=== PATIENT | male | born 1960 | race Caucasian/White ===

== ENCOUNTER 2017-01-06 20:56 | Inpatient (IN) | payer OTHER ==
[2017-01-06 21:52] LABS: % IMMATURE GRANULYOCYTES 0.4 % (0.0-1.1); ABSOLUTE IMMATURE GRANULOCYTES 0.04 10^3/uL (0.00-0.10); ADD DIFF? NO; ADD MORPH? NO; ADD SCAN? NO; ATYPICAL LYMPHOCYTE FLAG 10 (0-99); FRAGMENT RBC FLAG 0 (0-99); HEMOGLOBIN 12.2 g/dL (13.7-17.5); LEFT SHIFT FLG 0 (0-99); LIPEMIA HEMOLYSIS FLAG 90 (0-99); MEAN CELL HEMOGLOBIN 30.6 pg (27.9-34.1); MEAN CELL HEMOGLOBIN CONCENTR. 33.9 g/dL (32.4-36.7); MEAN CELL VOLUME 90.2 fL (81.5-99.8); MEAN PLATELET VOLUME 9.9 fL (8.7-11.7); PLATELET CLUMPS FLAG 0 (0-99); PLATELET COUNT 306 10^3/uL (150-400); RED BLOOD CELL COUNT 3.99 10^6/uL (4.40-6.38); RED CELL DISTRIBUTION WIDTH 14.6 % (11.5-15.2)
--- NOTE | 2017-01-06 22:00 | EDPHY ---
H & P Stated Complaint: right foot bone infection- sent by clinic Time Seen by Provider: 01/06/17 21:51 HPI/ROS: Chief Complaint: Right foot pain HPI: 56-year-old diabetic male with a history of transmetatarsal amputation in the past by Dr. Tello for gangrene. Patient has been having increasing pain for the last 2 weeks. He has a nonhealing ulcer over the 1st metatarsal which is chronic. Patient was sent for an MRI today which was positive for osteomyelitis of the metatarsals. This was done at [facility]. He denies fevers or chills. Has increasing pain. No nausea or vomiting. No chest pain or shortness of breath. ROS: 10 point Review of Systems is negative except as noted in the HPI. PMH: Diabetes, atrial fibrillation, coronary artery disease, peripheral vascular disease, hypertension, pulmonary hypertension, diverticulitis Social History: Positive smoking, no alcohol, no recreational drug use Family History: non-contributory Physical Exam: Gen: Awake, Alert, No Distress HEENT: Nose: no rhinorrhea Eyes: PERRLA, EOMI Mouth: Moist mucosa Neck: Supple, no JVD Chest: nontender, lungs clear to auscultation Heart: S1, S2 normal, no murmur Abd: Soft, non-tender, no guarding Back: no CVA tenderness, no midline tenderness Ext: 2+ nonpitting edema, right foot has a transmetatarsal amputation with an open nonhealing ulcer over the 1st metatarsal. There is erythema to the mid foot. He has chronic vascular changes to bilateral lower extremities Skin: Per extremity exam Neuro: CN II-XII intact, Sensation grossly intact, Strength 5/5 in bilateral upper and lower extremities - Personal History Current Tetanus Diphtheria and Acellular Pertussis (TDAP): Unsure - Medical/Surgical History Hx Asthma: No Hx Chronic Respiratory Disease: No Hx Diabetes: Yes Hx Cardiac Disease: Yes Hx Renal Disease: No Hx Cirrhosis: No Hx Alcoholism: No Hx HIV/AIDS: No Hx Splenectomy or Spleen Trauma: No Other PMH: Gout, Arthritis, DM, HTN, Stents in Heart, Afib, CAD, Periferal Vascular Disease - Social History Smoking Status: Heavy smoker Constitutional: Initial Vital Signs Temperature (C) 37.6 C 01/06/17 21:06 Heart Rate 112 H 01/06/17 21:06 Respiratory Rate 24 H 01/06/17 21:06 Blood Pressure 155/77 H 01/06/17 21:06 O2 Sat (%) 90 L 01/06/17 21:06 O2 Delivery Mode Room Air Allergies/Adverse Reactions: latex Allergy (Verified 01/06/17 21:05) Home Medications: Medication Instructions Recorded Rivaroxaban [Xarelto] 20 mg PO DAILY 08/16/15 Insulin Detemir [Levemir] 60 unit SQ HS #1 vial 08/30/15 Insulin Lispro [Humalog] 15 unit SQ AC #1 vial 08/30/15 oxyCODONE IR [Oxycodone Ir (*)] 5 - 10 mg PO Q3 PRN #14 tab 08/30/15 Lisinopril [Zestril 20 mg (*)] 20 mg PO DAILY 10/08/15 metFORMIN HCL [Glucophage 500 mg 1,000 mg PO BIDMEAL 10/08/15 (*)] Amoxicillin/Clavulanate Pot 875 mg PO BID #20 tab 10/09/15 [Augmentin 875 MG TAB (*)] Atorvastatin Calcium [Lipitor 40 40 mg PO DAILY #0 tab 10/09/15 mg (*)] Carvedilol [Coreg (*)] 25 mg PO BIDMEAL #0 tab 10/09/15 Clopidogrel Bisulfate [Plavix (*)] 75 mg PO DAILY #0 tab 10/09/15 Digoxin [Lanoxin 0.25 mg] 0.25 mg PO DAILY10 #0 tab 10/09/15 Diltiazem Cd [Cardizem ER 120 MG 120 mg PO DAILY #0 cap 10/09/15 (*)] Furosemide [Lasix 20 MG (*)] 20 mg PO DAILY #0 tab 10/09/15 Gabapentin [Neurontin 300 MG (*)] 600 mg PO TID #0 cap 10/09/15 Insulin Lispro [humALOG LISPRO 100 0 unit SC TIDMEAL #0 unit 10/09/15 units/ml (*)] oxyCODONE/APAP 5/325 [Percocet 1 - 2 tab PO Q4 PRN #30 tab 10/09/15 5/325 (*)] Medical Decision Making ED Course/Re-evaluation: Case discussed with Dr. Tello, surgery. He is asking the patient be admitted to the hospitalist service. He will see the patient in the morning and evaluate for possible surgical treatment. Case discussed with Dr. Warren, hospitalist. She will admit to her service. I have ordered 1 g of vanc IV vancomycin. Patient is comfortable was not require analgesia at this time. - Data Points Laboratory Results: Laboratory Results 01/06/17 21:38 01/06/17 21:38 01/06/17 01/06/17 01/06/17 21:38 21:38 21:38 WBC 9.15 10^3/uL 10^3/uL (3.80-9.50) RBC 3.99 10^6/uL L 10^6/uL (4.40-6.38) Hgb 12.2 g/dL L g/dL (13.7-17.5) Hct 36.0 % L % (40.0-51.0) MCV 90.2 fL fL (81.5-99.8) MCH 30.6 pg pg (27.9-34.1) MCHC 33.9 g/dL g/dL (32.4-36.7) RDW 14.6 % % (11.5-15.2) Plt Count 306 10^3/uL 10^3/uL (150-400) MPV 9.9 fL fL (8.7-11.7) Neut % (Auto) 66.6 % % (39.3-74.2) Lymph % (Auto) 23.1 % % (15.0-45.0) [place] % (Auto) 8.1 % % (4.5-13.0) Eos % (Auto) 1.4 % % (0.6-7.6) Baso % (Auto) 0.4 % % (0.3-1.7) Nucleat RBC Rel Count 0.0 % % (0.0-0.2) Absolute Neuts (auto) 6.09 10^3/uL 10^3/uL (1.70-6.50) Absolute Lymphs (auto) 2.11 10^3/uL 10^3/uL (1.00-3.00) Absolute Monos (auto) 0.74 10^3/uL 10^3/uL (0.30-0.80) Absolute Eos (auto) 0.13 10^3/uL 10^3/uL (0.03-0.40) Absolute Basos (auto) 0.04 10^3/uL 10^3/uL (0.02-0.10) Absolute Nucleated RBC 0.00 10^3/uL 10^3/uL (0-0.01) Immature Gran % 0.4 % % (0.0-1.1) Immature Gran # 0.04 10^3/uL 10^3/uL (0.00-0.10) VBG Lactic Acid 2.1 mmol/L mmol/L (0.7-2.1) Sodium 134 mEq/L mEq/L (134-144) Potassium 4.4 mEq/L mEq/L (3.5-5.2) Chloride 98 mEq/L mEq/L (97-110) Carbon Dioxide 26 mEq/l mEq/l (22-31) Anion Gap 10 mEq/L mEq/L (8-16) BUN 22 mg/dL mg/dL (7-23) Creatinine 0.9 mg/dL mg/dL (0.7-1.3) Estimated GFR > 60 Glucose 206 mg/dL H mg/dL (70-100) Calcium 8.8 mg/dL mg/dL (8.5-10.4) Departure - Departure Disposition: [facility] Acute Condition: Fair Referrals: Palak Velez, PAC [Primary Care Provider] - As per Instructions
[2017-01-06 22:09] LABS: ANION GAP 10 mEq/L (8-16); CALCIUM 8.8 mg/dL (8.5-10.4); CARBON DIOXIDE 26 mEq/l (22-31); CHLORIDE 98 mEq/L (97-110); CREATININE 0.9 mg/dL (0.7-1.3); GLOMERULAR FILTRATION RATE > 60; GLUCOSE 206 mg/dL (70-100); POTASSIUM 4.4 mEq/L (3.5-5.2); SODIUM 134 mEq/L (134-144)
[2017-01-06] MEDS ORDERED: VANCOMYCIN HCL/NORMAL SALINE 250 ML IV ONE (22:56)
[2017-01-06] MEDS ORDERED: HYDROmorphONE/DILAUDID 1 MG/ML SYR IVP ONE (23:38)
[2017-01-06] MEDS ORDERED: GABAPENTIN 300 MG CAP PO ONE (23:42)
[2017-01-06] MEDS ORDERED: oxyCODONE IR 5 MG TAB PO ONE (23:42)
[2017-01-07] MEDS ORDERED: ONDANSETRON 4 MG/2 ML VIAL IVP PRN (00:27)
[2017-01-07] MEDS ORDERED: ACETAMINOPHEN 325 MG TAB PO PRN (00:27)
[2017-01-07] MEDS ORDERED: HYDROmorphONE/DILAUDID 1 MG/ML SYR IVP PRN (00:27)
[2017-01-07] MEDS ORDERED: ONDANSETRON DISINTEGRATING 4 MG TAB PO PRN (00:27)
[2017-01-07] MEDS: oxyCODONE IR 5 MG TAB PO PRN ×3 (00:42→13:05)
[2017-01-07] MEDS ORDERED: D50W 25 GM/50 ML SYR IVP PRN (01:24)
[2017-01-07 02:32] LABS: INR 3.15 (0.83-1.16); PROTIME(PATIENT) 32.8 SEC (12.0-15.0)
[2017-01-07 02:38] LABS: DIGOXIN 0.9 ng/mL (0.8-2.0)
[2017-01-07 03:16] LABS: APTT 54.2 SEC (23.0-38.0)
--- NOTE | 2017-01-07 05:20 | PDGENHP ---
History and Physical - Chief Complaint osteomyelitis of R foot wound - History of Present Illness Patient is a 56-year-old male with a history of DM2, CAD, atrial fibrillation , hypertension, hyperlipidemia, diastolic CHF, peripheral vascular disease who presents to the ED after outpatient imaging reveals osteomyelitis of a right foot wound. patient reports he had a transmetatarsal amputation of his right foot about a year ago. Postoperatively, patient had slow wound healing per his report, was following closely with vascular surgery. He has had a chronic nonhealing ulcer at the site of his TMA scar, which has recently become more erythematous, tender and with purulent discharge. today was evaluated in the outpatient setting, an MRI was ordered and completed at [facility]. He was informed that the MRI revealed evidence of an osteomyelitis and was told to come to the ED for further management. He denies any significant systemic symptoms, denies any obvious fevers, chills, nausea, vomiting, shortness of breath or chest pain. He does have increased pain in his right foot extending into his calf/su area. On arrival to the ED patient was afebrile and hemodynamically stable. Labs only showed hyperglycemia, without leukocytosis or significantly elevated lactic acid. He was cultured and initiated on IV vancomycin and admitted to the hospitalist service for further management. History Information - Allergies/Home Medication List Allergies/Adverse Reactions: latex Allergy (Verified 01/06/17 21:05) Home Medications: Rivaroxaban [Xarelto] 20 mg PO DAILY 08/16/15 [Last Taken 10/07/15 12:00] Lisinopril [Zestril 20 mg (*)] 20 mg PO DAILY 10/08/15 [Last Taken 10/08/15] metFORMIN HCL [Glucophage 500 mg (*)] 1,000 mg PO BIDMEAL 10/08/15 [Last Taken 10/07/15] I have personally reviewed and updated: family history, medical history, social history, surgical history - Past Medical History Additional medical history: Atrial fibrillation, on Xarelto. CAD, S/P PCI. hypertension. hyperlipidemia. diastolic CHF. diabetes mellitus type 2, on insulin. peripheral vascular disease. obstructive sleep apnea on nocturnal O2 - Surgical History Additional surgical history: right foot TMA 10/2015 - Family History Positive for: non-pertinent - Social History Smoking Status: Heavy smoker (1-2 packs a day) Alcohol Use: None Drug Use: None Additional social history: patient lives with his family, is originally from [facility], has been [place] many years Review of Systems ROS: 10pt was reviewed & negative except for what was stated in HPI & below Physical Exam Temp Pulse Resp BP Pulse Ox 36.8 C 97 28 H 138/78 H 90 L 01/07/17 01:04 01/07/17 01:04 01/07/17 01:04 01/07/17 01:04 01/07/17 01:04 Constitutional: no apparent distress, not in pain, obese Eyes: PERRL, anicteric sclera, EOMI Ears, Nose, Mouth, Throat: moist mucous membranes, hearing normal, ears appear normal, no oral mucosal ulcers Cardiovascular: no murmur, rub, or gallop, irregularly irregular, edema ( bilateral lower extremity edema), No JVD Peripheral Pulses: 0: dorsalis-pedis (R), 1+: dorsalis-pedis (L) Respiratory: no respiratory distress, no rales or rhonchi, clear to auscultation Gastrointestinal: normoactive bowel sounds, soft, non-tender abdomen, no palpable masses, No guarding, No rebound, No distension Genitourinary: no bladder fullness, no bladder tenderness Skin: other ( right foot s/p TMA with chronic ulcer with purulence and surrounding erythema and tenderness) Musculoskeletal: full muscle strength, no muscle tenderness, normal joint ROM, no joint effusions Neurologic: AAOx3, sensation intact bilaterally, CN II-XII Intact, No weakness, No numbness Psychiatric: interacting appropriately, not anxious, not encephalopathic, thought process linear Lab Data & Imaging Review 01/06/17 21:38 01/06/17 21:38 WBC 9.15 10^3/uL (3.80-9.50) 01/06/17 21:38 RBC 3.99 10^6/uL (4.40-6.38) L 01/06/17 21:38 Hgb 12.2 g/dL (13.7-17.5) L 01/06/17 21:38 Hct 36.0 % (40.0-51.0) L 01/06/17 21:38 MCV 90.2 fL (81.5-99.8) 01/06/17 21:38 MCH 30.6 pg (27.9-34.1) 01/06/17 21:38 MCHC 33.9 g/dL (32.4-36.7) 01/06/17 21:38 RDW 14.6 % (11.5-15.2) 01/06/17 21:38 Plt Count 306 10^3/uL (150-400) 01/06/17 21:38 MPV 9.9 fL (8.7-11.7) 01/06/17 21:38 Neut % (Auto) 66.6 % (39.3-74.2) 01/06/17 21:38 Lymph % (Auto) 23.1 % (15.0-45.0) 01/06/17 21:38 [place] % (Auto) 8.1 % (4.5-13.0) 01/06/17 21:38 Eos % (Auto) 1.4 % (0.6-7.6) 01/06/17 21:38 Baso % (Auto) 0.4 % (0.3-1.7) 01/06/17 21:38 Nucleat RBC Rel Count 0.0 % (0.0-0.2) 01/06/17 21:38 Absolute Neuts (auto) 6.09 10^3/uL (1.70-6.50) 01/06/17 21:38 Absolute Lymphs (auto) 2.11 10^3/uL (1.00-3.00) 01/06/17 21:38 Absolute Monos (auto) 0.74 10^3/uL (0.30-0.80) 01/06/17 21:38 Absolute Eos (auto) 0.13 10^3/uL (0.03-0.40) 01/06/17 21:38 Absolute Basos (auto) 0.04 10^3/uL (0.02-0.10) 01/06/17 21:38 Absolute Nucleated RBC 0.00 10^3/uL (0-0.01) 01/06/17 21:38 Immature Gran % 0.4 % (0.0-1.1) 01/06/17 21:38 Immature Gran # 0.04 10^3/uL (0.00-0.10) 01/06/17 21:38 PT 32.8 SEC (12.0-15.0) H 01/07/17 01:50 INR 3.15 (0.83-1.16) H 01/07/17 01:50 APTT 54.2 SEC (23.0-38.0) H 01/07/17 01:50 VBG Lactic Acid 2.1 mmol/L (0.7-2.1) 01/06/17 21:38 Sodium 134 mEq/L (134-144) 01/06/17 21:38 Potassium 4.4 mEq/L (3.5-5.2) 01/06/17 21:38 Chloride 98 mEq/L (97-110) 01/06/17 21:38 Carbon Dioxide 26 mEq/l (22-31) 01/06/17 21:38 Anion Gap 10 mEq/L (8-16) 01/06/17 21:38 BUN 22 mg/dL (7-23) 01/06/17 21:38 Creatinine 0.9 mg/dL (0.7-1.3) 01/06/17 21:38 Estimated GFR > 60 01/06/17 21:38 Glucose 206 mg/dL (70-100) H 01/06/17 21:38 Calcium 8.8 mg/dL (8.5-10.4) 01/06/17 21:38 Magnesium 2.0 mg/dL (1.6-2.3) 01/07/17 01:50 Digoxin 0.9 ng/mL (0.8-2.0) 01/07/17 01:50 Visualized and Interpreted imaging results: Yes Interpretation: MRI of right foot: Osteomyelitis of metatarsals Assessment & Plan Assessment: patient is a 56-year-old male with history of DM 2, peripheral vascular disease , CAD, diastolic dysfunction who presents to the ED with a right foot wound, outpatient MRI has confirmed osteomyelitis at the site of the wound. Plan: # R diabetic foot wound, osteomyelitis Patient has no systemic signs of infection, does not meet SIRS criteria, is afebrile and without leukocytosis. However, wound examination and MRI findings reveal cellulitis of R foot wound with confirmed osteomyelitis of the metatarsals. He was cultured, initiated on IV vancomycin. Will order PICC line and continue vanc, vascular surgery was consulted and will evaluate patient in the a.m. regarding need for debridement. # coagulopathy Patient is on xarelto, which can cause pt/ptt abnormalities. Given no signs of severe sepsis, do not suspect this is due to his infection. However, given possible need for debridement of his wound, will hold xarelto may need to reverse coagulopathy with ffp. # chronic afib Patient irregular on exam, but appears to be well rate-controlled. Digoxin level is wnl. Will check EKG, confirm and continue his home med regimen, except xarelto. # cad, diastolic CHF Patient denies any cardiac symptoms on today's presentation. Does have bilateral edema of lower extremities. Will check TTE, EKG and resume his home med regimen once confirmed. # DM2, Hyperglycemic on presentation, possibly due to acute infection. Will confirm and resume his home levemir dosing, as well as initiate sliding scale coverage TIDACD. # chronic tobacco use, PHANI, chronic respiratory failure Patient reports he is prescribed nocturnal O2 via nasal cannula, is not always complaint with this. Saturating well on presentation, denies any respiratory symptoms. Will provide supplemental O2 prn, offer nicotine replacement and provide nebs prn. # dispo: admit to inpatient service for likely > 2 [place] stay # gen: NPO for possible surgical procedure DVT ppx: on xarelto Full code
[2017-01-07 05:36] LABS: % IMMATURE GRANULYOCYTES 0.3 % (0.0-1.1); ABSOLUTE IMMATURE GRANULOCYTES 0.03 10^3/uL (0.00-0.10); ADD DIFF? NO; ADD MORPH? NO; ADD SCAN? NO; ATYPICAL LYMPHOCYTE FLAG 0 (0-99); FRAGMENT RBC FLAG 0 (0-99); HEMATOCRIT 35.5 % (40.0-51.0); HEMOGLOBIN 11.9 g/dL (13.7-17.5); LEFT SHIFT FLG 0 (0-99); LIPEMIA HEMOLYSIS FLAG 80 (0-99); MEAN CELL HEMOGLOBIN 29.8 pg (27.9-34.1); MEAN CELL HEMOGLOBIN CONCENTR. 33.5 g/dL (32.4-36.7); MEAN CELL VOLUME 88.8 fL (81.5-99.8); MEAN PLATELET VOLUME 9.7 fL (8.7-11.7); PLATELET CLUMPS FLAG 0 (0-99); PLATELET COUNT 303 10^3/uL (150-400); RED CELL DISTRIBUTION WIDTH 14.6 % (11.5-15.2)
[2017-01-07 05:44] LABS: ANION GAP 8 mEq/L (8-16); C-REACTIVE PROTEIN 74.9 mg/L (<10.0); CALCIUM 8.5 mg/dL (8.5-10.4); CARBON DIOXIDE 26 mEq/l (22-31); CHLORIDE 104 mEq/L (97-110); CREATININE 0.8 mg/dL (0.7-1.3); GLOMERULAR FILTRATION RATE > 60; GLUCOSE 136 mg/dL (70-100); POTASSIUM 4.8 mEq/L (3.5-5.2); SODIUM 138 mEq/L (134-144)
--- NOTE | 2017-01-07 05:57 | CPEKG ---
Heart Rate: 86 RR Interval: 698 QRSD Interval: 100 QT Interval: 320 QTC Interval: 383 QRS Elmer: 82 T Wave Elmer: 253 EKG Severity - ABNORMAL ECG - EKG Impression: ATRIAL FIBRILLATION EKG Impression: CONSIDER ANTERIOR INFARCT Electronically Signed By: Corky Garcia 07-Jan-2017 06:22:59
[2017-01-07] MEDS ORDERED: ALTEPLASE 2 MG VIAL IVP PRN (06:11)
[2017-01-07] MEDS: VANCOMYCIN 1.25 GM in D5W 250 ML IV SCH ×2 (09:09→13:00)
[2017-01-07] MEDS: NICOTINE 14 MG/24 HR PATCH TD SCH (09:09)
[2017-01-07] MEDS: INSULIN LISPRO 100 UNIT/ML SC SCH ×3 (09:10→18:29)
--- NOTE | 2017-01-07 09:49 | HOSPPROG ---
Hospitalist Progress Note Assessment/Plan: Patient is a 56 y/o w hx of DM2, CAD, afib, htn, hld, diastolic heart failure who present to the ED after OP imaging revealed Osteomyelitis of right foot. Today is my first encounter with the patient/ chart reviewed. Reviewed his care with Dr Romero who will be seeing him today. *Osteomyelitis/right foot diabetic infection transmetatarsal amputation of r foot approximately a year ago vancomycin ID and surgery to see # coagulopathy patient is on Xarelto being held today in setting of possible surgery INR is 3.15 # chronic Atrial fibrillation reviewed his 12 lead ECG which confirms this on Digoxin and Xarelto # cad, diastolic CHF has some lower ext edema echo ordered # DM2 SSI/resume home meds #Nicotine dependence cessation recommended has PHANI and is prescribed nocturnal O2 #Plan: likely surgery tomorrow/ Plavix and Xarelto on hold for pending surgery/ will need this resumed as soon as ok with surgical team Subjective: Senads foot has been more painful than usual. Objective: Vital Signs Temp Pulse Resp BP Pulse Ox 37.1 C 97 18 132/80 H 95 01/07/17 07:29 01/07/17 07:29 01/07/17 07:29 01/07/17 07:29 01/07/17 07:29 Laboratory Results 01/07/17 05:20 01/07/17 05:20 01/06/17 01/07/17 01/08/17 05:59 05:59 05:59 Intake Total 250 Output Total 600 Balance -350 PT 32.8 SEC (12.0-15.0) H 01/07/17 01:50 INR 3.15 (0.83-1.16) H 01/07/17 01:50 - Physical Exam Constitutional: chronically ill appearing, uncomfortable Eyes: PERRL Ears, Nose, Mouth, Throat: hearing normal Cardiovascular: systolic murmur, irregularly irregular Respiratory: no respiratory distress Gastrointestinal: normoactive bowel sounds Skin: warm, other (right foot with previous amputation/ no redness or drainage, but tenderness) Musculoskeletal: muscular tenderness Neurologic: AAOx3 Psychiatric: interacting appropriately, not anxious ICD10 Worksheet Patient Problems: Problems Problem Status Onset Afib Acute Cellulitis of right foot Acute Nicotine dependence Acute Wound infection Acute
[2017-01-07 10:09] LABS: SEDIMENTATION RATE 77 MM/HR (0-20)
[2017-01-07 10:15] LABS: HEMOGLOBIN A1C 9.3 % (4.0-6.0)
[2017-01-07] MEDS: VANCOMYCIN 1.5 GM in D5W 250 ML IV SCH (12:57)
--- NOTE | 2017-01-07 14:50 | ECHO ---
[id number] + + [address] : : [place] [address] : : [phone] + + Adult Echocardiographic Report + ---+ :Name: ROSS Ambar Date: 01/07/2017 10:10 AM : : Hospital Admission Number: [id number] Location: 358: :: 1960 Gender: Male Height: 67 in : :Age: 56 yrs Race: WH Weight: 220 lb : :Reason For Study: Eval LV Fx : : BSA: 2.1 meters2 : :History: Lower Extremity Edema : + ---+ MMode/2D Measurements \T\ Calculations IVSd: 1.3 cm LVIDd: 4.4 cm FS: 40.2 % Ao root diam: 3.1 cm LVPWd: 1.2 cm LVIDs: 2.6 cm EDV(Teich): 85.5 ml LA dimension: 1.3 cm ESV(Teich): 24.7 ml EF(Teich): 71.1 % Normal Measurement Values: + + :LVIDd (3.5-5.7cm) IVSd (0.6-1.1cm) LVPWd (0.6-1.1cm) Aortic Root (2.0-3.7cm)Left Atrium (1.5-4.0cm): :LV Vol(d) (76-115ml) LV Vol(s) (29-48ml) Ejec Fraction (50-65%)PV Lj (0.6- 1.2m/s) TV Lj (0.4-1.0m/s) : :MV E Lj (0.8-1.0m/s)MV A Lj (0.3-1.0m/s)LVOT Lj (0.7-1.2m/s) Asc Ao Lj ( 0.9-1.8m/s) : + + Doppler Measurements \T\ Calculations MV E max lj: Ao V2 max: AI max lj: LV V1 max: 119.9 cm/sec 232.1 cm/sec 255.2 cm/sec 74.0 cm/sec Ao max PG: AI max PG: LV V1 max P.6 mmHg 26.0 mmHg 2.2 mmHg PA V2 max: TR max lj: 96.4 cm/sec 260.6 cm/sec PA max P.7 mmHg TR max P.2 mmHg RAP systole: 5.0 mmHg RVSP(TR): 32.2 mmHg Left Ventricle The left ventricle is normal in size. There is mild concentric left ventricular hypertrophy. The left ventricular ejection fraction is normal. The rhythm is atrial fibrillation. Ejection Fraction = 70%. The left ventricular wall motion is normal. Right Ventricle The right ventricle is normal in size and function. Atria The left atrial size is normal. Right atrial size is normal. Mitral Valve There is mild focal calcification of the anterior mitral valve, this was seen on previous echo exams. Tricuspid Valve Normal tricuspid valve. There is trace to mild tricuspid regurgitation. Right ventricular systolic pressure is normal. Aortic Valve The aortic valve is trileaflet. There is no aortic stenosis. There is no aortic insufficiency. Pulmonic Valve The pulmonic valve is normal in structure and function. There is no pulmonic valvular regurgitation. Great Vessels The aortic root is normal size. Pericardium/Pleural There is no pericardial effusion. Conclusion A complete two-dimensional transthoracic echocardiogram was performed (2D, M-mode, Doppler and color flow Doppler). A complete two-dimensional transthoracic echocardiogram was performed (2D, M-mode, Doppler and color flow Doppler). There is mild concentric left ventricular hypertrophy. The left ventricular ejection fraction is normal. The rhythm is atrial fibrillation Ejection Fraction = 70%. The left ventricular wall motion is normal. The left atrial size is normal. There is mild focal calcification of the anterior mitral valve, this was seen on previous echo exams. There is trace to mild tricuspid regurgitation. Right ventricular systolic pressure is normal. The aortic valve is trileaflet. There is no pericardial effusion. Final Reading Physician: Konrad Granados signed on 01/07/2017 02:49 PM Ordering Physician: Janet Warren Performed By: Hussein Bautista, HOLLYCS
[2017-01-07] MEDS ORDERED: CLOPIDOGREL BISULFATE 75 MG TAB PO SCH (16:00)
[2017-01-07] MEDS: GABAPENTIN 100 MG CAP PO SCH ×2 (16:39→22:11)
[2017-01-07] MEDS: FUROSEMIDE 20 MG TAB PO SCH ×2 (16:39→22:10)
[2017-01-07] MEDS: GABAPENTIN 400 MG CAP PO SCH ×2 (16:39→22:11)
[2017-01-07] MEDS: CARVEDILOL 25 MG TAB PO SCH (16:39)
[2017-01-07] MEDS ORDERED: VANCOMYCIN 1.25 GM in D5W 250 ML IV SCH (17:00)
[2017-01-07] MEDS: DILTIAZEM CD 120 MG CAP PO SCH (17:21)
--- NOTE | 2017-01-07 17:39 | WOCRNPDOC ---
WOCRN Advanced Assessment Note - Skin Integrity Problem, Advanced Assess Right Foot Diabetic Ulcer Dressing Type: Open to Air Exudate Amount: None Integumentary Issue Intervention: Dressing Applied (Cavilon skin prep, Iodosorb gel, Allevyn dressing), Dressing Initialed & Dated Petra Wound Tissue: Erythema, Macerated, Calloused Petra Wound Swelling: Mild Wound Bed Color: Black, Brown, Red Wound Bed Constitution: Granulation Tissue, Adhered Slough (50%) Wound Edges: Irregular, Scarred, Thick Site Odor: None Site Measurement - Head-to-Toe Length X Width X Depth (cm): 2 x3 x 0.7 Skin Integrity Problem Comment: Wound opening at distal transmetatarsal amputation incision scar is at the great toe site. Erythema streaks are visible through [id number] coloration of the extremity. Patient reports tenderness radiating from the foot, along the lower extremity toward the knee; and that the amputation was done a year ago, followed by VAC tx for wound closure. Adherent slough and eschar occlude the rim of the wound bed. Patient reported to ANN MARIE Fitzgerald that he had been rubbing coconut oil into the scar and wound, and that he would like to return home to continue his own care. To this automatic typewriter inspector, he expressed feeling anxious that "they might amputate more," and that he has been having many difficulties coping with his current degree of disability, particularly in relation to the footwear. Explained current wound care plan and encouraged patient and son to communicate concerns and questions to the surgical team. Placed dressing, pending results of work-up and planning by surgical team. ANTOINETTE to be done by [facility] this evening.
--- NOTE | 2017-01-07 18:15 | PCMIDPN ---
Assessment/Plan: Assessment: Patient known to service from previous visit 18 months ago resulting in trans- met amputation of R foot. Apparently he has had difficulty healing this wound due to poor circulation and has developed an open ulcer that continues to drain. MRI reveals probable osteomyelitis. Covered currently on Vancomycin 1.5 g IV q 12 hours. This is fine for empiric therapy but will work with Dr. Tello to determine the operative approach as this deep infection would not be expected to ultimately resolves without debridement and coverage with soft tissue. Plan: 1) Continue empiric Vancomycin and monitor levels. 2) Follow up with surgical vascular studies and decisions on management. Subjective: Patient resting in bed. No new issues. Chronic open ulcer at site of TMA on R side. Objective: Vancomycin #1 Vital Signs Temp Pulse Resp BP Pulse Ox 37.1 C 95 16 141/81 H 96 01/07/17 15:53 01/07/17 17:21 01/07/17 15:53 01/07/17 17:21 01/07/17 15:53 Laboratory Results 01/07/17 05:20 01/07/17 05:20 01/06/17 01/07/17 01/08/17 05:59 05:59 05:59 Intake Total 250 Output Total 600 Balance -350 ESR 77 MM/HR (0-20) H 01/07/17 05:20 C-Reactive Protein 74.9 mg/L (<10.0) H 01/07/17 05:20 - Physical Exam General Appearance: WD/WN, alert, no apparent distress, non-toxic Respiratory: lungs clear, normal breath sounds Cardiac/Chest: regular rate, rhythm, No tachycardia Extremities: No normal inspection Skin: normal color, warm/dry, No rash Neuro/Psych: alert, normal mood/affect, oriented x 3 ICD10 Worksheet Patient Problems: Problems Problem Status Onset Afib Acute Cellulitis of right foot Acute Nicotine dependence Acute Wound infection Acute
--- NOTE | 2017-01-07 19:29 | SOAPPROG ---
SOAP Progress Note Assessment/Plan: Assessment: 56-YEAR-OLD MALE WELL KNOWN TO ME FROM WITH AN OPEN LESION ON HIS RIGHT FOOT AT THE TRANSMETATARSAL AMPUTATION LEVEL MRI SUGGEST OSTEOMYELITIS HAS VERY POOR CIRCULATION AND NO PALPABLE PEDAL PULSES RISKS AND OPTIONS WERE FULLY DISCUSSED WITH THE PATIENT INCLUDING THE POSSIBLE NEED FOR BK AMPUTATION WHICH SHE IS QUITE ADAMANT AGAINST Plan: A NONINVASIVE ARTERIAL STUDIES / REVIEW MRI WITH RADIOLOGY/ PROBABLE SAUCERIZATION OF THAT EXPOSED THE BONE 01/07/17 19:27 Objective: Vital Signs Temp Pulse Resp BP Pulse Ox 37.1 C 95 16 141/81 H 96 01/07/17 15:53 01/07/17 17:21 01/07/17 15:53 01/07/17 17:21 01/07/17 15:53 Laboratory Results 01/07/17 05:20 01/07/17 05:20 01/06/17 01/07/17 01/08/17 05:59 05:59 05:59 Intake Total 250 Output Total 600 1350 Balance -350 -1350 PT 32.8 SEC (12.0-15.0) H 01/07/17 01:50 INR 3.15 (0.83-1.16) H 01/07/17 01:50 ICD10 Worksheet Patient Problems: Problems Problem Status Onset Afib Acute Cellulitis of right foot Acute Nicotine dependence Acute Wound infection Acute
[2017-01-07] MEDS: Insulin Detemir [Levemir] 40 UNIT SQ SCH (22:11)
[2017-01-08] MEDS: VANCOMYCIN 1.5 GM in D5W 250 ML IV SCH ×2 (00:10→12:34)
[2017-01-08] MEDS: oxyCODONE IR 5 MG TAB PO PRN ×2 (08:48→19:43)
[2017-01-08] MEDS: GABAPENTIN 400 MG CAP PO SCH ×3 (08:49→21:33)
[2017-01-08] MEDS: DILTIAZEM CD 120 MG CAP PO SCH (08:49)
[2017-01-08] MEDS: CARVEDILOL 25 MG TAB PO SCH ×2 (08:50→18:25)
[2017-01-08] MEDS: GABAPENTIN 100 MG CAP PO SCH ×3 (08:50→21:33)
[2017-01-08] MEDS: FUROSEMIDE 20 MG TAB PO SCH ×3 (08:50→21:33)
[2017-01-08] MEDS: LISINOPRIL 20 MG TAB PO SCH (08:50)
[2017-01-08] MEDS: ATORVASTATIN CALCIUM 40 MG TAB PO SCH (08:50)
[2017-01-08] MEDS: DIGOXIN 250 MCG TAB PO SCH (08:50)
[2017-01-08] MEDS: INSULIN LISPRO 100 UNIT/ML SC SCH ×3 (08:51→18:05)
[2017-01-08] MEDS: NICOTINE 14 MG/24 HR PATCH TD SCH (08:54)
[2017-01-08] MEDS ORDERED: IOPAMIDOL (ISOVUE 370) 100 ML BTL IV ONE (10:34)
[2017-01-08] MEDS: INSULIN DETEMIR 35 UNIT SQ SCH (10:40)
--- NOTE | 2017-01-08 10:43 | SOAPPROG ---
SOAP Progress Note Assessment/Plan: Assessment: 56yo male with osteo right foot s/p transmetatarsal amputation 2016 Pain well controlled, comfortable PE comfortable alert no signs of distress Plan: CTA of lower ext today to aid in planning possible surgery over next few days seen with Dr Tello 01/08/17 10:41 Objective: Vital Signs Temp Pulse Resp BP Pulse Ox 37.2 C 96 18 146/87 H 94 01/08/17 07:41 01/08/17 08:50 01/08/17 07:41 01/08/17 08:50 01/08/17 07:41 Laboratory Results 01/07/17 05:20 01/07/17 05:20 01/07/17 01/08/17 01/09/17 05:59 05:59 05:59 Intake Total 250 950 Output Total 600 3350 Balance -350 -2400 PT 32.8 SEC (12.0-15.0) H 01/07/17 01:50 INR 3.15 (0.83-1.16) H 01/07/17 01:50 ICD10 Worksheet Patient Problems: Problems Problem Status Onset Afib Acute Cellulitis of right foot Acute Nicotine dependence Acute Wound infection Acute
--- NOTE | 2017-01-08 13:22 | HOSPPROG ---
Hospitalist Progress Note Assessment/Plan: Patient is a 56 y/o w hx of DM2, CAD, afib, htn, hld, diastolic heart failure who present to the ED after OP imaging revealed Osteomyelitis of right foot. *Osteomyelitis/right foot diabetic infection transmetatarsal amputation of r foot approximately a year ago vancomycin ID and surgery to see CTA pending # coagulopathy patient is on Xarelto (on HOLD) # chronic Atrial fibrillation reviewed his 12 lead ECG which confirms this on Digoxin [id number] score is 3 (high risk)- initiating a heparin gtt (ok with surgical team) # cad, diastolic CHF has some lower ext edema echo ordered # DM2 SSI/resume home meds #Nicotine dependence cessation recommended has PHANI and is prescribed nocturnal O2 said his smokes which makes it difficult to quit #Plan: likely surgery soon/ Plavix and Xarelto on hold for pending surgery/ will place on heparin gtt for bridge therapy Subjective: Temo is worried about the the base of his foot/left foot. Objective: Vital Signs Temp Pulse Resp BP Pulse Ox 37.0 C 94 20 138/62 H 91 L 01/08/17 11:41 01/08/17 11:41 01/08/17 11:41 01/08/17 11:41 01/08/17 11:41 Laboratory Results 01/07/17 05:20 01/07/17 05:20 01/07/17 01/08/17 01/09/17 05:59 05:59 05:59 Intake Total 250 950 Output Total 600 3350 650 Balance -350 -2400 -650 PT 32.8 SEC (12.0-15.0) H 01/07/17 01:50 INR 3.15 (0.83-1.16) H 01/07/17 01:50 - Physical Exam Constitutional: no apparent distress, not in pain Eyes: PERRL Ears, Nose, Mouth, Throat: hearing normal Cardiovascular: irregularly irregular Respiratory: no respiratory distress Gastrointestinal: normoactive bowel sounds Skin: warm, other (left foot with previous amputation, dressing in place/ left base area slightly dusky) Musculoskeletal: generalized weakness Neurologic: AAOx3 Psychiatric: interacting appropriately ICD10 Worksheet Patient Problems: Problems Problem Status Onset Afib Acute Cellulitis of right foot Acute Nicotine dependence Acute Wound infection Acute
--- NOTE | 2017-01-08 14:50 | CPIP ---
[f rep st] INVASIVE CARDIAC PROCEDURE DATE OF PROCEDURE: 01/07/2017 The patient was seen for arterial studies. He demonstrates ankle-brachial index on the right side o f 0.73, and on the left side of 0.73. However, his PVR tracings are much flatter and worse on the r ight side than the left. He does have a pulsatile flow at the ankle but very minimal. This would b e consistent with an SFA occlusion on the right. Would recommend angiography for further evaluation. The present level of flow would not support mitra jackson at the metatarsal level. /[id number]/MODL
--- NOTE | 2017-01-08 15:41 | PCMIDPN ---
Assessment/Plan: Severe PVD R 1st met OM associated with chr non healing ulcer, also lateral aspect of foot is dusky. No active cellulitis. R Superficial femoral artery now occluded --no MRSA in past, dc vancomycin --no cellulitis, no clear if needs antibiotic therapy prior to surgical intervention, will start ceftriaxone in place of vancomycin --discuss with surgery if R superficial femoral artery occlusion needs to be opened prior to debridement Subjective: mild pain associated with R foot Objective: Vital Signs Temp Pulse Resp BP Pulse Ox 37.0 C 94 20 138/62 H 91 L 01/08/17 11:41 01/08/17 11:41 01/08/17 11:41 01/08/17 11:41 01/08/17 11:41 Laboratory Results 01/07/17 05:20 01/07/17 05:20 01/07/17 01/08/17 01/09/17 05:59 05:59 05:59 Intake Total 250 950 Output Total 600 3350 650 Balance -350 -2400 -650 ESR 77 MM/HR (0-20) H 01/07/17 05:20 C-Reactive Protein 74.9 mg/L (<10.0) H 01/07/17 05:20 - Physical Exam General Appearance: alert, no apparent distress Respiratory: No respiratory distress, No accessory muscle use Extremities: other (R foot trans met with medial open wound, purulent/necrotic material in base foul smelling, no erythema. Lateral foot with some necrosis ) Skin: No rash Neuro/Psych: alert, normal mood/affect, oriented x 3 - Line/s RUE PICC Lines: No drainage, No erythema ICD10 Worksheet Patient Problems: Problems Problem Status Onset Afib Acute Cellulitis of right foot Acute Nicotine dependence Acute Wound infection Acute
--- NOTE | 2017-01-08 16:32 | SOAPPROG ---
SOAP Progress Note Assessment/Plan: Assessment: 56-YEAR-OLD MALE WELL KNOWN TO ME FROM WITH AN OPEN LESION ON HIS RIGHT FOOT AT THE TRANSMETATARSAL AMPUTATION LEVEL MRI SUGGEST OSTEOMYELITIS HAS VERY POOR CIRCULATION AND NO PALPABLE PEDAL PULSES RISKS AND OPTIONS WERE FULLY DISCUSSED WITH THE PATIENT INCLUDING THE POSSIBLE NEED FOR BK AMPUTATION WHICH SHE IS QUITE ADAMANT AGAINST Plan: A NONINVASIVE ARTERIAL STUDIES / REVIEW MRI WITH RADIOLOGY/ PROBABLE SAUCERIZATION OF THAT EXPOSED THE BONE 01/07/17 19:27 01/08/17 16:31 patient with nonhealing transmetatarsal amputation site on the right foot / are studies suggest a SFA occlusion / CTA confirms severe stenosis of his SFA stents Plan is Interventional Radiology angioplasty if feasible / if not successful in fem-pop bypass and eventual foot debridement Objective: Vital Signs Temp Pulse Resp BP Pulse Ox 37.0 C 94 20 138/62 H 91 L 01/08/17 11:41 01/08/17 11:41 01/08/17 11:41 01/08/17 11:41 01/08/17 11:41 Laboratory Results 01/07/17 05:20 01/07/17 05:20 01/07/17 01/08/17 01/09/17 05:59 05:59 05:59 Intake Total 250 950 Output Total 600 3350 650 Balance -350 -2400 -650 PT 32.8 SEC (12.0-15.0) H 01/07/17 01:50 INR 3.15 (0.83-1.16) H 01/07/17 01:50 ICD10 Worksheet Patient Problems: Problems Problem Status Onset Afib Acute Cellulitis of right foot Acute Nicotine dependence Acute Wound infection Acute
[2017-01-08] MEDS: Insulin Detemir [Levemir] 40 UNIT SQ SCH (21:33)
[2017-01-08] MEDS: HEPARIN 10,000 UNIT/10 ML MDV IVP PRN (22:20)
[2017-01-08] MEDS: HEPARIN/DEXTROSE 500 ML IV SCH (22:21)
[2017-01-09] MEDS: cefTRIAXone 2 GM in D5W 50 ML IV SCH (09:02)
[2017-01-09] MEDS: DIGOXIN 250 MCG TAB PO SCH (09:03)
[2017-01-09] MEDS: LISINOPRIL 20 MG TAB PO SCH (09:03)
[2017-01-09] MEDS: GABAPENTIN 400 MG CAP PO SCH ×3 (09:03→21:31)
[2017-01-09] MEDS: GABAPENTIN 100 MG CAP PO SCH ×3 (09:03→21:31)
[2017-01-09] MEDS: CARVEDILOL 25 MG TAB PO SCH ×2 (09:04→16:16)
[2017-01-09] MEDS: ATORVASTATIN CALCIUM 40 MG TAB PO SCH (09:04)
[2017-01-09] MEDS: DILTIAZEM CD 120 MG CAP PO SCH (09:04)
[2017-01-09] MEDS: FUROSEMIDE 20 MG TAB PO SCH ×3 (09:04→21:31)
--- NOTE | 2017-01-09 09:52 | HOSPPROG ---
Hospitalist Progress Note Assessment/Plan: Patient is a 56 y/o w hx of DM2, CAD, afib, htn, hld, diastolic heart failure who present to the ED after OP imaging revealed Osteomyelitis of right foot. *Osteomyelitis/right foot diabetic infection transmetatarsal amputation of r foot approximately a year ago vancomycin CTA shows recurrent severe stenosis of long stented segment of R SFA * Dr Tello reviewed options for treatment/plan is IR angioplasty on Wednesday, if not successful/need a fem-pop bypass and foot debridement # coagulopathy patient is on Xarelto (on HOLD) # chronic Atrial fibrillation reviewed his 12 lead ECG which confirms this on Digoxin [id number] score is 3 (high risk)- heparin gtt as bridge therapy # cad, diastolic CHF has some lower ext edema echo shows moderate LVH, ef 70% # DM2 SSI/resume home meds #Nicotine dependence cessation recommended has PHANI and is prescribed nocturnal O2 said his smokes which makes it difficult to quit #Plan: cont holding Plavix and Xarelto/ heparin gtt. Plan of care discussed with Temo. He is hopeful to not have any further amputations. Subjective: Temo is not c/o pain. Feeling well overall but is very concerned about possible treatments for his r foot. Objective: Vital Signs Temp Pulse Resp BP Pulse Ox 36.8 C 86 18 137/74 H 92 01/09/17 07:53 01/09/17 09:04 01/09/17 07:53 01/09/17 09:04 01/09/17 07:53 Laboratory Results 01/07/17 05:20 01/07/17 05:20 01/08/17 01/09/17 01/10/17 05:59 05:59 05:59 Intake Total 950 802 Output Total 3350 2520 Balance -2400 -1718 PT 32.8 SEC (12.0-15.0) H 01/07/17 01:50 INR 3.15 (0.83-1.16) H 01/07/17 01:50 - Physical Exam Constitutional: no apparent distress, uncomfortable Eyes: PERRL Ears, Nose, Mouth, Throat: hearing normal Cardiovascular: irregularly irregular Respiratory: no respiratory distress Gastrointestinal: soft, non-tender abdomen Skin: warm Musculoskeletal: No no muscle tenderness (right foot area) Neurologic: AAOx3 Psychiatric: interacting appropriately, anxious ICD10 Worksheet Patient Problems: Problems Problem Status Onset Afib Acute Cellulitis of right foot Acute Nicotine dependence Acute Wound infection Acute
[2017-01-09] MEDS: INSULIN LISPRO 100 UNIT/ML SC SCH ×3 (10:32→19:00)
[2017-01-09] MEDS: INSULIN DETEMIR 35 UNIT SQ SCH (11:17)
[2017-01-09] MEDS: NICOTINE 14 MG/24 HR PATCH TD SCH (11:18)
--- NOTE | 2017-01-09 13:19 | SOAPPROG ---
SOAP Progress Note Assessment/Plan: Assessment: 56-YEAR-OLD MALE WELL KNOWN TO ME FROM WITH AN OPEN LESION ON HIS RIGHT FOOT AT THE TRANSMETATARSAL AMPUTATION LEVEL MRI SUGGEST OSTEOMYELITIS HAS VERY POOR CIRCULATION AND NO PALPABLE PEDAL PULSES RISKS AND OPTIONS WERE FULLY DISCUSSED WITH THE PATIENT INCLUDING THE POSSIBLE NEED FOR BK AMPUTATION WHICH SHE IS QUITE ADAMANT AGAINST Plan: A NONINVASIVE ARTERIAL STUDIES / REVIEW MRI WITH RADIOLOGY/ PROBABLE SAUCERIZATION OF THAT EXPOSED THE BONE 01/07/17 19:27 01/08/17 16:31 patient with nonhealing transmetatarsal amputation site on the right foot / are studies suggest a SFA occlusion / CTA confirms severe stenosis of his SFA stents Plan is Interventional Radiology angioplasty if feasible / if not successful in fem-pop bypass and eventual foot debridement 01/09/17 13:18 STABLE/ AFEBRILE/ ANGIOPLASTY ON WEDNESDAY/ WOUND OK Objective: Vital Signs Temp Pulse Resp BP Pulse Ox 37.0 C 76 18 123/65 H 93 01/09/17 12:00 01/09/17 12:00 01/09/17 12:00 01/09/17 12:00 01/09/17 12:00 Laboratory Results 01/07/17 05:20 01/07/17 05:20 01/08/17 01/09/17 01/10/17 05:59 05:59 05:59 Intake Total 950 802 Output Total 3350 2520 Balance -2400 -1718 PT 32.8 SEC (12.0-15.0) H 01/07/17 01:50 INR 3.15 (0.83-1.16) H 01/07/17 01:50 ICD10 Worksheet Patient Problems: Problems Problem Status Onset Afib Acute Cellulitis of right foot Acute Nicotine dependence Acute Wound infection Acute
[2017-01-09] MEDS: Insulin Detemir [Levemir] 40 UNIT SQ SCH (21:31)
[2017-01-10] MEDS: oxyCODONE IR 5 MG TAB PO PRN ×3 (06:05→21:46)
[2017-01-10] MEDS: INSULIN DETEMIR 35 UNIT SQ SCH (08:17)
[2017-01-10] MEDS: DILTIAZEM CD 120 MG CAP PO SCH (08:17)
[2017-01-10] MEDS: LISINOPRIL 20 MG TAB PO SCH (08:18)
[2017-01-10] MEDS: ATORVASTATIN CALCIUM 40 MG TAB PO SCH (08:18)
[2017-01-10] MEDS: GABAPENTIN 400 MG CAP PO SCH ×3 (08:18→21:46)
[2017-01-10] MEDS: CARVEDILOL 25 MG TAB PO SCH ×2 (08:18→16:42)
[2017-01-10] MEDS: GABAPENTIN 100 MG CAP PO SCH ×3 (08:18→21:45)
[2017-01-10] MEDS: cefTRIAXone 2 GM in D5W 50 ML IV SCH (08:19)
[2017-01-10] MEDS: NICOTINE 14 MG/24 HR PATCH TD SCH (08:19)
[2017-01-10] MEDS: FUROSEMIDE 20 MG TAB PO SCH ×3 (08:19→21:47)
[2017-01-10] MEDS: INSULIN LISPRO 100 UNIT/ML SC SCH ×3 (10:10→18:29)
[2017-01-10] MEDS: DIGOXIN 250 MCG TAB PO SCH (10:13)
--- NOTE | 2017-01-10 11:16 | HOSPPROG ---
Hospitalist Progress Note Assessment/Plan: Patient is a 56 y/o w hx of DM2, CAD, afib, htn, hld, diastolic heart failure who present to the ED after OP imaging revealed Osteomyelitis of right foot. *Osteomyelitis/right foot diabetic infection transmetatarsal amputation of r foot approximately a year ago vancomycin CTA shows recurrent severe stenosis of long stented segment of R SFA * Dr Tello reviewed options for treatment/plan is IR angioplasty on Wednesday, if not successful/need a fem-pop bypass and foot debridement # coagulopathy patient is on Xarelto (on HOLD) # chronic Atrial fibrillation reviewed his 12 lead ECG which confirms this on Digoxin [id number] score is 3 (high risk)- heparin gtt as bridge therapy # cad, diastolic CHF has some lower ext edema echo shows moderate LVH, ef 70% # DM2 SSI glucoses low in a.m. /holding long acting night dose #Nicotine dependence cessation recommended has PHANI and is prescribed nocturnal O2 said his smokes which makes it difficult to quit #Plan: cont holding Plavix and Xarelto/on heparin gtt. Plan of care discussed with Temo. He is hopeful to not have any further amputations. Subjective: Temo is worried about his foot/ concerned the bone is showing through from the incision. Objective: Vital Signs Temp Pulse Resp BP Pulse Ox 36.8 C 87 20 149/80 H 95 01/10/17 07:28 01/10/17 10:13 01/10/17 07:28 01/10/17 08:18 01/10/17 07:28 Laboratory Results 01/10/17 04:10 01/07/17 05:20 01/09/17 01/10/17 01/11/17 05:59 05:59 05:59 Intake Total 802 878 500 Output Total 2520 795 550 Balance -1718 83 -50 PT 32.8 SEC (12.0-15.0) H 01/07/17 01:50 INR 3.15 (0.83-1.16) H 01/07/17 01:50 - Physical Exam Constitutional: appears nourished, uncomfortable Eyes: PERRL Ears, Nose, Mouth, Throat: hearing normal Cardiovascular: irregularly irregular Respiratory: no respiratory distress Gastrointestinal: normoactive bowel sounds, soft, non-tender abdomen Skin: warm Musculoskeletal: No no muscle tenderness Neurologic: AAOx3 Psychiatric: interacting appropriately, not anxious, not encephalopathic ICD10 Worksheet Patient Problems: Problems Problem Status Onset Afib Acute Cellulitis of right foot Acute Nicotine dependence Acute Wound infection Acute
--- NOTE | 2017-01-10 12:09 | SOAPPROG ---
ELDA Progress Note Assessment/Plan: Assessment: 56-YEAR-OLD MALE WELL KNOWN TO ME FROM WITH AN OPEN LESION ON HIS RIGHT FOOT AT THE TRANSMETATARSAL AMPUTATION LEVEL MRI SUGGEST OSTEOMYELITIS HAS VERY POOR CIRCULATION AND NO PALPABLE PEDAL PULSES RISKS AND OPTIONS WERE FULLY DISCUSSED WITH THE PATIENT INCLUDING THE POSSIBLE NEED FOR BK AMPUTATION WHICH SHE IS QUITE ADAMANT AGAINST Plan: A NONINVASIVE ARTERIAL STUDIES / REVIEW MRI WITH RADIOLOGY/ PROBABLE SAUCERIZATION OF THAT EXPOSED THE BONE 01/07/17 19:27 01/08/17 16:31 patient with nonhealing transmetatarsal amputation site on the right foot / are studies suggest a SFA occlusion / CTA confirms severe stenosis of his SFA stents Plan is Interventional Radiology angioplasty if feasible / if not successful in fem-pop bypass and eventual foot debridement 01/09/17 13:18 STABLE/ AFEBRILE/ ANGIOPLASTY ON WEDNESDAY/ WOUND OK 01/10/17 12:08 FOOT WOUND IS STABLE/ AFEBRILE / PLAN IS ANGIOPLASTY TOMORROW TO IMPROVE CIRCULATION / IF NOT SUCCESSFUL THEN FEM-POP BYPASS Objective: Vital Signs Temp Pulse Resp BP Pulse Ox 36.6 C 78 18 119/66 95 01/10/17 11:40 01/10/17 11:40 01/10/17 11:40 01/10/17 11:40 01/10/17 11:40 Laboratory Results 01/10/17 04:10 01/07/17 05:20 01/09/17 01/10/17 01/11/17 05:59 05:59 05:59 Intake Total 802 878 500 Output Total 2520 795 550 Balance -1718 83 -50 PT 32.8 SEC (12.0-15.0) H 01/07/17 01:50 INR 3.15 (0.83-1.16) H 01/07/17 01:50 ICD10 Worksheet Patient Problems: Problems Problem Status Onset Afib Acute Cellulitis of right foot Acute Nicotine dependence Acute Wound infection Acute
--- NOTE | 2017-01-10 12:15 | PCMIDPN ---
Assessment/Plan: 56 yo male with Severe PVD, R 1st met OM associated with chr non healing ulcer, also lateral aspect of foot is dusky. No active cellulitis. R Superficial femoral artery now occluded awaiting percutaneous intervention and if not successful then fem pop --no cellulitis, DC antibiotics until definitive management with revision. --will follow peripherally until formal debridement of foot Subjective: occasional pain of R foot Objective: Vital Signs Temp Pulse Resp BP Pulse Ox 36.6 C 78 18 119/66 95 01/10/17 11:40 01/10/17 11:40 01/10/17 11:40 01/10/17 11:40 01/10/17 11:40 Laboratory Results 01/10/17 04:10 01/07/17 05:20 01/09/17 01/10/17 01/11/17 05:59 05:59 05:59 Intake Total 802 878 500 Output Total 2520 795 550 Balance -1718 83 -50 ESR 77 MM/HR (0-20) H 01/07/17 05:20 C-Reactive Protein 74.9 mg/L (<10.0) H 01/07/17 05:20 - Physical Exam General Appearance: alert, no apparent distress EENT: No scleral icterus Respiratory: No accessory muscle use Extremities: No erythema (RLE; open wound medial foot, foul smelling, necrotic material, +exposed bone) Neuro/Psych: alert, oriented x 3 - Line/s RUE PICC Lines: No drainage, No erythema ICD10 Worksheet Patient Problems: Problems Problem Status Onset Afib Acute Cellulitis of right foot Acute Nicotine dependence Acute Wound infection Acute
--- NOTE | 2017-01-10 14:22 | WOCRNPDOC ---
WOCRN Advanced Assessment Note - Skin Integrity Problem, Advanced Assess Right Foot Diabetic Ulcer Dressing Type: Gauze, Iodoform Packing, Kerlix Dressing Description: Shadowed Closure Description: Not Approximated Exudate Amount: Moderate Exudate Color: Reddish/Yellow Exudate Characteristic(s): Serosanguinous Integumentary Issue Intervention: Dressing Applied, Dressing Changed Ovi Wound Tissue: Ecchymotic (along lateral aspect of foot), Hemosiderin Staining, Venous Dermatitis, Xerotic, Hyperkeratotic Ovi Wound Swelling: Mild Wound Bed Color: Red, Yellow, White Wound Bed Constitution: Smooth Tissue, Bone, Adhered Slough Wound Edges: Scarred, Thick Site Odor: Slight Site Measurement - Head-to-Toe Length X Width X Depth (cm): 2.1cmx3.2cmx0.6cm Skin Integrity Problem Comment: Recieved consult request from nursing because patient's dressing was becoming saturated and causing ovi-wound maceration. Nursing packed w/ Iodoform gauze and covered w/ gauze and Kerlix, per patient request. Upon this author's assessment, exposed bone noted medially w/ mixture of trace adhered slough along margins and smooth tissue throughout. Patient was upset because he had not seen exposed bone before; WOC RN who had seen him previously used Iodosorb gel to debride wound, as it was filled w/ necrotic tissue. Explained to patient that this was the intended effect of the Iodosorb, and that the wound was not "made worse" by removing the tissue. There is significant scarred, hyperkeratotic, almost vegitative-like tissue ovi-wound, w / rolled edges. In addition, the lateral aspect of the R foot has a 2cmx2.8cm area of dark, dusky tissue, possibly necrotic. Applied Aquacel Ag to wound bed to help manage moisture/drainage, followed by an ABD. Patient scheduled for arterial intervention (fem pop); wound care will continue to follow as this wound evolves. Will round next on Friday 01/12.
--- NOTE | 2017-01-10 17:26 | SOAPPROG ---
ELDA Progress Note Assessment/Plan: Assessment: Diabetic smoker with severe peripheral vascular disease. Severe restenosis of long stented segment of right SFA. Ischemic right foot. Plan: Hold heparin at 8 a.m. tomorrow for catheter intervention approximately 1030 a.m. 01/10/17 17:21 Subjective: We discussed percutaneous atherectomy of right leg in detail. Mr. Amado accepts risks and wishes to proceed. I emphasized the need to stop smoking to reduce the risk of restenosis and additional amputation. Mr. Amado understands and expresses agreement. Objective: Pulses femoral popliteal DP PT Right 4 0 Left 4 4 0 0 Airway Malampati 2 Vital Signs Temp Pulse Resp BP Pulse Ox 37.2 C 76 18 129/75 H 3 L 01/10/17 15:59 01/10/17 16:42 01/10/17 15:59 01/10/17 16:42 01/10/17 15:59 Laboratory Results 01/10/17 04:10 01/07/17 05:20 01/09/17 01/10/17 01/11/17 05:59 05:59 05:59 Intake Total 802 878 500 Output Total 2520 795 2550 Balance -1718 83 -2050 PT 32.8 SEC (12.0-15.0) H 01/07/17 01:50 INR 3.15 (0.83-1.16) H 01/07/17 01:50 ICD10 Worksheet Patient Problems: Problems Problem Status Onset Afib Acute Cellulitis of right foot Acute Nicotine dependence Acute Wound infection Acute
[2017-01-10] MEDS: HEPARIN/DEXTROSE 500 ML IV SCH (23:28)
[2017-01-11] MEDS: INSULIN LISPRO 100 UNIT/ML SC SCH ×3 (07:31→19:46)
[2017-01-11] MEDS: ATORVASTATIN CALCIUM 40 MG TAB PO SCH (07:34)
[2017-01-11] MEDS: GABAPENTIN 100 MG CAP PO SCH ×4 (07:35→21:59)
[2017-01-11] MEDS: LISINOPRIL 20 MG TAB PO SCH ×2 (07:35→12:51)
[2017-01-11] MEDS: FUROSEMIDE 20 MG TAB PO SCH ×3 (07:35→21:59)
[2017-01-11] MEDS: GABAPENTIN 400 MG CAP PO SCH ×4 (07:35→21:58)
[2017-01-11] MEDS: NICOTINE 14 MG/24 HR PATCH TD SCH (07:36)
[2017-01-11] MEDS ORDERED: NS 1,000 ML IV SCH (08:15)
[2017-01-11] MEDS: oxyCODONE IR 5 MG TAB PO PRN ×2 (08:16→13:59)
[2017-01-11] MEDS: DILTIAZEM CD 120 MG CAP PO SCH (08:16)
[2017-01-11] MEDS: CARVEDILOL 25 MG TAB PO SCH ×2 (08:17→19:54)
[2017-01-11 08:30] LABS: HEMATOCRIT 33.6 % (40.0-51.0)
[2017-01-11 08:42] LABS: CREATININE 0.7 mg/dL (0.7-1.3); GLOMERULAR FILTRATION RATE > 60; INR 1.21 (0.83-1.16); PROTIME(PATIENT) 15.3 SEC (12.0-15.0)
[2017-01-11 08:56] LABS: APTT 89.2 SEC (23.0-38.0)
--- NOTE | 2017-01-11 09:49 | SOAPPROG ---
SOAP Progress Note Assessment/Plan: Assessment/Plan: 56 Y M DMII on insulin, HTN, PHANI, PVD, s/p R TMA with persistent wound. +osteomyelitis, SFA stent stenosis/occlusion. To IR today today. If unsuccessful may need revascularization surgery. Patient very fearful and resistant to idea of losing leg. S: Not much pain. Says he walks two miles with his dog at home. O: alert, nad no wob abd soft ext tma site well dressed. 01/11/17 09:49 Objective: Vital Signs Temp Pulse Resp BP Pulse Ox 36.8 C 85 24 H 152/90 H 97 01/11/17 07:23 01/11/17 08:17 01/11/17 07:23 01/11/17 08:17 01/11/17 07:23 Laboratory Results 01/11/17 08:20 01/11/17 08:20 01/10/17 01/11/17 01/12/17 05:59 05:59 05:59 Intake Total 878 850 Output Total 795 3300 500 Balance 83 -2450 -500 PT 15.3 SEC (12.0-15.0) H 01/11/17 08:20 INR 1.21 (0.83-1.16) H 01/11/17 08:20 ICD10 Worksheet Patient Problems: Problems Problem Status Onset Afib Acute Cellulitis of right foot Acute Nicotine dependence Acute Wound infection Acute
[2017-01-11] MEDS: DIGOXIN 250 MCG TAB PO SCH ×2 (10:10→12:50)
--- NOTE | 2017-01-11 13:04 | HOSPPROG ---
Hospitalist Progress Note Assessment/Plan: Patient is a 56 y/o w hx of DM2, CAD, afib, htn, hld, diastolic heart failure who present to the ED after OP imaging revealed Osteomyelitis of right foot. This is my first encounter with this patient. Chart reviewed. *Osteomyelitis/right foot diabetic infection transmetatarsal amputation of r foot approximately a year ago vancomycin CTA shows recurrent severe stenosis of long stented segment of R SFA * Dr Tello reviewed options for treatment/plan is IR angioplasty today, if not successful/need a fem-pop bypass and foot debridement # coagulopathy patient is on Xarelto (on HOLD) # chronic Atrial fibrillation reviewed his 12 lead ECG which confirms this on Digoxin [id number] score is 3 (high risk)- heparin gtt as bridge therapy # cad, diastolic CHF has some lower ext edema echo shows moderate LVH, ef 70% # DM2 SSI glucoses low in a.m. /holding long acting night dose #Nicotine dependence cessation recommended has PHANI and is prescribed nocturnal O2 said his smokes which makes it difficult to quit #Plan: cont holding Plavix and Xarelto/on heparin gtt. Plan of care discussed with Temo. He is hopeful to not have any further amputations. To IR today. Reviewed with RN. Subjective: Anxious about procedure. Some pain. No other issues. Objective: Vital Signs Temp Pulse Resp BP Pulse Ox 36.8 C 70 24 H 139/76 H 97 01/11/17 07:23 01/11/17 12:50 01/11/17 07:23 01/11/17 12:51 01/11/17 07:23 Laboratory Results 01/11/17 08:20 01/11/17 08:20 01/10/17 01/11/17 01/12/17 05:59 05:59 05:59 Intake Total 878 850 Output Total 795 3300 500 Balance 83 -2450 -500 PT 15.3 SEC (12.0-15.0) H 01/11/17 08:20 INR 1.21 (0.83-1.16) H 01/11/17 08:20 - Physical Exam Constitutional: no apparent distress, appears nourished, uncomfortable Eyes: PERRL, anicteric sclera, EOMI Ears, Nose, Mouth, Throat: moist mucous membranes, hearing normal, ears appear normal Cardiovascular: No JVD, No tachycardia, No edema Respiratory: no respiratory distress, no rales or rhonchi, reduced air movement Gastrointestinal: No tenderness, No ascites, No guarding Skin: warm, no rashes or abrasions, no fluctuance Musculoskeletal: no joint effusions, muscular tenderness, generalized weakness Neurologic: AAOx3 Psychiatric: not anxious, not encephalopathic, thought process linear ICD10 Worksheet Patient Problems: Problems Problem Status Onset Wound infection Acute Cellulitis of right foot Acute Afib Acute Nicotine dependence Acute
[2017-01-11] MEDS ORDERED: fentaNYL 100 MCG/2 ML INJ ONE ×2 (15:13→16:44)
[2017-01-11] MEDS ORDERED: MIDAZOLAM 2 MG/2 ML VIAL ONE (15:13)
[2017-01-11] MEDS ORDERED: MAGNESIUM HYDROXIDE 30 ML UDCUP PO PRN (15:22)
[2017-01-11] MEDS ORDERED: LACTULOSE 20 GM/30 ML UDCUP PO PRN (15:22)
[2017-01-11] MEDS ORDERED: POLYETHYLENE GLYCOL 3350 17 GM PKT PO PRN (15:22)
[2017-01-11] MEDS ORDERED: BISACODYL 10 MG SUPP PR PRN (15:22)
[2017-01-11] MEDS ORDERED: IOPAMIDOL (ISOVUE-370) 150 ML BTL IV ONE (16:28)
[2017-01-11] MEDS ORDERED: IOPAMIDOL (ISOVUE-300) 100 ML BTL IV ONE (16:28)
[2017-01-11] MEDS ORDERED: NITROGLYCERIN/D5W 50 MG/250 ML BOTTLE IV ONE (16:32)
--- NOTE | 2017-01-11 17:56 | POSTOPPROG ---
Post Op Note Date of Operation: 01/11/17 Surgeon: Koffi Baird Anesthesia: IV Sedation Pre-op Diagnosis: Severe peripheral vascular disease, diabetes Post-op Diagnosis: same Indication: Pulseless foot with osteomyelitis of amputation stump Procedure: Atherectomy, balloon plasty, and catheter embolectomy of right leg Findings: Severe stenosis and acute occlusions, opened Inf/Abcess present in the surg proc area at time of surgery?: No EBL: 50-100 Complications: 0
[2017-01-11] MEDS: SENNOSIDES/DOCUSATE SODIUM TAB PO SCH (19:54)
[2017-01-11] MEDS: HEPARIN/DEXTROSE 500 ML IV SCH (20:12)
[2017-01-12] MEDS: GABAPENTIN 100 MG CAP PO SCH ×3 (08:37→20:51)
[2017-01-12] MEDS: DIGOXIN 250 MCG TAB PO SCH (08:38)
[2017-01-12] MEDS: INSULIN LISPRO 100 UNIT/ML SC SCH ×3 (08:38→18:18)
[2017-01-12] MEDS: GABAPENTIN 400 MG CAP PO SCH ×3 (08:38→20:51)
[2017-01-12] MEDS: ATORVASTATIN CALCIUM 40 MG TAB PO SCH (08:38)
[2017-01-12] MEDS: SENNOSIDES/DOCUSATE SODIUM TAB PO SCH ×2 (08:39→20:51)
[2017-01-12] MEDS: CARVEDILOL 25 MG TAB PO SCH ×2 (08:39→18:18)
[2017-01-12] MEDS: DILTIAZEM CD 120 MG CAP PO SCH (08:39)
[2017-01-12] MEDS: FUROSEMIDE 20 MG TAB PO SCH ×3 (08:39→20:51)
[2017-01-12] MEDS: INSULIN DETEMIR 35 UNIT SQ SCH (08:54)
--- NOTE | 2017-01-12 09:21 | WOCRNPDOC ---
WOCRN Advanced Assessment Note - Skin Integrity Problem, Advanced Assess Right Foot Diabetic Ulcer Dressing Type: ABD Pad, Kerlix, Other Other Dressing Type: Aquacel AG Dressing Description: Clean/Dry, Intact Exudate Amount: Scant Exudate Color: Reddish/Yellow Exudate Characteristic(s): Serosanguinous Integumentary Issue Intervention: Dressing Changed Petra Wound Tissue: Swollen, Hemosiderin Staining, Xerotic, Hyperkeratotic Petra Wound Swelling: Mild Wound Bed Color: Red, Yellow Wound Bed Constitution: Smooth Tissue, Bone, Loose Slough Wound Edges: Scarred, Thick Skin Integrity Problem Comment: Wound unchanged since previous assessment on . Scant exudate, no purulence noted, visible bone. R leg underwent embolectomy yesterday (01/11), and R foot is noticeably warmer, though I was still unable to palpate a DP pulse. There remains a dusky, dark patch of tissue on the lateral foot, w/ intact skin. At this point, wound care and dressings directed at managing moisture in wound w/ exposed bone. Petra-wound tissue remains thick and hypertrophic w/ closed edges. Wound care pending surgical intervention and further arterial studies. Will continue with topical dressing for now and await update regarding possible debridement.
[2017-01-12] MEDS: HEPARIN 10,000 UNIT/10 ML MDV IVP PRN (09:45)
[2017-01-12] MEDS: HEPARIN/DEXTROSE 500 ML IV SCH (09:46)
[2017-01-12] MEDS: LISINOPRIL 20 MG TAB PO SCH (10:15)
[2017-01-12] MEDS: NICOTINE 14 MG/24 HR PATCH TD SCH (10:15)
--- NOTE | 2017-01-12 10:52 | HOSPPROG ---
Hospitalist Progress Note Assessment/Plan: Patient is a 56 y/o w hx of DM2, CAD, afib, htn, hld, diastolic heart failure who present to the ED after OP imaging revealed Osteomyelitis of right foot. *Osteomyelitis/right foot diabetic infection transmetatarsal amputation of r foot approximately a year ago vancomycin CTA shows recurrent severe stenosis of long stented segment of R SFA * IR angioplasty POD#1, runoff studies ordered for today # coagulopathy patient is on Xarelto (on HOLD) heparin gtt, transition back to xarelto when ok with surgery # chronic Atrial fibrillation reviewed his 12 lead ECG which confirms this on Digoxin [id number] score is 3 (high risk)- heparin gtt as bridge therapy # cad, diastolic CHF has some lower ext edema echo shows moderate LVH, ef 70% # DM2 SSI glucoses low in a.m. /holding long acting night dose #Nicotine dependence cessation recommended has PHANI and is prescribed nocturnal O2 said his smokes which makes it difficult to quit #Plan: cont holding Plavix and Xarelto/on heparin gtt. He is hopeful to not have any further amputations. Reviewed with RN. Subjective: Feels well today. Less pain. Eating well. No issues. Objective: Vital Signs Temp Pulse Resp BP Pulse Ox 36.8 C 82 18 159/94 H 94 01/12/17 07:57 01/12/17 07:57 01/12/17 07:57 01/12/17 07:57 01/12/17 07:57 Microbiology 01/07/17 01:50 Blood Culture - Final Blood 01/07/17 02:04 Blood Culture - Final Blood Laboratory Results 01/11/17 08:20 01/11/17 08:20 01/11/17 01/12/17 01/13/17 05:59 05:59 05:59 Intake Total 850 1765 400 Output Total 3300 2445 Balance -2450 -680 400 PT 15.3 SEC (12.0-15.0) H 01/11/17 08:20 INR 1.21 (0.83-1.16) H 01/11/17 08:20 - Physical Exam Constitutional: no apparent distress, not in pain Eyes: PERRL, anicteric sclera, EOMI Ears, Nose, Mouth, Throat: moist mucous membranes, hearing normal, ears appear normal Cardiovascular: edema, No JVD, No tachycardia Respiratory: no respiratory distress, no rales or rhonchi, reduced air movement Gastrointestinal: No tenderness, No ascites, No guarding Skin: warm, no rashes or abrasions Musculoskeletal: no joint effusions, generalized weakness Neurologic: AAOx3 Psychiatric: not anxious, not encephalopathic, thought process linear ICD10 Worksheet Patient Problems: Problems Problem Status Onset Wound infection Acute Cellulitis of right foot Acute Afib Acute Nicotine dependence Acute
--- NOTE | 2017-01-12 14:14 | SOAPPROG ---
SOAP Progress Note Assessment/Plan: Assessment/Plan: 56 Y M DMII on insulin, HTN, PHANI, PVD, s/p R TMA with persistent wound. +osteomyelitis, SFA stent stenosis/occlusion. IR intervention appears to have been successful. Will probably take Temo to OR Thurs or Fri for wound debridement and possible skin graft pending wound course. Discussed smoking cessation. If stents occlude he may need surgical bypass. Seen and examined with Dr. Tello. S: No pain. Will try to quit smoking again. O: alert, nad no wob abd soft ext tma site well dressed. 01/12/17 14:12 Objective: Vital Signs Temp Pulse Resp BP Pulse Ox 36.9 C 81 16 156/82 H 95 01/12/17 11:44 01/12/17 11:44 01/12/17 11:44 01/12/17 11:44 01/12/17 11:44 Microbiology 01/07/17 01:50 Blood Culture - Final Blood 01/07/17 02:04 Blood Culture - Final Blood Laboratory Results 01/11/17 08:20 01/11/17 08:20 01/11/17 01/12/17 01/13/17 05:59 05:59 05:59 Intake Total 850 1765 700 Output Total 3300 2445 500 Balance -2450 -680 200 PT 15.3 SEC (12.0-15.0) H 01/11/17 08:20 INR 1.21 (0.83-1.16) H 01/11/17 08:20 ICD10 Worksheet Patient Problems: Problems Problem Status Onset Afib Acute Cellulitis of right foot Acute Nicotine dependence Acute Wound infection Acute
[2017-01-12] MEDS ORDERED: hydrALAZINE 20 MG/ML VIAL IVP PRN (23:43)
[2017-01-13] MEDS: NICOTINE 14 MG/24 HR PATCH TD SCH (07:56)
[2017-01-13] MEDS: LISINOPRIL 20 MG TAB PO SCH (07:57)
[2017-01-13] MEDS: CARVEDILOL 25 MG TAB PO SCH ×2 (07:57→18:29)
[2017-01-13] MEDS: ATORVASTATIN CALCIUM 40 MG TAB PO SCH (07:57)
[2017-01-13] MEDS: SENNOSIDES/DOCUSATE SODIUM TAB PO SCH ×2 (07:57→21:29)
[2017-01-13] MEDS: GABAPENTIN 400 MG CAP PO SCH ×3 (07:57→21:28)
[2017-01-13] MEDS: DILTIAZEM CD 120 MG CAP PO SCH (07:57)
[2017-01-13] MEDS: GABAPENTIN 100 MG CAP PO SCH ×3 (07:58→21:28)
[2017-01-13] MEDS: FUROSEMIDE 20 MG TAB PO SCH ×4 (07:58→23:11)
[2017-01-13] MEDS: INSULIN DETEMIR 35 UNIT SQ SCH (08:00)
[2017-01-13] MEDS: INSULIN LISPRO 100 UNIT/ML SC SCH ×3 (08:02→18:29)
[2017-01-13] MEDS: DIGOXIN 250 MCG TAB PO SCH (09:07)
--- NOTE | 2017-01-13 09:37 | CPIP ---
[f rep st] INVASIVE CARDIAC PROCEDURE VASCULAR LAB REPORT DATE OF SERVICE: 01/11/2017 Patient was seen for arterial studies status post angioplasty of the right superficial femoral arter y. He now demonstrates excellent pulsatile flow down to the ankle level with ankle-brachial index on the right at 0.72 and on the left at 0.94. IMPRESSION: Marked improvement in the inflow to the right foot which should help with healing of hi s right foot surgery. /[id number]/MODL
[2017-01-13] MEDS: HEPARIN/DEXTROSE 500 ML IV SCH ×2 (12:08)
--- NOTE | 2017-01-13 12:46 | HOSPPROG ---
Hospitalist Progress Note Assessment/Plan: Patient is a 56 y/o w hx of DM2, CAD, afib, htn, hld, diastolic heart failure who present to the ED after OP imaging revealed Osteomyelitis of right foot. *Osteomyelitis/right foot diabetic infection transmetatarsal amputation of r foot approximately a year ago CTA shows recurrent severe stenosis of long stented segment of R SFA * s/p angioplasty with good flow * plan is for debridement Wednesday # coagulopathy patient is on Xarelto (on HOLD) # chronic Atrial fibrillation reviewed his 12 lead ECG which confirms this on Digoxin [id number] score is 3 (high risk)- heparin gtt as bridge therapy # cad, diastolic CHF has some lower ext edema echo shows moderate LVH, ef 70% # DM2 SSI glucoses are high/ resumed night time dose of basal insulin placed on ADA diet #Nicotine dependence cessation recommended has PHANI and is prescribed nocturnal O2 said his smokes which makes it difficult to quit #Plan: cont holding Plavix and Xarelto/on heparin gtt. Subjective: Temo is feeling well/ very happy about no further amputations/ very motivated to quit smoking permanently. Objective: Vital Signs Temp Pulse Resp BP Pulse Ox 36.6 C 77 14 156/84 H 94 01/13/17 11:06 01/13/17 11:06 01/13/17 11:06 01/13/17 11:06 01/13/17 11:06 Microbiology 01/07/17 01:50 Blood Culture - Final Blood 01/07/17 02:04 Blood Culture - Final Blood Laboratory Results 01/13/17 06:05 01/11/17 08:20 01/12/17 01/13/17 01/14/17 05:59 05:59 05:59 Intake Total 1765 1490 Output Total 2445 2200 900 Balance -680 -710 -900 PT 15.3 SEC (12.0-15.0) H 01/11/17 08:20 INR 1.21 (0.83-1.16) H 01/11/17 08:20 - Physical Exam Constitutional: no apparent distress, appears nourished, not in pain Eyes: PERRL Ears, Nose, Mouth, Throat: hearing normal Cardiovascular: regular rate and rhythym, no murmur, rub, or gallop Respiratory: no respiratory distress Gastrointestinal: normoactive bowel sounds Skin: warm Neurologic: AAOx3 Psychiatric: interacting appropriately, not anxious ICD10 Worksheet Patient Problems: Problems Problem Status Onset Afib Acute Cellulitis of right foot Acute Nicotine dependence Acute Wound infection Acute
--- NOTE | 2017-01-13 15:03 | WOCRNPDOC ---
WOCRN Advanced Assessment Note - Skin Integrity Problem, Advanced Assess Right Foot Diabetic Ulcer Dressing Type: Kerlix Dressing Description: Clean/Dry, Intact Right Ear Dressing Type: Other Other Dressing Type: oxygen tubing pads (bilaterally) Dressing Description: Clean/Dry, Intact Exudate Amount: None Integumentary Issue Intervention: Barrier Cream Applied (Cavilon Skin prep ) Petra Wound Tissue: Erythema, Non-blanching, Dry Petra Wound Swelling: None Wound Bed Color: Lapel Wound Bed Constitution: Smooth Tissue Wound Edges: Irregular Site Odor: None Site Measurement - Head-to-Toe Length X Width X Depth (cm): 1.3 x 0.8 x 0.01 Pressure Injury Stage: Stage 2, Dress Draper Related Pressure Injury (oxygen tubing) Pressure Injury Present on Admit: No Skin Integrity Problem Comment: Non-blanchable erythema, with peeling epidermis at posterior R ear; Patient reports that "It was hurting under the oxygen tube, but they put pads on, and it's better now." Applied skin prep to site; reported to staff nurse Anna.
[2017-01-13] MEDS: Insulin Detemir [Levemir] 40 UNIT SQ SCH (21:31)
[2017-01-14] MEDS: HEPARIN/DEXTROSE 500 ML IV SCH (02:27)
[2017-01-14 06:31] LABS: % IMMATURE GRANULYOCYTES 0.7 % (0.0-1.1); ABSOLUTE IMMATURE GRANULOCYTES 0.05 10^3/uL (0.00-0.10); ADD DIFF? NO; ADD MORPH? NO; ADD SCAN? NO; ATYPICAL LYMPHOCYTE FLAG 60 (0-99); FRAGMENT RBC FLAG 0 (0-99); HEMATOCRIT 33.9 % (40.0-51.0); HEMOGLOBIN 11.2 g/dL (13.7-17.5); LEFT SHIFT FLG 0 (0-99); LIPEMIA HEMOLYSIS FLAG 80 (0-99); MEAN CELL HEMOGLOBIN 29.7 pg (27.9-34.1); MEAN CELL VOLUME 89.9 fL (81.5-99.8); MEAN PLATELET VOLUME 9.5 fL (8.7-11.7); PLATELET CLUMPS FLAG 10 (0-99); PLATELET COUNT 351 10^3/uL (150-400); RED BLOOD CELL COUNT 3.77 10^6/uL (4.40-6.38); RED CELL DISTRIBUTION WIDTH 14.2 % (11.5-15.2)
[2017-01-14 07:20] LABS: POTASSIUM 4.1 mEq/L (3.5-5.2)
[2017-01-14 07:21] LABS: ANION GAP 9 mEq/L (8-16); CARBON DIOXIDE 28 mEq/l (22-31); CHLORIDE 103 mEq/L (97-110); CREATININE 0.6 mg/dL (0.7-1.3); GLOMERULAR FILTRATION RATE > 60; GLUCOSE 165 mg/dL (70-100); SODIUM 140 mEq/L (134-144)
[2017-01-14] MEDS ORDERED: THROMBIN (BOVINE) 5,000 UNIT VIAL TP ONE (07:24)
[2017-01-14] MEDS ORDERED: BUPIVACAINE 0.5% 30 ML SDV ONE (07:25)
[2017-01-14] MEDS ORDERED: CALCIUM CHLORIDE 1 GM/10 ML INJ ONE (07:25)
[2017-01-14] MEDS: INSULIN LISPRO 100 UNIT/ML SC SCH ×3 (08:17→18:14)
[2017-01-14] MEDS ORDERED: METOPROLOL TARTRATE 5 MG/5 ML INJ ONE (08:53)
[2017-01-14] MEDS ORDERED: PROPOFOL/EMULSION 500 MG/50 ML BOTTLE IV ONE (09:13)
[2017-01-14] MEDS ORDERED: fentaNYL 100 MCG/2 ML INJ ONE (09:13)
[2017-01-14] MEDS ORDERED: ONDANSETRON 4 MG/2 ML VIAL ONE (09:25)
[2017-01-14] MEDS ORDERED: PHENYLEPHRINE HCL 100 MCG/ML SYR ONE (09:40)
[2017-01-14] MEDS ORDERED: ERTAPENEM 1 GM in NS 100 ML IV ONE (10:00)
--- NOTE | 2017-01-14 10:45 | SOAPPROG ---
ELDA Progress Note Assessment/Plan: Assessment: 56-YEAR-OLD MALE WELL KNOWN TO ME FROM WITH AN OPEN LESION ON HIS RIGHT FOOT AT THE TRANSMETATARSAL AMPUTATION LEVEL MRI SUGGEST OSTEOMYELITIS HAS VERY POOR CIRCULATION AND NO PALPABLE PEDAL PULSES RISKS AND OPTIONS WERE FULLY DISCUSSED WITH THE PATIENT INCLUDING THE POSSIBLE NEED FOR BK AMPUTATION WHICH SHE IS QUITE ADAMANT AGAINST Plan: A NONINVASIVE ARTERIAL STUDIES / REVIEW MRI WITH RADIOLOGY/ PROBABLE SAUCERIZATION OF THAT EXPOSED THE BONE 01/07/17 19:27 01/08/17 16:31 patient with nonhealing transmetatarsal amputation site on the right foot / are studies suggest a SFA occlusion / CTA confirms severe stenosis of his SFA stents Plan is Interventional Radiology angioplasty if feasible / if not successful in fem-pop bypass and eventual foot debridement 01/09/17 13:18 STABLE/ AFEBRILE/ ANGIOPLASTY ON WEDNESDAY/ WOUND OK 01/10/17 12:08 FOOT WOUND IS STABLE/ AFEBRILE / PLAN IS ANGIOPLASTY TOMORROW TO IMPROVE CIRCULATION / IF NOT SUCCESSFUL THEN FEM-POP BYPASS 01/14/17 10:44 surgical risks and options fully discussed/ plan foot debridement and saucerization of midfoot Objective: Vital Signs Temp Pulse Resp BP Pulse Ox 36.9 C 76 18 173/98 H 93 01/14/17 07:41 01/14/17 07:41 01/14/17 07:41 01/14/17 07:41 01/14/17 07:41 Laboratory Results 01/14/17 06:10 01/14/17 06:10 01/13/17 01/14/17 01/15/17 05:59 05:59 05:59 Intake Total 1490 1500 Output Total 2200 3050 Balance -710 -1550 PT 15.3 SEC (12.0-15.0) H 01/11/17 08:20 INR 1.21 (0.83-1.16) H 01/11/17 08:20 ICD10 Worksheet Patient Problems: Problems Problem Status Onset Afib Acute Cellulitis of right foot Acute Nicotine dependence Acute Wound infection Acute
--- NOTE | 2017-01-14 10:48 | POSTOPPROG ---
Post Op Note Date of Operation: 01/14/17 Surgeon: Koffi Tello Anesthesiologist: crocker Anesthesia: GET(General Endotracheal) Pre-op Diagnosis: osteo right foot Post-op Diagnosis: same with lateral foot abscess Procedure: midfoot amputation with draianage of abscess and saucerization of midfoot/ Findings: lateral foot abscess/ osteo in metatarsal bases Inf/Abcess present in the surg proc area at time of surgery?: Yes Depth: Deep Incisional (Fascial) EBL: Minimal Complications: 0 Specimen(s): midfoot and metatarsal bone / cultures
[2017-01-14] MEDS ORDERED: D5W 1/2 NS W/ 20 KCl/L 1,000 ML IV SCH (11:00)
--- NOTE | 2017-01-14 11:14 | HOSPPROG ---
Hospitalist Progress Note Assessment/Plan: Patient is a 56 y/o w hx of DM2, CAD, afib, htn, hld, diastolic heart failure who present to the ED after OP imaging revealed Osteomyelitis of right foot. *Osteomyelitis/right foot diabetic infection transmetatarsal amputation of r foot approximately a year ago CTA shows recurrent severe stenosis of long stented segment of R SFA * s/p angioplasty with good flow * s/p midfoot amputation and drainage of abscess today * pain is welll managed # coagulopathy patient is on Xarelto (on HOLD) # chronic Atrial fibrillation reviewed his 12 lead ECG which confirms this on Digoxin [id number] score is 3 (high risk)- heparin gtt as bridge therapy # cad, diastolic CHF has some lower ext edema echo shows moderate LVH, ef 70% # DM2 SSI glucoses improved/ added back night dose of Lantus placed on ADA diet #Nicotine dependence cessation recommended has PHANI and is prescribed nocturnal O2 said his smokes which makes it difficult to quit #Plan: cont holding Plavix and Xarelto/on heparin gtt. Subjective: Temo is in good spirits/ appetite is good, no c/o pain. Objective: Vital Signs Temp Pulse Resp BP Pulse Ox 36.8 C 78 22 H 141/77 H 92 01/14/17 10:48 01/14/17 10:48 01/14/17 10:50 01/14/17 10:48 01/14/17 10:50 Laboratory Results 01/14/17 06:10 01/14/17 06:10 01/13/17 01/14/17 01/15/17 05:59 05:59 05:59 Intake Total 1490 1500 400 Output Total 2200 3050 15 Balance -710 -1550 385 PT 15.3 SEC (12.0-15.0) H 01/11/17 08:20 INR 1.21 (0.83-1.16) H 01/11/17 08:20 - Physical Exam Constitutional: no apparent distress, appears nourished, not in pain Eyes: PERRL Ears, Nose, Mouth, Throat: hearing normal Cardiovascular: regular rate and rhythym Respiratory: no respiratory distress Gastrointestinal: normoactive bowel sounds Skin: warm, other (right foot in dressing) Neurologic: AAOx3 Psychiatric: interacting appropriately, not anxious, not encephalopathic ICD10 Worksheet Patient Problems: Problems Problem Status Onset Afib Acute Cellulitis of right foot Acute Nicotine dependence Acute Wound infection Acute
[2017-01-14] MEDS: NICOTINE 14 MG/24 HR PATCH TD SCH (11:37)
[2017-01-14] MEDS: GABAPENTIN 400 MG CAP PO SCH ×3 (11:39→20:31)
[2017-01-14] MEDS: ATORVASTATIN CALCIUM 40 MG TAB PO SCH (11:39)
[2017-01-14] MEDS: FUROSEMIDE 20 MG TAB PO SCH ×3 (11:39→20:45)
[2017-01-14] MEDS: CARVEDILOL 25 MG TAB PO SCH ×2 (11:40→18:14)
[2017-01-14] MEDS: DIGOXIN 250 MCG TAB PO SCH (11:40)
[2017-01-14] MEDS: SENNOSIDES/DOCUSATE SODIUM TAB PO SCH ×2 (11:40→20:32)
[2017-01-14] MEDS: GABAPENTIN 100 MG CAP PO SCH ×3 (11:40→20:32)
[2017-01-14] MEDS: INSULIN DETEMIR 35 UNIT SQ SCH (12:36)
[2017-01-14] MEDS: DILTIAZEM CD 120 MG CAP PO SCH (12:44)
[2017-01-14] MEDS: LISINOPRIL 20 MG TAB PO SCH (12:45)
[2017-01-14 18:42] LABS: GLUCOSE 275 mg/dL (70-100)
--- NOTE | 2017-01-14 20:40 | SOAPPROG ---
SOAP Progress Note Assessment/Plan: Assessment: 56-YEAR-OLD MALE WELL KNOWN TO ME FROM WITH AN OPEN LESION ON HIS RIGHT FOOT AT THE TRANSMETATARSAL AMPUTATION LEVEL MRI SUGGEST OSTEOMYELITIS HAS VERY POOR CIRCULATION AND NO PALPABLE PEDAL PULSES RISKS AND OPTIONS WERE FULLY DISCUSSED WITH THE PATIENT INCLUDING THE POSSIBLE NEED FOR BK AMPUTATION WHICH SHE IS QUITE ADAMANT AGAINST Plan: A NONINVASIVE ARTERIAL STUDIES / REVIEW MRI WITH RADIOLOGY/ PROBABLE SAUCERIZATION OF THAT EXPOSED THE BONE 01/07/17 19:27 01/08/17 16:31 patient with nonhealing transmetatarsal amputation site on the right foot / are studies suggest a SFA occlusion / CTA confirms severe stenosis of his SFA stents Plan is Interventional Radiology angioplasty if feasible / if not successful in fem-pop bypass and eventual foot debridement 01/09/17 13:18 STABLE/ AFEBRILE/ ANGIOPLASTY ON WEDNESDAY/ WOUND OK 01/10/17 12:08 FOOT WOUND IS STABLE/ AFEBRILE / PLAN IS ANGIOPLASTY TOMORROW TO IMPROVE CIRCULATION / IF NOT SUCCESSFUL THEN FEM-POP BYPASS 01/14/17 10:44 surgical risks and options fully discussed/ plan foot debridement and saucerization of midfoot 01/14/17 20:39 DRESSINGS DRY/ PAIN CONTROL GOOD / NO PROBLEMS POSTOP / KEEP PRESENT THE PLATELET GEL DRESSING IN PLACE FOR WEEK / HOME THIS Objective: Vital Signs Temp Pulse Resp BP Pulse Ox 37.1 C 102 H 16 142/72 H 91 L 01/14/17 19:41 01/14/17 19:41 01/14/17 19:41 01/14/17 19:41 01/14/17 19:41 Microbiology 01/14/17 09:42 Gram Stain - Final Other - Eswab 01/14/17 09:42 Gram Stain - Final Other - Bone Laboratory Results 01/14/17 06:10 01/14/17 18:15 01/13/17 01/14/17 01/15/17 05:59 05:59 05:59 Intake Total 1490 1500 650 Output Total 2200 3050 255 Balance -710 -1550 395 PT 15.3 SEC (12.0-15.0) H 01/11/17 08:20 INR 1.21 (0.83-1.16) H 01/11/17 08:20 ICD10 Worksheet Patient Problems: Problems Problem Status Onset Afib Acute Cellulitis of right foot Acute Nicotine dependence Acute Wound infection Acute
[2017-01-14] MEDS: Insulin Detemir [Levemir] 40 UNIT SQ SCH (21:57)
[2017-01-15] MEDS: INSULIN LISPRO 100 UNIT/ML SC SCH ×3 (08:36→17:55)
[2017-01-15] MEDS: INSULIN DETEMIR 35 UNIT SQ SCH (08:38)
[2017-01-15] MEDS: DILTIAZEM CD 120 MG CAP PO SCH (08:39)
[2017-01-15] MEDS: ATORVASTATIN CALCIUM 40 MG TAB PO SCH (08:39)
[2017-01-15] MEDS: GABAPENTIN 400 MG CAP PO SCH ×3 (08:39→21:08)
--- NOTE | 2017-01-15 08:39 | HOSPPROG ---
Hospitalist Progress Note Assessment/Plan: Patient is a 56 y/o w hx of DM2, CAD, afib, htn, hld, diastolic heart failure who present to the ED after OP imaging revealed Osteomyelitis of right foot. *Osteomyelitis/right foot diabetic infection transmetatarsal amputation of r foot approximately a year ago CTA shows recurrent severe stenosis of long stented segment of R SFA * s/p angioplasty with good flow * s/p midfoot amputation and drainage of abscess 01/14 * pain is well managed * started on Ertapenem last night # coagulopathy patient is on Xarelto # chronic Atrial fibrillation reviewed his 12 lead ECG which confirms this on Digoxin [id number] score is 3 (high risk) Xarelto restarted /dc heparin # cad, diastolic CHF has some lower ext edema echo shows moderate LVH, ef 70% # DM2 SSI hypoglycemic this morning cut dose of night Lantus placed on ADA diet #Nicotine dependence cessation recommended has PHANI and is prescribed nocturnal O2 said his smokes which makes it difficult to quit #Plan: patient is anxious to go home/ awaiting input from surgical team. Told him to take less Lantus at night. Will ask surgery when ok to resume Plavix. Subjective: Temo is anxious to go home. Objective: Vital Signs Temp Pulse Resp BP Pulse Ox 36.6 C 81 14 129/76 H 91 L 01/15/17 07:41 01/15/17 07:41 01/15/17 07:41 01/15/17 07:41 01/15/17 07:41 Microbiology 01/14/17 09:42 Gram Stain - Final Other - Eswab 01/14/17 09:42 Gram Stain - Final Other - Bone Laboratory Results 01/14/17 06:10 01/14/17 18:15 01/14/17 01/15/17 01/16/17 05:59 05:59 05:59 Intake Total 1500 650 Output Total 3050 955 775 Balance -1500 -305 -775 PT 15.3 SEC (12.0-15.0) H 01/11/17 08:20 INR 1.21 (0.83-1.16) H 01/11/17 08:20 - Physical Exam Constitutional: no apparent distress, not in pain Eyes: PERRL Ears, Nose, Mouth, Throat: hearing normal Cardiovascular: irregularly irregular Respiratory: no respiratory distress Gastrointestinal: normoactive bowel sounds Skin: warm, other (hs some blood drainage seeping from right foot drsg/ small amount), No normal color (pale) Musculoskeletal: generalized weakness Neurologic: AAOx3 Psychiatric: interacting appropriately, not anxious ICD10 Worksheet Patient Problems: Problems Problem Status Onset Afib Acute Cellulitis of right foot Acute Nicotine dependence Acute Wound infection Acute
[2017-01-15] MEDS: GABAPENTIN 100 MG CAP PO SCH ×3 (08:40→21:08)
[2017-01-15] MEDS: SENNOSIDES/DOCUSATE SODIUM TAB PO SCH ×2 (08:40→21:08)
[2017-01-15] MEDS: CARVEDILOL 25 MG TAB PO SCH ×2 (08:40→17:54)
[2017-01-15] MEDS: NICOTINE 14 MG/24 HR PATCH TD SCH (08:41)
[2017-01-15] MEDS: ERTAPENEM 1 GM in NS 100 ML IV SCH (08:41)
[2017-01-15] MEDS: RIVAROXABAN 20 MG TAB PO SCH (08:41)
[2017-01-15] MEDS: LISINOPRIL 20 MG TAB PO SCH (10:18)
[2017-01-15] MEDS: DIGOXIN 250 MCG TAB PO SCH (10:18)
[2017-01-15] MEDS: FUROSEMIDE 20 MG TAB PO SCH ×3 (10:19→21:09)
--- NOTE | 2017-01-15 19:23 | PCMIDPN ---
Assessment/Plan: Assessment/Plan: * Right lower extremity osteomyelitis/abscess status post midfoot amputation and abscess drainage: Osteomyelitis felt to be surgically excised at this point. Culture showing growth of a non lactose fermenting gram-negative adán which preliminarily does not have biochemical characteristics of Pseudomonas. Continue ertapenem pending additional culture data. Decision regarding IV versus oral therapy based on culture findings. 01/15/17 19:20 01/15/17 19:22 Subjective: Patient without specific complaints. Status post midfoot amputation with drainage of abscess yesterday. Objective: Vital Signs Temp Pulse Resp BP Pulse Ox 36.7 C 74 18 117/72 93 01/15/17 16:00 01/15/17 17:54 01/15/17 16:00 01/15/17 17:54 01/15/17 16:00 Microbiology 01/14/17 09:42 Gram Stain - Final Other - Bone 01/14/17 09:42 Gram Stain - Final Other - Eswab Laboratory Results 01/14/17 06:10 01/14/17 18:15 01/14/17 01/15/17 01/16/17 05:59 05:59 05:59 Intake Total 1500 650 100 Output Total 3050 955 1475 Balance -1550 -305 -1375 ESR 77 MM/HR (0-20) H 01/07/17 05:20 C-Reactive Protein 74.9 mg/L (<10.0) H 01/07/17 05:20 Ertapenem # 2 Operative cultures with growth of non lactose fermenting gram-negative adán - Physical Exam General Appearance: alert, no apparent distress Cardiac/Chest: regular rate, rhythm, No systolic murmur Extremities: inflammation (Right foot dressed postoperatively with peeling skin above dressing margin but no active cellulitis) Abdomen: non-tender, No distended ICD10 Worksheet Patient Problems: Problems Problem Status Onset Afib Acute Cellulitis of right foot Acute Nicotine dependence Acute Wound infection Acute
[2017-01-15] MEDS: Insulin Detemir [Levemir] 40 UNIT SQ SCH (21:09)
--- NOTE | 2017-01-15 21:39 | SOAPPROG ---
SOAP Progress Note Assessment/Plan: Assessment: 56-YEAR-OLD MALE WELL KNOWN TO ME FROM WITH AN OPEN LESION ON HIS RIGHT FOOT AT THE TRANSMETATARSAL AMPUTATION LEVEL MRI SUGGEST OSTEOMYELITIS HAS VERY POOR CIRCULATION AND NO PALPABLE PEDAL PULSES RISKS AND OPTIONS WERE FULLY DISCUSSED WITH THE PATIENT INCLUDING THE POSSIBLE NEED FOR BK AMPUTATION WHICH SHE IS QUITE ADAMANT AGAINST Plan: A NONINVASIVE ARTERIAL STUDIES / REVIEW MRI WITH RADIOLOGY/ PROBABLE SAUCERIZATION OF THAT EXPOSED THE BONE 01/07/17 19:27 01/08/17 16:31 patient with nonhealing transmetatarsal amputation site on the right foot / are studies suggest a SFA occlusion / CTA confirms severe stenosis of his SFA stents Plan is Interventional Radiology angioplasty if feasible / if not successful in fem-pop bypass and eventual foot debridement 01/09/17 13:18 STABLE/ AFEBRILE/ ANGIOPLASTY ON WEDNESDAY/ WOUND OK 01/10/17 12:08 FOOT WOUND IS STABLE/ AFEBRILE / PLAN IS ANGIOPLASTY TOMORROW TO IMPROVE CIRCULATION / IF NOT SUCCESSFUL THEN FEM-POP BYPASS 01/14/17 10:44 surgical risks and options fully discussed/ plan foot debridement and saucerization of midfoot 01/14/17 20:39 DRESSINGS DRY/ PAIN CONTROL GOOD / NO PROBLEMS POSTOP / KEEP PRESENT THE PLATELET GEL DRESSING IN PLACE FOR WEEK / HOME THIS 01/15/17 21:38 a doing well / dressing intact / afebrile / wants to go home / discharge pending Infectious Disease decisions about antibiotics / present dressing needs to stay in place for 1 week or more Objective: Vital Signs Temp Pulse Resp BP Pulse Ox 36.6 C 84 16 123/65 H 90 L 01/15/17 19:28 01/15/17 19:28 01/15/17 19:28 01/15/17 19:28 01/15/17 19:28 Microbiology 01/14/17 09:42 Gram Stain - Final Other - Bone 01/14/17 09:42 Gram Stain - Final Other - Eswab Laboratory Results 01/14/17 06:10 01/14/17 18:15 01/14/17 01/15/17 01/16/17 05:59 05:59 05:59 Intake Total 1500 650 100 Output Total 3050 955 1475 Balance -1550 -305 -1375 PT 15.3 SEC (12.0-15.0) H 01/11/17 08:20 INR 1.21 (0.83-1.16) H 01/11/17 08:20 ICD10 Worksheet Patient Problems: Problems Problem Status Onset Afib Acute Cellulitis of right foot Acute Nicotine dependence Acute Wound infection Acute
[2017-01-16 04:05] VITALS: TEMP 98.4; O2SAT 92
[2017-01-16] MEDS: INSULIN LISPRO 100 UNIT/ML SC SCH ×2 (08:34→12:13)
[2017-01-16 08:35] VITALS: BP 146/82; RESP 20
[2017-01-16] MEDS: DILTIAZEM CD 120 MG CAP PO SCH (08:36)
[2017-01-16] MEDS: INSULIN DETEMIR 35 UNIT SQ SCH (08:36)
[2017-01-16] MEDS: ERTAPENEM 1 GM in NS 100 ML IV SCH (08:36)
[2017-01-16] MEDS: ATORVASTATIN CALCIUM 40 MG TAB PO SCH (08:37)
[2017-01-16] MEDS: GABAPENTIN 100 MG CAP PO SCH (08:37)
[2017-01-16] MEDS: FUROSEMIDE 20 MG TAB PO SCH (08:37)
[2017-01-16] MEDS: GABAPENTIN 400 MG CAP PO SCH (08:37)
[2017-01-16] MEDS: CARVEDILOL 25 MG TAB PO SCH (08:37)
[2017-01-16] MEDS: SENNOSIDES/DOCUSATE SODIUM TAB PO SCH (08:38)
[2017-01-16] MEDS: LISINOPRIL 20 MG TAB PO SCH (08:38)
[2017-01-16] MEDS: RIVAROXABAN 20 MG TAB PO SCH (08:38)
[2017-01-16] MEDS: NICOTINE 14 MG/24 HR PATCH TD SCH (08:39)
--- NOTE | 2017-01-16 08:46 | SOAPPROG ---
SOAP Progress Note Assessment/Plan: Assessment: 56 Y M DMII on insulin, HTN, PHANI, PVD, s/p R TMA with persistent wound. +osteomyelitis, SFA stent stenosis/occlusion. S/p IR revascularization s/p further debridement with Dr. Tello Pain controlled Platelet gel over amputation site- leave in place x 1 week IV antibiotics OK to d/c from surgical perspective. F/u Dr. Tello in 1 week for wound check/ dressing change D/c per hospitalist S: No pain. No new complaints this morning. O: lying in bed, comfortable, no acute distress no no increased work of breathing LLE dressing intact with minimal staining no peripheral edema Objective: Vital Signs Temp Pulse Resp BP Pulse Ox 36.9 C 80 20 146/82 H 92 01/16/17 08:00 01/16/17 08:00 01/16/17 08:00 01/16/17 08:00 01/16/17 08:00 Microbiology 01/14/17 09:42 Gram Stain - Final Other - Eswab 01/14/17 09:42 Gram Stain - Final Other - Bone Laboratory Results 01/14/17 06:10 01/14/17 18:15 01/15/17 01/16/17 01/17/17 05:59 05:59 05:59 Intake Total 650 100 Output Total 304 5674 465 Balance -305 -8913 -429 PT 15.3 SEC (12.0-15.0) H 01/11/17 08:20 INR 1.21 (0.83-1.16) H 01/11/17 08:20 ICD10 Worksheet Patient Problems: Problems Problem Status Onset Afib Acute Cellulitis of right foot Acute Nicotine dependence Acute Wound infection Acute
[2017-01-16] MEDS: DIGOXIN 250 MCG TAB PO SCH (09:33)
--- NOTE | 2017-01-16 10:06 | HOSPPROG ---
Hospitalist Progress Note Assessment/Plan: Patient is a 56 y/o w hx of DM2, CAD, afib, htn, hld, diastolic heart failure who present to the ED after OP imaging revealed Osteomyelitis of right foot. *Osteomyelitis/right foot diabetic infection transmetatarsal amputation of r foot approximately a year ago CTA shows recurrent severe stenosis of long stented segment of R SFA * s/p angioplasty with good flow * s/p midfoot amputation and drainage of abscess 01/14 * pain is well managed * on Ertapenem * will await input from Dr West about abx/ bone cx shows serratia marcescens # coagulopathy patient is on Xarelto # chronic Atrial fibrillation reviewed his 12 lead ECG which confirms this on Digoxin [id number] score is 3 (high risk) Xarelto restarted /had been treated w heparin as bridge therapy # cad, diastolic CHF has some lower ext edema echo shows moderate LVH, ef 70% # DM2 SSI hypoglycemic this morning cut dose of night Lantus placed on ADA diet #Nicotine dependence cessation recommended has PHANI and is prescribed nocturnal O2 said his smokes which makes it difficult to quit #Plan: hopefully, home today/ will await input from ID/ verifying as to when to resume Plavix Subjective: Temo is feeling well/ no complaints. Objective: Vital Signs Temp Pulse Resp BP Pulse Ox 36.9 C 89 20 146/82 H 92 01/16/17 08:00 01/16/17 09:33 01/16/17 08:00 01/16/17 08:00 01/16/17 08:00 Microbiology 01/14/17 09:42 Gram Stain - Final Other - Eswab 01/14/17 09:42 Gram Stain - Final Other - Bone Laboratory Results 01/14/17 06:10 01/14/17 18:15 01/15/17 01/16/17 01/17/17 05:59 05:59 05:59 Intake Total 650 100 Output Total 955 1775 600 Balance -305 -0538 -600 PT 15.3 SEC (12.0-15.0) H 01/11/17 08:20 INR 1.21 (0.83-1.16) H 01/11/17 08:20 - Physical Exam Constitutional: no apparent distress, appears nourished, not in pain Eyes: PERRL Ears, Nose, Mouth, Throat: hearing normal Respiratory: no respiratory distress Skin: warm Musculoskeletal: generalized weakness Neurologic: AAOx3 Psychiatric: interacting appropriately, not anxious ICD10 Worksheet Patient Problems: Problems Problem Status Onset Afib Acute Cellulitis of right foot Acute Nicotine dependence Acute Wound infection Acute
--- NOTE | 2017-01-16 13:01 | PDIAF ---
- Diagnosis Diagnosis: osteomyelitis to right foot/ s/p midfoot ampuataion Code Status: Full Code - Medication Management Discharge Medications: Medications to Continue on Transfer Rivaroxaban [Xarelto] 20 mg PO DAILY 08/16/15 [Last Taken 10/07/15 12:00] oxyCODONE IR [Oxycodone Ir (*)] 5 - 10 mg PO Q3 PRN #14 tab 08/30/15 [Last Taken 10/08/15 08:00] Lisinopril [Zestril 20 mg (*)] 20 mg PO DAILY 10/08/15 [Last Taken 10/08/15] metFORMIN HCL [Glucophage 500 mg (*)] 1,000 mg PO BIDMEAL 10/08/15 [Last Taken 10/07/15] Carvedilol [Coreg (*)] 25 mg PO BIDMEAL #0 tab 10/09/15 [Last Taken Unknown] Clopidogrel Bisulfate [Plavix (*)] 75 mg PO DAILY #0 tab 10/09/15 [Last Taken Unknown] Digoxin [Lanoxin 0.25 mg] 0.25 mg PO DAILY10 #0 tab 10/09/15 [Last Taken Unknown ] Diltiazem Cd [Cardizem ER 120 MG (*)] 120 mg PO DAILY #0 cap 10/09/15 [Last Taken Unknown] Atorvastatin Calcium [Lipitor 40 mg (*)] 80 mg PO DAILY 01/07/17 [Last Taken Unknown] Furosemide [Lasix 20 MG (*)] 20 mg PO TID 01/07/17 [Last Taken Unknown] Gabapentin [Neurontin 100 MG (*)] 200 mg PO TID 01/07/17 [Last Taken Unknown] Gabapentin [Neurontin 400 MG (*)] 800 mg PO TID 01/07/17 [Last Taken Unknown] Insulin Aspart [Novolog Flexpen] 20 - 25 unit SQ TIDMEAL 01/07/17 [Last Taken Unknown] Insulin Detemir [Levemir] 35 unit SQ DAILY 01/07/17 [Last Taken Unknown] Insulin Detemir [Levemir] 40 unit SQ HS 01/07/17 [Last Taken Unknown] Acetaminophen [Tylenol 325mg (*)] 650 mg PO Q4HRS PRN #0 tab 01/16/17 [Last Taken Unknown] Nicotine [Nicoderm Cq 14 mg (*)] 14 mg TD DAILY patch 01/16/17 [Last Taken Unknown] levOFLOXACIN [levAQUIN (*)] 750 mg PO DAILY #14 tab 01/16/17 [Last Taken Unknown ] Discharge Medications: Refer to the Discharge Home Medication list for PRN reason. - Orders Services needed: Home Care, Physical Therapy, Occupational Therapy Home Care Face to Face: I certify that this patient was under my care and that I had the required [id number] encounter meeting the encounter requirements on the discharge day. My findings support the fact that the patient is homebound as defined in CMS Chapter 7 Medicare Benefits Manual 30.1.1, The condition of the patient is such that there exists a normal inability to leave home and consequently, leaving home would require a considerable and taxing effort. Diet Recommendation: ADA 1800 consistent carb Diet Texture: Regular Texture Diet Wound Care Instructions: do not remove dressing/ patient to see Dr Tello next week Activity/Weight Bearing Restrictions: use of walker/ avoid weight bearing on right foot - Follow Up Care Current Providers and Referrals: Palak Velez, BI [Primary Care Provider] - As per Instructions Koffi Tello MD [Medical Doctor] - Ernie West MD [Medical Doctor] -
--- NOTE | 2017-01-16 13:26 | PCMIDPN ---
Assessment/Plan: Assessment/Plan: * Right lower extremity osteomyelitis/abscess status post midfoot amputation and abscess drainage: Osteomyelitis felt to be surgically excised at this point. Culture showing growth of Serratia. Organism is fluoroquinolone susceptible. Will transition to levofloxacin 750 mg p.o. daily. Duration of therapy will be dependent on clinical course and bone pathology margins. Will arrange for follow-up in our office post discharge. Side effects of levofloxacin including potential for tendinopathy discussed with patient. 01/16/17 13:24 Subjective: Patient without specific complaints. Objective: Vital Signs Temp Pulse Resp BP Pulse Ox 36.9 C 80 20 146/82 H 92 01/16/17 08:00 01/16/17 09:45 01/16/17 08:00 01/16/17 08:00 01/16/17 09:45 Microbiology 01/14/17 09:42 Gram Stain - Final Other - Bone 01/14/17 09:42 Gram Stain - Final Other - Eswab Laboratory Results 01/14/17 06:10 01/14/17 18:15 01/15/17 01/16/17 01/17/17 05:59 05:59 05:59 Intake Total 650 100 Output Total 955 1775 600 Balance -305 -1675 -600 ESR 77 MM/HR (0-20) H 01/07/17 05:20 C-Reactive Protein 74.9 mg/L (<10.0) H 01/07/17 05:20 Ertapenem # 3 Operative cultures with growth of Serratia - Physical Exam General Appearance: alert, no apparent distress EENT: No scleral icterus Extremities: inflammation (Right lower extremity without evidence of cellulitis ; Vaseline gauze layer not removed; 1+ lower extremity edema present) Abdomen: non-tender, No distended - Line/s RUE PICC Lines: No drainage, No erythema ICD10 Worksheet Patient Problems: Problems Problem Status Onset Afib Acute Cellulitis of right foot Acute Nicotine dependence Acute Wound infection Acute
--- NOTE | 2017-01-16 14:37 | GDS ---
[f rep st] DISCHARGE SUMMARY DISCHARGE DIAGNOSES: 1. Right foot osteomyelitis. 2. Coagulopathy. 3. Chronic atrial fibrillation. 4. Coronary artery disease with known diastolic congestive heart failure. 5. Diabetes type 2, labile. 6. Nicotine dependence. CONSULTATIONS: During his stay: 1. Dr. Koffi Tello. 2. Dr. Ernie West with Infectious Disease. BRIEF HISTORY: The patient is a 56-year-old male with a history of diabetes type 2, coronary artery disease, atrial fibrillation, hypertension, and significant peripheral vascular disease who present ed to the emergency room after an outpatient imaging reveals osteomyelitis of his right foot. He light d a transmetatarsal amputation of his right foot approximately a year ago. Postoperatively, he had been slow to heal. He has had a chronic nonhealing ulcer at the TMA scar. It had become more tende r and had purulent drainage. He was admitted and evaluated by Dr. Koffi Tello. He had a CT arter iography of the abdomen and pelvis and both legs. This showed recurrent severe stenosis at the long -stented segment of the right superficial femoral artery, noted that he had a patent stent of the le ft external iliac artery. He was seen and evaluated by Dr. Tello and had arterial study which showe d flatter and worse tracings on the right which would be consistent with an SFA occlusion on the rig ht. He subsequently was seen by Dr. Baird. On January 11, he had atherectomy, balloon angioplasty, and catheter embolectomy of the right leg which opened up the severe stenosis and acute occlusions. La on, he was seen and evaluated by Dr. Tello and had a midfoot amputation with drainage of abscess and saucerization of the mid-foot. He was recently treated with ertapenem. He will be discharged to home on Levaquin. HOSPITAL COURSE PER PROBLEM: 1. Right foot osteomyelitis. He is status post angioplasty and now has good flow. He is status po st midfoot amputation and drainage. He will be discharged home on Levaquin. His culture grew out S erratia marcescens. He will further follow up with Dr. West in the outpatient setting, and it will be decided how long he will be on Levaquin. 2. Coagulopathy. This was due to being on Xarelto. 3. Chronic atrial fibrillation. His CHADS-VASc score was high while he was off the Xarelto and Dayday vix. He was treated with heparin as bridge therapy. Xarelto was restarted yesterday. 4. Coronary artery disease with diastolic congestive heart failure. He has some lower extremity ed daphney. He had an echo performed during his stay which showed moderate LVH with an EF of 70%. 5. Diabetes type 2. His glucoses have been very labile during his stay. He feels he has better co ntrol at home. 6. Nicotine dependence. We had a good discussion about the impact of smoking and impacting his hea lth. He said he is going to quit smoking. PENDING LABS AND TESTS: None. CONDITION ON DISCHARGE: Stable. Blood pressure is 146/82, heart rate is 80, respiratory rate is 20, O2 sats on room air 92%, tempera ture 36.9 Celsius. MEDICATIONS AT DISCHARGE: Please see the EMR. DISCHARGE INSTRUCTIONS: 1. To follow up with Dr. West in the outpatient setting. 2. Follow up with Dr. Tello next week. To leave the dressing on until he is seen and evaluated by Dr. Tello. 3. He will be on Levaquin. He has been instructed of the side effects of this medication. Greater than 35 minutes discharging and coordinating care. Copy requested to: Dr. Hdez /[id number]/MODL
[2017-01-16 14:53] VITALS: PULSE 80
--- NOTE | 2017-01-23 12:12 | GOP ---
[f rep st] OPERATIVE REPORT DATE OF OPERATION: 01/14/2017 SURGEON: Koffi Tello MD EHS ENGINEER: There was no interior design assistant. ANESTHESIOLOGIST: Tere Calderon MD PREOPERATIVE DIAGNOSIS: Right foot osteomyelitis and abscess. POSTOPERATIVE DIAGNOSIS: Right foot osteomyelitis and abscess. PROCEDURE PERFORMED: Right midfoot amputation with drainage of abscess and saucerization of the midfoot./ Placement of platelet-rich plasma dressing FINDINGS: The patient has a lateral foot abscess, osteo in the metatarsal bases , and appeared to have adequate blood flow for healing. DESCRIPTION OF PROCEDURE: The patient was taken to the operating room, received satisfactory general endotracheal anesthesia by Dr. Calderon. He was placed in supine position, prepped and draped in usual sterile fashion. His previous transmetatarsal amputation and stumps site was debrided back to viable tissue in the posterior flap and the anterior flap. The bases of the metatarsals were removed using a power saw, clearing the foot of areas of osteomyelitis. The midfoot bones were saucerized again with a power tool, cutting back to good fresh bone. Hemostasis was obtained with electrocautery. The wound was irrigated. Hemostasis was assured, and then some platelet-rich plasma was placed in the wound. The posterior flap was sutured up to the anterior flap with some interrupted 3-0 nylon sutures, leaving the wound open at either end. The wound was then dressed. He tolerated the procedure well, was taken to the recovery room in good condition. COMPLICATIONS: There were no complications. /[id number]/MODL MTDD
== END 2017-01-16 14:00 | disposition home health service (06) | DRG 617 ==
LOC: F3N 01-07 00:29 → F3E 01-11 15:54
PROVIDERS: ADMIT Internal Medicine; ATTEND Internal Medicine
PROC: 02HV33Z Insertion of Infusion Device into Superior Vena Cava, Percutaneous Approach (ICD-10-PCS; 2017-01-07)
PROC: 047K3ZZ Dilation of Right Femoral Artery, Percutaneous Approach (ICD-10-PCS; 2017-01-11)
PROC: 04CK3ZZ Extirpation of Matter from Right Femoral Artery, Percutaneous Approach (ICD-10-PCS; 2017-01-11)
PROC: 3E06317 Introduction of Other Thrombolytic into Central Artery, Percutaneous Approach (ICD-10-PCS; 2017-01-11)
PROC: 0Y6M0Z9 Detachment at Right Foot, Partial 1st Ray, Open Approach (ICD-10-PCS; principal; 2017-01-11 17:30)
PROC: 0Y6M0ZF Detachment at Right Foot, Partial 5th Ray, Open Approach (ICD-10-PCS; principal; 2017-01-11 17:30)
PROC: 0Y6M0ZB Detachment at Right Foot, Partial 2nd Ray, Open Approach (ICD-10-PCS; principal; 2017-01-11 17:30)
PROC: 0Y6M0ZD Detachment at Right Foot, Partial 4th Ray, Open Approach (ICD-10-PCS; principal; 2017-01-11 17:30)
PROC: 0Y6M0ZC Detachment at Right Foot, Partial 3rd Ray, Open Approach (ICD-10-PCS; principal; 2017-01-11 17:30)
DX: E11.69 Type 2 diabetes mellitus with other specified complication (principal); M86.9 Osteomyelitis, unspecified; T82.856A Stenosis of peripheral vascular stent, initial encounter; I50.30 Unspecified diastolic (congestive) heart failure; I48.2 Chronic atrial fibrillation; I25.10 Atherosclerotic heart disease of native coronary artery without angina pectoris; J96.10 Chronic respiratory failure, unspecified whether with hypoxia or hypercapnia; F17.200 Nicotine dependence, unspecified, uncomplicated; G47.33 Obstructive sleep apnea (adult) (pediatric); Z95.5 Presence of coronary angioplasty implant and graft
CPT/HCPCS: 82947-QW; 85520-90; 96365; 97110-GP; 97116-GP; 97161-GP; 97165-GO; 97530-GP; 97535-GO; C1714; C1725; C1751; C1757; C1769; C1887; C1894; G8978-GP-CJ; G8979-GP-CI; G8987-GO-CI; G8988-GO-CI; J0360; J0696; J1170; J1335; J1644; J1815; J2250; J2370; J2405; J2704; J2997; J3010; J3370; Q9967

== ENCOUNTER 2017-03-23 13:48 | Observation (INO) | payer OTHER ==
[~2017-03-23 13:48] MED LIST: BUPIVACAINE 0.5% 30 ML SDV ONE; MINERAL OIL 10 ML VIAL ONE; THROMBIN (BOVINE) 20,000 UNIT SPRAY TP ONE; ceFAZolin 2 GM/DEXTROSE 100 ML IV ONE
[2017-03-23] MEDS ORDERED: LIDOCAINE 1% 2 ML INJ ONE (14:08)
[2017-03-23] MEDS ORDERED: CEFAZOLIN 2 GM/DEXTROSE/100 ML BAG IV ONE (14:08)
[2017-03-23] MEDS ORDERED: MIDAZOLAM 2 MG/2 ML VIAL ONE (14:36)
[2017-03-23] MEDS ORDERED: fentaNYL 100 MCG/2 ML INJ ONE ×2 (14:39→15:14)
[2017-03-23] MEDS ORDERED: PROPOFOL/EMULSION 500 MG/50 ML BOTTLE IV ONE (14:41)
[2017-03-23] MEDS ORDERED: LR 1,000 ML IV ONE (14:54)
[2017-03-23] MEDS ORDERED: LIDOCAINE 1% 2 ML INJ ID PRN (14:54)
--- NOTE | 2017-03-23 15:28 | PDANEPAE ---
ANE History of Present Illness here for skin graft to r foot ANE Past Medical History - Cardiovascular History Hx Hypertension: Yes Hx Arrhythmias: Yes Hx Chest Pain: No Hx Coronary Artery / Peripheral Vascular Disease: Yes Hx CHF / Valvular Disease: Yes Hx Palpitations: No Cardiovascular History Comment: CARDIAC STENTS X2. STENTS MARLEN LEGS X2. htn. afib. cad. chf. pvd - Pulmonary History Hx COPD: No Hx Asthma/Reactive Airway Disease: No Hx Recent Upper Respiratory Infection: No Hx Oxygen in Use at Home: No Hx Sleep Apnea: Yes Sleep Apnea Screening Result - Last Documented: Negative Pulmonary History Comment: PULMONARY HTN - Neurologic History Hx Cerebrovascular Accident: No Hx Seizures: No Hx Dementia: No - Endocrine History Hx Diabetes: Yes Obesity: mild, moderate Endocrine History Comment: insulin dependent - Renal History Hx Renal Disorders: No - Liver History Hx Hepatic Disorders: No - Neurological & Psychiatric Hx Hx Neurological and Psychiatric Disorders: No - Cancer History Hx Cancer: No - Congenital Disorder History Hx Congenital Disorders: No - GI History Hx Gastrointestinal Disorders: No - Other Health History Other Health History: gout. arthritis. PERIPHERAL NEUROPATHY - Chronic Pain History Chronic Pain: Yes (right foot pain) - Surgical History Prior Surgeries: 09/19/15 right foot debridement and amp with kellie X2. right mid foot amputation with kellie ANE Review of Systems Review of systems is: negative - Exercise capacity METS (RN): 4 METS ANE Patient History - Allergies Allergies/Adverse Reactions: No Known Allergies Allergy (Unverified 03/19/17 13:41) - Home Medications Home medications: home medication list seen and reviewed Home Medications: Rivaroxaban [Xarelto] 20 mg PO DAILY 08/16/15 [Last Taken 03/19/17] Lisinopril [Zestril 20 mg (*)] 20 mg PO DAILY 10/08/15 [Last Taken 03/22/17] metFORMIN HCL [Glucophage 500 mg (*)] 1,000 mg PO BIDMEAL 10/08/15 [Last Taken 03/19/17] Atorvastatin Calcium [Lipitor 40 mg (*)] 80 mg PO DAILY 01/07/17 [Last Taken 06/29] Furosemide [Lasix 20 MG (*)] 20 mg PO TID 01/07/17 [Last Taken 03/22/17] Gabapentin [Neurontin 100 MG (*)] 200 mg PO TID 01/07/17 [Last Taken 03/22/17] Gabapentin [Neurontin 400 MG (*)] 800 mg PO TID 01/07/17 [Last Taken 03/22/17] Insulin Aspart [Novolog Flexpen] 20 - 25 unit SQ TIDMEAL 01/07/17 [Last Taken ] Insulin Detemir [Levemir] 35 unit SQ DAILY 01/07/17 [Last Taken 03/23/17] Insulin Detemir [Levemir] 40 unit SQ HS 01/07/17 [Last Taken 03/22/17 20:00] - NPO status NPO Status: no food or drink >8 hours NPO Since - Liquids (Date): 03/23/17 NPO Since - Liquids (Time): 12:00 NPO Since - Solids (Date): 03/22/17 NPO Since - Solids (Time): 00:00 - Smoking Hx Smoking Status: Heavy smoker - Family Anes Hx Family Hx Anesthesia Complications: none ANE Labs/Vital Signs - Vital Signs Blood Pressure: 156/91 Heart Rate: 84 Respiratory Rate: 16 O2 Sat (%): 94 Height: 170.18 cm Weight: 95.254 kg ANE Physical Exam - Airway Neck exam: FROM Mallampati Score: Class 1 Mouth exam: normal dental/mouth exam - Pulmonary Pulmonary: no respiratory distress - Cardiovascular Cardiovascular: irregularly irregular - ASA Status ASA Status: IV ANE Anesthesia Plan Anesthesia Plan: GA w LMA Urgent/Emergent Case: Jignesh blake completed preop but documented later for safe timely pt care
[2017-03-23] MEDS ORDERED: NALOXONE HCL 0.4 MG/ML INJ IVP PRN (15:57)
[2017-03-23] MEDS ORDERED: fentaNYL 100 MCG/2 ML INJ IVP PRN (15:57)
[2017-03-23] MEDS ORDERED: ONDANSETRON 4 MG/2 ML VIAL IVP PRN ×2 (15:57→16:00)
--- NOTE | 2017-03-23 15:58 | PDHPUP ---
History & Physical Update H&P update statement: This history and physical update is based on an assessment of the patient which was completed after admission or registration (within 24 hours), but prior to the surgery/procedure. H&P update: H&P reviewed & patient examined H&P changes: To clarify, operative leg is the right leg
[2017-03-23] MEDS ORDERED: OXYCODONE/APAP 5/325 TAB PO PRN (16:00)
[2017-03-23] MEDS ORDERED: HYDROmorphONE/DILAUDID 1 MG/ML SYR IVP PRN (16:00)
--- NOTE | 2017-03-23 16:09 | POSTOPPROG ---
Post Op Note Date of Operation: 03/23/17 Surgeon: Koffi Tello Shear Grinder Operator: Rosalind Brandon Anesthesiologist: Jose F Prakash Anesthesia: GET(General Endotracheal) Pre-op Diagnosis: nonhealing R TMA wound x 2 Post-op Diagnosis: same Procedure: I&D R TMA wound with STSG and wound vac Findings: good bleeding in granulation bed Inf/Abcess present in the surg proc area at time of surgery?: No EBL: Minimal Complications: none Specimen(s): no specimens. WOUNDS: R TMA site, lateral: 3 x 2.5 x0.5cm ; pink granulation medial: 3.4 x 3.0 x 0.5 cm, pink granulation
[2017-03-23] MEDS: CARVEDILOL 25 MG TAB PO SCH (18:37)
[2017-03-23] MEDS: metFORMIN HCL 500 MG TAB PO SCH (18:37)
[2017-03-23] MEDS: INSULIN ASPART SC SCH (18:39)
[2017-03-23 20:35] VITALS: RESP 16
[2017-03-23] MEDS: DOCUSATE SODIUM 100 MG CAP PO SCH (20:58)
[2017-03-23] MEDS: GABAPENTIN 400 MG CAP PO SCH (20:58)
[2017-03-23] MEDS: GABAPENTIN 100 MG CAP PO SCH (20:58)
[2017-03-23] MEDS: Insulin Detemir [Levemir] 40 UNIT SQ SCH (21:01)
--- NOTE | 2017-03-24 05:13 | GOP ---
[f rep st] OPERATIVE REPORT DATE OF OPERATION: 03/23/2017 SURGEON: Koffi Tello MD MASH FILTER CLOTH CHANGER: Rosalind Brandon PA-C. ANESTHESIOLOGIST: Dr. Prakash. PREOPERATIVE DIAGNOSIS: Open wound, right transmetatarsal amputation site. POSTOPERATIVE DIAGNOSIS: Open wound, right transmetatarsal amputation site. PROCEDURE PERFORMED: Wound debridement and split thickness skin graft. FINDINGS: The patient was found to have adequate granulation tissue and 2 open wounds on his right transmetatarsal amputation site. DESCRIPTION OF PROCEDURE: The patient was taken to the operating room, where he received satisfactory general endotracheal anesthesia by Dr. Prakash. He was placed in supine position, prepped and draped in usual sterile fashion. The 2 open wounds on his transmetatarsal amputation site were debrided. There was good bleeding and good backflow and good granulation tissue. The sites were prepared. A 16 micron split thickness skin graft was taken from the anterior thigh. It was meshed at 1-1/2 to 1 and then both areas were covered securing the graft in place with skin dheeraj. This covered 8 cm x 2 cm area. Wound was then dressed with Xeroform gauze, and a wound VAC dressing was applied to hold the skin grafts in place and connected to the wound VAC suction at 125. The donor site was infiltrated with 0.5% Marcaine and dressed with Xeroform gauze, and Mepilex dressing. Tolerated the procedure well, taken to recovery room in good condition. No complications. /[id number]/MODL MTDD
[2017-03-24] MEDS: GABAPENTIN 100 MG CAP PO SCH ×2 (07:44→16:19)
[2017-03-24] MEDS: GABAPENTIN 400 MG CAP PO SCH ×2 (07:44→16:19)
[2017-03-24] MEDS: metFORMIN HCL 500 MG TAB PO SCH (07:45)
[2017-03-24] MEDS: CARVEDILOL 25 MG TAB PO SCH (07:45)
[2017-03-24] MEDS: DOCUSATE SODIUM 100 MG CAP PO SCH (07:48)
[2017-03-24] MEDS ORDERED: ATORVASTATIN CALCIUM 40 MG TAB PO SCH (09:00)
[2017-03-24] MEDS ORDERED: FUROSEMIDE 20 MG TAB PO SCH (09:00)
[2017-03-24] MEDS ORDERED: INSULIN DETEMIR 35 UNIT SQ SCH (09:00)
[2017-03-24] MEDS ORDERED: DILTIAZEM CD 120 MG CAP PO SCH (09:00)
[2017-03-24] MEDS ORDERED: LISINOPRIL 20 MG TAB PO SCH (09:00)
[2017-03-24] MEDS ORDERED: CLOPIDOGREL BISULFATE 75 MG TAB PO SCH (09:00)
[2017-03-24] MEDS ORDERED: DIGOXIN 250 MCG TAB PO SCH (10:00)
[2017-03-24] MEDS: Insulin Detemir [Levemir] 40 UNIT SQ SCH (10:51)
[2017-03-24] MEDS: INSULIN ASPART SC SCH ×2 (10:54→13:16)
[2017-03-24 12:51] VITALS: BP 131/78; PULSE 85; TEMP 98.4; O2SAT 91
--- NOTE | 2017-03-24 13:32 | SOAPPROG ---
SOAP Progress Note Assessment/Plan: Assessment/Plan: 56 y M c DM, PAD, s/p stsg and vac for nonhealing TMA wounds. POD#1 Outpatient wound vac arrangements. Need to leave vac in place x 1 week for graft take. Could be d/c'ed today. S: no pain O alert nad ctab rrr abd soft wound vac to suction 03/24/17 13:30 Objective: Vital Signs Temp Pulse Resp BP Pulse Ox 36.9 C 85 16 131/78 H 91 L 03/24/17 12:00 03/24/17 12:00 03/24/17 12:00 03/24/17 12:00 03/24/17 12:00 03/23/17 03/24/17 03/25/17 05:59 05:59 05:59 Intake Total 1680 500 Output Total 660 1250 Balance 1020 -750 ICD10 Worksheet Patient Problems: Problems Problem Status Onset Afib Acute Cellulitis of right foot Acute Nicotine dependence Acute Wound infection Acute
--- NOTE | 2017-03-24 13:37 | PDIAF ---
- Diagnosis Diagnosis: s/p graft and vac to nonhealing R TMA wounds Code Status: Full Code - Medication Management Discharge Medications: Medications to Continue on Transfer Rivaroxaban [Xarelto] 20 mg PO DAILY 08/16/15 [Last Taken 03/22/17] Lisinopril [Zestril 20 mg (*)] 20 mg PO DAILY 10/08/15 [Last Taken 03/22/17] metFORMIN HCL [Glucophage 500 mg (*)] 1,000 mg PO BIDMEAL 10/08/15 [Last Taken 03/22/17] Carvedilol [Coreg (*)] 25 mg PO BIDMEAL #0 tab 10/09/15 [Last Taken 03/22/17] Clopidogrel Bisulfate [Plavix (*)] 75 mg PO DAILY #0 tab 10/09/15 [Last Taken ] Digoxin [Lanoxin 0.25 mg] 0.25 mg PO DAILY10 #0 tab 10/09/15 [Last Taken ] Diltiazem Cd [Cardizem ER 120 MG (*)] 120 mg PO DAILY #0 cap 10/09/15 [Last Taken 03/22/17] Atorvastatin Calcium [Lipitor 40 mg (*)] 80 mg PO DAILY 01/07/17 [Last Taken 06/29] Furosemide [Lasix 20 MG (*)] 60 mg PO DAILY 01/07/17 [Last Taken 03/22/17] Gabapentin [Neurontin 100 MG (*)] 200 mg PO TID 01/07/17 [Last Taken 03/22/17] Gabapentin [Neurontin 400 MG (*)] 800 mg PO TID 01/07/17 [Last Taken 03/22/17] Insulin Aspart [Novolog Flexpen] 20 - 25 unit SQ TIDMEAL 01/07/17 [Last Taken ] Insulin Detemir [Levemir] 35 unit SQ DAILY 01/07/17 [Last Taken 03/22/17] Insulin Detemir [Levemir] 40 unit SQ HS 01/07/17 [Last Taken 03/22/17] Discharge Medications: Refer to the Discharge Home Medication list for PRN reason. PICC Care - Routine: N/A - Orders Services needed: Home Care, Registered Nurse Home Care Face to Face: I certify that this patient was under my care and that I had the required veaf-[id number] encounter meeting the encounter requirements on the discharge day. My findings support the fact that the patient is homebound as defined in CMS Chapter 7 Medicare Benefits Manual 30.1.1, The condition of the patient is such that there exists a normal inability to leave home and consequently, leaving home would require a considerable and taxing effort. Diet Recommendation: ADA 2000 consistent carb Diet Texture: Regular Texture Diet Wound Care Instructions: LEAVE WOUND VAC AND DONOR SITE DRESSING IN PLACE. To be removed in the office with Dr. Tello. Activity/Weight Bearing Restrictions: May bear weight on right heal--NOT the ball of his foot/TMA site - Follow Up Care Current Providers and Referrals: Palak Velez PAC [Primary Care Provider] - Koffi Tello MD [Medical Doctor] - follow up in 1 week
[2017-03-25] MEDS ORDERED: ENOXAPARIN 40 MG/0.4 ML SYR SC SCH (09:00)
[2017-03-25] MEDS ORDERED: RIVAROXABAN 20 MG TAB PO SCH (09:00)
== END 2017-03-24 17:00 | disposition home or self-care (01) ==
LOC: F3N 13:48 → F3E 16:50
PROVIDERS: ADMIT Surgery; ATTEND Surgery
PROC: 0JBQ0ZZ Excision of Right Foot Subcutaneous Tissue and Fascia, Open Approach (ICD-10-PCS; principal; 2017-03-23 15:15)
PROC: 0HRMX74 Replacement of Right Foot Skin with Autologous Tissue Substitute, Partial Thickness, External Approach (ICD-10-PCS; principal; 2017-03-23 15:15)
PROC: 0JBL0ZZ Excision of Right Upper Leg Subcutaneous Tissue and Fascia, Open Approach (ICD-10-PCS; principal; 2017-03-23 15:15)
DX: T87.89 Other complications of amputation stump (principal); I70.293 Other atherosclerosis of native arteries of extremities, bilateral legs; I73.9 Peripheral vascular disease, unspecified; E11.49 Type 2 diabetes mellitus with other diabetic neurological complication; I25.10 Atherosclerotic heart disease of native coronary artery without angina pectoris; F17.200 Nicotine dependence, unspecified, uncomplicated; Z95.5 Presence of coronary angioplasty implant and graft; I48.91 Unspecified atrial fibrillation; I27.2 Other secondary pulmonary hypertension; E66.09 Other obesity due to excess calories; Z68.32 Body mass index [BMI] 32.0-32.9, adult; Z95.820 Peripheral vascular angioplasty status with implants and grafts; Z89.422 Acquired absence of other left toe(s); Z79.4 Long term (current) use of insulin; Z79.01 Long term (current) use of anticoagulants
CPT/HCPCS: 11042; 15100; J0690; J2704; J3010; J1815; J2250

== ENCOUNTER 2017-07-13 19:34 | Inpatient (IN) | payer OTHER ==
--- NOTE | 2017-07-13 19:48 | EDPHY ---
H & P Time Seen by Provider: 07/13/17 19:45 HPI/ROS: CHIEF COMPLAINT: Shortness of breath HISTORY OF PRESENT ILLNESS: This patient is a 56 y/o male with history of CHF, diabetes, and atrial fibrillation complaining of shortness of breath. Gradually increasing exertional shortness of breath over the past few weeks. He is now short of breath when he lies down, and has been sleeping at the table so he can remain upright. His legs are swollen, but he states not more than usual. He has an intermittent productive cough with clear mucous. He had similar symptoms around 5-6 years ago and was treated for pulmonary edema at that time. He takes Digoxin and Lasix regularly, and has been taking 60mg Lasix qd for about one year. He ran out of Clopidogrel three weeks ago, but denies any other recent changes in medications. He denies any chest pain or fever. REVIEW OF SYSTEMS: A 10 point review of systems was performed and is negative with the exception of the elements mentioned in the history of present illness. Past Medical/Surgical History: 1.Atrial fibrillation (Xarelto) 2. CAD, S/P PCI 3. Hypertension 4. Hyperlipidemia 5. Diastolic CHF 6. Diabetes mellitus type II 7. Peripheral vascular disease. 8. Obstructive sleep apnea (home oxygen at night) Social History: at bedside. Lives in [place]. Uses tobacco. Smoking Status: Heavy smoker Physical Exam: General Appearance: Alert, tachypneic Eyes: Pupils equal and round, no conjunctival pallor or injection ENT, Mouth: Mucous membranes moist Neck: Normal inspection Respiratory: Tachypneic, rales at bases Cardiovascular: Irregularly regular rate and rhythm Gastrointestinal: Abdomen is soft and non-tender Neurological: A&O, nonfocal exam Skin: Warm and dry, no rash Extremities: 3+ pedal edema, right midfoot amputation Psychiatric: Mood and affect normal Constitutional: Initial Vital Signs Temperature (C) 36.6 C 07/13/17 19:37 Heart Rate 90 07/13/17 19:37 Respiratory Rate 16 07/13/17 19:37 Blood Pressure 127/96 H 07/13/17 19:37 O2 Sat (%) 91 L 07/13/17 19:37 O2 Delivery Mode Nasal Cannula O2 (L/minute) 2 Allergies/Adverse Reactions: No Known Allergies Allergy (Unverified 03/19/17 13:41) Home Medications: Medication Instructions Recorded Rivaroxaban [Xarelto] 20 mg PO DAILY 08/16/15 Lisinopril [Zestril 20 mg (*)] 20 mg PO DAILY@18 10/08/15 metFORMIN HCL [Glucophage 500 mg 1,000 mg PO BIDMEAL 10/08/15 (*)] Carvedilol [Coreg (*)] 25 mg PO BIDMEAL #0 tab 10/09/15 Clopidogrel Bisulfate [Plavix (*)] 75 mg PO DAILY #0 tab 10/09/15 Digoxin [Lanoxin 0.25 mg] 0.25 mg PO DAILY10 #0 tab 10/09/15 Diltiazem Cd [Cardizem ER 120 MG 120 mg PO DAILY #0 cap 10/09/15 (*)] Atorvastatin Calcium [Lipitor 40 80 mg PO DAILY 01/07/17 mg (*)] Furosemide [Lasix 20 MG (*)] 60 mg PO DAILY 01/07/17 Gabapentin [Neurontin 100 MG (*)] 200 mg PO TID 01/07/17 Gabapentin [Neurontin 400 MG (*)] 800 mg PO TID 01/07/17 Insulin Aspart [Novolog Flexpen] 20 - 25 unit SQ TIDMEAL 01/07/17 Insulin Detemir [Levemir] 35 unit SQ DAILY 01/07/17 Insulin Detemir [Levemir] 40 unit SQ HS 01/07/17 Medical Decision Making - Diagnostics EKG Interpretation: EKG interpreted by me reveals atrial fibrillation, ventricular rate 85, inferior Q-waves, no change from prior EKG. Interpretation: Abnormal EKG ED Course/Re-evaluation: 56 y/o male with history of CHF and atrial fibrillation presents with shortness of breath worsening over the last few days. EKG reveals no evidence of ischemia. He is in AFib with a controlled rate. Symptoms and physical exam consistent with CHF exacerbation. Administered 40mg IV Lasix and Nitropaste for symptom relief. Feels much better after oxygen 2 L by nasal cannula. D- dimer is slightly elevated. Will obtain a CT pulmonary angiogram to rule out pulmonary embolism. CT pulmonary angiogram reveals no evidence of pulmonary embolism. Hospitalist service was consulted for admission for further care of congestive heart failure. Patient was stable throughout his emergency department stay. tissue technologist revealed atrial fibrillation with a controlled rate. Differential Diagnosis: Differential diagnosis includes though it is not limited to pneumonia, pneumothorax, pulmonary embolism, aortic dissection, pericarditis, acute coronary syndrome. - Data Points Laboratory Results: Laboratory Results 07/13/17 19:51 07/13/17 19:51 Medications Given: Atorvastatin Calcium (Lipitor) 80 mg PO DAILY [facility] Stop: 01/10/18 08:59 Last Admin: 07/15/17 08:31 Dose: 80 mg Clopidogrel Bisulfate (Plavix) 75 mg PO DAILY [facility] Stop: 01/10/18 08:59 Last Admin: 07/15/17 08:32 Dose: 75 mg Digoxin (Lanoxin) 250 mcg PO DAILY10 [facility] Stop: 01/10/18 09:59 Last Admin: 07/15/17 10:17 Dose: 250 mcg Diltiazem HCl (Cardizem Er Q24hr) 120 mg PO DAILY [facility] Stop: 01/10/18 08:59 Last Admin: 07/15/17 08:32 Dose: 120 mg Furosemide (Lasix Injection) 40 mg IVP BID@0600,1400 [facility] Stop: 01/10/18 05:59 Last Admin: 07/15/17 05:44 Dose: 40 mg Gabapentin (Neurontin) 800 mg PO TID [facility] Stop: 01/10/18 08:59 Last Admin: 07/15/17 08:32 Dose: 800 mg Lisinopril (Zestril) 20 mg PO DAILY@18 [facility] Stop: 01/10/18 17:59 Last Admin: 07/14/17 16:44 Dose: 20 mg Metoprolol Tartrate (Lopressor) 25 mg PO BID [facility] Stop: 01/10/18 20:59 Last Admin: 07/15/17 08:32 Dose: 25 mg Miscellaneous Medication (Insulin Detemir [Levemir]) 35 unit SQ DAILY [facility] Stop: 01/10/18 08:59 Last Admin: 07/15/17 08:28 Dose: 35 units Miscellaneous Medication (Insulin Detemir [Levemir]) 40 unit SQ HS [facility] Stop: 01/10/18 20:59 Last Admin: 07/14/17 22:23 Dose: 40 units Miscellaneous Medication (Insulin Aspart [Novolog Flexpen]) 20 - 25 unit SQ TIDMEAL [facility] Stop: 01/10/18 07:59 Last Admin: 07/15/17 13:30 Dose: 20 units Rivaroxaban (Xarelto) 20 mg PO DAILY [facility] Stop: 01/10/18 08:59 Last Admin: 07/15/17 08:32 Dose: 20 mg Discontinued Medications Furosemide (Lasix Injection) 40 mg IVP EDNOW ONE Stop: 07/13/17 20:01 Last Admin: 07/13/17 20:15 Dose: 40 mg Magnesium Sulfate/Dextrose (Magnesium Sulf 1 Gm (Premix)) 100 mls @ 100 mls/hr IV ONCE ONE Stop: 07/14/17 13:51 Last Admin: 07/14/17 13:18 Dose: 100 mls Metoprolol Tartrate (Lopressor) 25 mg PO ONCE ONE Stop: 07/14/17 13:08 Last Admin: 07/14/17 13:18 Dose: 25 mg Miscellaneous Medication (Insulin Aspart [Novolog Flexpen]) 20 unit SQ TIDMEAL [facility] Stop: 01/10/18 07:59 Last Admin: 07/14/17 12:39 Dose: 20 units Nitroglycerin (Nitro-Bid 2%) 1 inch TP EDNOW ONE Stop: 07/13/17 20:02 Last Admin: 07/13/17 20:20 Dose: 1 inch Departure - Departure Disposition: [facility] Inpatient Acute Clinical Impression: Acute exacerbation of congestive heart failure Condition: Fair Report Scribed for: Kylee Jones Report Scribed by: Destiny Bullock Date of Report: 07/13/17 Time of Report: 19:47 Physician Review and Approval Statement: 07/13/17 19:47 Portions of this note were transcribed by a medical records auditor. I personally performed a history, physical exam, medical decision making, and confirmed accuracy of information the transcribed note.
--- NOTE | 2017-07-13 19:48 | CPEKG ---
Heart Rate: 85 RR Interval: 706 QRSD Interval: 98 QT Interval: 324 QTC Interval: 386 QRS Mcclure: 125 T Wave Mcclure: -66 EKG Severity - ABNORMAL ECG - EKG Impression: ATRIAL FIBRILLATION EKG Impression: PROBABLE INFERIOR INFARCT, AGE INDETERMINATE EKG Impression: no change from EKG 01/07/2017 Electronically Signed By: Kylee Jones 13-Jul-2017 20:09:24
--- NOTE | 2017-07-13 19:48 | EDPHY ---
H & P Time Seen by Provider: 07/13/17 19:45 HPI/ROS: CHIEF COMPLAINT: Shortness of breath HISTORY OF PRESENT ILLNESS: This patient is a 56 y/o male with history of CHF, diabetes, and atrial fibrillation complaining of shortness of breath. Gradually increasing exertional shortness of breath over the past few weeks. He is now short of breath when he lies down, and has been sleeping at the table so he can remain upright. His legs are swollen, but he states not more than usual. He has an intermittent productive cough with clear mucous. He had similar symptoms around 5-6 years ago and was treated for pulmonary edema at that time. He takes Digoxin and Lasix regularly, and has been taking 60mg Lasix qd for about one year. He ran out of Clopidogrel three weeks ago, but denies any other recent changes in medications. He denies any chest pain or fever. REVIEW OF SYSTEMS: A 10 point review of systems was performed and is negative with the exception of the elements mentioned in the history of present illness. Past Medical/Surgical History: 1.Atrial fibrillation (Xarelto) 2. CAD, S/P PCI 3. Hypertension 4. Hyperlipidemia 5. Diastolic CHF 6. Diabetes mellitus type II 7. Peripheral vascular disease. 8. Obstructive sleep apnea (home oxygen at night) Social History: at bedside. Lives in [place]. Uses tobacco. Smoking Status: Heavy smoker Physical Exam: General Appearance: Alert, tachypneic Eyes: Pupils equal and round, no conjunctival pallor or injection ENT, Mouth: Mucous membranes moist Neck: Normal inspection Respiratory: Tachypneic, rales at bases Cardiovascular: Irregularly regular rate and rhythm Gastrointestinal: Abdomen is soft and non-tender Neurological: A&O, nonfocal exam Skin: Warm and dry, no rash Extremities: 3+ pedal edema, right midfoot amputation Psychiatric: Mood and affect normal Constitutional: Initial Vital Signs Temperature (C) 36.6 C 07/13/17 19:37 Heart Rate 90 07/13/17 19:37 Respiratory Rate 16 07/13/17 19:37 Blood Pressure 127/96 H 07/13/17 19:37 O2 Sat (%) 91 L 07/13/17 19:37 O2 Delivery Mode Nasal Cannula O2 (L/minute) 2 Allergies/Adverse Reactions: No Known Allergies Allergy (Unverified 03/19/17 13:41) Home Medications: Medication Instructions Recorded Rivaroxaban [Xarelto] 20 mg PO DAILY 08/16/15 Lisinopril [Zestril 20 mg (*)] 20 mg PO DAILY@18 10/08/15 metFORMIN HCL [Glucophage 500 mg 1,000 mg PO BIDMEAL 10/08/15 (*)] Carvedilol [Coreg (*)] 25 mg PO BIDMEAL #0 tab 10/09/15 Clopidogrel Bisulfate [Plavix (*)] 75 mg PO DAILY #0 tab 10/09/15 Digoxin [Lanoxin 0.25 mg] 0.25 mg PO DAILY10 #0 tab 10/09/15 Diltiazem Cd [Cardizem ER 120 MG 120 mg PO DAILY #0 cap 10/09/15 (*)] Atorvastatin Calcium [Lipitor 40 80 mg PO DAILY 01/07/17 mg (*)] Furosemide [Lasix 20 MG (*)] 60 mg PO DAILY 01/07/17 Gabapentin [Neurontin 100 MG (*)] 200 mg PO TID 01/07/17 Gabapentin [Neurontin 400 MG (*)] 800 mg PO TID 01/07/17 Insulin Aspart [Novolog Flexpen] 20 - 25 unit SQ TIDMEAL 01/07/17 Insulin Detemir [Levemir] 35 unit SQ DAILY 01/07/17 Insulin Detemir [Levemir] 40 unit SQ HS 01/07/17 Medical Decision Making - Diagnostics EKG Interpretation: EKG interpreted by me reveals atrial fibrillation, ventricular rate 85, inferior Q-waves, no change from prior EKG. Interpretation: Abnormal EKG ED Course/Re-evaluation: 56 y/o male with history of CHF and atrial fibrillation presents with shortness of breath worsening over the last few days. EKG reveals no evidence of ischemia. He is in AFib with a controlled rate. Symptoms and physical exam consistent with CHF exacerbation. Administered 40mg IV Lasix and Nitropaste for symptom relief. Feels much better after oxygen 2 L by nasal cannula. D- dimer is slightly elevated. Will obtain a CT pulmonary angiogram to rule out pulmonary embolism. CT pulmonary angiogram reveals no evidence of pulmonary embolism. Hospitalist service was consulted for admission for further care of congestive heart failure. Patient was stable throughout his emergency department stay. library monitor revealed atrial fibrillation with a controlled rate. Differential Diagnosis: Differential diagnosis includes though it is not limited to pneumonia, pneumothorax, pulmonary embolism, aortic dissection, pericarditis, acute coronary syndrome. - Data Points Laboratory Results: Laboratory Results 07/13/17 19:51 07/13/17 19:51 Medications Given: Atorvastatin Calcium (Lipitor) 80 mg PO DAILY [facility] Stop: 01/10/18 08:59 Last Admin: 07/15/17 08:31 Dose: 80 mg Clopidogrel Bisulfate (Plavix) 75 mg PO DAILY [facility] Stop: 01/10/18 08:59 Last Admin: 07/15/17 08:32 Dose: 75 mg Digoxin (Lanoxin) 250 mcg PO DAILY10 [facility] Stop: 01/10/18 09:59 Last Admin: 07/15/17 10:17 Dose: 250 mcg Diltiazem HCl (Cardizem Er Q24hr) 120 mg PO DAILY [facility] Stop: 01/10/18 08:59 Last Admin: 07/15/17 08:32 Dose: 120 mg Furosemide (Lasix Injection) 40 mg IVP BID@0600,1400 [facility] Stop: 01/10/18 05:59 Last Admin: 07/15/17 05:44 Dose: 40 mg Gabapentin (Neurontin) 800 mg PO TID [facility] Stop: 01/10/18 08:59 Last Admin: 07/15/17 08:32 Dose: 800 mg Lisinopril (Zestril) 20 mg PO DAILY@18 [facility] Stop: 01/10/18 17:59 Last Admin: 07/14/17 16:44 Dose: 20 mg Metoprolol Tartrate (Lopressor) 25 mg PO BID [facility] Stop: 01/10/18 20:59 Last Admin: 07/15/17 08:32 Dose: 25 mg Miscellaneous Medication (Insulin Detemir [Levemir]) 35 unit SQ DAILY [facility] Stop: 01/10/18 08:59 Last Admin: 07/15/17 08:28 Dose: 35 units Miscellaneous Medication (Insulin Detemir [Levemir]) 40 unit SQ HS [facility] Stop: 01/10/18 20:59 Last Admin: 07/14/17 22:23 Dose: 40 units Miscellaneous Medication (Insulin Aspart [Novolog Flexpen]) 20 - 25 unit SQ TIDMEAL [facility] Stop: 01/10/18 07:59 Last Admin: 07/15/17 13:30 Dose: 20 units Rivaroxaban (Xarelto) 20 mg PO DAILY [facility] Stop: 01/10/18 08:59 Last Admin: 07/15/17 08:32 Dose: 20 mg Discontinued Medications Furosemide (Lasix Injection) 40 mg IVP EDNOW ONE Stop: 07/13/17 20:01 Last Admin: 07/13/17 20:15 Dose: 40 mg Magnesium Sulfate/Dextrose (Magnesium Sulf 1 Gm (Premix)) 100 mls @ 100 mls/hr IV ONCE ONE Stop: 07/14/17 13:51 Last Admin: 07/14/17 13:18 Dose: 100 mls Metoprolol Tartrate (Lopressor) 25 mg PO ONCE ONE Stop: 07/14/17 13:08 Last Admin: 07/14/17 13:18 Dose: 25 mg Miscellaneous Medication (Insulin Aspart [Novolog Flexpen]) 20 unit SQ TIDMEAL [facility] Stop: 01/10/18 07:59 Last Admin: 07/14/17 12:39 Dose: 20 units Nitroglycerin (Nitro-Bid 2%) 1 inch TP EDNOW ONE Stop: 07/13/17 20:02 Last Admin: 07/13/17 20:20 Dose: 1 inch Departure - Departure Disposition: [facility] Inpatient Acute Clinical Impression: Acute exacerbation of congestive heart failure Condition: Fair Report Scribed for: Kylee Jones Report Scribed by: Destiny Bullock Date of Report: 07/13/17 Time of Report: 19:47 Physician Review and Approval Statement: 07/13/17 19:47 Portions of this note were transcribed by a certified medical transcriptionist. I personally performed a history, physical exam, medical decision making, and confirmed accuracy of information the transcribed note.
[2017-07-13 19:58] LABS: PLATELET COUNT 187 10^3/uL (150-400)
[2017-07-13] MEDS ORDERED: FUROSEMIDE 40 MG/4 ML VIAL IVP ONE ×2 (20:00)
[2017-07-13] MEDS ORDERED: NITROGLYCERIN 2% 1 GM PACKET TP ONE ×2 (20:01)
[2017-07-13] MEDS ORDERED: IOPAMIDOL (ISOVUE 370) 100 ML BTL IV ONE ×4 (20:47→21:05)
[2017-07-13] MEDS ORDERED: ONDANSETRON DISINTEGRATING 4 MG TAB PO PRN ×2 (20:53)
[2017-07-13] MEDS ORDERED: ONDANSETRON 4 MG/2 ML VIAL IVP PRN ×2 (20:53)
[2017-07-13] MEDS ORDERED: ACETAMINOPHEN 325 MG TAB PO PRN ×2 (20:53)
[2017-07-13] MEDS ORDERED: LORazepam 0.5 MG TAB PO PRN ×2 (22:36)
[2017-07-13] MEDS ORDERED: NICOTINE 21 MG/24 HR PATCH TD PRN ×2 (22:36)
[2017-07-14] MEDS ORDERED: D50W 25 GM/50 ML VIAL IVP PRN ×2 (00:44)
[2017-07-14 03:59] LABS: PLATELET COUNT 195 10^3/uL (150-400)
[2017-07-14] MEDS: FUROSEMIDE 40 MG/4 ML VIAL IVP SCH ×4 (05:55→13:18)
--- NOTE | 2017-07-14 07:42 | PDGENHP ---
History and Physical - Chief Complaint shortness of breath - History of Present Illness Source - patient provides history and appears reliable. EMR also reviewed for details. HPI - Pleasant 56 yo M with pmx significant for atrial fibrillation, diastolic CHF, CAD stent x 2, HLD, HTN, DM II uncontrolled with neuropathy, PVD, obesity ( BMI 36.0), PHANI on O2 at HS, insomnia who presents to ED today with complaint of worsening SOB at rest. Patient attempted to take albuterol inhaler without improvement in symptoms. Patient reports chronic lower extremity edema, orthopnea, PND. Patient denies any chest pain/palpitations. he is complaining of worsening cough while at rest with clear/white sputum. patient denies any nausea/vomiting/diarrhea. + orthopnea. + PND. Patient takes 60mg po lasix daily. He admits to high salt intake at home as he states adds in a lot of salt. no reported change in oral liquid intake. In the ED patient received IV lasix and nitropaste. He was seen on PCU and reported improvement in dyspnea at that time. no significant change in LE edema. History Information - Allergies/Home Medication List Allergies/Adverse Reactions: No Known Allergies Allergy (Unverified 03/19/17 13:41) Home Medications: Rivaroxaban [Xarelto] 20 mg PO DAILY 08/16/15 [Last Taken 07/13/17] Lisinopril [Zestril 20 mg (*)] 20 mg PO DAILY@18 10/08/15 [Last Taken 07/13/17] metFORMIN HCL [Glucophage 500 mg (*)] 1,000 mg PO BIDMEAL 10/08/15 [Last Taken 07/13/17] Atorvastatin Calcium [Lipitor 40 mg (*)] 80 mg PO DAILY 01/07/17 [Last Taken ] Furosemide [Lasix 20 MG (*)] 60 mg PO DAILY 01/07/17 [Last Taken 07/13/17] Gabapentin [Neurontin 100 MG (*)] 200 mg PO TID 01/07/17 [Last Taken 07/13/17] Gabapentin [Neurontin 400 MG (*)] 800 mg PO TID 01/07/17 [Last Taken 07/13/17] Insulin Aspart [Novolog Flexpen] 20 - 25 unit SQ TIDMEAL 01/07/17 [Last Taken ] Insulin Detemir [Levemir] 35 unit SQ DAILY 01/07/17 [Last Taken 07/12/17] Insulin Detemir [Levemir] 40 unit SQ HS 01/07/17 [Last Taken 07/12/17] I have personally reviewed and updated: family history, medical history, social history, surgical history - Past Medical History atrial fibrillation, coronary artery disease (hx PR s/p PCI stent x 2), CHF ( diastolic), chronic insomnia, diabetes type 2, hypertension, hyperlipidemia, peripheral artery disease (bilateral stent) Additional medical history: Atrial fibrillation, on Xarelto. CAD, S/P PCI. hypertension. hyperlipidemia. diastolic CHF. hx osteomyelitis right foot s/p TMA. PHANI on O2 at HS. neuropathy. chronic insomnia. obesity. diabetes mellitus type 2, on insulin. peripheral vascular disease. obstructive sleep apnea on nocturnal O2 - Surgical History Additional surgical history: right foot TMA 10/2015. cardiac cath stent x2 - Family History Additional family history: father age 42 - pt unsure but may have been peritonitis/sepsis. mother with aneurysm/hemorrhage age 60s. 2 sons and 1 daughter are healthy. - Social History Smoking Status: Heavy smoker (1-2 ppd) Tobacco Use: Cigarettes Alcohol Use: None Drug Use: None Additional social history: patient lives with his family, is originally from [facility], has been [place] many [place]. COR status FULL but refuses to discuss advanced directives/MDPOA in detail. Review of Systems Review of Systems: ROS: 10pt was reviewed & negative except for what was stated in HPI & below Constitutional: Denies: chills, diaphoresis, fever EENMT: Reports: mouth pain (dental abscess right). Denies: nose congestion, sore throat Cardiac: Denies: chest pain, palpitations Respiratory: Reports: cough, orthopnea, shortness of breath. Denies: stridor, wheezing Gastrointestinal: Reports: other (superficial abdominal pain at insulin injection sites. ). Denies: vomitting, abdominal distention, constipation, diarrhea, nausea Genitourinary: Denies: burning, hematuria Muscolosketal: Reports: joint pain, muscle pain. Denies: back pain Skin: Reports: other (slow healing wound right medial foot at site of TMA.). Denies: rash Neurological: Reports: anxiety, numbness (insomnia, anxiety. no SI/HI. ), other (insomnia). Denies: depressed Hematologic/Lymphatic: Denies: easy bleeding, easy bruising Physical Exam Physical Exam: Temp Pulse Resp BP Pulse Ox 37.1 C 78 22 H 139/83 H 90 L 07/14/17 03:48 07/14/17 03:48 07/14/17 03:48 07/14/17 03:48 07/14/17 03:48 O2 (L/minute) 3 Constitutional: no apparent distress, appears nourished, chronically ill appearing, obese Eyes: PERRL, anicteric sclera, EOMI Ears, Nose, Mouth, Throat: moist mucous membranes, poor dentition Cardiovascular: regular rate and rhythym, no murmur, rub, or gallop, JVD, bradycardia, other (distant heart sounds. ) Peripheral Pulses: 1+: dorsalis-pedis (R) (limited 2/2 edema.), dorsalis-pedis ( L) (limited 2/2 edema) Respiratory: reduced air movement, No no respiratory distress, No expiratory wheeze Gastrointestinal: normoactive bowel sounds, No tenderness, No ascites, No magallanes 's sign, No distension Genitourinary: No no bladder tenderness, No willoughby in urethra Skin: warm, rash (posterior neck maculopaular singular rash pt reports chronic.) , No mottled Musculoskeletal: full muscle strength, no muscle tenderness, No joint effusion, No generalized weakness Neurologic: AAOx3, numbness, CN II-XII Intact, No weakness Psychiatric: anxious, No depressed, No flat affect, No poor insight, No poor judgement Lymph, Heme, Immunologic: no cervical LAD, no supraclavicular LAD Lab Data & Imaging Review 07/14/17 03:28 07/14/17 03:28 Laboratory Tests 07/13/17 07/13/17 07/13/17 19:50 19:51 19:51 WBC 7.04 RBC 4.33 L Hgb 13.6 L Hct 39.8 L MCV 91.9 MCH 31.4 MCHC 34.2 RDW 15.9 H Plt Count 187 MPV 9.9 Neut % (Auto) 61.6 Lymph % (Auto) 24.9 [place] % (Auto) 11.5 Eos % (Auto) 1.3 Baso % (Auto) 0.4 Nucleat RBC Rel Count 0.0 Absolute Neuts (auto) 4.34 Absolute Lymphs (auto) 1.75 Absolute Monos (auto) 0.81 H Absolute Eos (auto) 0.09 Absolute Basos (auto) 0.03 Absolute Nucleated RBC 0.00 Immature Gran % 0.3 Immature Gran # 0.02 D-Dimer 0.84 H Sodium Potassium Chloride Carbon Dioxide Anion Gap BUN Creatinine Estimated GFR Glucose Calcium Troponin I NT-Pro-B Natriuret Pep Digoxin 1.6 07/13/17 19:51 WBC RBC Hgb Hct MCV MCH MCHC RDW Plt Count MPV Neut % (Auto) Lymph % (Auto) [place] % (Auto) Eos % (Auto) Baso % (Auto) Nucleat RBC Rel Count Absolute Neuts (auto) Absolute Lymphs (auto) Absolute Monos (auto) Absolute Eos (auto) Absolute Basos (auto) Absolute Nucleated RBC Immature Gran % Immature Gran # D-Dimer Sodium 139 Potassium 4.5 Chloride 102 Carbon Dioxide 25 Anion Gap 12 BUN 17 Creatinine 1.0 Estimated GFR > 60 Glucose 229 H Calcium 9.2 Troponin I 0.164 H NT-Pro-B Natriuret Pep 2930 H Digoxin WBC 6.33 10^3/uL (3.80-9.50) 07/14/17 03:28 RBC 4.04 10^6/uL (4.40-6.38) L 07/14/17 03:28 Hgb 12.4 g/dL (13.7-17.5) L 07/14/17 03:28 Hct 37.6 % (40.0-51.0) L 07/14/17 03:28 MCV 93.1 fL (81.5-99.8) 07/14/17 03:28 MCH 30.7 pg (27.9-34.1) 07/14/17 03:28 MCHC 33.0 g/dL (32.4-36.7) 07/14/17 03:28 RDW 15.7 % (11.5-15.2) H 07/14/17 03:28 Plt Count 195 10^3/uL (150-400) 07/14/17 03:28 MPV 10.3 fL (8.7-11.7) 07/14/17 03:28 Neut % (Auto) 51.5 % (39.3-74.2) 07/14/17 03:28 Lymph % (Auto) 32.4 % (15.0-45.0) 07/14/17 03:28 [place] % (Auto) 12.6 % (4.5-13.0) 07/14/17 03:28 Eos % (Auto) 2.8 % (0.6-7.6) 07/14/17 03:28 Baso % (Auto) 0.5 % (0.3-1.7) 07/14/17 03:28 Nucleat RBC Rel Count 0.0 % (0.0-0.2) 07/14/17 03:28 Absolute Neuts (auto) 3.26 10^3/uL (1.70-6.50) 07/14/17 03:28 Absolute Lymphs (auto) 2.05 10^3/uL (1.00-3.00) 07/14/17 03:28 Absolute Monos (auto) 0.80 10^3/uL (0.30-0.80) 07/14/17 03:28 Absolute Eos (auto) 0.18 10^3/uL (0.03-0.40) 07/14/17 03:28 Absolute Basos (auto) 0.03 10^3/uL (0.02-0.10) 07/14/17 03:28 Absolute Nucleated RBC 0.00 10^3/uL (0-0.01) 07/14/17 03:28 Immature Gran % 0.2 % (0.0-1.1) 07/14/17 03:28 Immature Gran # 0.01 10^3/uL (0.00-0.10) 07/14/17 03:28 D-Dimer 0.84 ug/mLFEU (0.00-0.50) H 07/13/17 19:51 Sodium 138 mEq/L (134-144) 07/14/17 03:28 Potassium 4.1 mEq/L (3.5-5.2) 07/14/17 03:28 Chloride 100 mEq/L (97-110) 07/14/17 03:28 Carbon Dioxide 26 mEq/l (22-31) 07/14/17 03:28 Anion Gap 12 mEq/L (8-16) 07/14/17 03:28 BUN 17 mg/dL (7-23) 07/14/17 03:28 Creatinine 0.9 mg/dL (0.7-1.3) 07/14/17 03:28 Estimated GFR > 60 07/14/17 03:28 Glucose 125 mg/dL (70-100) H 07/14/17 03:28 Calcium 8.9 mg/dL (8.5-10.4) 07/14/17 03:28 Total Bilirubin 1.5 mg/dL (0.1-1.4) H 07/14/17 03:28 AST 24 IU/L (17-59) 07/14/17 03:28 ALT 38 IU/L (21-72) 07/14/17 03:28 Alkaline Phosphatase 67 IU/L (38-126) 07/14/17 03:28 Troponin I 0.155 ng/mL (0.000-0.034) H 07/14/17 03:28 NT-Pro-B Natriuret Pep 2930 pg/mL (0-125) H 07/13/17 19:51 Total Protein 6.5 g/dL (6.3-8.2) 07/14/17 03:28 Albumin 3.4 g/dL (3.5-5.0) L 07/14/17 03:28 TSH 3.610 uIU/mL (0.465-4.680) 07/14/17 03:28 Digoxin 1.6 ng/mL (0.8-2.0) 07/13/17 19:50 Visualized and Interpreted Chest x-ray results: Yes Chest X-Ray results: no infiltrate Visualized and Interpreted imaging results: Yes Interpretation: CTA chest report/images reviewed - upper mediastinal adenopathy worse than 2012. mild diffuse ILD. bronchitis, bilateral atrial enlargement. Visualized and Interpreted EKG results: Yes EKG Interpretation: Positive for: other (atrial fib, v rate 80s. q waves inferior leads similar to ekg from 12/2016. QTc 386.) Assessment & Plan Assessment: Late entry. Patient seen and examined prior to midnight on 07/13/17 on PCU. Admission vitals/labs and EMR reviewed. Pleasant 56 yo M with multiple medical issues presents with progressive dyspnea and now severe orthopnea. 1. acute on chronic diastolic chf decompensated - continue aggressive IV diuresis. pt reports improved symptoms since admission. fluid and salt restriction ordered. dietary consult. hold beta shilpi acutely for now. 2. dyspnea - CTA neg for PE. likely multifactorial including CHF, ILD/COPD and less likely PR. pt denies any chest pain. trop tending down will continue to monitor. 3. LE edema - continue diuresis. elevate extremities. 4. atrial fibrillation - continue xarelto, digoxin, cardizem. resume coreg when stabilized. 5. mediastinal adenopathy - further evaluation as outpatient discussed with patient but he may require further clarification. 6. anemia of chronic disease - h/h stable. no evidence of active bleeding. continue to monitor closely. continue xarelto. 7. interstitial lung disease - oxygen. supportive care. smoking cessation advised. 8. copd - nebs prn. smoking cessation. oxygen. 9. elevated troponin - pt denies chest pain. trend troponin. likely demand in setting of chf and dyspnea. 10. DM II uncontrolled with pvd, neuropathy - continue patient levimir and tid bolus dosing. monitor BS and consider addition of sliding scale. 11. chronic right foot wound - nearly healed. small opening without drainage or erythema. continue wet to dry dressing. wound care consultation. 12. CAD - continue statin, asa, bb, acei, plavix 13. PVD - continue plavix, asa 14. PHANI on O2 at HS 15. obesity (BMI 36.0) - mobilize. dietary and lifestyle modifications recommended to patient. FEN - SLIV. fluid restrict to 1500 mls. electrolyte replacement prn. ADA diet with salt restriction. PPX - on xarelto. COR - FULL. pt declined to talk about considering advanced directives. desires to act as proxy if needed. Dispo - admit to inpatient status. anticipate > 2 midnight stay given severity of patient CHF symptoms he will require IV diruesis for several days.
[2017-07-14] MEDS: Insulin Aspart [Novolog Flexpen] SQ SCH ×4 (09:08→12:39)
[2017-07-14] MEDS: CLOPIDOGREL BISULFATE 75 MG TAB PO SCH ×2 (09:13)
[2017-07-14] MEDS: RIVAROXABAN 20 MG TAB PO SCH ×2 (09:13)
[2017-07-14] MEDS: DILTIAZEM CD 120 MG CAP PO SCH ×2 (09:13)
[2017-07-14] MEDS: ATORVASTATIN CALCIUM 40 MG TAB PO SCH ×2 (09:13)
[2017-07-14] MEDS: GABAPENTIN 400 MG CAP PO SCH ×6 (09:13→21:04)
--- NOTE | 2017-07-14 10:18 | ASMTCMCOM ---
CM Note CM Note Notes: 07/14/2017 Case Management Note Reviewed chart, spoke w/RN. No case management d/c needs identified d/t pt age, marital status and activity levels prior to admission. No therapy evals ordered. Case Management d/c poc: home independent with family support when medically stable with follow up as directed. Case Management available if needs change. Date Signed: 07/14/2017 10:18 AM Electronically Signed By:Meche Antoine RN
--- NOTE | 2017-07-14 10:52 | PDMN ---
Medical Necessity Medical necessity: Pt meets IP criteria per MD; est los >2 mn for eval/tx of acute on chronic diastolic CHF requiring aggressive IV diuresis, dyspnea, LE edema, AFIB, mediastinal adenopathy; hx AFIB, CAD, CHF, DM, htn, PVD, COPD; per H&P 07/13/17
--- NOTE | 2017-07-14 11:23 | WOCRNPDOC ---
WOCRN Advanced Assessment Note - Skin Integrity Problem, Advanced Assess Right Foot Surgical Wound/Incision Dressing Type: Gauze, Kerlix Dressing Description: Clean/Dry, Intact Exudate Amount: Scant Exudate Characteristic(s): Serous Integumentary Issue Intervention: Visualized Under Dressing Petra Wound Tissue: Hemosiderin Staining, Venous Dermatitis, Hyperkeratotic Wound Bed Color: Red Wound Bed Constitution: Granulation Tissue Site Measurement - Head-to-Toe Length X Width X Depth (cm): 0.6x2x0.7 Pulse Location & Description: 2+ DP Extremity Temperature: Warm Skin Integrity Problem Comment: Left over wound from previous incision site 2 ( metatarsal head amputation) years ago. Unknown if this wound can close any further as it has been lingering for so long but will attempt to heal with outpatient assistance [facility]. Most of wound is epithelized and although it is well below the skin edges it is mainly healed. Small open area remains that drains constantly. Will treat with Belkis and Hydrofera blue ready and refer patient to outpatient [facility] for follow up. Discussed plan with patient. Patient also has bilateral LEVD that he wears compression for at home. Right calf circumference is 43 cm and left calf is 45 cm. Tubigrip E will be applied for medium compression. Wound care will follow up next week if patient is still here.
[2017-07-14] MEDS ORDERED: PROTOCOL MAGNESIUM 1 DOSE IV PRN ×2 (12:39)
[2017-07-14] MEDS ORDERED: PROTOCOL POTASSIUM 1 DOSE MISC PRN ×2 (12:39)
[2017-07-14] MEDS ORDERED: MAGNESIUM SULF 1 GM/DEXTROSE 100 ML IV ONE ×2 (12:52)
[2017-07-14] MEDS ORDERED: METOPROLOL TARTRATE 25 MG TAB PO ONE ×2 (13:07)
--- NOTE | 2017-07-14 13:10 | HOSPPROG ---
Hospitalist Progress Note Assessment/Plan: DIAGNOSES: -acute congestive heart failure, right and left-sided, with preserved systolic function on most recent echo 7 months ago -12 second run of ventricular tachycardia, rapid, 26 beats -mild troponin elevations, demand ischemia versus is coronary related; history of coronary artery disease with stents -permanent atrial fibrillation, with adequate rate control on anticoagulation -hypomagnesemia -poor compliance with low-salt diet at home -diabetes mellitus type 2 with poor control by history -history of peripheral vascular disease with stents in his legs The patient feels somewhat better today after diuresis overnight but did have a 12 second run of ventricular tachycardia today and does have mildly elevated troponins with history of coronary disease and stents. PLANS: -I have discussed with Adolph Davis of Cardiology and their team will assess the patient today -echocardiogram ordered -magnesium replacement ordered -I will start beta-shilpi for suppression of his ventricular tachycardia -continue IV Lasix diuresis -I started low-salt diet compliance counseling with the patient today but he will need further education and counseling for this during his stay here and as an outpatient SUBJECTIVE: Some slight decrease in dyspnea and orthopnea today No angina symptoms today though this is actually fairly hard to assess in this man He did not feel palpitations or lightheadedness with his ventricular tachycardia OBJECTIVE Vitals reviewed: Mild hypertension present, some tachypnea, temperature 37.4degrees White Sugar Syrup Operator, my review: Rate controlled AFib with a 26 PT 12 second run of ventricular tachycardia Exam: alert oriented skin warm dry color ok resps not labored lungs clear BSs heart regular abd soft nondistended nontender, bowel sounds present limbs warm, no edema iv site ok Objective: Vital Signs Temp Pulse Resp BP Pulse Ox 37.4 C 85 19 124/72 H 93 07/14/17 07:30 07/14/17 11:45 07/14/17 11:45 07/14/17 11:45 07/14/17 11:45 Microbiology 07/14/17 09:25 Respiratory Panel (PCR) - Final Nasal, Sinus - Swab No Organism Detected Laboratory Results 07/14/17 03:28 07/14/17 03:28 07/13/17 07/14/17 07/15/17 06:59 06:59 06:59 Intake Total 450 Output Total 3432 729 Balance -0197 -664 - Time Spent With Patient Time Spent with Patient: greater than 35 minutes Time Spent with Patient: Greater than 35 minutes spent on this patients care, greater than 50% of time spent counseling, educating, and coordinating care regarding the above mentioned plan. ICD10 Worksheet Patient Problems: Problems Problem Status Onset Acute exacerbation of congestive heart failure Acute Afib Acute Cellulitis of right foot Acute Nicotine dependence Acute Wound infection Acute
--- NOTE | 2017-07-14 15:28 | PDCARCONS ---
Cardiology Consult Reason for Consult: Heart failure Chief Complaint: Shortness of breath when lying flat Requesting Physician: Romero History of Present Illness: 56-year-old male severe atherosclerotic cardiovascular disease admitted to the hospital with a several day history of progressive shortness of breath with new PND. He denies chest pain. He has had no palpitations, syncope or near syncope. On my arrival he continues to have significant shortness of breath. He has sputum productive of clear mucus. He has had no hematemesis. He is unable to lay flat at this time. Patient has known severe coronary artery disease with multivessel stenting in 2011. This included a ramus and diagonal lesion. 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 He has chronic lower extremity swelling. Most recent cardiac evaluation was in December of this past year. He had echocardiogram revealing left ventricular hypertrophy and normal ejection fraction of 70%. He has known chronic atrial fibrillation which has been well rate controlled. He has a past history of a hypertrophic cardiomyopathy with some limited obstruction. In the past etiology of his myopathy was felt to be due to poorly controlled hypertension, poorly rate controlled atrial fibrillation, and coronary disease. He has a history of noncompliance in the past. He has had no recent fever or chills. He has had no recent angina. Cardiac Risk includes longstanding hypertension, type 2 diabetes, hyperlipidemia , smoking. History Information - Allergies/Home Medication List Allergies/Adverse Reactions: No Known Allergies Allergy (Unverified 03/19/17 13:41) Home Medications: Rivaroxaban [Xarelto] 20 mg PO DAILY 08/16/15 [Last Taken 07/13/17] Lisinopril [Zestril 20 mg (*)] 20 mg PO DAILY@18 10/08/15 [Last Taken 07/13/17] metFORMIN HCL [Glucophage 500 mg (*)] 1,000 mg PO BIDMEAL 10/08/15 [Last Taken 07/13/17] Atorvastatin Calcium [Lipitor 40 mg (*)] 80 mg PO DAILY 01/07/17 [Last Taken ] Furosemide [Lasix 20 MG (*)] 60 mg PO DAILY 01/07/17 [Last Taken 07/13/17] Gabapentin [Neurontin 100 MG (*)] 200 mg PO TID 01/07/17 [Last Taken 07/13/17] Gabapentin [Neurontin 400 MG (*)] 800 mg PO TID 01/07/17 [Last Taken 07/13/17] Insulin Aspart [Novolog Flexpen] 20 - 25 unit SQ TIDMEAL 01/07/17 [Last Taken ] Insulin Detemir [Levemir] 35 unit SQ DAILY 01/07/17 [Last Taken 07/12/17] Insulin Detemir [Levemir] 40 unit SQ HS 01/07/17 [Last Taken 07/12/17] Past Medical History: - Social History Smoking Status: Heavy smoker (1-2 ppd) Tobacco Use: Cigarettes Alcohol Use: None Drug Use: None Physical Exam Physical Exam: Temp Pulse Resp BP Pulse Ox 37.4 C 85 19 124/72 H 93 07/14/17 07:30 07/14/17 11:45 07/14/17 11:45 07/14/17 11:45 07/14/17 11:45 O2 (L/minute) 4 Constitutional: other (Mild distress) Eyes: PERRL, anicteric sclera Ears, Nose, Mouth, Throat: dry mucous membranes Cardiovascular: irregularly irregular, other (JVP 13 cm at 90 degrees) Peripheral Pulses: 1+: carotid (R), carotid (L) Respiratory: reduced air movement, rhonchi, other (Rales) Gastrointestinal: soft, non-tender abdomen Musculoskeletal: other (Amputated forefoot on the right both legs heavily wrapped with compression hose to the thigh) Neurologic: AAOx3, No facial droop Psychiatric: interacting appropriately, not anxious Lab and Imaging 07/14/17 03:28 07/14/17 03:28 WBC 6.33 10^3/uL (3.80-9.50) 07/14/17 03:28 RBC 4.04 10^6/uL (4.40-6.38) L 07/14/17 03:28 Hgb 12.4 g/dL (13.7-17.5) L 07/14/17 03:28 Hct 37.6 % (40.0-51.0) L 07/14/17 03:28 MCV 93.1 fL (81.5-99.8) 07/14/17 03:28 MCH 30.7 pg (27.9-34.1) 07/14/17 03:28 MCHC 33.0 g/dL (32.4-36.7) 07/14/17 03:28 RDW 15.7 % (11.5-15.2) H 07/14/17 03:28 Plt Count 195 10^3/uL (150-400) 07/14/17 03:28 MPV 10.3 fL (8.7-11.7) 07/14/17 03:28 Neut % (Auto) 51.5 % (39.3-74.2) 07/14/17 03:28 Lymph % (Auto) 32.4 % (15.0-45.0) 07/14/17 03:28 [place] % (Auto) 12.6 % (4.5-13.0) 07/14/17 03:28 Eos % (Auto) 2.8 % (0.6-7.6) 07/14/17 03:28 Baso % (Auto) 0.5 % (0.3-1.7) 07/14/17 03:28 Nucleat RBC Rel Count 0.0 % (0.0-0.2) 07/14/17 03:28 Absolute Neuts (auto) 3.26 10^3/uL (1.70-6.50) 07/14/17 03:28 Absolute Lymphs (auto) 2.05 10^3/uL (1.00-3.00) 07/14/17 03:28 Absolute Monos (auto) 0.80 10^3/uL (0.30-0.80) 07/14/17 03:28 Absolute Eos (auto) 0.18 10^3/uL (0.03-0.40) 07/14/17 03:28 Absolute Basos (auto) 0.03 10^3/uL (0.02-0.10) 07/14/17 03:28 Absolute Nucleated RBC 0.00 10^3/uL (0-0.01) 07/14/17 03:28 Immature Gran % 0.2 % (0.0-1.1) 07/14/17 03:28 Immature Gran # 0.01 10^3/uL (0.00-0.10) 07/14/17 03:28 D-Dimer 0.84 ug/mLFEU (0.00-0.50) H 07/13/17 19:51 Sodium 138 mEq/L (134-144) 07/14/17 03:28 Potassium 4.1 mEq/L (3.5-5.2) 07/14/17 03:28 Chloride 100 mEq/L (97-110) 07/14/17 03:28 Carbon Dioxide 26 mEq/l (22-31) 07/14/17 03:28 Anion Gap 12 mEq/L (8-16) 07/14/17 03:28 BUN 17 mg/dL (7-23) 07/14/17 03:28 Creatinine 0.9 mg/dL (0.7-1.3) 07/14/17 03:28 Estimated GFR > 60 07/14/17 03:28 Glucose 125 mg/dL (70-100) H 07/14/17 03:28 POC Glucose 186 mg/dL (70-100) H 07/14/17 12:01 Calcium 8.9 mg/dL (8.5-10.4) 07/14/17 03:28 Magnesium 1.5 mg/dL (1.6-2.3) L 07/14/17 03:28 Total Bilirubin 1.5 mg/dL (0.1-1.4) H 07/14/17 03:28 AST 24 IU/L (17-59) 07/14/17 03:28 ALT 38 IU/L (21-72) 07/14/17 03:28 Alkaline Phosphatase 67 IU/L (38-126) 07/14/17 03:28 Troponin I 0.155 ng/mL (0.000-0.034) H 07/14/17 03:28 NT-Pro-B Natriuret Pep 2930 pg/mL (0-125) H 07/13/17 19:51 Total Protein 6.5 g/dL (6.3-8.2) 07/14/17 03:28 Albumin 3.4 g/dL (3.5-5.0) L 07/14/17 03:28 TSH 3.610 uIU/mL (0.465-4.680) 07/14/17 03:28 Digoxin 1.6 ng/mL (0.8-2.0) 07/13/17 19:50 Interpretation: Chest x-ray reveals cardiomegaly without acute infiltrate. CT scan of the chest shows enhanced adenopathy of the upper mediastinum, suggestion of interstitial lung disease, bronchitis. A/P Assessment: 56-year-old male with severe atherosclerotic vascular disease admitted with mild decompensation of diastolic heart failure possibly in the setting of bronchitis/new interstitial lung disease/COPD exacerbation secondary to tobacco abuse associated with worsening adenopathy. EKG does not suggest an acute coronary syndrome. Troponins are elevated mildly without rise and fall consistent with an acute coronary syndrome and more consistent with hypertension /hypertrophic cardiomyopathy with acute decompensation. He clearly has underlying coronary disease with multivessel stenting. He has a history of HCM. Atrial fibrillation appears to be well rate controlled. He is appropriately anticoagulated. His medical regime is excellent including Td inhibition, beta-blockade, digoxin, anticoagulation. There is no indication for device therapy. Plan: Await repeat echocardiogram to compare to December. Agree with diuresis. Aggressive control blood pressure. Await clinical result. If not improving considerations for pulmonary evaluation for interstitial lung disease and etiology for bronchitis/adenopathy in the setting of smoking. Depending on how he does, it would be reasonable to re-risk stratify him for his underlying coronary artery disease as it has been sometime. Whether this is done during this admission or as an outpatient would depend on how he is doing. Optimization of anemia. Smoking cessation. Review of Systems Review of Systems: - Review of Systems Constitutional: weakness. denies: chills, fever, malaise EENTM: no symptoms reported Respiratory: cough, orthopnea, shortness of breath. denies: wheezing, hurts to breath Cardiac: edema, irregular heart rate. denies: chest pain, lightheadedness, palpitations, syncope Gastrointestinal/Abdominal: no symptoms reported Genitourinary: no symptoms Musculoskelatal: denies: back pain Skin: no symptoms Neurological: no symptoms Hematologic/Lymphatic: no symptoms reported Immunologic/allergic: no symptoms reported Past Medical History PMH: - Personal History Current Tetanus/Diphtheria Vaccine: Unsure Current Tetanus Diphtheria and Acellular Pertussis (TDAP): Unsure - Medical/Surgical History Hx Asthma: No Hx Chronic Respiratory Disease: No Hx Cardiac Disease: Yes Hx Diabetes: Yes Hx Renal Disease: No Hx Alcoholism: No Hx Cirrhosis: No Hx HIV/AIDS: No Hx Splenectomy or Spleen Trauma: No Other PMH: Gout, Arthritis, DM, HTN, Stents in Heart, Afib, CAD, Periferal Vascular Disease, Sleep Apnea - Family History Significant Family History: No pertinent family hx - Social History Smoking Status: Heavy smoker (1-2 ppd) Additional Social History:
[2017-07-14] MEDS: DIGOXIN 250 MCG TAB PO SCH ×2 (16:44)
[2017-07-14] MEDS: LISINOPRIL 20 MG TAB PO SCH ×2 (16:44)
--- NOTE | 2017-07-14 17:04 | ECHO ---
[email or web address] [address] [address] Main: [phone] Fax: Transthoracic Echocardiogram Name: INDY HAWKINS MR#: [id number] Study Date: 07/14/2017 Study Time: 04:04 PM Date of : 1960 Age: 56 year(s) Height: 170.2 cm (67 in.) Weight: 103.87 kg (229 lb.) BSA: 2.14 m2 Gender: Male Examination: Echo Indication: New CHF/compare to echo of 01/07/17 Image Quality: Contrast: Requested by: Jose Armando Rome BP: 125 mmHg/74 mmHg Heart Rate: Rhythm: Indication: New CHF/compare to echo of 01/07/17 Procedure Staff Hypoid Gear Generator: Barby Monique Reading Physician: Jose Armando Rome Requesting Provider: Conclusions: Mid ventricular hypertrophic cardiomyopathy with apical akinesis. LV outflow tract gradient consistent with diagnosis. Mild mitral regurgitation. Elevated filling pressures by tissue Doppler. No significant change from prior study Measurements: Chambers Valvular Assessment AV/MV Valvular Assessment TV/PV Normal Normal Normal Name Value Range Name Value Range Name Value Range Ao Debbie (MM): 3.4 cm (2.2 cm-3.7 AV meanP mmHg ( - ) TR Vmax: 3.32 mm/s ( - ) cm) MV E Vmax: 1.21 m/s ( - ) TR PGmax: 44 mmHg ( - ) IVSd (2D): 1.2 cm (0.6 cm-1.1 syst. PAP: 49 mmHg ( - ) cm) LVDd (2D): 4.3 cm (4.2 cm-5.9 cm) LVDs (2D): 2.6 cm (2.1 cm-4 cm) LVPWd (2D): 1.3 cm (0.6 cm-1 cm) LVEF (MOD4): 66 % (>=55 %) EF Range: 65-70 % Continued Measurements: Chambers Valvular Assessment AV/MV Valvular Assessment TV/PV Name Value Name Value Name Value LADs: 6.1 cm MV E/E' Septal: 21.80 CVP (est.): 5 mmHg LADs Lon.7 cm MV E/E' Lateral: 12.50 LA Area: 23.8 cm2 Patient: INDY HAWKINS Study Date: 07/14/2017 Page 1 of 2 04:04 PM Findings: Left Ventricle: Normal size left ventricle. Asymmetrical midventricular LV hypertrophy. Normal global systolic LV function. The ejection fraction is estimated to be 65-70 %. No regional wall motion abnormality. Right Ventricle: Normal size right ventricle. Left Atrium: The left atrium is mildly dilated. Right Atrium: The right atrium is mildly dilated. Mitral Valve: The mitral valve is normal in appearance and function. Mild mitral valve regurgitation is present. There is a moderate focal calcification of the anterior mitral leaflet.. Aortic Valve: The aortic valve is normal in appearance and function. The aortic valve is tri-leaflet. Tricuspid Valve: The tricuspid valve is normal in appearance and function. Mild tricuspid regurgitation is present. The pulmonary artery pressure is mildly increased. RVSP is 49mmHG.. Pulmonic Valve: The pulmonic valve is normal in appearance and function. Trivial pulmonic valve regurgitation. Aorta: The aorta is normal. Pericardium: No pericardial effusion. (No Signature Object) Patient: INDY HAWKINS Study Date: 07/14/2017 Page 2 of 2 04:04 PM [id number]
--- NOTE | 2017-07-14 17:04 | ECHO ---
[email or web address] [address] [address] Main: [phone] Fax: Transthoracic Echocardiogram Name: INDY HAWKINS MR#: [id number] Study Date: 07/14/2017 Study Time: 04:04 PM Date of : 1960 Age: 56 year(s) Height: 170.2 cm (67 in.) Weight: 103.87 kg (229 lb.) BSA: 2.14 m2 Gender: Male Examination: Echo Indication: New CHF/compare to echo of 01/07/17 Image Quality: Contrast: Requested by: Jose Armando Rome BP: 125 mmHg/74 mmHg Heart Rate: Rhythm: Indication: New CHF/compare to echo of 01/07/17 Procedure Staff Html Developer: Barby Monique Reading Physician: Jose Armando Rome Requesting Provider: Conclusions: Mid ventricular hypertrophic cardiomyopathy with apical akinesis. LV outflow tract gradient consistent with diagnosis. Mild mitral regurgitation. Elevated filling pressures by tissue Doppler. No significant change from prior study Measurements: Chambers Valvular Assessment AV/MV Valvular Assessment TV/PV Normal Normal Normal Name Value Range Name Value Range Name Value Range Ao Debbie (MM): 3.4 cm (2.2 cm-3.7 AV meanP mmHg ( - ) TR Vmax: 3.32 mm/s ( - ) cm) MV E Vmax: 1.21 m/s ( - ) TR PGmax: 44 mmHg ( - ) IVSd (2D): 1.2 cm (0.6 cm-1.1 syst. PAP: 49 mmHg ( - ) cm) LVDd (2D): 4.3 cm (4.2 cm-5.9 cm) LVDs (2D): 2.6 cm (2.1 cm-4 cm) LVPWd (2D): 1.3 cm (0.6 cm-1 cm) LVEF (MOD4): 66 % (>=55 %) EF Range: 65-70 % Continued Measurements: Chambers Valvular Assessment AV/MV Valvular Assessment TV/PV Name Value Name Value Name Value LADs: 6.1 cm MV E/E' Septal: 21.80 CVP (est.): 5 mmHg LADs Lon.7 cm MV E/E' Lateral: 12.50 LA Area: 23.8 cm2 Patient: INDY HAWKINS Study Date: 07/14/2017 Page 1 of 2 04:04 PM Findings: Left Ventricle: Normal size left ventricle. Asymmetrical midventricular LV hypertrophy. Normal global systolic LV function. The ejection fraction is estimated to be 65-70 %. No regional wall motion abnormality. Right Ventricle: Normal size right ventricle. Left Atrium: The left atrium is mildly dilated. Right Atrium: The right atrium is mildly dilated. Mitral Valve: The mitral valve is normal in appearance and function. Mild mitral valve regurgitation is present. There is a moderate focal calcification of the anterior mitral leaflet.. Aortic Valve: The aortic valve is normal in appearance and function. The aortic valve is tri-leaflet. Tricuspid Valve: The tricuspid valve is normal in appearance and function. Mild tricuspid regurgitation is present. The pulmonary artery pressure is mildly increased. RVSP is 49mmHG.. Pulmonic Valve: The pulmonic valve is normal in appearance and function. Trivial pulmonic valve regurgitation. Aorta: The aorta is normal. Pericardium: No pericardial effusion. (No Signature Object) Patient: INDY HAWKINS Study Date: 07/14/2017 Page 2 of 2 04:04 PM [id number]
--- NOTE | 2017-07-14 17:04 | ECHO ---
[email or web address] [address] [address] Main: [phone] Fax: Transthoracic Echocardiogram Name: INDY HAWKINS MR#: [id number] Study Date: 07/14/2017 Study Time: 04:04 PM Date of : 1960 Age: 56 year(s) Height: 170.2 cm (67 in.) Weight: 103.87 kg (229 lb.) BSA: 2.14 m2 Gender: Male Examination: Echo Indication: New CHF/compare to echo of 01/07/17 Image Quality: Contrast: Requested by: Jose Armando Rome BP: 125 mmHg/74 mmHg Heart Rate: Rhythm: Indication: New CHF/compare to echo of 01/07/17 Procedure Staff Eye Physician: Barby Monique Reading Physician: Jose Armando Rome Requesting Provider: Conclusions: Mid ventricular hypertrophic cardiomyopathy with apical akinesis. LV outflow tract gradient consistent with diagnosis. Mild mitral regurgitation. Elevated filling pressures by tissue Doppler. No significant change from prior study Measurements: Chambers Valvular Assessment AV/MV Valvular Assessment TV/PV Normal Normal Normal Name Value Range Name Value Range Name Value Range Ao Debbie (MM): 3.4 cm (2.2 cm-3.7 AV meanP mmHg ( - ) TR Vmax: 3.32 mm/s ( - ) cm) MV E Vmax: 1.21 m/s ( - ) TR PGmax: 44 mmHg ( - ) IVSd (2D): 1.2 cm (0.6 cm-1.1 syst. PAP: 49 mmHg ( - ) cm) LVDd (2D): 4.3 cm (4.2 cm-5.9 cm) LVDs (2D): 2.6 cm (2.1 cm-4 cm) LVPWd (2D): 1.3 cm (0.6 cm-1 cm) LVEF (MOD4): 66 % (>=55 %) EF Range: 65-70 % Continued Measurements: Chambers Valvular Assessment AV/MV Valvular Assessment TV/PV Name Value Name Value Name Value LADs: 6.1 cm MV E/E' Septal: 21.80 CVP (est.): 5 mmHg LADs Lon.7 cm MV E/E' Lateral: 12.50 LA Area: 23.8 cm2 Patient: INDY HAWKINS Study Date: 07/14/2017 Page 1 of 2 04:04 PM Findings: Left Ventricle: Normal size left ventricle. Asymmetrical midventricular LV hypertrophy. Normal global systolic LV function. The ejection fraction is estimated to be 65-70 %. No regional wall motion abnormality. Right Ventricle: Normal size right ventricle. Left Atrium: The left atrium is mildly dilated. Right Atrium: The right atrium is mildly dilated. Mitral Valve: The mitral valve is normal in appearance and function. Mild mitral valve regurgitation is present. There is a moderate focal calcification of the anterior mitral leaflet.. Aortic Valve: The aortic valve is normal in appearance and function. The aortic valve is tri-leaflet. Tricuspid Valve: The tricuspid valve is normal in appearance and function. Mild tricuspid regurgitation is present. The pulmonary artery pressure is mildly increased. RVSP is 49mmHG.. Pulmonic Valve: The pulmonic valve is normal in appearance and function. Trivial pulmonic valve regurgitation. Aorta: The aorta is normal. Pericardium: No pericardial effusion. (No Signature Object) Patient: INDY HAWKINS Study Date: 07/14/2017 Page 2 of 2 04:04 PM [id number]
[2017-07-14] MEDS: Insulin Aspart [Novolog Flexpen] 0 UNIT SQ SCH ×2 (18:41)
[2017-07-14] MEDS: METOPROLOL TARTRATE 25 MG TAB PO SCH ×2 (21:04)
[2017-07-15] MEDS: FUROSEMIDE 40 MG/4 ML VIAL IVP SCH ×4 (05:44→15:16)
[2017-07-15] MEDS: Insulin Aspart [Novolog Flexpen] 0 UNIT SQ SCH ×6 (08:27→17:19)
[2017-07-15] MEDS: ATORVASTATIN CALCIUM 40 MG TAB PO SCH ×2 (08:31)
[2017-07-15] MEDS: CLOPIDOGREL BISULFATE 75 MG TAB PO SCH ×2 (08:32)
[2017-07-15] MEDS: DILTIAZEM CD 120 MG CAP PO SCH ×2 (08:32)
[2017-07-15] MEDS: GABAPENTIN 400 MG CAP PO SCH ×6 (08:32→21:16)
[2017-07-15] MEDS: METOPROLOL TARTRATE 25 MG TAB PO SCH ×4 (08:32→21:16)
[2017-07-15] MEDS: RIVAROXABAN 20 MG TAB PO SCH ×2 (08:32)
[2017-07-15] MEDS: DIGOXIN 250 MCG TAB PO SCH ×2 (10:17)
--- NOTE | 2017-07-15 12:44 | SOAPPROG ---
SOAP Progress Note Assessment/Plan: Assessment: 1. Acute on chronic diastolic heart failure associated with mid ventricular hypertrophic cardiomyopathy. 2. Chronic atrial fibrillation. 3. COPD with exacerbation. 4. Anemia 5. Coronary disease multivessel PCI. 6. Peripheral vascular disease status post PTI. 7. Hypertension Procedure: Echocardiogram Impression: Clear improvement since yesterday with resolution of PND. Physical examination shows his lungs to be clearing. He is diuresing well. Echocardiogram showed preserved LV systolic function with a mid ventricular gradient. No significant change from prior studies. Elevation in troponin likely secondary to hypertrophic disease. At this point continue current medical therapy with aggressive diuresis. Patient will need more aggressive blood pressure control. No indications for device therapy based on telemetry( history of nonsustained wide complex tachycardia) 07/15/17 12:47 Subjective: Feeling better today. Decreased shortness of breath. No PND last evening. Continued cough with productive sputum. No orthopnea, syncope, near syncope. Objective: Medications Generic Name Dose Route Start Last Admin Trade Name Freq PRN Reason Stop Dose Admin Atorvastatin Calcium 80 mg 07/14/17 09:00 07/15/17 08:31 Lipitor PO 01/10/18 08:59 80 mg DAILY JORGE Clopidogrel Bisulfate 75 mg 07/14/17 09:00 07/15/17 08:32 Plavix PO 01/10/18 08:59 75 mg DAILY JORGE Digoxin 250 mcg 07/14/17 10:00 07/15/17 10:17 Lanoxin PO 01/10/18 09:59 250 mcg DAILY10 JORGE Diltiazem HCl 120 mg 07/14/17 09:00 07/15/17 08:32 Cardizem Er Q24hr PO 01/10/18 08:59 120 mg DAILY JORGE Furosemide 40 mg 07/14/17 06:00 07/15/17 05:44 Lasix Injection IVP 01/10/18 05:59 40 mg BID@0600,1400 JORGE Lisinopril 20 mg 07/14/17 18:00 07/14/17 16:44 Zestril PO 01/10/18 17:59 20 mg DAILY@18 [facility] Metoprolol Tartrate 25 mg 07/14/17 21:00 07/15/17 08:32 Lopressor PO 01/10/18 20:59 25 mg BID JORGE Rivaroxaban 20 mg 07/14/17 09:00 07/15/17 08:32 Xarelto PO 01/10/18 08:59 20 mg DAILY JORGE Laboratory Tests 07/13/17 07/14/17 19:51 03:28 Creatinine 1.0 0.9 Glucose 229 H Troponin I 0.164 H 0.155 H NT-Pro-B Natriuret Pep 2930 H Vital Signs Temp Pulse Resp BP Pulse Ox 36.4 C 91 22 H 147/90 H 95 07/15/17 11:10 07/15/17 11:10 07/15/17 11:10 07/15/17 11:10 07/15/17 11:10 Microbiology 07/14/17 09:25 Respiratory Panel (PCR) - Final Nasal, Sinus - Swab No Organism Detected Laboratory Results 07/14/17 03:28 07/15/17 04:11 07/14/17 07/15/17 07/16/17 05:59 05:59 05:59 Intake Total 450 1666 240 Output Total 1625 1760 975 [facility] -1175 -94 -735 ICD10 Worksheet Patient Problems: Problems Problem Status Onset Wound infection Acute Cellulitis of right foot Acute Afib Acute Nicotine dependence Acute Acute exacerbation of congestive heart failure Acute Review of Systems - Review of Systems Constitutional: denies: chills, fever EENTM: no symptoms reported Respiratory: cough, shortness of breath Cardiac: denies: chest pain, edema, irregular heart rate, lightheadedness, palpitations, syncope Gastrointestinal/Abdominal: no symptoms reported Genitourinary: no symptoms Skin: no symptoms Neurological: no symptoms
--- NOTE | 2017-07-15 14:55 | HOSPPROG ---
Hospitalist Progress Note Assessment/Plan: #. A/C Diastolic HF - continue diuresis and follow electrolyte and weights daily. He is down 4kg overnight. #. A/C Hypoxic RF - I do not believe he is on oxygen during the day at home but it sounds like it was previously prescribed nocturnally but he declined to continue it. Continue treatment for COPD exacerbation as wheezing on exam. #. CAD - Hx stenting in the past. Continue aspirin and plavix and statin therapy. #. Afib - rate controlled with current regimen. He is also on Xarelto. #. Vtach - patient had non-sustained Vtach noted yesterday. Cardiology following. #. HTN - controlled. No changes today. #. PVD - Hx stenting in LE's. #. COPD - mild wheezing on exam. Continue with QID nebulizers. Consider steroids but will follow without for now. #. PHANI - I do not believe he uses CPAP at home. #. DM2 - Continue current detemir and Novolog sliding scale. #. LE Wound - wound care following #. Bowel/Bladder - bowel regimen if constipation. #. DVT prophylaxis - patient is anticoagulated. #. Dispo - likely able for home when clinically better and stable. Continue PT /OT. Subjective: Patient states he feels that he is breathing better as compared to 2 days ago. He does note a productive cough. No fevers. Objective: Vital Signs Temp Pulse Resp BP Pulse Ox 36.4 C 91 22 H 147/90 H 84 L 07/15/17 11:10 07/15/17 11:10 07/15/17 11:10 07/15/17 11:10 07/15/17 11:27 Microbiology 07/14/17 09:25 Respiratory Panel (PCR) - Final Nasal, Sinus - Swab No Organism Detected Laboratory Results 07/14/17 03:28 07/15/17 04:11 07/14/17 07/15/17 07/16/17 05:59 05:59 05:59 Intake Total 450 1666 480 Output Total 6791 4320 977 Balance -1175 -94 -495 - Physical Exam Constitutional: no apparent distress, appears nourished, not in pain Cardiovascular: no murmur, rub, or gallop, edema (bilateral pitting), No regular rate and rhythym Respiratory: no respiratory distress, expiratory wheeze, No clear to auscultation Gastrointestinal: normoactive bowel sounds, soft, non-tender abdomen, no palpable masses ICD10 Worksheet Patient Problems: Problems Problem Status Onset Acute exacerbation of congestive heart failure Acute Afib Acute Cellulitis of right foot Acute Nicotine dependence Acute Wound infection Acute
[2017-07-15] MEDS: LISINOPRIL 20 MG TAB PO SCH ×2 (17:20)
[2017-07-15] MEDS: LEVALBUTEROL 1.25 MG/3 ML DEYVIAL IH SCH ×4 (17:22→22:08)
[2017-07-15] MEDS: IPRATROPIUM BROMIDE 0.5 MG/2.5 ML DEYVIAL IH SCH ×4 (17:22→22:08)
[2017-07-16 04:59] LABS: PLATELET COUNT 221 10^3/uL (150-400)
[2017-07-16] MEDS: IPRATROPIUM BROMIDE 0.5 MG/2.5 ML DEYVIAL IH SCH ×8 (06:36→22:19)
[2017-07-16] MEDS: LEVALBUTEROL 1.25 MG/3 ML DEYVIAL IH SCH ×8 (06:36→22:19)
[2017-07-16] MEDS: FUROSEMIDE 40 MG/4 ML VIAL IVP SCH ×4 (06:40→14:35)
[2017-07-16] MEDS ORDERED: MAGNESIUM SULF 1 GM/DEXTROSE 100 ML IV ONE ×2 (08:06)
[2017-07-16] MEDS ORDERED: POTASSIUM CL 10 MEQ TAB PO ONE ×2 (08:06)
[2017-07-16] MEDS: ATORVASTATIN CALCIUM 40 MG TAB PO SCH ×2 (08:13)
[2017-07-16] MEDS: CLOPIDOGREL BISULFATE 75 MG TAB PO SCH ×2 (08:13)
[2017-07-16] MEDS: RIVAROXABAN 20 MG TAB PO SCH ×2 (08:13)
[2017-07-16] MEDS: METOPROLOL TARTRATE 25 MG TAB PO SCH ×4 (08:13→21:12)
[2017-07-16] MEDS: DILTIAZEM CD 120 MG CAP PO SCH ×2 (08:13)
[2017-07-16] MEDS: GABAPENTIN 400 MG CAP PO SCH ×6 (08:13→21:11)
[2017-07-16] MEDS: Insulin Aspart [Novolog Flexpen] 0 UNIT SQ SCH ×6 (08:14→18:56)
--- NOTE | 2017-07-16 09:12 | HOSPPROG ---
Hospitalist Progress Note Assessment/Plan: #. A/C Diastolic HF - continue diuresis and follow electrolyte and weights daily. He is down another 2kg overnight for 6kg's total since admission. Continue current IV lasix 60 BID. #. A/C Hypoxic RF - Improved today and down to 2L NC from 4L yesterday. Less wheezing on exam today as well. I do not believe he is on oxygen during the day at home but it sounds like it was previously prescribed nocturnally but he declined to continue it. Continue treatment for COPD exacerbation as wheezing on exam. #. CAD - Hx stenting in the past. Asymptomatic. Continue aspirin and plavix and statin therapy. #. Afib - rate controlled with current regimen. He is also on Xarelto. #. Vtach - patient had non-sustained Vtach noted yesterday. Cardiology following. #. HTN - elevated into the 150's at times. I recommend adding HCTZ 12.5mg today and possibly increasing to 25mg daily when IV lasix stopped. #. PVD - Hx stenting in 's. #. COPD - mild wheezing on exam. Continue with QID nebulizers. I think we can hold off on starting steroids. #. PHANI - I do not believe he uses CPAP at home. #. DM2 - Continue current detemir and Novolog sliding scale but I did reduce the detemir to 30units BID as hypoglycemic this morning. #. LE Wound - wound care following #. Bowel/Bladder - bowel regimen started. #. DVT prophylaxis - patient is anticoagulated. #. Dispo - likely able for home when clinically better and stable I would hope in the coming days. Continue PT/OT. Subjective: Patient states his swelling is much less in his legs as compared to when he came in. I reviewed his case with his nurse this morning. They tried to get him off of oxygen this morning but he dropped to 81% on RA. He was stable in the 90's with 2L which is better than yesterday. Objective: Vital Signs Temp Pulse Resp BP Pulse Ox 36.5 C 87 25 H 139/90 H 92 07/16/17 08:00 07/16/17 08:00 07/16/17 08:00 07/16/17 08:00 07/16/17 08:00 Laboratory Results 07/16/17 04:00 07/16/17 04:00 07/15/17 07/16/17 07/17/17 05:59 05:59 05:59 Intake Total 1666 069 Output Total 3629 7750 [id number] [facility] [place] -[phone] - Physical Exam Constitutional: no apparent distress, appears nourished, not in pain Cardiovascular: no murmur, rub, or gallop, edema (lessened edema as compared to yesterday.), No regular rate and rhythym Respiratory: no respiratory distress (no wheezing today which is improved as compared to yesterday), no rales or rhonchi, clear to auscultation Gastrointestinal: normoactive bowel sounds, soft, non-tender abdomen, no palpable masses Genitourinary: No willoughby in urethra ICD10 Worksheet Patient Problems: Problems Problem Status Onset Acute exacerbation of congestive heart failure Acute Afib Acute Cellulitis of right foot Acute Nicotine dependence Acute Wound infection Acute
[2017-07-16] MEDS ORDERED: SENNOSIDES 1 TAB PO ONE ×2 (09:13)
[2017-07-16] MEDS ORDERED: NON-FORMULARY NEW DRUG (Insulin Detemir [Levemir] 30 UNIT) SQ SCH ×4 (09:18)
[2017-07-16] MEDS: DIGOXIN 250 MCG TAB PO SCH ×2 (09:39)
[2017-07-16] MEDS: HYDROCHLOROTHIAZIDE 12.5 MG CAP PO SCH ×2 (09:43)
[2017-07-16] MEDS: PSYLLIUM METAMUCIL 1 PKT PO SCH ×2 (09:47)
[2017-07-16] MEDS: POLYETHYLENE GLYCOL 3350 17 GM PKT PO SCH ×2 (09:47)
--- NOTE | 2017-07-16 11:40 | ASMTCMCOM ---
CM Note CM Note Notes: Chart reviewed, met with patient in anticipation of needing HHC or home oxygen. Per patient he "tried" oxygen in August and he refuses to use it. He currently needs oxygen at 4 lnc. He states he is young and has no needs.He states it is his choice to refuse. Currently has a lot of family support. CM to follow. Date Signed: 07/16/2017 11:40 AM Electronically Signed By:Karin Frazier RN
--- NOTE | 2017-07-16 14:38 | SOAPPROG ---
SOAP Progress Note Assessment/Plan: Assessment: 1. Acute on chronic diastolic heart failure associated with mid ventricular hypertrophic cardiomyopathy. 2. Chronic atrial fibrillation. 3. COPD with exacerbation. 4. Anemia 5. Coronary disease multivessel PCI. 6. Peripheral vascular disease status post PTI. 7. Hypertension 8. Diabetes on metformin 9. Hyperlipidemia Procedure: Echocardiogram 07/16/17 14:35 Impression: Slow and steady improvement with continued diuresis. Weight down 2 kg. Exam continues to reveal bibasilar rales with JVP at 90 degrees. Continue IV diuresis. Improved blood pressure control. Atrial fibrillation remains well rate controlled. He is properly anticoagulated. 07/15/17 12:47 Impression: Clear improvement since yesterday with resolution of PND. Physical examination shows his lungs to be clearing. He is diuresing well. Echocardiogram showed preserved LV systolic function with a mid ventricular gradient. No significant change from prior studies. Elevation in troponin likely secondary to hypertrophic disease. At this point continue current medical therapy with aggressive diuresis. Patient will need more aggressive blood pressure control. No indications for device therapy based on telemetry( history of nonsustained wide complex tachycardia) Subjective: Feeling better. His decreasing shortness of breath. Decreased cough. Still producing clear sputum. No PND orthopnea. Objective: Medications Generic Name Dose Route Start Last Admin Trade Name Freq PRN Reason Stop Dose Admin Atorvastatin Calcium 80 mg 07/14/17 09:00 07/16/17 08:13 Lipitor PO 01/10/18 08:59 80 mg DAILY [facility] Clopidogrel Bisulfate 75 mg 07/14/17 09:00 07/16/17 08:13 Plavix PO 01/10/18 08:59 75 mg DAILY J[facility]GE Digoxin 250 mcg 07/14/17 10:00 07/16/17 09:39 Lanoxin PO 01/10/18 09:59 250 mcg DAILY10 JORGE Diltiazem HCl 120 mg 07/14/17 09:00 07/16/17 08:13 Cardizem Er Q24hr PO 01/10/18 08:59 120 mg DAILY JOR[facility] Furosemide 40 mg 07/14/17 06:00 07/16/17 06:40 Lasix Injection IVP 01/10/18 05:59 40 mg BID@0600,1400 [facility] Hydrochlorothiazide 12.5 mg 07/16/17 09:15 07/16/17 09:43 Microzide PO 01/12/18 09:14 12.5 mg DAILY JORGE Lisinopril 20 mg 07/14/17 18:00 07/15/17 17:20 Zestril PO 01/10/18 17:59 20 mg DAILY@18 JORGE Metformin HCl 1,000 mg 07/16/17 18:00 Glucophage PO 01/12/18 17:59 BIDMEAL JORGE Metoprolol Tartrate 25 mg 07/14/17 21:00 07/16/17 08:13 Lopressor PO 01/10/18 20:59 25 mg BID JORGE Rivaroxaban 20 mg 07/14/17 09:00 07/16/17 08:13 Xarelto PO 01/10/18 08:59 20 mg DAILY [facility] Vital Signs Temp Pulse Resp BP Pulse Ox 36.4 C 102 H 24 H 151/105 H 94 07/16/17 12:00 07/16/17 12:00 07/16/17 12:00 07/16/17 12:00 07/16/17 12:00 Laboratory Results 07/16/17 04:00 07/16/17 04:00 07/15/17 07/16/17 07/17/17 05:59 05:59 05:59 Intake Total 1666 780 645 Output Total 1760 3600 1750 Balance -94 -3366 -1108 Physical Exam - Physical Exam General Appearance: alert, no apparent distress EENT: PERRL/EOMI Neck: non-tender, full range of motion Respiratory: decreased breath sounds, rales Cardiac/Chest: irregularly irregular Peripheral Pulses: 1+: carotid (R), carotid (L) Abdomen: normal bowel sounds, non-tender, soft Lymphatic: no adenopathy Neuro/Psych: alert ICD10 Worksheet Patient Problems: Problems Problem Status Onset Wound infection Acute Cellulitis of right foot Acute Afib Acute Nicotine dependence Acute Acute exacerbation of congestive heart failure Acute Review of Systems - Review of Systems Constitutional: denies: chills, fever EENTM: no symptoms reported Respiratory: cough, shortness of breath. denies: orthopnea Cardiac: no symptoms reported Gastrointestinal/Abdominal: no symptoms reported Genitourinary: no symptoms
--- NOTE | 2017-07-16 14:38 | SOAPPROG ---
SOAP Progress Note Assessment/Plan: Assessment: 1. Acute on chronic diastolic heart failure associated with mid ventricular hypertrophic cardiomyopathy. 2. Chronic atrial fibrillation. 3. COPD with exacerbation. 4. Anemia 5. Coronary disease multivessel PCI. 6. Peripheral vascular disease status post PTI. 7. Hypertension 8. Diabetes on metformin 9. Hyperlipidemia Procedure: Echocardiogram 07/16/17 14:35 Impression: Slow and steady improvement with continued diuresis. Weight down 2 kg. Exam continues to reveal bibasilar rales with JVP at 90 degrees. Continue IV diuresis. Improved blood pressure control. Atrial fibrillation remains well rate controlled. He is properly anticoagulated. 07/15/17 12:47 Impression: Clear improvement since yesterday with resolution of PND. Physical examination shows his lungs to be clearing. He is diuresing well. Echocardiogram showed preserved LV systolic function with a mid ventricular gradient. No significant change from prior studies. Elevation in troponin likely secondary to hypertrophic disease. At this point continue current medical therapy with aggressive diuresis. Patient will need more aggressive blood pressure control. No indications for device therapy based on telemetry( history of nonsustained wide complex tachycardia) Subjective: Feeling better. His decreasing shortness of breath. Decreased cough. Still producing clear sputum. No PND orthopnea. Objective: Medications Generic Name Dose Route Start Last Admin Trade Name Freq PRN Reason Stop Dose Admin Atorvastatin Calcium 80 mg 07/14/17 09:00 07/16/17 08:13 Lipitor PO 01/10/18 08:59 80 mg DAILY [facility] Clopidogrel Bisulfate 75 mg 07/14/17 09:00 07/16/17 08:13 Plavix PO 01/10/18 08:59 75 mg DAILY [facility] Digoxin 250 mcg 07/14/17 10:00 07/16/17 09:39 Lanoxin PO 01/10/18 09:59 250 mcg DAILY10 [facility] Diltiazem HCl 120 mg 07/14/17 09:00 07/16/17 08:13 Cardizem Er Q24hr PO 01/10/18 08:59 120 mg DAILY [facility] Furosemide 40 mg 07/14/17 06:00 07/16/17 06:40 Lasix Injection IVP 01/10/18 05:59 40 mg BID@0600,1400 [facility] Hydrochlorothiazide 12.5 mg 07/16/17 09:15 07/16/17 09:43 Microzide PO 01/12/18 09:14 12.5 mg DAILY JORGE Lisinopril 20 mg 07/14/17 18:00 07/15/17 17:20 Zestril PO 01/10/18 17:59 20 mg DAILY@18 [facility] Metformin HCl 1,000 mg 07/16/17 18:00 Glucophage PO 01/12/18 17:59 BIDMEAL JOR[facility] Metoprolol Tartrate 25 mg 07/14/17 21:00 07/16/17 08:13 Lopressor PO 01/10/18 20:59 25 mg BID JOR[facility] Rivaroxaban 20 mg 07/14/17 09:00 07/16/17 08:13 Xarelto PO 01/10/18 08:59 20 mg DAILY [facility] Vital Signs Temp Pulse Resp BP Pulse Ox 36.4 C 102 H 24 H 151/105 H 94 07/16/17 12:00 07/16/17 12:00 07/16/17 12:00 07/16/17 12:00 07/16/17 12:00 Laboratory Results 07/16/17 04:00 07/16/17 04:00 07/15/17 07/16/17 07/17/17 05:59 05:59 05:59 Intake Total 1666 780 645 Output Total 1760 3600 1750 Balance -94 -3107 -1107 Physical Exam - Physical Exam General Appearance: alert, no apparent distress EENT: PERRL/EOMI Neck: non-tender, full range of motion Respiratory: decreased breath sounds, rales Cardiac/Chest: irregularly irregular Peripheral Pulses: 1+: carotid (R), carotid (L) Abdomen: normal bowel sounds, non-tender, soft Lymphatic: no adenopathy Neuro/Psych: alert ICD10 Worksheet Patient Problems: Problems Problem Status Onset Wound infection Acute Cellulitis of right foot Acute Afib Acute Nicotine dependence Acute Acute exacerbation of congestive heart failure Acute Review of Systems - Review of Systems Constitutional: denies: chills, fever EENTM: no symptoms reported Respiratory: cough, shortness of breath. denies: orthopnea Cardiac: no symptoms reported Gastrointestinal/Abdominal: no symptoms reported Genitourinary: no symptoms
--- NOTE | 2017-07-16 14:38 | SOAPPROG ---
SOAP Progress Note Assessment/Plan: Assessment: 1. Acute on chronic diastolic heart failure associated with mid ventricular hypertrophic cardiomyopathy. 2. Chronic atrial fibrillation. 3. COPD with exacerbation. 4. Anemia 5. Coronary disease multivessel PCI. 6. Peripheral vascular disease status post PTI. 7. Hypertension 8. Diabetes on metformin 9. Hyperlipidemia Procedure: Echocardiogram 07/16/17 14:35 Impression: Slow and steady improvement with continued diuresis. Weight down 2 kg. Exam continues to reveal bibasilar rales with JVP at 90 degrees. Continue IV diuresis. Improved blood pressure control. Atrial fibrillation remains well rate controlled. He is properly anticoagulated. 07/15/17 12:47 Impression: Clear improvement since yesterday with resolution of PND. Physical examination shows his lungs to be clearing. He is diuresing well. Echocardiogram showed preserved LV systolic function with a mid ventricular gradient. No significant change from prior studies. Elevation in troponin likely secondary to hypertrophic disease. At this point continue current medical therapy with aggressive diuresis. Patient will need more aggressive blood pressure control. No indications for device therapy based on telemetry( history of nonsustained wide complex tachycardia) Subjective: Feeling better. His decreasing shortness of breath. Decreased cough. Still producing clear sputum. No PND orthopnea. Objective: Medications Generic Name Dose Route Start Last Admin Trade Name Freq PRN Reason Stop Dose Admin Atorvastatin Calcium 80 mg 07/14/17 09:00 07/16/17 08:13 Lipitor PO 01/10/18 08:59 80 mg DAILY [facility] Clopidogrel Bisulfate 75 mg 07/14/17 09:00 07/16/17 08:13 Plavix PO 01/10/18 08:59 75 mg DAILY [facility] Digoxin 250 mcg 07/14/17 10:00 07/16/17 09:39 Lanoxin PO 01/10/18 09:59 250 mcg DAILY10 [facility] Diltiazem HCl 120 mg 07/14/17 09:00 07/16/17 08:13 Cardizem Er Q24hr PO 01/10/18 08:59 120 mg DAILY [facility] Furosemide 40 mg 07/14/17 06:00 07/16/17 06:40 Lasix Injection IVP 01/10/18 05:59 40 mg BID@0600,1400 [facility] Hydrochlorothiazide 12.5 mg 07/16/17 09:15 07/16/17 09:43 Microzide PO 01/12/18 09:14 12.5 mg DAILY [facility] Lisinopril 20 mg 07/14/17 18:00 07/15/17 17:20 Zestril PO 01/10/18 17:59 20 mg DAILY@18 [facility] Metformin HCl 1,000 mg 07/16/17 18:00 Glucophage PO 01/12/18 17:59 BIDMEAL JOR[facility] Metoprolol Tartrate 25 mg 07/14/17 21:00 07/16/17 08:13 Lopressor PO 01/10/18 20:59 25 mg BID [facility] Rivaroxaban 20 mg 07/14/17 09:00 07/16/17 08:13 Xarelto PO 01/10/18 08:59 20 mg DAILY [facility] Vital Signs Temp Pulse Resp BP Pulse Ox 36.4 C 102 H 24 H 151/105 H 94 07/16/17 12:00 07/16/17 12:00 07/16/17 12:00 07/16/17 12:00 07/16/17 12:00 Laboratory Results 07/16/17 04:00 07/16/17 04:00 07/15/17 07/16/17 07/17/17 05:59 05:59 05:59 Intake Total 1666 780 645 Output Total 1760 3600 1750 Balance -94 -7074 -1104 Physical Exam - Physical Exam General Appearance: alert, no apparent distress EENT: PERRL/EOMI Neck: non-tender, full range of motion Respiratory: decreased breath sounds, rales Cardiac/Chest: irregularly irregular Peripheral Pulses: 1+: carotid (R), carotid (L) Abdomen: normal bowel sounds, non-tender, soft Lymphatic: no adenopathy Neuro/Psych: alert ICD10 Worksheet Patient Problems: Problems Problem Status Onset Wound infection Acute Cellulitis of right foot Acute Afib Acute Nicotine dependence Acute Acute exacerbation of congestive heart failure Acute Review of Systems - Review of Systems Constitutional: denies: chills, fever EENTM: no symptoms reported Respiratory: cough, shortness of breath. denies: orthopnea Cardiac: no symptoms reported Gastrointestinal/Abdominal: no symptoms reported Genitourinary: no symptoms
[2017-07-16] MEDS: metFORMIN HCL 500 MG TAB PO SCH ×2 (18:56)
[2017-07-16] MEDS: LISINOPRIL 20 MG TAB PO SCH ×2 (21:11)
[2017-07-16] MEDS: SENNOSIDES 1 TAB PO SCH ×2 (21:14)
[2017-07-17] MEDS: FUROSEMIDE 40 MG/4 ML VIAL IVP SCH ×2 (05:35)
[2017-07-17] MEDS: IPRATROPIUM BROMIDE 0.5 MG/2.5 ML DEYVIAL IH SCH ×8 (06:01→22:56)
[2017-07-17] MEDS: LEVALBUTEROL 1.25 MG/3 ML DEYVIAL IH SCH ×8 (06:01→22:57)
[2017-07-17 06:34] LABS: PLATELET COUNT 255 10^3/uL (150-400)
[2017-07-17] MEDS: metFORMIN HCL 500 MG TAB PO SCH ×4 (08:51→18:25)
[2017-07-17] MEDS: DILTIAZEM CD 120 MG CAP PO SCH ×2 (08:51)
[2017-07-17] MEDS: RIVAROXABAN 20 MG TAB PO SCH ×2 (08:51)
[2017-07-17] MEDS: DIGOXIN 250 MCG TAB PO SCH ×2 (08:51)
[2017-07-17] MEDS: GABAPENTIN 400 MG CAP PO SCH ×6 (08:51→22:13)
[2017-07-17] MEDS: LISINOPRIL 20 MG TAB PO SCH ×4 (08:52→22:14)
[2017-07-17] MEDS: ATORVASTATIN CALCIUM 40 MG TAB PO SCH ×2 (08:52)
[2017-07-17] MEDS: CLOPIDOGREL BISULFATE 75 MG TAB PO SCH ×2 (08:52)
[2017-07-17] MEDS: METOPROLOL TARTRATE 25 MG TAB PO SCH ×4 (08:52→22:15)
[2017-07-17] MEDS: POLYETHYLENE GLYCOL 3350 17 GM PKT PO SCH ×2 (08:55)
[2017-07-17] MEDS: PSYLLIUM METAMUCIL 1 PKT PO SCH ×2 (08:55)
[2017-07-17] MEDS: Insulin Aspart [Novolog Flexpen] 0 UNIT SQ SCH ×6 (09:02→18:25)
[2017-07-17] MEDS: POTASSIUM CL 20 MEQ/15 ML UDCUP PO SCH ×2 (09:57)
[2017-07-17] MEDS: HYDROCHLOROTHIAZIDE 12.5 MG CAP PO SCH ×2 (09:57)
--- NOTE | 2017-07-17 10:27 | SOAPPROG ---
SOAP Progress Note Assessment/Plan: Assessment: 1. Acute on chronic diastolic heart failure associated with mid ventricular hypertrophic cardiomyopathy. 2. Chronic atrial fibrillation. 3. COPD with exacerbation. 4. Anemia 5. Coronary disease multivessel PCI. 6. Peripheral vascular disease status post PTI. 7. Hypertension 8. Diabetes on metformin 9. Hyperlipidemia Procedure: Echocardiogram 07/17/17 10:23 Impression: Patient as at baseline today with excellent diuresis with IV Lasix. Blood pressure is improved with increased MICHAEL-inhibitor. COPD exacerbation has resolved. Blood sugars also improved. Recommendations: Transition to oral Lasix. Patient has been on low-dose hydrochlorothiazide. To simplify regime will stop this today. Outpatient follow-up with Dr. Cook within 7 days. Transitional care. Discussed importance of compliance especially with diet. Patient would be an excellent rehab candidate. 07/16/17 14:35 Impression: Slow and steady improvement with continued diuresis. Weight down 2 kg. Exam continues to reveal bibasilar rales with JVP at 90 degrees. Continue IV diuresis. Improved blood pressure control. Atrial fibrillation remains well rate controlled. He is properly anticoagulated. 07/15/17 12:47 Impression: Clear improvement since yesterday with resolution of PND. Physical examination shows his lungs to be clearing. He is diuresing well. Echocardiogram showed preserved LV systolic function with a mid ventricular gradient. No significant change from prior studies. Elevation in troponin likely secondary to hypertrophic disease. At this point continue current medical therapy with aggressive diuresis. Patient will need more aggressive blood pressure control. No indications for device therapy based on telemetry( history of nonsustained wide complex tachycardia) Subjective: Feeling well. Able to take deep breath without cough. Sputum production as stop. He has no PND orthopnea. He has no chest pain. He feels he is at his baseline. Tolerating increased dose of MICHAEL-inhibitor well. Objective: Medications Generic Name Dose Route Start Last Admin Trade Name Freq PRN Reason Stop Dose Admin Gabapentin 800 mg 07/14/17 09:00 07/17/17 08:51 Neurontin PO 01/10/18 08:59 800 mg TID [facility] Hydrochlorothiazide 12.5 mg 07/16/17 09:15 07/17/17 09:57 Microzide PO 01/12/18 09:14 12.5 mg DAILY [facility] Ipratropium [place] 0.5 mg 07/15/17 18:00 07/17/17 06:01 Atrovent [facility] 01/11/18 17:59 0.5 mg Q6HRS [facility] Atorvastatin Calcium 80 mg 07/14/17 09:00 07/17/17 08:52 Lipitor PO 01/10/18 08:59 80 mg DAILY [facility] Clonidine 0.1 mg 07/16/17 16:46 Catapres PO 01/12/18 16:45 TID PRN SBP Greater Than 160 Clopidogrel Bisulfate 75 mg 07/14/17 09:00 07/17/17 08:52 Plavix PO 01/10/18 08:59 75 mg DAILY [facility] Digoxin 250 mcg 07/14/17 10:00 07/17/17 08:51 Lanoxin PO 01/10/18 09:59 250 mcg DAILY10 [facility] Diltiazem HCl 120 mg 07/14/17 09:00 07/17/17 08:51 Cardizem Er Q24hr PO 01/10/18 08:59 120 mg DAILY [facility] Furosemide 60 mg 07/17/17 15:00 Lasix PO 01/13/18 14:59 BID@0900,1500 [facility] Levalbuterol 1.25 mg 07/15/17 18:00 07/17/17 06:01 Xopenex 1.25mg [facility] 01/11/18 17:59 1.25 mg Q6HRS [facility] Lisinopril 20 mg 07/16/17 21:00 07/17/17 08:52 Zestril PO 01/12/18 20:59 20 mg BID [facility] Metformin HCl 1,000 mg 07/16/17 18:00 07/17/17 08:51 Glucophage PO 01/12/18 17:59 1,000 mg BIDMEAL [facility] Metoprolol Tartrate 50 mg 07/16/17 16:45 07/17/17 08:52 Lopressor PO 01/10/18 20:59 50 mg BID [facility] Rivaroxaban 20 mg 07/14/17 09:00 07/17/17 08:51 Xarelto PO 01/10/18 08:59 20 mg DAILY [facility] Vital Signs Temp Pulse Resp BP Pulse Ox 36.4 C 112 H 17 117/73 93 07/17/17 08:31 07/17/17 08:52 07/17/17 08:31 07/17/17 09:57 07/17/17 08:31 Laboratory Results 07/17/17 05:55 07/17/17 05:55 07/16/17 07/17/17 07/18/17 05:59 05:59 04:59 Intake Total 780 1345 200 Output Total 3600 3900 650 Balance -2820 -2555 -450 Physical Exam - Physical Exam General Appearance: alert, no apparent distress Neck: non-tender, full range of motion Respiratory: chest non-tender, lungs clear Cardiac/Chest: irregularly irregular Abdomen: normal bowel sounds, non-tender, soft Skin: warm/dry Lymphatic: no adenopathy ICD10 Worksheet Patient Problems: Problems Problem Status Onset Wound infection Acute Cellulitis of right foot Acute Afib Acute Nicotine dependence Acute Acute exacerbation of congestive heart failure Acute Review of Systems - Review of Systems Constitutional: no symptoms reported EENTM: no symptoms reported Respiratory: no symptoms reported Cardiac: no symptoms reported Gastrointestinal/Abdominal: no symptoms reported Genitourinary: no symptoms Musculoskelatal: no symptoms Skin: no symptoms Neurological: no symptoms Hematologic/Lymphatic: no symptoms reported Immunologic/allergic: no symptoms reported All Other Systems: Reviewed and Negative
--- NOTE | 2017-07-17 10:27 | SOAPPROG ---
SOAP Progress Note Assessment/Plan: Assessment: 1. Acute on chronic diastolic heart failure associated with mid ventricular hypertrophic cardiomyopathy. 2. Chronic atrial fibrillation. 3. COPD with exacerbation. 4. Anemia 5. Coronary disease multivessel PCI. 6. Peripheral vascular disease status post PTI. 7. Hypertension 8. Diabetes on metformin 9. Hyperlipidemia Procedure: Echocardiogram 07/17/17 10:23 Impression: Patient as at baseline today with excellent diuresis with IV Lasix. Blood pressure is improved with increased MICHAEL-inhibitor. COPD exacerbation has resolved. Blood sugars also improved. Recommendations: Transition to oral Lasix. Patient has been on low-dose hydrochlorothiazide. To simplify regime will stop this today. Outpatient follow-up with Dr. Cook within 7 days. Transitional care. Discussed importance of compliance especially with diet. Patient would be an excellent rehab candidate. 07/16/17 14:35 Impression: Slow and steady improvement with continued diuresis. Weight down 2 kg. Exam continues to reveal bibasilar rales with JVP at 90 degrees. Continue IV diuresis. Improved blood pressure control. Atrial fibrillation remains well rate controlled. He is properly anticoagulated. 07/15/17 12:47 Impression: Clear improvement since yesterday with resolution of PND. Physical examination shows his lungs to be clearing. He is diuresing well. Echocardiogram showed preserved LV systolic function with a mid ventricular gradient. No significant change from prior studies. Elevation in troponin likely secondary to hypertrophic disease. At this point continue current medical therapy with aggressive diuresis. Patient will need more aggressive blood pressure control. No indications for device therapy based on telemetry( history of nonsustained wide complex tachycardia) Subjective: Feeling well. Able to take deep breath without cough. Sputum production as stop. He has no PND orthopnea. He has no chest pain. He feels he is at his baseline. Tolerating increased dose of MICHAEL-inhibitor well. Objective: Medications Generic Name Dose Route Start Last Admin Trade Name Freq PRN Reason Stop Dose Admin Gabapentin 800 mg 07/14/17 09:00 07/17/17 08:51 Neurontin PO 01/10/18 08:59 800 mg TID JORGE Hydrochlorothiazide 12.5 mg 07/16/17 09:15 07/17/17 09:57 Microzide PO 01/12/18 09:14 12.5 mg DAILY [facility] Ipratropium [place] 0.5 mg 07/15/17 18:00 07/17/17 06:[address] [facility] 01/11/18 17:59 0.5 mg Q6HRS [facility] Atorvastatin Calcium 80 mg 07/14/17 09:00 07/17/17 08:52 Lipitor PO 01/10/18 08:59 80 mg DAILY [facility] Clonidine 0.1 mg 07/16/17 16:46 Catapres PO 01/12/18 16:45 TID PRN SBP Greater Than 160 Clopidogrel Bisulfate 75 mg 07/14/17 09:00 07/17/17 08:52 Plavix PO 01/10/18 08:59 75 mg DAILY [facility] Digoxin 250 mcg 07/14/17 10:00 07/17/17 08:51 Lanoxin PO 01/10/18 09:59 250 mcg DAILY10 [facility] Diltiazem HCl 120 mg 07/14/17 09:00 07/17/17 08:51 Cardizem Er Q24hr PO 01/10/18 08:59 120 mg DAILY [facility] Furosemide 60 mg 07/17/17 15:00 Lasix PO 01/13/18 14:59 BID@0900,1500 [facility] Levalbuterol 1.25 mg 07/15/17 18:00 07/17/17 06:[address] [facility] 01/11/18 17:59 1.25 mg Q6HRS [facility] Lisinopril 20 mg 07/16/17 21:00 07/17/17 08:52 Zestril PO 01/12/18 20:59 20 mg BID [facility] Metformin HCl 1,000 mg 07/16/17 18:00 07/17/17 08:51 Glucophage PO 01/12/18 17:59 1,000 mg BIDMEAL [facility] Metoprolol Tartrate 50 mg 07/16/17 16:45 07/17/17 08:52 Lopressor PO 01/10/18 20:59 50 mg BID [facility] Rivaroxaban 20 mg 07/14/17 09:00 07/17/17 08:51 Xarelto PO 01/10/18 08:59 20 mg DAILY [facility] Vital Signs Temp Pulse Resp BP Pulse Ox 36.4 C 112 H 17 117/73 93 07/17/17 08:31 07/17/17 08:52 07/17/17 08:31 07/17/17 09:57 07/17/17 08:31 Laboratory Results 07/17/17 05:55 07/17/17 05:55 07/16/17 07/17/17 07/18/17 05:59 05:59 04:59 Intake Total 780 1345 200 Output Total 3600 3900 650 Balance -2820 -2555 -450 Physical Exam - Physical Exam General Appearance: alert, no apparent distress Neck: non-tender, full range of motion Respiratory: chest non-tender, lungs clear Cardiac/Chest: irregularly irregular Abdomen: normal bowel sounds, non-tender, soft Skin: warm/dry Lymphatic: no adenopathy ICD10 Worksheet Patient Problems: Problems Problem Status Onset Wound infection Acute Cellulitis of right foot Acute Afib Acute Nicotine dependence Acute Acute exacerbation of congestive heart failure Acute Review of Systems - Review of Systems Constitutional: no symptoms reported EENTM: no symptoms reported Respiratory: no symptoms reported Cardiac: no symptoms reported Gastrointestinal/Abdominal: no symptoms reported Genitourinary: no symptoms Musculoskelatal: no symptoms Skin: no symptoms Neurological: no symptoms Hematologic/Lymphatic: no symptoms reported Immunologic/allergic: no symptoms reported All Other Systems: Reviewed and Negative
--- NOTE | 2017-07-17 10:27 | SOAPPROG ---
SOAP Progress Note Assessment/Plan: Assessment: 1. Acute on chronic diastolic heart failure associated with mid ventricular hypertrophic cardiomyopathy. 2. Chronic atrial fibrillation. 3. COPD with exacerbation. 4. Anemia 5. Coronary disease multivessel PCI. 6. Peripheral vascular disease status post PTI. 7. Hypertension 8. Diabetes on metformin 9. Hyperlipidemia Procedure: Echocardiogram 07/17/17 10:23 Impression: Patient as at baseline today with excellent diuresis with IV Lasix. Blood pressure is improved with increased MICHAEL-inhibitor. COPD exacerbation has resolved. Blood sugars also improved. Recommendations: Transition to oral Lasix. Patient has been on low-dose hydrochlorothiazide. To simplify regime will stop this today. Outpatient follow-up with Dr. Cook within 7 days. Transitional care. Discussed importance of compliance especially with diet. Patient would be an excellent rehab candidate. 07/16/17 14:35 Impression: Slow and steady improvement with continued diuresis. Weight down 2 kg. Exam continues to reveal bibasilar rales with JVP at 90 degrees. Continue IV diuresis. Improved blood pressure control. Atrial fibrillation remains well rate controlled. He is properly anticoagulated. 07/15/17 12:47 Impression: Clear improvement since yesterday with resolution of PND. Physical examination shows his lungs to be clearing. He is diuresing well. Echocardiogram showed preserved LV systolic function with a mid ventricular gradient. No significant change from prior studies. Elevation in troponin likely secondary to hypertrophic disease. At this point continue current medical therapy with aggressive diuresis. Patient will need more aggressive blood pressure control. No indications for device therapy based on telemetry( history of nonsustained wide complex tachycardia) Subjective: Feeling well. Able to take deep breath without cough. Sputum production as stop. He has no PND orthopnea. He has no chest pain. He feels he is at his baseline. Tolerating increased dose of MICHAEL-inhibitor well. Objective: Medications Generic Name Dose Route Start Last Admin Trade Name Freq PRN Reason Stop Dose Admin Gabapentin 800 mg 07/14/17 09:00 07/17/17 08:51 Neurontin PO 01/10/18 08:59 800 mg TID JORGE Hydrochlorothiazide 12.5 mg 07/16/17 09:15 07/17/17 09:57 Microzide PO 01/12/18 09:14 12.5 mg DAILY [facility] Ipratropium [place] 0.5 mg 07/15/17 18:00 07/17/17 06:01 Atrovent [facility] 01/11/18 17:59 0.5 mg Q6HRS [facility] Atorvastatin Calcium 80 mg 07/14/17 09:00 07/17/17 08:52 Lipitor PO 01/10/18 08:59 80 mg DAILY [facility] Clonidine 0.1 mg 07/16/17 16:46 Catapres PO 01/12/18 16:45 TID PRN SBP Greater Than 160 Clopidogrel Bisulfate 75 mg 07/14/17 09:00 07/17/17 08:52 Plavix PO 01/10/18 08:59 75 mg DAILY [facility] Digoxin 250 mcg 07/14/17 10:00 07/17/17 08:51 Lanoxin PO 01/10/18 09:59 250 mcg DAILY10 [facility] Diltiazem HCl 120 mg 07/14/17 09:00 07/17/17 08:51 Cardizem Er Q24hr PO 01/10/18 08:59 120 mg DAILY [facility] Furosemide 60 mg 07/17/17 15:00 Lasix PO 01/13/18 14:59 BID@0900,1500 [facility] Levalbuterol 1.25 mg 07/15/17 18:00 07/17/17 06:01 Xopenex 1.25mg [facility] 01/11/18 17:59 1.25 mg Q6HRS [facility] Lisinopril 20 mg 07/16/17 21:00 07/17/17 08:52 Zestril PO 01/12/18 20:59 20 mg BID [facility] Metformin HCl 1,000 mg 07/16/17 18:00 07/17/17 08:51 Glucophage PO 01/12/18 17:59 1,000 mg BIDMEAL [facility] Metoprolol Tartrate 50 mg 07/16/17 16:45 07/17/17 08:52 Lopressor PO 01/10/18 20:59 50 mg BID [facility] Rivaroxaban 20 mg 07/14/17 09:00 07/17/17 08:51 Xarelto PO 01/10/18 08:59 20 mg DAILY [facility] Vital Signs Temp Pulse Resp BP Pulse Ox 36.4 C 112 H 17 117/73 93 07/17/17 08:31 07/17/17 08:52 07/17/17 08:31 07/17/17 09:57 07/17/17 08:31 Laboratory Results 07/17/17 05:55 07/17/17 05:55 07/16/17 07/17/17 07/18/17 05:59 05:59 04:59 Intake Total 780 1345 200 Output Total 3600 3900 650 Balance -2820 -2555 -450 Physical Exam - Physical Exam General Appearance: alert, no apparent distress Neck: non-tender, full range of motion Respiratory: chest non-tender, lungs clear Cardiac/Chest: irregularly irregular Abdomen: normal bowel sounds, non-tender, soft Skin: warm/dry Lymphatic: no adenopathy ICD10 Worksheet Patient Problems: Problems Problem Status Onset Wound infection Acute Cellulitis of right foot Acute Afib Acute Nicotine dependence Acute Acute exacerbation of congestive heart failure Acute Review of Systems - Review of Systems Constitutional: no symptoms reported EENTM: no symptoms reported Respiratory: no symptoms reported Cardiac: no symptoms reported Gastrointestinal/Abdominal: no symptoms reported Genitourinary: no symptoms Musculoskelatal: no symptoms Skin: no symptoms Neurological: no symptoms Hematologic/Lymphatic: no symptoms reported Immunologic/allergic: no symptoms reported All Other Systems: Reviewed and Negative
--- NOTE | 2017-07-17 12:48 | ASMTCMCOM ---
CM Note CM Note Notes: Ptient states he does not want home O2. Patient currrently lives with with much good family support. Patient will need to follow up with outpatient wound care. Still unknown if patient will need home care on discharge. Case management will follow. Date Signed: 07/17/2017 12:47 PM Electronically Signed By:PRINCE Bravo
--- NOTE | 2017-07-17 14:20 | HOSPPROG ---
Hospitalist Progress Note Assessment/Plan: 56 yo with chronic diastolic heart failure is admitted with increasing dyspnea on exertion. He was found to be fluid overloaded as well as mild COPD exacerbation. #. A/C Diastolic HF - overall good diuresis in the hospital with IV Lasix. Patient approaching baseline. Discussed Dr. Rome * Transition to oral Lasix today * Patient still hypoxic and currently refusing home O2 will monitor an additional day to see if we can decrease his oxygen needs. * will fu with Dr. Cook. #. A/C Hypoxic RF -Likely he needs chronic oxygen therapy but has declined it. He has a concentrator at home but felt like a "dog on a leash" He currently refuses to use it * continue treatment for CHF and COPD * re-eval oxygen needs in am, likely pt will continue to refuse #. CAD - Hx stenting in the past. Asymptomatic. Continue aspirin and plavix and statin therapy. #. Afib - * anticoagulated with Xarelto * rate controlled with dig. #. Vtach - patient had non-sustained Vtach noted yesterday. * Continue current medical therapy. #. HTN - Will monitor, consider adjusting meds as needed. #. PVD - Hx stenting in 's. #. COPD - no wheeze today, continue nebs at home #. PHANI - I do not believe he uses CPAP at home. #. DM2 - Continue current detemir and Novolog sliding scale but I did reduce the detemir to 30units BID as hypoglycemic this morning. #. LE Wound - wound care following #. Bowel/Bladder - bowel regimen started. #. DVT prophylaxis - patient is anticoagulated. Subjective: pt new to me, chart reviewed. feeling good, but still desats on room air,. no cp Objective: Vital Signs Temp Pulse Resp BP Pulse Ox 36.4 C 85 20 106/67 95 07/17/17 12:00 07/17/17 12:00 07/17/17 12:00 07/17/17 12:00 07/17/17 12:00 Laboratory Results 07/17/17 05:55 07/17/17 05:55 07/16/17 07/17/17 07/18/17 05:59 05:59 04:59 Intake Total 780 1345 200 Output Total 3600 3900 650 Balance -2030 -8555 -450 - Physical Exam Constitutional: no apparent distress, obese Eyes: PERRL, anicteric sclera, EOMI Ears, Nose, Mouth, Throat: moist mucous membranes Cardiovascular: regular rate and rhythym, systolic murmur, JVD, edema (Crease) Respiratory: no respiratory distress, clear to auscultation, reduced air movement (Bases) Gastrointestinal: normoactive bowel sounds, soft, non-tender abdomen Genitourinary: no bladder fullness Skin: warm, normal color Neurologic: AAOx3 Psychiatric: interacting appropriately, not anxious, not encephalopathic ICD10 Worksheet Patient Problems: Problems Problem Status Onset Acute exacerbation of congestive heart failure Acute Afib Acute Cellulitis of right foot Acute Nicotine dependence Acute Wound infection Acute
[2017-07-17] MEDS: FUROSEMIDE 40 MG TAB PO SCH ×2 (15:49)
[2017-07-17 20:33] VITALS: RESP 16
[2017-07-17] MEDS: SENNOSIDES 1 TAB PO SCH ×2 (22:14)
[2017-07-18 04:25] LABS: PLATELET COUNT 286 10^3/uL (150-400)
[2017-07-18] MEDS: IPRATROPIUM BROMIDE 0.5 MG/2.5 ML DEYVIAL IH SCH ×4 (06:34→11:17)
[2017-07-18] MEDS: LEVALBUTEROL 1.25 MG/3 ML DEYVIAL IH SCH ×4 (06:37→11:17)
[2017-07-18 08:18] VITALS: BP 116/73; TEMP 98.2
[2017-07-18] MEDS: PSYLLIUM METAMUCIL 1 PKT PO SCH ×2 (08:36)
[2017-07-18] MEDS: POLYETHYLENE GLYCOL 3350 17 GM PKT PO SCH ×2 (08:36)
[2017-07-18] MEDS: FUROSEMIDE 40 MG TAB PO SCH ×2 (08:36)
[2017-07-18] MEDS: POTASSIUM CL 20 MEQ/15 ML UDCUP PO SCH ×2 (08:37)
[2017-07-18] MEDS: RIVAROXABAN 20 MG TAB PO SCH ×2 (08:37)
[2017-07-18] MEDS: GABAPENTIN 400 MG CAP PO SCH ×2 (08:37)
[2017-07-18] MEDS: ATORVASTATIN CALCIUM 40 MG TAB PO SCH ×2 (08:37)
[2017-07-18] MEDS: DIGOXIN 250 MCG TAB PO SCH ×2 (08:37)
[2017-07-18] MEDS: DILTIAZEM CD 120 MG CAP PO SCH ×2 (08:37)
[2017-07-18] MEDS: METOPROLOL TARTRATE 25 MG TAB PO SCH ×2 (08:37)
[2017-07-18] MEDS: CLOPIDOGREL BISULFATE 75 MG TAB PO SCH ×2 (08:37)
[2017-07-18] MEDS: LISINOPRIL 20 MG TAB PO SCH ×2 (08:37)
[2017-07-18] MEDS: metFORMIN HCL 500 MG TAB PO SCH ×2 (08:37)
[2017-07-18] MEDS: Insulin Aspart [Novolog Flexpen] 0 UNIT SQ SCH ×2 (08:39)
--- NOTE | 2017-07-18 10:05 | SOAPPROG ---
SOAP Progress Note Assessment/Plan: Assessment: 1. Acute on chronic diastolic heart failure associated with mid ventricular hypertrophic cardiomyopathy. 2. Chronic atrial fibrillation. 3. COPD with exacerbation. 4. Anemia 5. Coronary disease multivessel PCI. 6. Peripheral vascular disease status post PTI. 7. Hypertension 8. Diabetes on metformin 9. Hyperlipidemia Procedure: Echocardiogram 07/18/17 10:02 Impression: Stable overnight on oral medications. Oxygen requirement persists. This is likely due to some component of COPD. Blood pressures were improved. Recommendations: Continue current medical therapy. Home oxygen. 07/17/17 10:23 Impression: Patient as at baseline today with excellent diuresis with IV Lasix. Blood pressure is improved with increased MICHAEL-inhibitor. COPD exacerbation has resolved. Blood sugars also improved. Recommendations: Transition to oral Lasix. Patient has been on low-dose hydrochlorothiazide. To simplify regime will stop this today. Outpatient follow-up with Dr. Cook within 7 days. Transitional care. Discussed importance of compliance especially with diet. Patient would be an excellent rehab candidate. 07/16/17 14:35 Impression: Slow and steady improvement with continued diuresis. Weight down 2 kg. Exam continues to reveal bibasilar rales with JVP at 90 degrees. Continue IV diuresis. Improved blood pressure control. Atrial fibrillation remains well rate controlled. He is properly anticoagulated. 07/15/17 12:47 Impression: Clear improvement since yesterday with resolution of PND. Physical examination shows his lungs to be clearing. He is diuresing well. Echocardiogram showed preserved LV systolic function with a mid ventricular gradient. No significant change from prior studies. Elevation in troponin likely secondary to hypertrophic disease. At this point continue current medical therapy with aggressive diuresis. Patient will need more aggressive blood pressure control. No indications for device therapy based on telemetry( history of nonsustained wide complex tachycardia) 07/18/17 10:04 Subjective: Feeling well. Somewhat depressed that he was unable to go home yesterday. He did require oxygen at rest and was reluctant to take this at home. Objective: Vital Signs Temp Pulse Resp BP Pulse Ox 36.8 C 94 16 116/73 93 07/18/17 08:00 07/18/17 08:00 07/18/17 04:00 07/18/17 08:00 07/18/17 08:00 Laboratory Results 07/18/17 03:56 07/18/17 03:56 07/17/17 07/18/17 07/19/17 06:59 05:59 05:59 Intake Total Output Total 300 Balance -300 Physical Exam - Physical Exam General Appearance: alert, no apparent distress Respiratory: chest non-tender, lungs clear Cardiac/Chest: irregularly irregular, No gallop ICD10 Worksheet Patient Problems: Problems Problem Status Onset Wound infection Acute Cellulitis of right foot Acute Afib Acute Nicotine dependence Acute Acute exacerbation of congestive heart failure Acute
[2017-07-18 11:20] VITALS: PULSE 96; O2SAT 97
--- NOTE | 2017-07-18 11:36 | GDS ---
[f rep st] DISCHARGE SUMMARY DIAGNOSES: 1. Acute on chronic diastolic heart failure associated with midventricular hypertrophic cardiomyopathy. 2. Chronic atrial fibrillation, started on Xarelto for anticoagulation this admission. 3. Chronic obstructive pulmonary disease with acute exacerbation, improved. 4. Anemia. 5. Multivessel coronary artery disease status post percutaneous coronary intervention. 6. Peripheral vascular disease status post stent. 7. Hypertension. 8. Diabetes type 2. 9. Dyslipidemia. PROCEDURES DONE: 1. Echocardiogram. 2. Chest and thoracic CT angiogram: Upper mediastinal adenopathy, mild diffuse interstitial lung disease, bronchitis, enlargement of both atria. CONSULTATIONS: Cardiology, Dr. Jose Armando Rome. HOSPITAL COURSE: The patient is a 56-year-old man with severe atherosclerotic cardiovascular disease admitted to the hospital with a several-day history of progressive shortness of breath, edema, and PND. On admission, he was fluid overloaded and had a cough. CT angiogram was done which showed the above findings. He also had an echocardiogram done. Of note, the patient has been noncompliant with followup since his health safety instructor, Dr. Iqbal, left. He has not yet established care with Dr. Cook at the [facility], but plans on doing so. He also has been noncompliant with oxygen therapy at home. On admission, he was placed on IV Lasix and had an excellent diuresis throughout his stay. At time of discharge, he felt that he was likely at baseline from a weight and swelling standpoint, although still had some mild fluid overload. He was transitioned from IV to oral Lasix at 60 mg twice a day, which was double his home dose, and did well overnight, however, continued to desaturate on room air into the mid 80s. I had a long discussion with the patient regarding oxygen therapy and long-term prognosis, and he continues to decline oxygen. He says he does not notice a difference on or off it. He has it set up at home from a previous prescription by Dr. Iqbal and says there is no way he will use it. His medications were adjusted slightly. The bisoprolol was discontinued and he was put on metoprolol. His lisinopril was doubled and his Lasix was doubled, and he was started on Xarelto for anticoagulation for chronic AFib. CONDITION ON DISCHARGE: Good. His blood pressure is 116/73, with a heart rate in the 80-90 range. He is 93% on 3 L by nasal cannula. He does desaturate into the mid 80s on room air, however, is asymptomatic and despite multiple urgings, he refuses home oxygen. DISCHARGE MEDICATIONS: Please see discharge medication form. Changes include the addition of Xarelto, lisinopril increased from 20 daily to 20 b.i.d., bisoprolol discontinued, metoprolol added, and Lasix was doubled from 60 daily to 60 b.i.d. His potassium was 4.8 on the day of discharge. FOLLOWUP INSTRUCTIONS: He is to establish care with Dr. Cook, he agrees to do this. He is refusing home oxygen despite the necessity. He already has it at home set up with a concentrator. Total time spent with patient on day of discharge and coordination of care is 35 minutes. /[id number]/MODL MTDD
--- NOTE | 2017-07-18 11:57 | ASMTCMCOM ---
CM Note CM Note Notes: Patient has been discharged home. Continues to refuse O2 at home. Medications adjusted and he is to establish care w/Dr Cook. No other discharge needs at this time. Date Signed: 07/18/2017 11:56 AM Electronically Signed By:Trupti Dixon LCSW
--- NOTE | 2017-07-18 16:26 | ASDISCHSUM ---
Discharge Information Plan Status:Home with No Needs Medically Cleared to Leave:07/18/2017 Discharge Date:07/18/2017 11:55 AM CM D/C Disposition:Home, Routine, Self-Care ADT D/C Disposition:Home, Routine, Self-Care Projected Discharge Date:07/18/2017 01:00 PM Transportation at D/C:Family Discharge Delay Reason: Follow-Up Date:07/18/2017 01:00 PM Discharge Slot: Final Diagnosis:Acute on chronic CHF, Afib Placement Information Patient Contact Information Contact Name:NESIMAALICIC Relationship: Address:[address] City:[place] Alternate Phone: State/Zip Code:[place] [address] Email: Financial Information Financial Class: Primary Plan Desc:MEDICARE INPATIENT Primary Plan Number:[id number] Secondary Plan Desc: Secondary Plan Number: Assessment Information [facility] CM Progress Note CM Note CM Note Notes: 07/14/2017 Case Management Note Reviewed chart, spoke w/RN. No case management d/c needs identified d/t pt age, marital status and activity levels prior to admission. No therapy evals ordered. Case Management d/c poc: home independent with family support when medically stable with follow up as directed. Case Management available if needs change. Date Signed: 07/14/2017 10:18 AM Electronically Signed By:Meche Antoine RN [facility] CM Progress Note CM Note CM Note Notes: Chart reviewed, met with patient in anticipation of needing HHC or home oxygen. Per patient he "tried" oxygen in August and he refuses to use it. He currently needs oxygen at 4 lnc. He states he is young and has no needs.He states it is his choice to refuse. Currently has a lot of family support. CM to follow. Date Signed: 07/16/2017 11:40 AM Electronically Signed By:Karin Frazier RN [facility] Length of stay for Answers: 3 days current admission Acuity / Level of Care Answers: Was the patient admitted to hospital via the emergency department? Yes: Comorbidities - select Answers: Congestive heart failure all that apply Emergency dept visits in Answers: 1 last 6 months Score: 9 Date Signed: 07/16/2017 11:53 AM Electronically Signed By:Karin Frazier RN [facility] CM Progress Note CM Note CM Note Notes: Ptient states he does not want home O2. Patient currrently lives with with much good family support. Patient will need to follow up with outpatient wound care. Still unknown if patient will need home care on discharge. Case management will follow. Date Signed: 07/17/2017 12:47 PM Electronically Signed By:PRINCE Bravo [facility] CM Progress Note CM Note CM Note Notes: Patient has been discharged home. Continues to refuse O2 at home. Medications adjusted and he is to establish care w/Dr Cook. No other discharge needs at this time. Date Signed: 07/18/2017 11:56 AM Electronically Signed By:Trupti Dixon LCSW Intervention Information
--- NOTE | 2017-07-18 16:26 | ASDISCHSUM ---
Discharge Information Plan Status:Home with No Needs Medically Cleared to Leave:07/18/2017 Discharge Date:07/18/2017 11:55 AM CM D/C Disposition:Home, Routine, Self-Care ADT D/C Disposition:Home, Routine, Self-Care Projected Discharge Date:07/18/2017 01:00 PM Transportation at D/C:Family Discharge Delay Reason: Follow-Up Date:07/18/2017 01:00 PM Discharge Slot: Final Diagnosis:Acute on chronic CHF, Afib Placement Information Patient Contact Information Contact Name:NESIMAALICIC Relationship: Address:[address] City:[place] Alternate Phone: State/Zip Code:[place] [address] Email: Financial Information Financial Class: Primary Plan Desc:MEDICARE INPATIENT Primary Plan Number:[id number] Secondary Plan Desc: Secondary Plan Number: Assessment Information [facility] CM Progress Note CM Note CM Note Notes: 07/14/2017 Case Management Note Reviewed chart, spoke w/RN. No case management d/c needs identified d/t pt age, marital status and activity levels prior to admission. No therapy evals ordered. Case Management d/c poc: home independent with family support when medically stable with follow up as directed. Case Management available if needs change. Date Signed: 07/14/2017 10:18 AM Electronically Signed By:Meche Antoine RN [facility] CM Progress Note CM Note CM Note Notes: Chart reviewed, met with patient in anticipation of needing HHC or home oxygen. Per patient he "tried" oxygen in August and he refuses to use it. He currently needs oxygen at 4 lnc. He states he is young and has no needs.He states it is his choice to refuse. Currently has a lot of family support. CM to follow. Date Signed: 07/16/2017 11:40 AM Electronically Signed By:Karin Frazier RN [facility] Length of stay for Answers: 3 days current admission Acuity / Level of Care Answers: Was the patient admitted to hospital via the emergency department? Yes: Comorbidities - select Answers: Congestive heart failure all that apply Emergency dept visits in Answers: 1 last 6 months Score: 9 Date Signed: 07/16/2017 11:53 AM Electronically Signed By:Karin Frazier RN [facility] CM Progress Note CM Note CM Note Notes: Ptient states he does not want home O2. Patient currrently lives with with much good family support. Patient will need to follow up with outpatient wound care. Still unknown if patient will need home care on discharge. Case management will follow. Date Signed: 07/17/2017 12:47 PM Electronically Signed By:PRINCE Bravo [facility] CM Progress Note CM Note CM Note Notes: Patient has been discharged home. Continues to refuse O2 at home. Medications adjusted and he is to establish care w/Dr Cook. No other discharge needs at this time. Date Signed: 07/18/2017 11:56 AM Electronically Signed By:Trupti Dixon LCSW Intervention Information
--- NOTE | 2017-07-18 16:26 | ASDISCHSUM ---
Discharge Information Plan Status:Home with No Needs Medically Cleared to Leave:07/18/2017 Discharge Date:07/18/2017 11:55 AM CM D/C Disposition:Home, Routine, Self-Care ADT D/C Disposition:Home, Routine, Self-Care Projected Discharge Date:07/18/2017 01:00 PM Transportation at D/C:Family Discharge Delay Reason: Follow-Up Date:07/18/2017 01:00 PM Discharge Slot: Final Diagnosis:Acute on chronic CHF, Afib Placement Information Patient Contact Information Contact Name:NESIMAALICIC Relationship: Address:[address] City:[place] Alternate Phone: State/Zip Code:[place] [address] Email: Financial Information Financial Class: Primary Plan Desc:MEDICARE INPATIENT Primary Plan Number:[id number] Secondary Plan Desc: Secondary Plan Number: Assessment Information [facility] CM Progress Note CM Note CM Note Notes: 07/14/2017 Case Management Note Reviewed chart, spoke w/RN. No case management d/c needs identified d/t pt age, marital status and activity levels prior to admission. No therapy evals ordered. Case Management d/c poc: home independent with family support when medically stable with follow up as directed. Case Management available if needs change. Date Signed: 07/14/2017 10:18 AM Electronically Signed By:Meche Antoine RN [facility] CM Progress Note CM Note CM Note Notes: Chart reviewed, met with patient in anticipation of needing HHC or home oxygen. Per patient he "tried" oxygen in August and he refuses to use it. He currently needs oxygen at 4 lnc. He states he is young and has no needs.He states it is his choice to refuse. Currently has a lot of family support. CM to follow. Date Signed: 07/16/2017 11:40 AM Electronically Signed By:Karin Frazier RN [facility] Length of stay for Answers: 3 days current admission Acuity / Level of Care Answers: Was the patient admitted to hospital via the emergency department? Yes: Comorbidities - select Answers: Congestive heart failure all that apply Emergency dept visits in Answers: 1 last 6 months Score: 9 Date Signed: 07/16/2017 11:53 AM Electronically Signed By:Karin Frazier RN [facility] CM Progress Note CM Note CM Note Notes: Ptient states he does not want home O2. Patient currrently lives with with much good family support. Patient will need to follow up with outpatient wound care. Still unknown if patient will need home care on discharge. Case management will follow. Date Signed: 07/17/2017 12:47 PM Electronically Signed By:PRINCE Bravo [facility] CM Progress Note CM Note CM Note Notes: Patient has been discharged home. Continues to refuse O2 at home. Medications adjusted and he is to establish care w/Dr Cook. No other discharge needs at this time. Date Signed: 07/18/2017 11:56 AM Electronically Signed By:Trupti Dixon LCSW Intervention Information
== END 2017-07-18 11:55 | disposition home or self-care (01) | DRG 291 ==
LOC: F2W 23:42
PROVIDERS: ADMIT Internal Medicine; ATTEND Internal Medicine
DX: I11.0 Hypertensive heart disease with heart failure (principal); I50.33 Acute on chronic diastolic (congestive) heart failure; J44.1 Chronic obstructive pulmonary disease with (acute) exacerbation; J96.01 Acute respiratory failure with hypoxia; I48.2 Chronic atrial fibrillation; E11.40 Type 2 diabetes mellitus with diabetic neuropathy, unspecified; I42.2 Other hypertrophic cardiomyopathy; J84.9 Interstitial pulmonary disease, unspecified; D63.8 Anemia in other chronic diseases classified elsewhere; I25.10 Atherosclerotic heart disease of native coronary artery without angina pectoris; G47.33 Obstructive sleep apnea (adult) (pediatric); E66.9 Obesity, unspecified; Z68.36 Body mass index [BMI] 36.0-36.9, adult; G47.00 Insomnia, unspecified; E78.5 Hyperlipidemia, unspecified; Z95.5 Presence of coronary angioplasty implant and graft; F17.210 Nicotine dependence, cigarettes, uncomplicated
CPT/HCPCS: 96374; 97161-GP; 97165-GO; 97530-GO; 97535-GO; G8978-GP-CI; G8979-GP-CI; G8980-GP-CI; G8987-GO-CI; G8988-GO-CI; J1940; J3475; Q9967

== ENCOUNTER → 2017-07-26 | Outpatient (CLI) | payer OTHER | LOC: FIMAGING 16:15 | PROVIDERS: ATTEND Physician Assistant | DX: E11.621 Type 2 diabetes mellitus with foot ulcer (principal); Z89.431 Acquired absence of right foot ==

== ENCOUNTER 2017-08-10 05:32 | Observation (INO) | payer OTHER ==
[2017-08-10] MEDS ORDERED: LR 1,000 ML IV ONE (05:52)
[2017-08-10] MEDS ORDERED: LIDOCAINE 1% 2 ML INJ ID PRN (05:52)
[2017-08-10] MEDS ORDERED: ceFAZolin 2 GM/SWFI 2 GM/20 ML SYR IVP ONE (05:52)
[2017-08-10] MEDS ORDERED: LIDOCAINE 1% 2 ML INJ ONE (05:56)
[2017-08-10] MEDS ORDERED: D5W NS 1,000 ML IV ONE (06:30)
--- NOTE | 2017-08-10 06:47 | PDHPUP ---
History & Physical Update H&P update statement: This history and physical update is based on an assessment of the patient which was completed after admission or registration (within 24 hours), but prior to the surgery/procedure. H&P update: H&P reviewed & patient examined, no change in patient's condition since H&P completed
[2017-08-10] MEDS ORDERED: BUPIVACAINE 0.5% 30 ML SDV ONE (07:34)
[2017-08-10 07:38] VITALS: PULSE 88
[2017-08-10] MEDS ORDERED: D5W 1,000 ML IV ONE (08:00)
[2017-08-10] MEDS ORDERED: D5W IV ONE (08:00)
[2017-08-10] MEDS ORDERED: PROPOFOL/EMULSION 500 MG/50 ML BOTTLE IV ONE (15:57)
[2017-08-10] MEDS ORDERED: fentaNYL 250 MCG/5 ML INJ ONE (15:58)
[2017-08-10] MEDS ORDERED: MIDAZOLAM 2 MG/2 ML VIAL ONE (15:58)
[2017-08-10] MEDS ORDERED: MIDAZOLAM 2 MG/2 ML VIAL IVP ONE (16:07)
[2017-08-10] MEDS ORDERED: THROMBIN (BOVINE) 5,000 UNIT VIAL TP ONE ×2 (16:16→16:31)
[2017-08-10] MEDS ORDERED: CALCIUM CHLORIDE 1 GM/10 ML INJ ONE (16:16)
--- NOTE | 2017-08-10 16:24 | PDANEPAE ---
ANE History of Present Illness 56 year old with DM, Htn, renal insufficiency, pulm htn, for amputation of toe. ANE Past Medical History - Cardiovascular History Hx Hypertension: Yes Hx Arrhythmias: Yes Hx Chest Pain: No Hx Coronary Artery / Peripheral Vascular Disease: Yes Hx CHF / Valvular Disease: Yes Hx Palpitations: No Cardiovascular History Comment: CARDIAC STENTS X2. STENTS MARLEN LEGS X2. htn. afib. cad. chf. pvd - Pulmonary History Hx COPD: No Hx Asthma/Reactive Airway Disease: No Hx Recent Upper Respiratory Infection: No Hx Oxygen in Use at Home: No Hx Sleep Apnea: Yes Sleep Apnea Screening Result - Last Documented: Positive Pulmonary History Comment: PULMONARY HTN - Neurologic History Hx Cerebrovascular Accident: No Hx Seizures: No Hx Dementia: No - Endocrine History Hx Diabetes: Yes Endocrine History Comment: insulin dependent - Renal History Hx Renal Disorders: No - Liver History Hx Hepatic Disorders: No - Neurological & Psychiatric Hx Hx Neurological and Psychiatric Disorders: No - Cancer History Hx Cancer: No - Congenital Disorder History Hx Congenital Disorders: No - GI History Hx Gastrointestinal Disorders: No - Other Health History Other Health History: osteomyelitis R ft/ulcer. gout. arthritis. PERIPHERAL NEUROPATHY - Chronic Pain History Chronic Pain: Yes (right foot pain) - Surgical History Prior Surgeries: 09/19/15 right foot debridement and amp with kellie X2. right mid foot amputation with hopkins ANE Review of Systems Review of systems is: negative Review of Systems: - Exercise capacity METS (RN): 3 METS ANE Patient History - Allergies Allergies/Adverse Reactions: No Known Allergies Allergy (Verified 08/09/17 18:07) - Home Medications Home Medications: metFORMIN HCL [Glucophage 500 mg (*)] 1,000 mg PO BIDMEAL 10/08/15 [Last Taken 08/09/17] Atorvastatin Calcium [Lipitor 40 mg (*)] 80 mg PO DAILY 01/07/17 [Last Taken ] Gabapentin [Neurontin 400 MG (*)] 800 mg PO TID 01/07/17 [Last Taken 08/09/17] Insulin Aspart [Novolog Flexpen] 20 - 35 unit SQ TIDMEAL 01/07/17 [Last Taken ] Insulin Detemir [Levemir] 40 unit SQ BID 01/07/17 [Last Taken 08/09/17] Carvedilol [Coreg (*)] 25 mg PO BIDMEAL 08/06/17 [Last Taken 08/10/17 05:00] Digoxin [Lanoxin 0.25 mg] 0.25 mg PO DAILY 08/06/17 [Last Taken 08/10/17 05:00] Furosemide [Lasix 40 MG (*)] 20 mg PO DAILY 08/06/17 [Last Taken 08/09/17] Gabapentin [Neurontin 100 MG (*)] 200 mg PO TID 08/06/17 [Last Taken 08/09/17] Lisinopril [Zestril 20 mg (*)] 20 mg PO BID 08/06/17 [Last Taken 08/09/17] - NPO status NPO Since - Liquids (Date): 08/10/17 NPO Since - Liquids (Time): 05:00 NPO Since - Solids (Date): 08/10/17 NPO Since - Solids (Time): 05:30 - Smoking Hx Smoking Status: Heavy smoker - Family Anes Hx Family Hx Anesthesia Complications: none ANE Labs/Vital Signs - Vital Signs Blood Pressure: 103/55 Heart Rate: 88 Respiratory Rate: 22 O2 Sat (%): 90 Height: 167.64 cm Weight: 95.254 kg ANE Physical Exam - Airway Neck exam: FROM Mallampati Score: Class 3 Mouth exam: normal dental/mouth exam - Pulmonary Pulmonary: no respiratory distress - Cardiovascular Cardiovascular: regular rate and rhythym - ASA Status ASA Status: III ANE Anesthesia Plan Anesthesia Plan: GA w LMA
[2017-08-10] MEDS ORDERED: HYDROmorphONE/DILAUDID 1 MG/ML INJ IVP PRN (16:35)
[2017-08-10] MEDS ORDERED: METOCLOPRAMIDE 10 MG/2 ML VIAL IVP PRN (16:35)
[2017-08-10] MEDS ORDERED: MEPERIDINE 25 MG/ML SYR IVP PRN (16:35)
[2017-08-10] MEDS ORDERED: ALBUTEROL 3 ML DEYVIAL IH PRN (16:35)
[2017-08-10] MEDS ORDERED: LR 500 ML IV PRN (16:35)
[2017-08-10] MEDS ORDERED: LABETALOL HCL 5 MG/ML 20 ML MDV IVP PRN (16:35)
[2017-08-10] MEDS ORDERED: fentaNYL 100 MCG/2 ML INJ IVP PRN (16:35)
[2017-08-10] MEDS ORDERED: NALOXONE HCL 0.4 MG/ML INJ IVP PRN (16:35)
[2017-08-10] MEDS ORDERED: ACETAMINOPHEN 500 MG TAB PO PRN (16:35)
[2017-08-10] MEDS ORDERED: HYDROCODONE/APAP 5/325 TAB PO PRN (16:35)
[2017-08-10] MEDS ORDERED: ONDANSETRON 4 MG/2 ML VIAL IVP PRN (16:35)
--- NOTE | 2017-08-10 16:51 | POSTOPPROG ---
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
--- NOTE | 2017-08-10 17:37 | CPEKG ---
Heart Rate: 57 RR Interval: 1053 QRSD Interval: 106 QT Interval: 380 QTC Interval: 370 QRS [place]: 98 T Wave [place]: -81 EKG Severity - ABNORMAL ECG - EKG Impression: ATRIAL FIBRILLATION EKG Impression: INCOMPLETE RIGHT BUNDLE BRANCH BLOCK EKG Impression: INFERIOR INFARCT, AGE INDETERMINATE EKG Impression: poor r wave progression Electronically Signed By: Morales Hilton 12-Aug-2017 11:30:27
[2017-08-10 18:14] VITALS: TEMP 97.2
[2017-08-10 18:55] VITALS: RESP 19
[2017-08-10 19:08] VITALS: BP 102/66; O2SAT 90
--- NOTE | 2017-08-11 09:52 | ASDISCHSUM ---
Discharge Information Plan Status:Home with No Needs Medically Cleared to Leave:08/09/2017 Discharge Date:08/10/2017 07:18 PM CM D/C Disposition: ADT D/C Disposition:Home, Routine, Self-Care Projected Discharge Date:08/10/2017 12:00 AM Transportation at D/C: Discharge Delay Reason: Follow-Up Date:08/10/2017 12:00 AM Discharge Slot: Final Diagnosis: Placement Information Patient Contact Information Contact Name:TIFFANIEIMAALICIOlivier Relationship: Address:[address] [place] [address] [address] City:[place] Alternate Phone: [facility]/Zip Code:[place] [address] Email: Financial Information Financial Class:MC Primary Plan Desc:MEDICARE OUTPATIENT Primary Plan Number:[id number] Secondary Plan Desc: Secondary Plan Number: Assessment Information Intervention Information
--- NOTE | 2017-08-24 20:08 | GPROG ---
[f rep st] PROGRESS NOTE POSTANESTHESIA CARE UNIT NOTE: The patient was taken to the postanesthesia care unit. A report was given to the receiving registered nurse. He was utilizing oxygen by nasal cannula. He had no compla ints of pain, or nausea or vomiting. His vital signs were stable. There were no complications. /[id number]/MODL
--- NOTE | 2017-09-02 22:12 | GOP ---
[f rep st] OPERATIVE REPORT DATE OF OPERATION: 08/10/2017 SURGEON: Koffi Tello MD GETTER OPERATOR: There was no residential living assistant. ANESTHESIOLOGIST: Sandie Montgomery MD. PREOPERATIVE DIAGNOSIS: Osteomyelitis of the right foot. POSTOPERATIVE DIAGNOSIS: Osteomyelitis of the right foot, including peripheral vascular disease and diabetes mellitus. PROCEDURE PERFORMED: I and D with a saucerization of the bone in the right transmetatarsal amputatio n wound site, with installation of platelet rich plasma. FINDINGS: The patient did have bone spikes and soft infected appearing bone over the lateral metatar jass. ESTIMATED BLOOD LOSS: Negligible. DESCRIPTION OF PROCEDURE: Patient taken to the operating room where he received satisfactory general endotracheal anesthesia by Dr. Sandie Montgomery. He was placed in supine position where the left foot was prepped and draped in usual sterile fashion. The wound was explored and again seen to contain so me infected necrotic bone and wound. This was all trimmed back, trimmed back to good hard bone with no evidence of any further infection. The wound was copiously irrigated. The edges of the bone were smoothed off with a rasp. The wound was then covered with some platelet rich plasma and a bulky martin ssing. He tolerated procedure well. COMPLICATIONS: There were no complications. There was rather poor bleeding at the surgery site. He was taken to the recovery room in good condition. /[id number]/MODL
== END 2017-08-10 19:18 | disposition home or self-care (01) ==
LOC: F3N 05:32 → F3E 12:00
PROVIDERS: ADMIT Surgery; ATTEND Surgery
PROC: 0QBP0ZZ Excision of Left Metatarsal, Open Approach (ICD-10-PCS; principal; 2017-08-10 07:15)
DX: L97.411 Non-pressure chronic ulcer of right heel and midfoot limited to breakdown of skin (principal); I10 Essential (primary) hypertension; I27.20 Pulmonary hypertension, unspecified; N18.9 Chronic kidney disease, unspecified; E11.40 Type 2 diabetes mellitus with diabetic neuropathy, unspecified
CPT/HCPCS: 28122; 88307; 88311; 93005; J0690; J2250; J2704; J3010

== ENCOUNTER 2017-09-13 17:53 | Inpatient (IN) | payer OTHER ==
--- NOTE | 2017-09-13 18:05 | EDPHY ---
H & P Stated Complaint: increasing sob/sounds wet HPI/ROS: CHIEF COMPLAINT: Shortness of breath HISTORY OF PRESENT ILLNESS: The patient is an anticoagulated 56 y/o male with a history of diabetes, atrial fibrillation, CAD s/p stenting, complaining of shortness of breath for 10-12 days. He believes he had the flu before his symptoms began 12 days ago. When he lies flat, his symptoms are exacerbated. His legs have also been more swollen than normal; and his stomach feels more distended than usual. However, he does not believe that he has gained weight. Denies fever, vomiting, chest pain, paresthesias or other pertinent symptoms. Was admitted to the hospital June 2017, 3 months ago, for CHF exacerbation. Prior medical records reviewed including history and physical from Dr. Madrid on 07/13/17. REVIEW OF SYSTEMS: A ten point review of systems was performed and is negative with the exception of the items mentioned in the HPI. Past medical history: Diabetes Atrial fibrillation CAD CHF Hypertension Gout Arthritis Peripheral Vascular Disease Sleep Apnea Past surgical history: Cardiac stents Right mid-foot amputation Family history: Social history: Lives in [place] Smoker General Appearance: Alert. Vital signs reviewed. Respiratory rate 26, room air pulse ox 88% at triage. Eyes: Pupils equal and round, no conjunctival injection, no discharge. Anicteric. ENT, Mouth: Mucous membranes are moist, no oropharyngeal erythema or edema. Neck: No lymphadenopathy, supple. Trachea midline. Respiratory: Distant breath sounds, bilateral rales, expiratory wheezes; no rhonchi. Cardiovascular: Distant heart sounds. Irregular rate and rhythm; no murmur, rub , or gallop. Gastrointestinal: Abdomen is protruberant. Abdomen is soft and nontender, bowel sounds normal. Skin: Warm and dry, no rashes on exposed skin, normal color. Back: Nontender to palpation over the thoracolumbar spine. No CVAT. Extremities: Right mid foot amputation, with open wound laterally that is packed and looks clean. Bilateral 2+ lower extremity edema, no calf tenderness or swelling. Neurological: Alert and oriented. Moving all four extremities easily and equally. Psychiatric: Normal affect. - Personal History Current Tetanus/Diphtheria Vaccine: No - Medical/Surgical History Hx Asthma: No Hx Chronic Respiratory Disease: No Hx Diabetes: Yes Hx Cardiac Disease: Yes Hx Renal Disease: No Hx Cirrhosis: No Hx Alcoholism: No Hx HIV/AIDS: No Hx Splenectomy or Spleen Trauma: No Other PMH: Gout, Arthritis, DM, HTN, Stents in Heart, Afib, CAD, Periferal Vascular Disease, Sleep Apnea - Social History Smoking Status: Heavy smoker Constitutional: Initial Vital Signs Temperature (C) 36.5 C 09/13/17 17:56 Heart Rate 71 09/13/17 17:56 Respiratory Rate 26 H 09/13/17 17:56 Blood Pressure 137/77 H 09/13/17 17:56 O2 Sat (%) 88 L 09/13/17 17:56 O2 Delivery Mode Nasal Cannula O2 (L/minute) 2 Allergies/Adverse Reactions: No Known Allergies Allergy (Verified 09/13/17 17:53) Home Medications: Medication Instructions Recorded metFORMIN HCL [Glucophage 500 mg 1,000 mg PO BIDMEAL 10/08/15 (*)] Diltiazem Cd [Cardizem ER 120 MG 120 mg PO DAILY #0 cap 10/09/15 (*)] Atorvastatin Calcium [Lipitor 40 80 mg PO DAILY 01/07/17 mg (*)] Gabapentin [Neurontin 400 MG (*)] 800 mg PO TID 01/07/17 Insulin Aspart [Novolog Flexpen] 15 - 25 unit SQ TIDMEAL 01/07/17 Rivaroxaban [Xarelto] 20 mg PO DAILY #30 tab 07/18/17 Carvedilol [Coreg (*)] 25 mg PO BIDMEAL 08/06/17 Digoxin [Lanoxin 0.25 mg] 0.25 mg PO DAILY 08/06/17 Gabapentin [Neurontin 100 MG (*)] 200 mg PO TID 08/06/17 Lisinopril [Zestril 20 mg (*)] 20 mg PO BID 08/06/17 Clopidogrel Bisulfate [Plavix (*)] 75 mg PO DAILY 09/13/17 Albuterol [Proventil Inhaler HFA 2 puffs IH Q4 PRN #1 mdi 09/17/17 (*)] Carvedilol [Coreg (*)] 25 mg PO BIDMEAL #60 tab 09/17/17 Fluticasone/Salmeter 250/50Mcg 1 puffs IH BID #1 disk 09/17/17 [Advair 250/50 (*)] Furosemide [Lasix 40 MG (*)] 40 mg PO BIDDIUR #60 tab 09/17/17 Insulin Detemir [Levemir] 45 unit SQ BID 09/17/17 Tiotropium Inhaler [Spiriva 18 mcg IH DAILY #1 mdi 09/17/17 Handihaler] Medical Decision Making - Diagnostics Imaging: I viewed and interpreted images myself ED Course/Re-evaluation: The patient is an anticoagulated 56 y/o male with a history of diabetes, atrial fibrillation, CAD, and cardiac stents presenting with shortness of breath for 10 -12 days. On exam he has distant heart and breath sounds. He also has an irregular heart rate. EKG, chest x-ray, and labs ordered. 1810: The 12 lead EKG was interpreted by myself as atrial fibrillation with a rate of 54. See hard copy and/or "tracemaster" electronic copy for interpretation. This EKG is not remarkably different from prior EKGs. 1909: DuoNeb administered Chest x-ray reviewed. He has cardiomegaly. My interpretation is that there is mild pulmonary edema, radiologist interpretation is no heart failure. Evidence of bronchitis. No infiltrate. Labs pending at the time of this dictation. 1932: Reassessed patient after DuoNeb treatment. Improved aeration. He continues with low heart rate on the monitor, varying from 40 to mid 50s ( medication induced?). He is not having chest pain but has troponin in the intermediate range--ACS is in the differential with his history and presentation.. He is on Xarelto, making PE unlikely. Given his history of diastolic heart failure I suspect that today's presentation is primarily due to heart failure. He does report a recent flu, not laboratory proven, as he did not seek medical attention at that time. Will send respiratory pathogen panel, as infection could be behind his shortness of breath. He is not febrile. 1943: Consulted with hospitalist service, Dr. Sutherland accepts admission of this patient. Differential Diagnosis: Shortness of breath including but not limited to pulmonary infectious process, COPD, asthma, pulmonary embolus and congestive heart failure. - Data Points Laboratory Results: Laboratory Results 09/13/17 18:20 09/13/17 18:20 Medications Given: Discontinued Medications Hydrocodone Bitart/Acetaminophen ([place] 5/325) 1 tab PO EDNOW ONE Stop: 09/13/17 20:16 Last Admin: 09/13/17 20:20 Dose: 1 tab Albuterol/Ipratropium (Duoneb) 3 ml IH EDNOW ONE Stop: 09/13/17 19:11 Last Admin: 09/13/17 19:23 Dose: 3 ml Albuterol/Ipratropium (Duoneb) 3 ml IH Q6 JORGE Stop: 03/13/18 11:59 Last Admin: 09/16/17 06:06 Dose: 3 ml Atorvastatin Calcium (Lipitor) 80 mg PO DAILY JORGE Stop: 03/13/18 08:59 Last Admin: 09/17/17 08:35 Dose: 80 mg Carvedilol (Coreg) 25 mg PO BIDMEAL [facility] Stop: 03/15/18 09:14 Last Admin: 09/17/17 08:35 Dose: 25 mg Clopidogrel Bisulfate (Plavix) 75 mg PO DAILY [facility] Stop: 03/13/18 08:59 Last Admin: 09/17/17 08:35 Dose: 75 mg Diltiazem HCl (Cardizem Er Q24hr) 120 mg PO DAILY [facility] Stop: 03/14/18 11:29 Last Admin: 09/17/17 08:35 Dose: 120 mg Furosemide (Lasix Injection) 20 mg IVP BIDDIUR [facility] Stop: 03/12/18 21:44 Last Admin: 09/17/17 08:36 Dose: 20 mg Gabapentin (Neurontin) 200 mg PO TID [facility] Stop: 03/12/18 21:59 Last Admin: 09/17/17 08:35 Dose: 200 mg Gabapentin (Neurontin) 800 mg PO TID [facility] Stop: 03/12/18 21:59 Last Admin: 09/17/17 08:36 Dose: 800 mg Insulin Human Lispro (Humalog Lispro) 0 unit SC TIDMEAL [facility] PRN Reason: Protocol Stop: 03/13/18 07:59 Last Admin: 09/16/17 17:55 Dose: 8 units Insulin Human Lispro (Humalog Lispro) 0 unit SC ACHS [facility] PRN Reason: Protocol Stop: 03/16/18 00:14 Last Admin: 09/17/17 12:23 Dose: Not Given Lisinopril (Zestril) 20 mg PO BID [facility] Stop: 03/15/18 09:14 Last Admin: 09/17/17 08:36 Dose: 20 mg Metformin HCl (Glucophage) 1,000 mg PO BIDMEAL [facility] Stop: 03/15/18 09:14 Last Admin: 09/17/17 08:33 Dose: 1,000 mg Miscellaneous Medication (Insulin Detemir [Levemir]) 40 unit SQ BID [facility] Stop: 03/13/18 08:59 Last Admin: 09/17/17 09:32 Dose: 40 units Oxycodone HCl (Oxycodone Ir) 5 - 10 mg PO Q3HRS PRN PRN Reason: Pain, Severe Able to Take PO Stop: 09/23/17 21:36 Last Admin: 09/13/17 22:11 Dose: 5 mg Prednisone (Prednisone) 40 mg PO DAILY [facility] Stop: 03/14/18 14:59 Last Admin: 09/16/17 08:01 Dose: 40 mg Rivaroxaban (Xarelto) 20 mg PO DAILY [facility] Stop: 03/13/18 08:59 Last Admin: 09/17/17 08:35 Dose: 20 mg Fluticasone/Salmeterol (Advair) 1 puffs IH BID [facility] Stop: 03/15/18 20:59 Last Admin: 09/17/17 10:14 Dose: 1 puffs Tiotropium [place] (Spiriva Handihaler) 18 mcg IH DAILY [facility] Stop: 03/15/18 10:29 Last Admin: 09/17/17 10:15 Dose: 18 mcg Departure - Departure Disposition: [facility] Inpatient Acute Clinical Impression: Acute exacerbation of congestive heart failure Qualifiers: Congestive heart failure type: unspecified congestive heart failure type Qualified Code(s): I50.9 - Heart failure, unspecified Dyspnea Qualifiers: Dyspnea type: unspecified Qualified Code(s): R06.00 - Dyspnea, unspecified Reactive airway disease with wheezing Qualifiers: Asthma severity: unspecified severity Asthma persistence: unspecified Asthma complication type: uncomplicated Qualified Code(s): J45.909 - Unspecified asthma , uncomplicated Condition: Fair Report Scribed for: Kimi Wang Report Scribed by: Justina Lemus Date of Report: 09/13/17 Time of Report: 18:20 Physician Review and Approval Statement: 09/13/17 18:05 Portions of this note were transcribed by the medical assistant secretary. I, Dr. Kimi Wang, personally performed the history, physical exam, and medical decision- making; and confirmed the accuracy of the information in the transcribed note.
--- NOTE | 2017-09-13 18:12 | CPEKG ---
Heart Rate: 54 RR Interval: 1111 QRSD Interval: 102 QT Interval: 400 QTC Interval: 379 QRS [place]: 98 T Wave [place]: 236 EKG Severity - ABNORMAL ECG - EKG Impression: ATRIAL FIBRILLATION EKG Impression: LATERAL INFARCT, AGE INDETERMINATE EKG Impression: NONSPECIFIC T ABNORMALITIES, INFERIOR LEADS Electronically Signed By: Kimi Wang 13-Sep-2017 19:07:25
[2017-09-13 19:02] LABS: PLATELET COUNT 327 10^3/uL (150-400)
[2017-09-13] MEDS ORDERED: IPRATROPIUM/ALBUTEROL 3 ML DEYVIAL IH ONE (19:10)
[2017-09-13] MEDS ORDERED: HYDROCODONE/APAP 5/325 TAB PO ONE (20:15)
[2017-09-13] MEDS ORDERED: ACETAMINOPHEN 325 MG TAB PO PRN (21:37)
[2017-09-13] MEDS ORDERED: D50W 25 GM/50 ML VIAL IVP PRN (21:37)
[2017-09-13] MEDS ORDERED: oxyCODONE IR 5 MG TAB PO PRN (21:37)
[2017-09-13] MEDS: FUROSEMIDE 20 MG/2 ML VIAL IVP SCH (22:04)
[2017-09-13] MEDS: GABAPENTIN 400 MG CAP PO SCH (22:04)
[2017-09-13] MEDS: GABAPENTIN 100 MG CAP PO SCH (22:05)
--- NOTE | 2017-09-13 22:21 | GHP ---
[f rep st] HISTORY AND PHYSICAL DATE OF ADMISSION: 09/13/2017 CHIEF COMPLAINT: Shortness of breath. HISTORY OF PRESENT ILLNESS: This is a 56-year-old male with significant vascular disease who present s with shortness of breath. History is slightly unclear. He says he had a flu-like illness about 12 days ago with cough, fevers, and productive sputum. This has all gotten better. He presents today because his breathing seemed to get worse today. He also tells me that he has been off furosemide fo r about 11 days. It is unclear exactly why it sounds as though there was a mistake with his prescrip tions. He thinks he has actually lost weight, however. He does say that he has worsening peripheral edema. He has no real chest pain. PAST MEDICAL/SURGICAL HISTORY: 1. Atrial fibrillation on Xarelto. 2. Diabetes. 3. Coronary artery disease, status post 2 stents. 4. Diastolic congestive heart failure. 5. Hypertension. 6. Gout. 7. Peripheral vascular disease. 8. Sleep apnea. 9. Right mid foot amputation. MEDICATIONS: Please see medication reconciliation. ALLERGIES: No known drug allergies. SOCIAL HISTORY: He is accompanied by his daughter. He is a smoker. He is originally from [facility]. FAMILY HISTORY: His father is at 42. He has 2 sons and 1 daughter who are healthy. REVIEW OF SYSTEMS: A 10-point review of systems is conducted and is negative except per HPI. PHYSICAL EXAMINATION: VITAL SIGNS: Blood pressure 98/57, heart rate 50, respiration rate 16, satura ting 93% on 4 L. Temperature is 36.4. GENERAL: The patient is a pleasant man who is resting comfor tably in no acute distress. ENT: Shows him to be normocephalic, atraumatic. CARDIOVASCULAR: Shows him to be irregularly-irregular. There are no murmurs, rubs, or gallops. He has elevated JVD. He has 2+ bilateral lower extremity edema. RESPIRATORY: Shows him to have bilateral wheezes and basila r crackles. ABDOMEN: Soft, nontender, nondistended. SKIN: Shows no rash. : No [place]. NEUROLO GIC: Shows him to be alert and oriented x3. He is nonfocal. PSYCHIATRIC: Shows a normal mood and a ffect. LABORATORY DATA: Hemoglobin 11.9. D-dimer 0.92. Sodium is 148. Bicarbonate is 16. Troponin is 0. 090. BNP is 4040. IMAGING DATA: 1. I discussed this with Dr. Wang. We will admit to the PCU. 2. I personally viewed and interpreted his chest x-ray. This shows cardiomegaly, mild vascular pred ominance. 3. EKG shows Q-waves in II, III, and F. He has slow R-wave progression. He has ST depression in II, III, and F. His underlying rhythm is bradycardic atrial fibrillation. I compared this to his last EKG. It is similar, though the rate is slightly slower. IMPRESSION AND PLAN: A 56-year-old vasculopath with shortness of breath. 1. Shortness of breath: Somewhat confusing picture overall. I think it is reasonable to treat him for volume overload, which I will do with furosemide. He had been off his diuretics. Also consider pulmonary embolism, though he is on Xarelto. Consider viral. Pathogen panel is pending. Consider a cute coronary syndrome; initial troponin is slightly elevated. EKG is unchanged. Trend troponins. Monitor him on telemetry. 2. Bradycardia: We will hold his diltiazem and Coreg. Check a digoxin level; hold digoxin. Certai nly we would want to start a beta shilpi again soon, if possible. Maybe this caused some decompensa tion. He has been bradycardic before. 3. Anion gap acidosis: Also somewhat confusing. Follow this closely with diuresis. Hold his metfo rmin. We will recheck this in the morning. Check a lactate. 4. Hyponatremia: Also somewhat unclear. Follow this closely with diuresis; it may be worse. He ma y need some free water. 5. Severe vascular disease including peripheral arterial disease and coronary artery disease, status post stents: Continue his statin, Plavix, and Xarelto. Restart beta shilpi as soon as possible. 6. Anemia: Slightly worse than previous. Certainly could be contributing to his dyspnea. Recheck tomorrow. 7. Diabetes mellitus type 2: Continue his home long-acting insulin and provide sliding scale short- acting insulin. 8. Relative hypotension: We will hold all antihypertensives for now, other than diuresis. 9. Elevated troponin: Trend. 10. Code status: It was full on previous presentation. /[id number]/MODL
[2017-09-14 04:19] LABS: PLATELET COUNT 263 10^3/uL (150-400)
[2017-09-14] MEDS ORDERED: CARVEDILOL 25 MG TAB PO SCH (08:00)
[2017-09-14] MEDS: FUROSEMIDE 20 MG/2 ML VIAL IVP SCH ×2 (08:53→16:08)
[2017-09-14] MEDS: CLOPIDOGREL BISULFATE 75 MG TAB PO SCH (08:54)
[2017-09-14] MEDS: GABAPENTIN 100 MG CAP PO SCH ×3 (08:54→20:08)
[2017-09-14] MEDS: GABAPENTIN 400 MG CAP PO SCH ×3 (08:54→20:08)
[2017-09-14] MEDS: RIVAROXABAN 20 MG TAB PO SCH (08:54)
[2017-09-14] MEDS: ATORVASTATIN CALCIUM 40 MG TAB PO SCH (08:54)
[2017-09-14] MEDS ORDERED: DIGOXIN 250 MCG TAB PO SCH (09:00)
[2017-09-14] MEDS ORDERED: LISINOPRIL 20 MG TAB PO SCH (09:00)
--- NOTE | 2017-09-14 09:13 | PDMN ---
Medical Necessity Medical necessity: est los>2mn for eval and rx of SOB r/t volume overload vs viral vs PE vs ACS; bradycardia, anion gap acidosis, hyponatremia, relative hypotension, elevated troponin and worsening anemia; admit for IV Lasix, medication adjustment, and to follow labs, ; comorbid DM, severe vascular disease, PAD, and CAD; per order and H&P 09/13/17
[2017-09-14] MEDS: INSULIN LISPRO 100 UNIT/ML SC SCH ×3 (09:28→19:38)
[2017-09-14] MEDS: IPRATROPIUM/ALBUTEROL 3 ML DEYVIAL IH SCH ×3 (10:49→23:53)
--- NOTE | 2017-09-14 15:14 | ASMTCMCOM ---
CM Note CM Note Notes: 09/14/2017 Case Management Note Met w/pt. Pt has recently used [facility] in March for cares. Currently his foot wound is taken care of by his with weekly visits to [facility] office for check ups. He was recently switched to a bi weekly visits with Dr. Tello. Pt does not anticipate any d/c needs. Pt reports his Roseline is very involved in his cares. Case Management d/c poc: TBD pending PT and OT vida for guidance. Case Management to follow. Date Signed: 09/14/2017 03:13 PM Electronically Signed By:Meche Antoine RN
--- NOTE | 2017-09-14 16:52 | HOSPPROG ---
Hospitalist Progress Note Assessment/Plan: * Acute on chronic diastolic CHF -continue IV lasix -confusion regarding lasix dose may have led to decompensation * COPD - recently quit smoking -current wheezing likely related to volume overload -schedule nebs -non-compliant with home O2 * CAD - last stents 2011 -borderline troponins -has not re-established with cardiology since Dr. Iqbal left -check stress test in am * Hypertrophic cardiomyopathy with LVOT obstruction * PVD s/p extensive stenting * TMA with chronic non-healing wound - wound care * Afib -bradycardic - holding diltiazem -continue Xarelto * AG acidosis - resolved -holding metformin but lactate normal * DM II -insulin * Mild ILD with increasing mediastinal LAD (since 2011) Subjective: SOB, worse with lying down. Recently quit smoking. Objective: Vital Signs Temp Pulse Resp BP Pulse Ox 36.8 C 87 22 H 171/91 H 95 09/14/17 16:27 09/14/17 16:27 09/14/17 16:27 09/14/17 16:27 09/14/17 16:27 Microbiology 09/13/17 20:23 Respiratory Panel (PCR) - Final Nasal, Sinus - Swab No Organism Detected Laboratory Results 09/14/17 04:08 09/14/17 04:08 09/13/17 09/14/17 09/15/17 05:59 05:59 05:59 Intake Total 500 240 Output Total 250 2850 Balance 250 -2610 Old chart reviewed at length including cath reports by Dr. Iqbal - aug 2012 stents x 2, extensive CAD with ischemic CM - EF previously 27% CXR - minimal CHF noted - Physical Exam Constitutional: no apparent distress, appears nourished, not in pain Cardiovascular: regular rate and rhythym, no murmur, rub, or gallop, edema (2+) Respiratory: no respiratory distress, expiratory wheeze, rhonchi, No reduced air movement Gastrointestinal: normoactive bowel sounds, soft, non-tender abdomen, no palpable masses Skin: no rashes or abrasions, no fluctuance, no induration Neurologic: AAOx3, sensation intact bilaterally Psychiatric: interacting appropriately, not anxious, not encephalopathic, thought process linear ICD10 Worksheet Patient Problems: Problems Problem Status Onset Acute exacerbation of congestive heart failure Acute Dyspnea Acute Reactive airway disease with wheezing Acute Afib Acute Cellulitis of right foot Acute Nicotine dependence Acute Wound infection Acute
[2017-09-15 04:29] LABS: PLATELET COUNT 296 10^3/uL (150-400)
[2017-09-15] MEDS: IPRATROPIUM/ALBUTEROL 3 ML DEYVIAL IH SCH ×3 (06:00→16:57)
[2017-09-15] MEDS ORDERED: REGADENOSON 0.4 MG/5 ML SYR IVP ONE (09:30)
[2017-09-15] MEDS: FUROSEMIDE 20 MG/2 ML VIAL IVP SCH ×2 (10:35→15:22)
[2017-09-15] MEDS: RIVAROXABAN 20 MG TAB PO SCH (10:36)
[2017-09-15] MEDS: ATORVASTATIN CALCIUM 40 MG TAB PO SCH (10:36)
[2017-09-15] MEDS: CLOPIDOGREL BISULFATE 75 MG TAB PO SCH (10:36)
--- NOTE | 2017-09-15 10:37 | CPR ---
[f rep st] NONINVASIVE CARDIAC PROCEDURE REPORT DATE OF PROCEDURE: 09/15/2017 PROCEDURE: Lexiscan nuclear stress test. INDICATION: The patient is a 56-year-old male, presents to the hospital complaining of shortness of breath. His risks factors for coronary artery disease include diabetes, hypertension, hyperlipidemia , and ongoing tobacco use. He also has an abnormal EKG with diffuse ST-T wave changes. PROCEDURE IN DETAIL: Consent was obtained and the patient was placed on continuous telemetry. His r esting EKG revealed atrial fibrillation at a rate of 92 with an incomplete right bundle branch block. Has diffuse ST-T wave changes. There is also the presence of inferior Q-waves suggesting a prior i nferior infarct. The patient was injected with Lexiscan and stated he actually felt better after the injection. He denied any shortness of breath or chest pain. He remained in atrial fibrillation wit h rare PVCs throughout the study. His oxygen saturation dropped to 84% prior to the procedure. He was placed on 2 L of oxygen with an improvement in his oxygen saturation to 95%. His oxygen sats remained stable throughout the study on 2 L of oxygen. His blood pressure at rest was 156/82 and dropped with the infusion to 134/79. I th en returned to baseline within 5 minutes of recovery. PLAN: Await nuclear images. /[id number]/MODL
[2017-09-15] MEDS: INSULIN LISPRO 100 UNIT/ML SC SCH ×3 (10:38→18:25)
[2017-09-15] MEDS: GABAPENTIN 400 MG CAP PO SCH ×3 (10:38→21:25)
[2017-09-15] MEDS: GABAPENTIN 100 MG CAP PO SCH ×3 (10:39→21:26)
[2017-09-15] MEDS: DILTIAZEM CD 120 MG CAP PO SCH (12:18)
--- NOTE | 2017-09-15 12:37 | ASMTCMCOM ---
CM Note CM Note Notes: 09/15/2017 Case Management Note Discussed with PT. PT recommending home independent. Case Management did not identify any further d/c needs. Case Management d/c poc: Home independent with follow up as directed. Case Management available if needs change. Date Signed: 09/15/2017 12:37 PM Electronically Signed By:Meche Antoine RN
[2017-09-15] MEDS: predniSONE 20 MG TAB PO SCH (15:22)
--- NOTE | 2017-09-15 19:18 | HOSPPROG ---
Hospitalist Progress Note Assessment/Plan: * Acute on chronic diastolic CHF -continue IV lasix -confusion regarding lasix dose may have led to decompensation * COPD - recently quit smoking -still quite wheezy - add steroids -schedule nebs -non-compliant with home O2 * CAD - last stents 2011 -borderline troponins -has not re-established with cardiology since Dr. Iqbal left -stress test negative * Hypertrophic cardiomyopathy with LVOT obstruction * PVD s/p extensive stenting * TMA with chronic non-healing wound - wound care * Afib - back to RVR (up to HR 180) with holding diltiazem -resume diltiazem -continue Xarelto * AG acidosis - resolved -holding metformin but lactate normal * DM II -insulin * Mild ILD with increasing mediastinal LAD (since 2011) Subjective: Better Objective: Vital Signs Temp Pulse Resp BP Pulse Ox 36.9 C 107 H 12 117/95 H 83 L 09/15/17 15:35 09/15/17 16:58 09/15/17 16:58 09/15/17 15:35 09/15/17 17:30 Laboratory Results 09/15/17 04:08 09/15/17 04:08 09/14/17 09/15/17 09/16/17 05:59 05:59 05:59 Intake Total 500 1290 500 Output Total 250 5150 3200 Balance 250 -5250 -2700 tele reviewed - rapid afib Nuc stress test - negative - Physical Exam Constitutional: no apparent distress, appears nourished, not in pain Cardiovascular: irregularly irregular, JVD, edema (but better) Respiratory: no respiratory distress, expiratory wheeze, inspiratory crackles, rhonchi Gastrointestinal: normoactive bowel sounds, soft, non-tender abdomen, no palpable masses Skin: no rashes or abrasions, no fluctuance, no induration Neurologic: AAOx3, sensation intact bilaterally Psychiatric: interacting appropriately, not anxious, not encephalopathic, thought process linear ICD10 Worksheet Patient Problems: Problems Problem Status Onset Acute exacerbation of congestive heart failure Acute Dyspnea Acute Reactive airway disease with wheezing Acute Afib Acute Cellulitis of right foot Acute Nicotine dependence Acute Wound infection Acute
[2017-09-16] MEDS: IPRATROPIUM/ALBUTEROL 3 ML DEYVIAL IH SCH ×2 (00:14→06:06)
[2017-09-16] MEDS: INSULIN LISPRO 100 UNIT/ML SC SCH ×3 (07:58→17:55)
[2017-09-16] MEDS: FUROSEMIDE 20 MG/2 ML VIAL IVP SCH ×2 (08:01→15:28)
[2017-09-16] MEDS: predniSONE 20 MG TAB PO SCH (08:01)
[2017-09-16] MEDS: GABAPENTIN 400 MG CAP PO SCH ×3 (08:02→21:15)
[2017-09-16] MEDS: ATORVASTATIN CALCIUM 40 MG TAB PO SCH (08:02)
[2017-09-16] MEDS: GABAPENTIN 100 MG CAP PO SCH ×3 (08:02→21:16)
[2017-09-16] MEDS: CLOPIDOGREL BISULFATE 75 MG TAB PO SCH (08:02)
[2017-09-16] MEDS: RIVAROXABAN 20 MG TAB PO SCH (08:02)
[2017-09-16] MEDS: DILTIAZEM CD 120 MG CAP PO SCH (08:02)
[2017-09-16] MEDS ORDERED: ALBUTEROL 3 ML DEYVIAL IH PRN (10:18)
[2017-09-16] MEDS: metFORMIN HCL 500 MG TAB PO SCH ×2 (10:45→17:55)
[2017-09-16] MEDS: CARVEDILOL 25 MG TAB PO SCH ×2 (10:45→17:56)
[2017-09-16] MEDS: LISINOPRIL 20 MG TAB PO SCH ×2 (10:45→21:15)
[2017-09-16] MEDS: TIOTROPIUM INHALER 18 MCG/DOSE 5 DOSE/MDI IH SCH (10:54)
--- NOTE | 2017-09-16 18:52 | HOSPPROG ---
Hospitalist Progress Note Assessment/Plan: * Acute on chronic diastolic CHF -continue IV lasix - increase home dose at discharge * COPD - recently quit smoking -mild exacerbation - likely due to pulmonary edema -PO prednisone increased glucose dramatically - will change to inhaled steroids -refused home O2 in past - now agreeable * CAD - last stents 2011 -borderline troponins -has not re-established with cardiology since Dr. Iqbal left -stress test negative * Hypertrophic cardiomyopathy with LVOT obstruction * PVD s/p extensive stenting * TMA with chronic non-healing wound - wound care * Afib - back to RVR (up to HR 180) with holding diltiazem (HR 40 on admission) -resume diltiazem and all previous home meds and monitor -continue Xarelto * AG acidosis - resolved -resume metformin but watch closely -lactate normal * DM II -insulin * Mild ILD with increasing mediastinal LAD (since 2011) Patient would like to establish care with [facility]. They have had difficulties getting an appointment. Asked and [facility] to lock in appointment prior to discharge. Subjective: Much better Objective: Vital Signs Temp Pulse Resp BP Pulse Ox 36.6 C 92 17 129/73 H 94 09/16/17 15:54 09/16/17 15:54 09/16/17 15:54 09/16/17 15:54 09/16/17 15:54 Laboratory Results 09/15/17 04:08 09/16/17 04:15 09/15/17 09/16/17 09/17/17 05:59 05:59 05:59 Intake Total 1290 720 980 Output Total 5150 3200 900 Balance -3860 -2480 80 - Physical Exam Constitutional: no apparent distress, appears nourished, not in pain Cardiovascular: regular rate and rhythym, no murmur, rub, or gallop, edema ( improved) Respiratory: no respiratory distress, no rales or rhonchi, clear to auscultation Skin: no rashes or abrasions, no fluctuance, no induration Neurologic: AAOx3, sensation intact bilaterally Psychiatric: interacting appropriately, not anxious, not encephalopathic, thought process linear ICD10 Worksheet Patient Problems: Problems Problem Status Onset Acute exacerbation of congestive heart failure Acute Dyspnea Acute Reactive airway disease with wheezing Acute Afib Acute Cellulitis of right foot Acute Nicotine dependence Acute Wound infection Acute
[2017-09-16] MEDS: FLUTICASONE/SALMETER 250/50MCG DISKUS IH SCH (21:58)
[2017-09-17] MEDS: INSULIN LISPRO 100 UNIT/ML SC SCH ×3 (00:15→12:23)
[2017-09-17] MEDS: metFORMIN HCL 500 MG TAB PO SCH (08:33)
[2017-09-17] MEDS: GABAPENTIN 100 MG CAP PO SCH (08:35)
[2017-09-17] MEDS: RIVAROXABAN 20 MG TAB PO SCH (08:35)
[2017-09-17] MEDS: DILTIAZEM CD 120 MG CAP PO SCH (08:35)
[2017-09-17] MEDS: CLOPIDOGREL BISULFATE 75 MG TAB PO SCH (08:35)
[2017-09-17] MEDS: ATORVASTATIN CALCIUM 40 MG TAB PO SCH (08:35)
[2017-09-17] MEDS: CARVEDILOL 25 MG TAB PO SCH (08:35)
[2017-09-17] MEDS: GABAPENTIN 400 MG CAP PO SCH (08:36)
[2017-09-17] MEDS: LISINOPRIL 20 MG TAB PO SCH (08:36)
[2017-09-17] MEDS: FUROSEMIDE 20 MG/2 ML VIAL IVP SCH (08:36)
[2017-09-17] MEDS: FLUTICASONE/SALMETER 250/50MCG DISKUS IH SCH (10:14)
[2017-09-17] MEDS: TIOTROPIUM INHALER 18 MCG/DOSE 5 DOSE/MDI IH SCH (10:15)
[2017-09-17 11:29] VITALS: BP 141/83; PULSE 98; RESP 14; TEMP 97.6; O2SAT 93
--- NOTE | 2017-09-17 16:34 | ASDISCHSUM ---
Discharge Information Plan Status:Home with No Needs Medically Cleared to Leave:09/16/2017 Discharge Date:09/17/2017 12:50 PM CM D/C Disposition: ADT D/C Disposition:Home, Routine, Self-Care Projected Discharge Date:09/17/2017 12:00 AM Transportation at D/C: Discharge Delay Reason: Follow-Up Date:09/17/2017 12:00 AM Discharge Slot: Final Diagnosis: Placement Information Patient Contact Information Contact Name:TIFFANIEIMAALICIOlivier Relationship: Address:[address] [place] [address] [address] City:[place] Alternate Phone: [facility]/Zip Code:[place] [address] Email: Financial Information Financial Class: Primary Plan Desc:MEDICARE INPATIENT Primary Plan Number:[id number] Secondary Plan Desc: Secondary Plan Number: Assessment Information [facility] CM Progress Note CM Note CM Note Notes: 09/14/2017 Case Management Note Met w/pt. Pt has recently used [facility] in March for cares. Currently his foot wound is taken care of by his with weekly visits to [facility] office for check ups. He was recently switched to a bi weekly visits with Dr. Tello. Pt does not anticipate any d/c needs. Pt reports his Roseline is very involved in his cares. Case Management d/c poc: TBD pending PT and OT vida for guidance. Case Management to follow. Date Signed: 09/14/2017 03:13 PM Electronically Signed By:Meche Antoine RN [facility] CM Progress Note CM Note CM Note Notes: 09/15/2017 Case Management Note Discussed with PT. PT recommending home independent. Case Management did not identify any further d/c needs. Case Management d/c poc: Home independent with follow up as directed. Case Management available if needs change. Date Signed: 09/15/2017 12:37 PM Electronically Signed By:Meche Antoine RN Intervention Information Intervention Type:*IM-Signed Date of Service:09/17/2017 12:37 PM Patient Type:Inpatient Staff Member:Thelma Michele Hours: Discipline: Severity: Comment:
--- NOTE | 2017-09-17 17:35 | PDDCSUM ---
Discharge Summary Discharge Summary: DISCHARGE SUMMARY FOLLOW-UP ITEMS: Repeat creatinine BUN and lytes next week DATE OF ADMISSION: 09/13/2017 DATE OF DISCHARGE: 09/17/2017 DISCHARGE DIAGNOSES: 1. Acute on chronic diastolic congestive heart failure exacerbation 2. Acute COPD exacerbation 3. Chronic coronary artery disease 4. Chronic hypertrophic cardiomyopathy with left ventricular outflow tract obstruction 5. Chronic peripheral vascular disease 6. Chronic nonhealing wound right lower extremity 7. Persistent atrial fibrillation 8. Acute metabolic acidosis 9. Acute hyperglycemia with diabetes mellitus type 2 CONSULTATIONS: Cardiology PROCEDURES / IMAGING: None CHIEF COMPLAINT: Acute bilateral lower extremity edema and shortness of breath SUBJECTIVE: Patient is feeling well at time discharge, he reports his lower extremities are substantially improved PHYSICAL EXAM ON DISCHARGE: Systolic blood pressure 140-160, heart rate 80-90, afebrile overnight, satting 93% on room air, alert awake oriented x3, lungs are clear to auscultation bilaterally, with no expiratory wheezes, legs demonstrate bilateral trace edema , skin is [place] but without erythema, no streaking in the right lower extremity , heart rhythm is regular with 1/6 systolic murmur at the apex and sternum LABS ON DISCHARGE: Creatinine 0.7, potassium 4.9 HOSPITAL COURSE BY PROBLEM: 1. Acute on chronic diastolic congestive heart failure exacerbation. The patient experienced a CHF exacerbation as evidenced by BNP of 4000, increased weight, lower extremity edema, shortness of breath. Is unclear whether the exact cause is diuretic in efficiency or uncontrolled atrial fibrillation. The patient was placed on IV Lasix 20 mg twice daily, and he was net -4.5 kg during his length of stay. He was adjusted to 40 mg of oral Lasix twice daily at discharge, with repeat serum chemistry next week. He was also continued on his home antihypertensive medications which continued and MICHAEL-inhibitor and a beta- shilpi. He will need to be followed closely at [facility] and will establish care at that locale. 2. Persistent atrial fibrillation. The patient experienced intermittent rapid ventricular response with heart rates up to 180, and heart rates as low as 40. The patient's heart rate stabilized in the 80-90 range on his home medications including diltiazem, Coreg, digoxin. He was also continued on Xarelto. 3. Acute COPD exacerbation. Evidenced by diffuse expiratory wheezes, most likely precipitated by his acute CHF exacerbation, treated initially with prednisone which resulted in severe hyperglycemia, and he was adjusted to inhaled steroids on Advair as well as introduction of Spiriva and as needed albuterol. Patient will be discharged home with all these medications. He should follow up with his primary care provider regarding this issue, and may require outpatient pulmonary consultation. He has stopped smoking. 4. Acute metabolic acidosis. Initially secondary to renal hypoperfusion, this resolved, and metformin was initially held. His discharge serum bicarbonate level 25 5. Acute hyperglycemia with diabetes mellitus type 2. Patient's hyperglycemia was exacerbated by his prednisone, and persisted despite discontinuing the prednisone. The patient was also not adhering to a diabetic diet, and I counseled the patient regarding diabetic diet management. We also discussed his home dosage of long-acting insulin, and he was able to demonstrate proper self administration. I recommended that the patient increase his long-acting to 45 U twice daily, and utilize as needed mealtime dosing accordingly. He should check his glucose levels 3 times daily at home, and also continue his metformin. He will follow up with his primary care provider to readdress this issue. 6. Chronic hypertrophic cardiomyopathy with left ventricular outflow tract obstruction. Patient's blood pressure was well managed during this hospitalization. 7. Chronic coronary artery disease. Patient's last cardiac stents were 2011, he had borderline elevated troponin levels most likely secondary to his CHF exacerbation, he was stress test which demonstrated no evidence of myocardial ischemia. 8. Chronic nonhealing right lower extremity wound. Patient has no evidence of infection, and I do not believe that this is what is contributing to his hyperglycemia. He will continue to follow up with Dr. Tello his office as scheduled. DISCHARGE MEDICATIONS: Please see official discharge medication reconciliation sheet in chart , continue all home medications with the up titration of Lasix to 40 mg twice daily. DISCHARGE INSTRUCTIONS: Please follow up with [facility] as scheduled and have labs performed next week. TIME SPENT: Greater than 30 minutes were spent on direct patient care, as well as discharge planning and preparation.
== END 2017-09-17 12:50 | disposition home or self-care (01) | DRG 292 ==
LOC: F2W 21:12
PROVIDERS: ADMIT Student in an Organized Health Care Education/Training Program; ATTEND Internal Medicine
DX: I11.0 Hypertensive heart disease with heart failure (principal); I50.33 Acute on chronic diastolic (congestive) heart failure; J44.1 Chronic obstructive pulmonary disease with (acute) exacerbation; E11.65 Type 2 diabetes mellitus with hyperglycemia; E87.2 Acidosis; E87.1 Hypo-osmolality and hyponatremia; I48.1 Persistent atrial fibrillation; I25.10 Atherosclerotic heart disease of native coronary artery without angina pectoris; E11.51 Type 2 diabetes mellitus with diabetic peripheral angiopathy without gangrene; I73.9 Peripheral vascular disease, unspecified; M10.9 Gout, unspecified; G47.30 Sleep apnea, unspecified; Z79.01 Long term (current) use of anticoagulants; Z95.5 Presence of coronary angioplasty implant and graft; Z79.4 Long term (current) use of insulin; F17.210 Nicotine dependence, cigarettes, uncomplicated
CPT/HCPCS: 82947-QW; 97116-GP; 97161-GP; A9500; G8978-GP-CI; G8979-GP-CI; J1815; J1940; J2785; J7512

== ENCOUNTER 2017-09-25 14:36 | Inpatient (IN) | payer OTHER ==
[2017-09-25] MEDS ORDERED: CALCIUM GLUC 10% 1 GM/10 ML VIAL ONE (14:45)
--- NOTE | 2017-09-25 14:55 | CPEKG ---
Heart Rate: 80 RR Interval: 750 P-R Interval: 164 QRSD Interval: 104 QT Interval: 336 QTC Interval: 388 P [place]: 0 QRS [place]: 0 EKG Severity - DEFECTIVE ECG - EKG Impression: Artifact, atrial fibrillation with slow ventricular rate Electronically Signed By: Morales Hilton 27-Sep-2017 04:35:22
[2017-09-25] MEDS ORDERED: CALCIUM GLUC 10% 1 GM/10 ML VIAL IVP ONE (15:03)
[2017-09-25] MEDS ORDERED: ATROPINE SULFATE 1 MG/10 ML SYR IVP ONE ×2 (15:05→15:40)
[2017-09-25] MEDS ORDERED: EPINEPHrine 1 MG/10 ML SYR IVP ONE ×10 (15:10→19:21)
[2017-09-25 15:13] LABS: PLATELET COUNT 275 10^3/uL (150-400)
[2017-09-25] MEDS ORDERED: INSULIN REGULAR HUMAN 100 UNIT/ML UNIT IVP ONE (15:16)
[2017-09-25] MEDS ORDERED: INSULIN REGULAR HUMAN 100 UNIT/ML UNIT ONE (15:17)
[2017-09-25] MEDS ORDERED: CALCIUM CHLORIDE 1 GM/10 ML INJ IV ONE (15:19)
[2017-09-25 15:27] LABS: INR 1.42 (0.83-1.16); PROTIME(PATIENT) 17.5 SEC (12.0-15.0)
[2017-09-25] MEDS ORDERED: LIDOCAINE 1% 300 MG/30 ML SDV ONE (15:29)
[2017-09-25] MEDS ORDERED: ATROPINE SULFATE 1 MG/10 ML SYR ONE ×2 (15:30→19:21)
--- NOTE | 2017-09-25 15:35 | CPEKG ---
Heart Rate: 48 RR Interval: 1250 QRSD Interval: 102 QT Interval: 472 QTC Interval: 422 QRS [place]: 111 T Wave [place]: -78 EKG Severity - ABNORMAL ECG - EKG Impression: ATRIAL FIBRILLATION with slow ventricular rate and ventricular pause EKG Impression: VENTRICULAR PREMATURE COMPLEX EKG Impression: RIGHT AXIS DEVIATION EKG Impression: BORDERLINE R WAVE PROGRESSION, ANTERIOR LEADS Electronically Signed By: Morales Hilton 27-Sep-2017 04:34:43
--- NOTE | 2017-09-25 15:56 | EDPHY ---
H & P Stated Complaint: syncope, bradycardia HPI/ROS: Chief Complaint: Syncope, bradycardia HPI: 56-year-old male with a history of type 2 diabetes and atrial fibrillation. Patient has been difficult to control his ventricular rate. His whiskey filterer doubled his Cardizem dose 2 days ago. Today he has been feeling increasingly weak and had a syncopal episode. On EMS arrival the patient was noted to be in a irregular bradycardia with a rate in the 30s. He has been awake and answering questions. Denies any chest pain or shortness of breath. No recent illness. He has been taking diltiazem 125 and he doubled it per his whiskey filterer instructions. ROS: 10 point Review of Systems is negative except as noted in the HPI. PMH: Type 2 diabetes, atrial fibrillation, right midfoot amputation status post osteomyelitis Social History: No smoking, no alcohol, no recreational drug use Family History: non-contributory Physical Exam: Gen: Awake, Alert, pale, in distress HEENT: Nose: no rhinorrhea Eyes: PERRLA, EOMI Mouth: Moist mucosa Neck: Supple, no JVD Chest: nontender, lungs clear to auscultation Heart: S1, S2 normal, is irregularly irregular with a dramatic bradycardia in the 30s Abd: Soft, non-tender, no guarding Back: no CVA tenderness, no midline tenderness Ext: no edema, non-tender, right foot dressing in place with obvious mid foot amputation. Skin: no rash Neuro: CN II-XII intact, Sensation grossly intact, Strength 5/5 in bilateral upper and lower extremities - Personal History Current Tetanus/Diphtheria Vaccine: Unsure Current Tetanus Diphtheria and Acellular Pertussis (TDAP): Unsure - Medical/Surgical History Hx Asthma: No Hx Chronic Respiratory Disease: No Hx Diabetes: Yes Hx Cardiac Disease: Yes Hx Renal Disease: No Hx Cirrhosis: No Hx Alcoholism: No Hx HIV/AIDS: No Hx Splenectomy or Spleen Trauma: No Other PMH: Gout, Arthritis, DM, HTN, Stents in Heart, Afib, CAD, Periferal Vascular Disease, Sleep Apnea - Social History Smoking Status: Heavy smoker Constitutional: Initial Vital Signs O2 Sat (%) 97 09/25/17 14:50 O2 Delivery Mode Room Air O2 (L/minute) 10 Allergies/Adverse Reactions: No Known Allergies Allergy (Verified 09/25/17 14:53) Home Medications: Medication Instructions Recorded Insulin Aspart [Novolog Flexpen] 15 - 25 unit SQ TIDMEAL 01/07/17 Rivaroxaban [Xarelto] 20 mg PO DAILY #30 tab 07/18/17 Digoxin [Lanoxin 0.25 mg] 0.25 mg PO DAILY 08/06/17 Gabapentin [Neurontin 100 MG (*)] 200 mg PO TID 08/06/17 Lisinopril [Zestril 20 mg (*)] 20 mg PO BID 08/06/17 Clopidogrel Bisulfate [Plavix (*)] 75 mg PO DAILY 09/13/17 Albuterol [Proventil Inhaler HFA 2 puffs IH Q4 PRN #1 mdi 09/17/17 (*)] Carvedilol [Coreg (*)] 25 mg PO BIDMEAL #60 tab 09/17/17 Fluticasone/Salmeter 250/50Mcg 1 puffs IH BID #1 disk 09/17/17 [Advair 250/50 (*)] Tiotropium Inhaler [Spiriva 18 mcg IH DAILY #1 mdi 09/17/17 Handihaler] Atorvastatin Calcium [Lipitor 80 80 mg PO HS 09/25/17 mg] Diltiazem HCl [Cartia Xt] 240 mg PO DAILY 09/25/17 Furosemide [Lasix 40 MG (*)] 40 mg PO DAILY@15 09/25/17 Furosemide [Lasix 40 MG (*)] 80 mg PO DAILY 09/25/17 Gabapentin [Gabapentin 800 mg] 800 mg PO TID 09/25/17 Insulin Detemir [Levemir] 45 unit SQ BID 09/25/17 Metformin HCl [Metformin 1000 mg] 1,000 mg PO BIDMEAL 09/25/17 Spironolactone [Aldactone 25 MG 25 mg PO DAILY 09/25/17 (*)] Medical Decision Making - Diagnostics EKG Interpretation: ECG shows a atrial fibrillation with a bradycardia and ventricular rate in the 30s, no acute ST or T-wave changes. ED Course/Re-evaluation: 1503: 56-year-old male with history of atrial fibrillation who had his Cardizem dose dramatically increased. Patient is bradycardic to the 30s. Patient will be given calcium gluconate 1 g, plan for external pacing if medication treatment is not successful. Patient attempted pacing, up to 100 in 20 milliamps. Patient is not achieving cap sugar per transthoracic ultrasound performed by myself. Atropine 1 mg IV I have discussed with Dr. Islas, cardiology. She agrees with medical management however at this patient does not improve she agrees with the plan for me to place a Cordis and to flow to pacing wire. Case discussed with Dr. Urbano, cardiology. 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 He will come and plan for placing a temporary pacing wire. Epinephrine 0.25 mg Epinephrine 1 mg Patient has a potassium on the i-STAT of 6.2. He is hyperglycemic is 340s. I have ordered 10 U of insulin IV. Patient is responding to intravenous epinephrine however has wears off becomes bradycardic again. He is maintaining his blood pressure. Awaiting Dr. liriano. Calcium chloride 1 g IV Epinephrine 0.25 mg Epinephrine 0.25 mg Patient is responding very dramatically to epinephrine however defect is transient. It also causes blood pressure to go to 200 systolic. Plan will be to initiate a low-dose epinephrine drip and if he needs further boluses will reduce the dose to 100 mcg. Epinephrine drip ordered. Epinephrine 0.1 mg Epinephrine 0.1 mg Atropine 0.[address] Urbano is at the bedside. Will plan to take the patient to the bed laborer for temporary pacing wire placement. Epinephrine 0.25 mg 1548: Epinephrine 0.5 mg 56-year-old male with narrow complex bradycardia in atrial fibrillation with a likely over calcium channel blockade. Multiple attempts at transthoracic pacing have not resulted and appropriate capture. Patient has responded well to epinephrine small boluses. His ECG does not show any acute ST changes. Patient taken to the bed laborer by Dr. Urbano for further care. Critical Care Time: I spent a total of 35 minutes of critical care time in obtaining history, performing a physical exam, bedside monitoring of interventions, collecting and interpreting tests and discussion with consultants but not including time spent performing procedures. - Data Points Laboratory Results: Laboratory Results 09/25/17 14:45 09/25/17 14:45 09/25/17 09/25/17 09/25/17 14:57 14:45 14:45 WBC RBC Hgb POC Hgb 13.9 gm/dL gm/dL (13.7-17.5) Hct POC Hct 41 % % (40-51) MCV MCH MCHC RDW Plt Count MPV Neut % (Auto) Lymph % (Auto) [place] % (Auto) Eos % (Auto) Baso % (Auto) Nucleat RBC Rel Count Absolute Neuts (auto) Absolute Lymphs (auto) Absolute Monos (auto) Absolute Eos (auto) Absolute Basos (auto) Absolute Nucleated RBC Immature Gran % Immature Gran # PT 17.5 SEC H SEC (12.0-15.0) INR 1.42 H (0.83-1.16) APTT 33.8 SEC SEC (23.0-38.0) POC Sodium 138 mEq/L mEq/L (135-145) Sodium 140 mEq/L mEq/L (135-145) POC Potassium 6.3 mEq/L H* mEq/L (3.3-5.0) Potassium 5.1 mEq/L mEq/L (3.5-5.2) POC Chloride 102 mEq/L mEq/L (97-110) Chloride 100 mEq/L mEq/L (97-110) Carbon Dioxide 22 mEq/l D mEq/l (22-31) Anion Gap 18 mEq/L H mEq/L (8-16) POC BUN 32 mg/dL H mg/dL (7-23) BUN 23 mg/dL mg/dL (7-23) Creatinine 1.2 mg/dL mg/dL (0.7-1.3) POC Creatinine 1.3 mg/dL mg/dL (0.7-1.3) Estimated GFR > 60 Glucose 391 mg/dL H mg/dL (70-100) POC Glucose 359 mg/dL H mg/dL (70-100) Calcium 9.4 mg/dL mg/dL (8.5-10.4) Magnesium 1.6 mg/dL mg/dL (1.6-2.3) Troponin I 0.111 ng/mL H ng/mL (0.000-0.034) 09/25/17 14:45 WBC 11.05 10^3/uL H 10^3/uL (3.80-9.50) RBC 4.77 10^6/uL 10^6/uL (4.40-6.38) Hgb 14.0 g/dL g/dL (13.7-17.5) POC Hgb Hct 43.4 % % (40.0-51.0) POC Hct MCV 91.0 fL fL (81.5-99.8) MCH 29.4 pg pg (27.9-34.1) MCHC 32.3 g/dL L g/dL (32.4-36.7) RDW 19.5 % H % (11.5-15.2) Plt Count 275 10^3/uL 10^3/uL (150-400) MPV 10.3 fL fL (8.7-11.7) Neut % (Auto) 39.8 % % (39.3-74.2) Lymph % (Auto) 46.2 % H % (15.0-45.0) [place] % (Auto) 10.3 % % (4.5-13.0) Eos % (Auto) 1.8 % % (0.6-7.6) Baso % (Auto) 0.5 % % (0.3-1.7) Nucleat RBC Rel Count 0.0 % % (0.0-0.2) Absolute Neuts (auto) 4.40 10^3/uL 10^3/uL (1.70-6.50) Absolute Lymphs (auto) 5.10 10^3/uL H 10^3/uL (1.00-3.00) Absolute Monos (auto) 1.14 10^3/uL H 10^3/uL (0.30-0.80) Absolute Eos (auto) 0.20 10^3/uL 10^3/uL (0.03-0.40) Absolute Basos (auto) 0.06 10^3/uL 10^3/uL (0.02-0.10) Absolute Nucleated RBC 0.00 10^3/uL 10^3/uL (0-0.01) Immature Gran % 1.4 % H % (0.0-1.1) Immature Gran # 0.15 10^3/uL H 10^3/uL (0.00-0.10) PT INR APTT POC Sodium Sodium POC Potassium Potassium POC Chloride Chloride Carbon Dioxide Anion Gap POC BUN BUN Creatinine POC Creatinine Estimated GFR Glucose POC Glucose Calcium Magnesium Troponin I Medications Given: Epinephrine HCl 1 mg/ Dextrose 250 mls @ 0 mls/hr IV CONT JORGE; Titrate PRN Reason: Protocol Stop: 03/24/18 15:29 Last Admin: 09/25/17 15:39 Dose: 250 mls Sodium Chloride (Ns) 1,000 mls @ 100 mls/hr IV CONT JORGE Stop: 09/26/17 03:29 Last Admin: 09/25/17 18:00 Dose: 1,000 mls Insulin Human Regular (Humulin R) 0 unit SC ACHS [facility] PRN Reason: Protocol Stop: 03/24/18 20:59 Last Admin: 09/25/17 19:24 Dose: 8 units Discontinued Medications Atropine Sulfate (Atropine 1 Mg/10 Ml Syringe) 1 mg IVP EDNOW ONE Stop: 09/25/17 15:06 Last Admin: 09/25/17 15:06 Dose: 1 mg Atropine Sulfate (Atropine 1 Mg/10 Ml Syringe) 0.5 mg IVP EDNOW ONE Stop: 09/25/17 15:41 Last Admin: 09/25/17 15:42 Dose: 0.5 mg Calcium Chloride (Calcium Chloride) 1 gm IV EDNOW ONE Stop: 09/25/17 15:20 Last Admin: 09/25/17 15:21 Dose: 1 gm Calcium Gluconate (Calcium Gluconate) 1 gm IVP EDNOW ONE Stop: 09/25/17 15:04 Last Admin: 09/25/17 15:06 Dose: 1 gm Epinephrine HCl (Epinephrine) 0.25 mg IVP EDNOW ONE Stop: 09/25/17 15:11 Last Admin: 09/25/17 15:12 Dose: 0.25 mg Epinephrine HCl (Epinephrine) 1 mg IVP EDNOW ONE Stop: 09/25/17 15:14 Last Admin: 09/25/17 15:14 Dose: 0.25 mg Epinephrine HCl (Epinephrine) 0.25 mg IVP EDNOW ONE Stop: 09/25/17 15:21 Last Admin: 09/25/17 15:22 Dose: 0.25 mg Epinephrine HCl (Epinephrine) 0.25 mg IVP EDNOW ONE Stop: 09/25/17 15:29 Last Admin: 09/25/17 15:30 Dose: 0.25 mg Epinephrine HCl (Epinephrine) 0.1 mg IVP EDNOW ONE Stop: 09/25/17 15:36 Last Admin: 09/25/17 15:41 Dose: 0.1 mg Epinephrine HCl (Epinephrine) 0.1 mg IVP EDNOW ONE Stop: 09/25/17 15:41 Last Admin: 09/25/17 15:42 Dose: 0.1 mg Epinephrine HCl (Epinephrine) 0.25 mg IVP EDNOW ONE Stop: 09/25/17 15:43 Last Admin: 09/25/17 15:42 Dose: 0.25 mg Epinephrine HCl (Epinephrine) 0.5 mg IVP EDNOW ONE Stop: 09/25/17 15:45 Last Admin: 09/25/17 15:44 Dose: 0.5 mg Magnesium Sulfate/Dextrose (Magnesium Sulf 1 Gm (Premix)) 100 mls @ 100 mls/hr IV ONCE ONE Stop: 09/25/17 20:15 Last Admin: 09/25/17 19:30 Dose: 100 mls Insulin Human Regular (Humulin R) 10 unit IVP EDNOW ONE Stop: 09/25/17 15:17 Last Admin: 09/25/17 15:19 Dose: 10 units Point of Care Test Results: 09/25/17 14:57 POC Sodium 138 POC Potassium 6.3 H* POC Chloride 102 POC BUN 32 H POC Creatinine 1.3 POC Glucose 359 H Departure - Departure Disposition: [facility] Acute Clinical Impression: Atrial fibrillation, Bradycardia Condition: Serious
--- NOTE | 2017-09-25 16:14 | ASMTCMCOM ---
CM Note CM Note Notes: Patient brought into ED via EMS from home. Patient had a syncopal event which was witnessed by one of his sons, Rigoberto ([phone]). Patient's , Ana Rosa Amado ([phone]) and pt's other son, Emilie ([phone]) later arrived to the ED. Patient was taken to medical laboratory assistant for a pacemaker; family shown to the medical laboratory assistant waiting area, provided status updates, and were offered spiritual services but they declined at this time. Patient is followed by Dr Garcia at [facility]. Patient's PCP is Palak Velez at [facility]. Patient is also a diabetic and has a slow-healing wound from right foot amputation (last surgery on it was about 2 months ago). Exact DC needs unknown, CM to follow. Date Signed: 09/25/2017 04:14 PM Electronically Signed By:Raquel Hanks RN
[2017-09-25] MEDS ORDERED: ACETAMINOPHEN 325 MG TAB PO PRN (17:21)
[2017-09-25] MEDS ORDERED: ALBUTEROL 60 PUFFS/8 GM MDI IH PRN ×2 (17:21→17:59)
[2017-09-25] MEDS ORDERED: ONDANSETRON DISINTEGRATING 4 MG TAB PO PRN (17:21)
[2017-09-25] MEDS ORDERED: ONDANSETRON 4 MG/2 ML VIAL IVP PRN (17:21)
[2017-09-25] MEDS ORDERED: NS 1,000 ML IV SCH (17:30)
--- NOTE | 2017-09-25 17:58 | CPEKG ---
Heart Rate: 80 RR Interval: 750 P-R Interval: 157 QRSD Interval: 148 QT Interval: 420 QTC Interval: 485 P [place]: 0 QRS [place]: 266 T Wave [place]: 84 EKG Severity - ABNORMAL ECG - EKG Impression: VENTRICULAR-PACED RHYTHM Electronically Signed By: Morales Hilton 26-Sep-2017 08:50:06
--- NOTE | 2017-09-25 18:03 | GHP ---
[f rep st] HISTORY AND PHYSICAL DATE OF ADMISSION: 09/25/2017 CHIEF COMPLAINT: Fainting with bradycardia. HISTORY OF PRESENT ILLNESS: The patient is a 56-year-old man with a history of permanent atrial fibr illation, hypertrophic cardiomyopathy (which has been described both as obstructive and as an apical variant), and hypertrophic cardiomyopathy in the past, who presents to the emergency department for b radycardia and syncope. He was recently discharged from the hospital after an exacerbation of diasto lic heart failure and underwent a nuclear stress test, which was negative for myocardial ischemia on 09/15/2017. The patient has also had difficulty at times with rate control and has therefore been on Coreg and digoxin in the past. He also takes Cardizem; his Cardizem medication was doubled 2 days a go, and this morning the patient experienced fainting and near fainting episodes without a fall. His most recent nuclear stress test, as I mentioned, was negative for ischemia. He did have evidence of possible old infarction involving the distal anterior wall extending to the apex, and the lateral wa ll extending to the inferolateral region as interpreted by Dr. Solano. The patient denies chest discomfort, but admits to shortness of breath and nausea. He has not had fe airam, chills, or other clinical symptoms. His last echocardiogram was performed 07/14/2017 and descri bed a normal size left ventricle with asymmetrical mid ventricular LV hypertrophy. Pulmonary pressur e was described as 49 at that time and ejection fraction was estimated to be 65% to 70%. It is not m entioned as to whether a Valsalva maneuver was done to look for evidence of an intracavitary gradient . I was called to the emergency department emergently by Dr. Hooker to evaluate the patient because of persistent bradycardia, which was unresponsive to atropine and small doses of epinephrine intravenous ly. The transcutaneous pacer was also not consistently capturing the patient's myocardium and result ing in a pulse being propagated to his periphery. PAST MEDICAL HISTORY: 1. Significant for permanent atrial fibrillation with intermittent rapid ventricular response and sl ow ventricular response with bradycardia on his last admission into the 40s. 2. Chronic and poorly-controlled diabetes mellitus. 3. Osteomyelitis of his right foot following trans-metatarsal amputation. 4. Severe peripheral vascular disease with multiple interventions and long segment stents within the right femoral artery as well as stents in the iliac's bilaterally. 5. Coronary artery disease, status post stenting in 2011, under the care of Dr. Iqbal. 6. Arthritis. 7. Gout. 8. Sleep apnea. 9. Pulmonary hypertension. 10. History of mediastinal lymphadenopathy. REVIEW OF SYSTEMS: A 10-point review of systems is negative for recent cough or fever. ALLERGIES: No known allergies. MEDICATIONS: Include metformin 1000 mg p.o. b.i.d., diltiazem 120 mg daily (recently increased to 24 0), Lipitor 40 mg daily, Neurontin 800 mg p.o. t.i.d., NovoLog FlexPen insulin 15-25 units subcu t.i. d. with meals, Xarelto 20 mg p.o. daily (30 tablets), Coreg 25 mg p.o. b.i.d., digoxin 0.25 mg p.o. d aily, gabapentin 200 mg p.o. t.i.d., lisinopril 20 mg p.o. b.i.d., Plavix 75 mg daily, albuterol 2 pu ffs inhaler q.4 hours as needed, fluticasone 25/50 mcg 1 puff inhaler twice daily. LABORATORY STUDIES REVEAL: A white count of 11.05, H and H of 14.0 and 43.4, platelet count is 275. There is a predominance of lymphocytes at 46.2 with normal neutrophils. His coag's reveal a PT/INR of 17.5 and 1.42. Venous blood gas lactic acid was last measured at 1.3 during the prior admission. His chemistries reveal sodium 138, potassium 6.3, chloride 102, BUN 32, creatinine 1.3, and point of care glucose 359. Troponin I is elevated at 0.111 ng/mL. PHYSICAL EXAMINATION: VITAL SIGNS: Blood pressure 110/43. Initial heart rate was in the 20s to 30s with occasional long pauses of 3-4 seconds between beats, poorly responsive to atropine, epinephrine , and pacing. He had occasional escape and junctional escape beats. Oxygen saturation was 99% on a non-rebreather. NECK: JVD. HEART: A very irregular and slow rhythm with faint systolic murmur. L UNGS: Clear to auscultation anteriorly bilaterally. ABDOMEN: Obese with positive bowel sounds. No ndistended and nontender. I do not appreciate hepatosplenomegaly. EXTREMITIES: Prior right forefoo t amputation, which is currently bandaged. Decreased peripheral pulses in the femoral and popliteal distribution bilaterally. There is 1 to 2+ pitting edema with skin changes consistent with chronic v enous stasis. IMPRESSION AND PLAN: The patient has permanent atrial fibrillation with intermittent sinus arrest an d long pauses, with associated syncope and poor response to initial ACLS measures including atropine and repeated small aliquot doses of epinephrine, which seems rule out quickly wear off and then the p atient has significant and life-threatening bradycardia again. For this reason, the patient is recom mend to have an emergency temporary pacemaker wire placed from a right neck approach. I have discuss ed the risks, benefits, and lack of alternatives of this course of action with the patient, who under stands and is willing to proceed as planned. The patient likely needs to have his digoxin, Coreg, an d diltiazem held, and then plan to proceed with permanent pacemaker insertion, probably on Wednesday or Wednesday. He will be kept on bedrest to avoid dislodgement of the pacer. The reason to delay placemen t of a device is because he is on active blood thinners with Xarelto and Plavix. I have recommended an ICU admission and industrial spraypainter consult for management of his issues, including his diabetes and wou nd care, etc. I do think it would be prudent for us to also obtain blood cultures to ensure that he is not bacteremic prior to placement of a device. Copy requested to: Primary Care /[id number]/MODL
[2017-09-25] MEDS ORDERED: D50W 25 GM/50 ML SYR IVP PRN ×2 (18:07→18:08)
--- NOTE | 2017-09-25 18:53 | CPIP ---
[f rep st] INVASIVE CARDIAC PROCEDURE DATE OF PROCEDURE: 09/25/2017 PROCEDURE: Emergency right internal jugular temporary pacemaker wire placement. COMPLICATIONS: None. CASTING CARRIER: Juan Francisco Urbano M.D. INDICATION FOR THE PROCEDURE: Permanent atrial fibrillation with intermittent sinus arrest and pause s of 3-4 seconds with life-threatening bradycardia on a combination of digoxin, Coreg, and diltiazem in a diabetic patient with a recent history of repeat surgery for osteomyelitis of a right forefoot a mputation and a patient who is on chronic anticoagulation. PROCEDURE IN DETAIL: After informed consent was obtained, n.p.o. status was confirmed, the patient w as taken emergently to the cardiac catheterization laboratory where the patient was placed on the tab le, cleaned, prepped, and draped in sterile fashion over the region of the right IJ approach. The pa tient was placed in a Trendelenburg position. Approximately 4 cc of 1% lidocaine were utilized for l ocal anesthesia. An 18-gauge Cook needle was used to gain access to the right internal jugular vein with a single anterior puncture of that vessel. A J-Wire was advanced under fluoroscopic guidance an d a 7-Slovenian dilator was placed, followed by a 7-Slovenian sheath. A 5-Slovenian balloon-directed temporar y pacemaker wire was then floated and placed into the mid-RV septum and then the balloon deflated to avoid dislodgement of the device. The device was set at a sensitivity of 2 milliamps and an output of 100 and set in VVI mode with the device and was noted to be capturing. The threshold of the device was only 9, but because we are not trying to conserve battery and the patient is having a life-threatening bradycardia unresponsive to medications, I think it would be most appropriate to leave the outputs at a high safety margin. FINAL IMPRESSION: Successful temporary pacemaker wire from a right IJ approach in a critically ill p atient with life-threatening bradycardia and ventricular junctional escape rhythm. /[id number]/MODL
[2017-09-25] MEDS ORDERED: PROTOCOL MAGNESIUM 1 DOSE IV PRN (19:03)
--- NOTE | 2017-09-25 19:08 | GCON ---
[f rep st] CONSULTATION PULMONARY CRITICAL CARE CONSULTATION DATE OF CONSULTATION: 09/25/2017 REASON FOR CONSULTATION: Intensive care unit evaluation and management of syncope and bradycardia. HISTORY: The patient is a 56-year-old gentleman with multiple medical problems. He was recently dis charged from the hospital secondary to increased congestive heart failure and a COPD exacerbation. T his was approximately 1 week ago. He comes back now secondary to a syncopal episode at home. He was found to be profoundly bradycardic in the Emergency Department. He responded to multiple small dose s of epinephrine. He was taken to the quality control lab tech and a temporary pacemaker was placed. He has returne d to the intensive care unit, paced, with normal vital signs. A permanent pacer is being considered. PAST MEDICAL HISTORY: He has multiple medical problems. He has chronic atrial fibrillation, on Xare lto, insulin-dependent diabetes, a history of diastolic congestive heart failure, coronary artery dis ease with previous stenting, systemic hypertension, peripheral vascular disease requiring right foot amputation, sleep apnea, and gout. MEDICATIONS: On admission include: Metformin, Xarelto, lisinopril, insulin (Levemir twice daily and NovoLog with meals), Neurontin, Lasix, Advair, Spiriva, albuterol p.r.n., Coreg, Lipitor, Plavix, di ltiazem, and digoxin. He was apparently seen by Cardiology yesterday with increase in his diltiazem. DRUG ALLERGIES: No known drug allergies. SOCIAL HISTORY: The patient is originally from [facility]. Family is present. He does continue to smok e cigarettes. Significant alcohol is negative. FAMILY HISTORY: Possible cardiac disease in his father. REVIEW OF SYSTEMS: A 10-point review of systems is currently unobtainable secondary to somnolence po stprocedure. PHYSICAL EXAMINATION: GENERAL: A gentleman who is somewhat overweight. He appears comfortable, asl eep in the intensive care unit. He arouses. VITAL SIGNS: Blood pressure is 115/60, heart rate 80 and paced, on 4 L saturations are 94%, respirat ory rate is 18. HEENT: Unremarkable for lymphadenopathy or thyromegaly. Jugular venous distention is difficult to a ssess. CHEST: Clear anteriorly. Breath sounds are diminished at the bases. There are no rales, no wheezes . Expiratory phase may be mildly prolonged. HEART: Regular and paced at this point in time. ABDOMEN: Somewhat overweight, soft, nontender. Bowel sounds are present. EXTREMITIES: Remarkable for recent amputation on the right. There is approximately 3+ edema on the right, 2+ on the left. He is somnolent post temporary pacemaker placement. He does arouse, responds appropriately. NEUROLOGIC: Examination is intact. LABORATORY: White blood cell count is 11,000, hematocrit 43, platelets 275,000. PT is 17 with a PTT of 33.8. Venous lactate is normal at 1.3. Initial laboratory showed a sodium 138, potassium is 6.3 , BUN of 32 with a creatinine of 1.3, glucose is 359. Second glucose is pending following 10 units o f insulin given prior to his procedure. The last digoxin level was on September 13 and was 1.0. ASSESSMENT: 1. Bradycardia with associated syncope. He has underlying heart disease, and is on 3medications prabha t could cause prolonged pauses and bradycardia related to his atrial fibrillation. These include lorenzo cium channel blockers, digoxin, and beta blockers. All are currently being held. A temporary pacema ker is in place, and he is doing well with. 2. History of chronic obstructive pulmonary disease, without exacerbation at this time. 3. History of diastolic heart failure and edema. 4. History of underlying coronary artery disease, status post stenting in the past. 5. Peripheral vascular disease, status post right forefoot amputation. 6. Metabolic: Hyperkalemia. Repeat chem 7 is pending. 7. Insulin-dependent diabetes: Blood sugar is elevated on admission. He has received insulin. Fol lowup blood sugar is pending. His usual insulin regimen will be held, as I expect him not to be eati ng much initially. He will be placed on sliding scale coverage for now and increased insulin. Resta rted and adjusted as indicated. PLAN: Please see the problem specific plans above. He will be kept in the intensive care unit and m onitored. Pacing will be continued. Laboratory, including blood glucose will be followed. Further plans and recommendations will be made based on his progress over the next 12-24 hours. /[id number]/MODL
[2017-09-25] MEDS ORDERED: MAGNESIUM SULF 1 GM/DEXTROSE 100 ML IV ONE (19:16)
[2017-09-25] MEDS ORDERED: CALCIUM CHLORIDE 1 GM/10 ML INJ ONE (19:21)
[2017-09-25] MEDS ORDERED: SODIUM BICARBONATE 50 MEQ/50 ML SYR ONE (19:21)
[2017-09-25] MEDS: INSULIN REGULAR HUMAN 100 UNIT/ML UNIT SC SCH ×2 (19:24→23:35)
--- NOTE | 2017-09-25 20:45 | ECHO ---
[email or web address] [address] Main: [phone] Fax: Transthoracic Echocardiogram Name: INDY HAWKINS MR#: [id number] Study Date: 09/25/2017 Study Time: 06:48 PM Date of : 1960 Age: 56 year(s) Height: 170.2 cm (67 in.) Weight: 98.43 kg (217 lb.) BSA: 2.09 m2 Gender: Male Examination: Echo Indication: Bradycardia, s/p temporary pacer Image Quality: Technically Difficult Contrast: Requested by: Aleisha Islas BP: 118 mmHg/81 mmHg Heart Rate: Rhythm: Indication: Bradycardia, s/p temporary pacer Procedure Staff Crisis Worker: Rae Richards Reading Physician: Aleisha Islas Requesting Provider: Juan Francisco Urbano Conclusions: Normal size left ventricle. Moderate concentric LV hypertrophy. Normal global systolic LV function. EF is 61 %. No regional wall motion abnormality. Normal size right ventricle. Mildly reduced RV function. There is a pacemaker lead noted in the right ventricle. Compared with 07/2017 RV size is smaller and PHTN not doucmented on current study Measurements: Chambers Valvular Assessment AV/MV Valvular Assessment TV/PV Normal Normal Normal Name Value Range Name Value Range Name Value Range IVSd (2D): 1.3 cm (0.6 cm-1.1 AV meanP mmHg ( - ) cm) LVOT Vmax: 1.22 m/s (0.7 m/s-1.1 LVDd (2D): 4.5 cm (4.2 cm-5.9 m/s) cm) MV E Vmax: 1.16 m/s ( - ) LVDs (2D): 3.0 cm (2.1 cm-4 cm) LVPWd (2D): 1.4 cm (0.6 cm-1 cm) LVEF (2D): 61 (>=54 %) Continued Measurements: Chambers Valvular Assessment AV/MV Valvular Assessment TV/PV Name Value Name Value Name Value LADs Lon.6 cm MV DecTime: 155 m/s CVP (est.): 15 mmHg Patient: INDY HAWKINS Study Date: 09/25/2017 Page 1 of 2 06:48 PM LA Area: 21.9 cm2 LA Volume: 66 ml LA Volume Index: 31.6 ml/m2 TAPSE: 1.4 cm Additional Vessels Name Value Ao Ascendin.7 cm Findings: Left Ventricle: Normal size left ventricle. Moderate concentric LV hypertrophy. Normal global systolic LV function. EF is 61 %. No regional wall motion abnormality. Unable to assess diastolic dysfunction. Right Ventricle: Normal size right ventricle. Mildly reduced RV function. There is a pacemaker lead noted in the right ventricle. Left Atrium: The left atrium is normal in size. Right Atrium: The right atrium is normal in size. Mitral Valve: The mitral valve is normal in appearance and function. Trivial mitral valve regurgitation. No mitral stenosis is present. Aortic Valve: Aortic valve is not well visualized. There is no aortic valve regurgitation. No aortic valve stenosis is present. Tricuspid Valve: The tricuspid valve is normal in appearance and function. Trivial tricuspid valve regurgitation. Pulmonic Valve: Pulmonary valve not well visualized. Trivial pulmonic valve regurgitation. Aorta: Normal size ascending aorta measuring 2.7 cm. IVC: The IVC is dilated. There is inspiratory collapse of the IVC. Pericardium: No pericardial effusion. There is pericardial fat. (No Signature Object) Patient: INDY HAWKINS Study Date: 09/25/2017 Page 2 of 2 06:48 PM [id number]
[2017-09-25] MEDS ORDERED: INSULIN REGULAR HUMAN 100 UNIT/ML UNIT SC SCH (21:00)
[2017-09-25] MEDS: FLUTICASONE/SALMETER 250/50MCG DISKUS IH SCH (23:04)
[2017-09-25] MEDS: GABAPENTIN 100 MG CAP PO SCH (23:36)
[2017-09-25] MEDS: GABAPENTIN 400 MG CAP PO SCH (23:36)
[2017-09-25] MEDS: LISINOPRIL 20 MG TAB PO SCH (23:36)
[2017-09-26 05:10] LABS: PLATELET COUNT 219 10^3/uL (150-400)
--- NOTE | 2017-09-26 05:19 | CPEKG ---
Heart Rate: 92 RR Interval: 652 QRSD Interval: 100 QT Interval: 328 QTC Interval: 406 QRS Groves: 88 T Wave Groves: -89 EKG Severity - ABNORMAL ECG - EKG Impression: ATRIAL FIBRILLATION EKG Impression: PROBABLE INFERIOR INFARCT, AGE INDETERMINATE Electronically Signed By: Morales Hilton 26-Sep-2017 08:49:56
[2017-09-26] MEDS ORDERED: MAGNESIUM SULF 1 GM/DEXTROSE 100 ML IV ONE (08:44)
[2017-09-26] MEDS: FLUTICASONE/SALMETER 250/50MCG DISKUS IH SCH ×2 (09:01→21:16)
[2017-09-26] MEDS: TIOTROPIUM INHALER 18 MCG/DOSE 5 DOSE/MDI IH SCH (09:01)
[2017-09-26] MEDS: GABAPENTIN 400 MG CAP PO SCH ×3 (09:21→20:34)
[2017-09-26] MEDS: GABAPENTIN 100 MG CAP PO SCH ×3 (09:21→20:34)
[2017-09-26] MEDS: INSULIN REGULAR HUMAN 100 UNIT/ML UNIT SC SCH ×4 (09:21→20:36)
[2017-09-26] MEDS: LISINOPRIL 20 MG TAB PO SCH ×2 (09:21→20:34)
[2017-09-26] MEDS: ATORVASTATIN CALCIUM 40 MG TAB PO SCH (09:21)
[2017-09-26] MEDS: CARVEDILOL 25 MG TAB PO SCH ×2 (12:36→17:10)
--- NOTE | 2017-09-26 15:27 | GPROG ---
[f rep st] PROGRESS NOTE INTERIM SUMMARY. The patient presented last evening with complaints of intermittent syncope and near syncope with brai n fog and intermittent inability to speak. He presented to the emergency department emergently and w as noted to be in permanent atrial fibrillation with complete heart block and long pauses with interm ittent sinus and ventricular escape beats, with heart rates in the 20s to low 30s. This was minimall y responsive to a full vagolytic dose of atropine as well as small aliquots of epinephrine to keep hi s heart rate off, which would quickly wear off and then result in hemodynamically significant bradyca rdia with hypotension. Overnight, his Coreg, digoxin, and diltiazem have obviously been held. His t emporary pacemaker wire and pacing function were checked today. There is intermittent loss of sensin g at sensitivity as low as the temporary pacer device will allow. There is only a 60% pacing margin with the temporary pacing device in place, which I checked today. The patient's laboratory studies reveal a hemoglobin of 11.4 and 35.1, RDW is 19.4, white count is do wn from 11.5 to 8.64. APTT today was 32.3, down from 33.8. His chemistries reveal a potassium of 4. 8, BUN and creatinine of 25 and 1.1. It appears that his presentation potassium of 6.8 was somewhat spurious. His glucose is 150. Troponin I of 0.127 and N-terminal proBNP is 2760 with an albumin of 3.2. Digoxin level is 1.2, and therefore, he is not toxic at the present time. PHYSICAL EXAMINATION: VITAL SIGNS: The patient is hypertensive at 165/83. He is noted to be in atr ial fibrillation with rapid ventricular response on the monitor with heart rates averaging between ar ound 116 beats per minute, as low 95, and then up to 128, and even in the 130s at times. His respira tory rate is 29, his O2 saturation is 95% on nasal cannula. NECK: Reveals a right sided IJ sheath w ith placement of a temporary pacer wire through the back of that 7-Welsh sheath. HEART: Reveals an irregularly irregular rhythm with associated systolic murmur. LUNGS: Clear to auscultation bilater ally. ABDOMEN: Benign, with positive bowel sounds. Is nondistended and nontender. EXTREMITIES: R eveal a prior trans-tarsal amputation on the right. He has 3 to 4+ peripheral edema with chronic asiya ous stasis changes, which are fairly dramatic. He has reduced peripheral pulses in the femoral, popl iteal, and distal pulses bilaterally. IMPRESSION/PLAN: 1. The patient is in permanent atrial fibrillation; that is, attempts to get him out of atrial fibri llation and into sinus rhythm have long since been abandoned. Unfortunately, we have great difficult y in controlling the patient's upper heart rate, and before Cardizem was recently started, the patien cal has presented with diastolic heart failure with heart rates as low as 40 on telemetry and as high a s 175. His son relayed to me that he is afraid that his father took a double dose of 240 mg of Cardi zem, which would have given him 480 yesterday, which in addition to the Coreg 25 b.i.d. and the digox in dose he was taking, may have been responsible for his severe and life-threatening bradycardia yest erday. I think that this patient would benefit from a single-lead permanent pacemaker while his anti coagulation is allowed to drift down. I then think we have found a drug that should be very successf ul in controlling his upper rate response and thereby decreasing his heart rate and his blood pressur e via that mechanism. I think, since he has known hypertrophic cardiomyopathy, that he should not be on digoxin, as that helps to increase the contractile force and will only worsen his diastolic funct ion. It is, of course, being used in combination with beta shilpi to try to control his upper rate behavior. I do believe the best thing to do, again, is a single-lead VVIR pacemaker followed by raad rahman beta shilpi and calcium channel antagonist, which appears to be an effective combination at slowin g his heart rate fairly dramatically. I think it is crucial that his heart rate be decreased long-te rm and that his blood pressure be controlled to avoid further worsening of hypertrophic myopathy and also to decrease his risk of stroke over time. His CHADS-Vasc score with diabetes, hypertension and vascular disease, is at least 3, and he should be on chronic anticoagulation for his permanent atrial fibrillation. 2. Diabetes mellitus is being monitored and treated per the art objects supervisor. It is pretty clear that hi s control is inadequate. 3. Coronary artery disease. He has a mildly elevated troponin. This is most likely related to his episode of severe bradycardia as well as possibly the placement of a temporary pacemaker wire in his heart yesterday. I am not concerned that the patient has an unstable angina picture. 4. Peripheral vascular disease. The patient has a nonhealing wound of his right lower extremity, wh ich is likely related to both arterial and venous insufficiency. I think controlling his heart rate and decreasing his blood pressure should help with diastolic dysfunction over time. If the Cardizem caused further peripheral edema, another option would be to perform an ablation of his AV node to carina e the patient the pacer dependent. There is some data that suggests pacing from the RV apex in patie nts with hypertrophic cardiomyopathy may be helpful in reducing their long-term risk of outflow tract obstruction. 5. I have informed the patient of my opinion, that if he is blood culture negative for bacteremia, h e should proceed with a permanent single-chamber pacemaker as soon as possible, followed by control o f his upper rate with beta shilpi and calcium channel antagonist with plans to drop digoxin off his medical regimen altogether. I spent over an hour discussing this with the patient, the ICU nurse, Saran, as well as the patient' s son, who is named after his father, and the patient understands my recommendations and is not willi ng to proceed with those plans at present. I also spent [id number] minutes at various times during the conversation discussing how important it is that he stop smoking. Over 50% of the time th at was spent was spent with education and counseling with this patient. Copy requested to: PCP /[id number]/MODL
--- NOTE | 2017-09-26 16:06 | PDINTPN ---
Director [facility] Progress Note Assessment/Plan: Assessment: Bradycardia associated with syncope: In part secondary to medications. Temporary pacer wires him placed, no longer needing pacing. Back on Coreg. Digoxin and calcium channel blockers being held. Appreciate Cardiology input. The patient probably needs a permanent pacer. He is currently "thinking about this ". History of coronary artery disease, diastolic congestive heart failure. He has chronic lower extremity edema. Peripheral vascular disease. Status post right forefoot amputation. Chronic atrial fibrillation. Currently off anticoagulation for possible pacer. Usually takes Xarelto. Insulin-dependent diabetes mellitus. On high-dose sliding scale coverage, different than his home coverage. However, diet is currently different. May need to readjust. History of COPD. No evidence of exacerbation. On inhaled therapies, oxygen. GI prophylaxis: None required, eating. Plan: Continue monitoring in the intensive care unit. Cardiology to make a decision regarding a permanent pacer in the timing of pulling his temporary pacemaker wires. Continue present antihypertensive therapies, including Coreg. Follow heart rate. Continue inhaled therapies. Re-add Lasix. Restart Xarelto as soon as possible: Per Cardiology. Continue insulin as is ordered currently, with up adjustments as needed based on glucoses. Follow laboratory. All the above was discussed with the patient, nursing, and the ICU multi disciplinary team. Subjective: Feels better. No complaints. No lightheadedness. No chest pain. Objective: Vital Signs Temp Pulse Resp BP Pulse Ox 36.4 C 106 H 28 H 153/67 H 91 L 09/26/17 08:00 09/26/17 15:53 09/26/17 15:53 09/26/17 15:53 09/26/17 15:53 Laboratory Results 09/26/17 05:00 09/26/17 05:00 09/25/17 09/26/17 09/27/17 05:59 05:59 05:59 Intake Total 2000 1000 Output Total 500 425 Balance 1500 575 PT 17.5 SEC (12.0-15.0) H 09/25/17 14:45 INR 1.42 (0.83-1.16) H 09/25/17 14:45 Laboratory Tests 09/26/17 09/26/17 05:00 12:29 POC Glucose 219 H Calcium 9.3 Magnesium 1.7 Total Bilirubin 0.5 ALT 46 Alkaline Phosphatase 86 Troponin I 0.127 H NT-Pro-B Natriuret Pep 2760 H Albumin 3.2 L Cardiac echo: Within normal limits Physical Exam - Physical Exam General Appearance: alert, other (Lying comfortably in bed), No no apparent distress EENT: other (Nasal cannula at 3 L) Neck: normal inspection (No JVD.), other (Neck lines in place bilaterally, with pacer wires on the left.) Respiratory: lungs clear, decreased breath sounds (At bases) Cardiac/Chest: irregularly irregular (Heart rate 105 in atrial fibrillation. Not requiring pacer currently.) Abdomen: normal bowel sounds, non-tender, soft Male Genitalia: other (No Haider catheter, using urinal) Skin: normal color, warm/dry Extremities: pedal edema, swelling (Right greater than left), other (Right forefoot amputation, dressed) Neuro/Psych: no motor/sensory deficits (Moves all extremities), No cognition abnormalities ICD10 Worksheet Patient Problems: Problems Problem Status Onset Wound infection Acute Cellulitis of right foot Acute Afib Acute Nicotine dependence Acute Acute exacerbation of congestive heart failure Acute Dyspnea Acute Reactive airway disease with wheezing Acute Bradycardia Acute
[2017-09-26] MEDS ORDERED: FUROSEMIDE 40 MG TAB PO SCH (16:30)
[2017-09-26] MEDS ORDERED: INSULIN GLARGINE 100 UNITS/ML UNIT SC SCH (21:00)
[2017-09-27 06:34] LABS: PLATELET COUNT 188 10^3/uL (150-400)
[2017-09-27] MEDS: INSULIN REGULAR HUMAN 100 UNIT/ML UNIT SC SCH ×2 (07:38→12:04)
[2017-09-27] MEDS ORDERED: MAGNESIUM SULF 2 GM/WATER 50 ML IV ONE (07:40)
[2017-09-27 08:36] VITALS: TEMP 99.2
[2017-09-27] MEDS: GABAPENTIN 400 MG CAP PO SCH (08:36)
[2017-09-27] MEDS: GABAPENTIN 100 MG CAP PO SCH (08:36)
[2017-09-27] MEDS: ATORVASTATIN CALCIUM 40 MG TAB PO SCH (08:37)
[2017-09-27] MEDS: CARVEDILOL 25 MG TAB PO SCH (08:37)
[2017-09-27] MEDS: LISINOPRIL 20 MG TAB PO SCH (08:37)
[2017-09-27] MEDS: FLUTICASONE/SALMETER 250/50MCG DISKUS IH SCH (08:51)
[2017-09-27] MEDS: TIOTROPIUM INHALER 18 MCG/DOSE 5 DOSE/MDI IH SCH (08:52)
[2017-09-27] MEDS ORDERED: FUROSEMIDE 40 MG TAB PO SCH (09:00)
--- NOTE | 2017-09-27 11:09 | PDINTPN ---
Tool Checker Progress Note Assessment/Plan: Assessment: * Bradycardia associated with syncope: In part secondary to medications. Temporary pacer wires him placed, no longer needing pacing. Back on Coreg. Digoxin and calcium channel blockers being held. Appreciate Cardiology input. The patient probably needs a permanent pacer. H * History of coronary artery disease, diastolic congestive heart failure. He has chronic lower extremity edema. * Peripheral vascular disease. Status post right forefoot amputation. * Chronic atrial fibrillation. Currently off anticoagulation for possible pacer. Usually takes Xarelto. * Insulin-dependent diabetes mellitus. On high-dose sliding scale coverage, different than his home coverage. However, diet is currently different. May need to readjust. * History of COPD. No evidence of exacerbation. On inhaled therapies, oxygen. Plan: I had a long conversation with patient regarding pacemakers. He still wish think about it and discuss further with Cardiology. Subjective: Sitting up. Comfortable. Denies any chest pain. He is not breathless. Objective: Vital Signs Temp Pulse Resp BP Pulse Ox 37.3 C 120 H 32 H 146/80 H 95 09/27/17 08:00 09/27/17 08:00 09/27/17 08:00 09/27/17 08:00 09/27/17 08:00 Laboratory Results 09/27/17 06:10 09/27/17 06:10 09/26/17 09/27/17 09/28/17 05:59 05:59 05:59 Intake Total 1999 1850 Output Total 500 2425 Balance 1500 -575 PT 17.5 SEC (12.0-15.0) H 09/25/17 14:45 INR 1.42 (0.83-1.16) H 09/25/17 14:45 - Time Spent With Patient Time Spent With Patient: 20 min of time spent with patient more than half involved with counseling or coordination of care Physical Exam - Physical Exam General Appearance: alert EENT: PERRL/EOMI, normal ENT inspection Neck: non-tender Respiratory: chest non-tender, lungs clear, normal breath sounds Cardiac/Chest: systolic murmur, irregularly irregular Peripheral Pulses: 2+: carotid (R), carotid (L), femoral (R), femoral (L), dorsalis-pedis (R), dorsalis-pedis (L) Abdomen: normal bowel sounds, non-tender, soft Male Genitalia: deferred Rectal: deferred Skin: normal color, warm/dry ICD10 Worksheet Patient Problems: Problems Problem Status Onset Afib Acute Bradycardia Acute Acute exacerbation of congestive heart failure Acute Cellulitis of right foot Acute Dyspnea Acute Nicotine dependence Acute Reactive airway disease with wheezing Acute Wound infection Acute
[2017-09-27 13:49] VITALS: O2SAT 98
[2017-09-27 14:08] VITALS: BP 146/50; PULSE 73; RESP 16
--- NOTE | 2017-09-27 22:03 | GDS ---
[f rep st] DISCHARGE SUMMARY ADMISSION DIAGNOSES: 1. Syncope. 2. Bradycardia. 3. Chronic atrial fibrillation. 4. Diabetes. 5. Coronary artery disease, status post stenting in 2011. 6. Sleep apnea. 7. Pulmonary hypertension. 8. Osteomyelitis to the right foot, followed with previous transmetatarsal amputation. 9. Gout 10. Peripheral vascular disease DISCHARGE DIAGNOSES: 1. Chronic atrial fibrillation. 2. History of syncope. 3. Diabetes. 4. Osteomyelitis to the right foot with history of transmetatarsal amputation. 5. Severe peripheral vascular disease. 6. Arthritis. 7. Gout. 8. Pulmonary hypertension. PROCEDURES PERFORMED DURING HOSPITALIZATION: 1. Electrocardiogram. 2. Transcutaneous pacing. 3. Transvenous pacer wire implantation via the right internal jugular vein. 4. Echocardiogram. BRIEF HISTORY: Please see H and P: Briefly, the patient is a 56-year-old male with multiple cardiac history, he is noted to be in chronic atrial fibrillation. Recently, he was found to be in adequately rate controlled on current dose of digoxin, carvedilol, diltiazem, his dose had been adjusted up. The patient presented with syncopal events was in bradycardia, was seen by EMS, and found to be in atrial fibrillation with slow heart rate in the 30s with occasional pauses. The patient was brought to the emergency department. HOSPITAL COURSE: Upon arrival in the emergency department, the patient's initial electrocardiogram done did show atrial fibrillation with slow ventricular rate, down into the 30s. The patient's mentation was off, he was feeling lightheaded, and dizziness. Denied having any chest pain. Did report shortness of breath, with bradycardia. Initially attempted Drug therapy of atropine and epinephrine, he also was attempted to be transcutaneously paced, but unable to capture myocardium. Dr. Urbano was called, who took the patient emergently to the cardiac catheterization lab and successfully implanted a temporary transvenous temporary pacer wire via right internal jugular approach. No complications. The patient was taken to the ICU for monitoring. Upon admission, all his A-V timothy agents (carvedilol, digoxin, and Cardizem) had been discontinued. Patient did undergo echocardiogram on September 25 which did show moderate concentric LVH with an EF of 61%, no regional wall motion abnormalities, normal RV size with mildly reduced RV function, trivial MR, trivial TR, trivial NM. The patient was noted also on admission to have a mildly elevated troponin, which was thought by Dr. Urbano was due to his significant bradycardia, not due to ACS. BNP was also noted to be mildly elevated at 2760. Patient's home dosing of Xarelto and clopidogrel were discontinued on admission, in concerns that patient may need a permanent pacemaker. The patient was planned to undergo pacemaker implantation yesterday , the , but he decided he did not want to undergo procedure. There was some question about potential infection. He did have blood cultures done with preliminary reporting showing no growth after 36 hours. He remained afebrile. Starting midday yesterday, the patient was not noted to have returned back to normal heart rate, not requiring any pacing from his transvenous line. He was monitored overnight in the ICU, and over the last 24 hours no malignant arrhythmias or pacing rhythm were noted. No significant pauses. He was noted this afternoon to start having elevated heart rates, being off all of his A-V timothy agents. Due to his history of heart failure, it was decided to resume his carvedilol, but permanently discontinue his digoxin and diltiazem. Upon a few hours after taking doses, heart rate did recede to less than 100 BPM. Patient has had no further episodes of lightheadedness, near-syncope, or syncopal events since hospitalization. Denying any worsening chest pain, pressure, or shortness of breath. Dr. Urbano had 2 significant discussions with the patient and his family, yesterday and today, along with obstetrical tech in the ICU, about pacemaker implantation, which he declined. At the current time , his heart rate is stable, again with no recent significant pauses. PHYSICAL EXAMINATION: GENERAL: The patient was also seen by Dr. Urbano earlier today and examined by him also, showing a moderately obese male. He is alert oriented to person, place, time, and situation. CURRENT VITAL SIGNS: Blood pressure of 146/50, heart rate was 73, atrial fibrillation on the monitor , respirations 16, saturating 92% on room air. HEENT: Head is normocephalic. Lips and tongue are pink and moist with no signs of cyanosis. Conjunctivae are pink. NECK: Trachea is midline, +2 carotid pulses bilateral, no auscultated bruits, JVD 4 to 5 cm above the sternal notch at a 45-degree angle. LUNGS: Clear bilaterally with no rhonchi, rales or wheezes. No accessory muscle use. No intercostal muscle retraction noted. CARDIAC: Regular rate, irregular rhythm. S1, S2. No S3, S4, gallops rubs or murmurs noted. ABDOMEN: Soft, nontender, bowel sounds in 4 quadrants. No organomegaly. No palpable masses. SKIN: [place], warm, dry. EXTREMITIES: No cyanosis, no clubbing, +1 peripheral edema bilateral lower extremities to knees and thighs. Right foot site with dressing intact, no redness, swelling, drainage, or bleeding noted. LABORATORY STUDIES: Drawn today show a WBC of 9.8, hemoglobin of 10.3, hematocrit of 31.3, platelet count 188. Sodium 138, potassium 4.1, chloride 101 , CO2 20, BUN 17, creatinine 0.8, glucose 139. Calcium 8.9, magnesium (which was replaced after this test was drawn) 1.4. PROCEDURES: 1. Electrocardiogram yesterday morning, September 26, showing atrial fibrillation with ventricular rate at 92 beats per minute, Q-waves noted in inferior leads. No other malignant arrhythmias or pauses noted. 2. Echocardiogram, as mentioned above. 3. Internal jugular temporary transvenous pacer wire implantation, as mentioned above. Note: Dr. Urbano removed transvenous line earlier today with no complications, catheter was intact. Manual pressure held to right IJ for 10 minutes. No hematomas, redness, swelling, or drainage noted. DISCHARGE DISPOSITION: The patient is being discharged home guarded condition. He has been asked to perform no strenuous activities for the next week. DISCHARGE MEDICATIONS: Please see discharge medication reconciliation sheet. Note that patient's diltiazem and digoxin have been discontinued. Dr. Urbano has requested that the patient restart his Plavix and his Xarelto tomorrow, at least 12 hours post-removing IJ line. DISCHARGE INSTRUCTIONS: 1. Post transvenous pacemaker discharge instructions went over with the patient , and signed, including monitoring for signs of infection, bleeding precautions , medication compliance. 2. The patient again today refuses to have pacemaker implanted, as mentioned above. He has not been paced since early yesterday morning. No other malignant arrhythmias have beam noted. 3. As for medications, as mentioned above, we have discussed not restarting his diltiazem and his digoxin. He will continue on current doses of carvedilol. 4. Per Dr. Urbano's request, the patient has a Holter monitor scheduled for Wednesday of next week, and he will follow up with his primary meat stuffer, Dr. Garcia, early next week. 5. The patient has been told if any problems or concerns postdischarge, they are to notify our office or return to the emergency department. BILLING: Total time spent on discharge greater than 30 minutes. /[id number]/MODL MTDD
--- NOTE | 2017-09-28 15:56 | ASDISCHSUM ---
Discharge Information Plan Status:Home with No Needs Medically Cleared to Leave:09/26/2017 Discharge Date:09/27/2017 03:50 PM CM D/C Disposition:Home, Routine, Self-Care ADT D/C Disposition:Home, Routine, Self-Care Projected Discharge Date:09/27/2017 12:00 AM Transportation at D/C:Family Discharge Delay Reason: Follow-Up Date:09/27/2017 12:00 AM Discharge Slot: Final Diagnosis:Syncope, Ever[place], Chronic Afib, DM, CAD, PHANI, Osteomyelitis R foot, PVD, Gout Placement Information Patient Contact Information Contact Name:NESIMAALICIC Relationship: Address:[address] [place] [address] [address] City:[place] Alternate Phone: [facility]/Zip Code:[place] [address] Email: Financial Information Financial Class: Primary Plan Desc:MEDICARE INPATIENT Primary Plan Number:[id number] Secondary Plan Desc: Secondary Plan Number: Assessment Information [facility] CM Progress Note CM Note CM Note Notes: Patient brought into ED via EMS from home. Patient had a syncopal event which was witnessed by one of his sons, Rigoberto ([phone]). Patient's , Ana Rosa Amado ([phone]) and pt's other son, Emilie ([phone]) later arrived to the ED. Patient was taken to laboratory chemical assistant for a pacemaker; family shown to the laboratory chemical assistant waiting area, provided status updates, and were offered spiritual services but they declined at this time. Patient is followed by Dr Garcia at [facility]. Patient's PCP is Palak Velez at [facility]. Patient is also a diabetic and has a slow-healing wound from right foot amputation (last surgery on it was about 2 months ago). Exact DC needs unknown, CM to follow. Date Signed: 09/25/2017 04:14 PM Electronically Signed By:Raquel Hanks RN Case Management Discharge Plan Note Case Management Discharge Discharge Order Complete? Answers: Yes Followup Appointment 09/27/2017 12:00 AM Patient to Obtain Answers: via Family Medications Transportation Arranged Answers: Family/Friends Transport will Pick (Date 09/27/2017 12:00 AM & Time) Family Notified Answers: Yes Notes: to transport Discharge Comments Notes: Patient discharged Wednesday. After heart work-up and extensive consuling re the need of a permanent pacemaker, the patient did not want the procedure, wanted to be discharged. He has a halter monitor scheduled for next Wednesday, and to f/u w/his second helper. Date Signed: 09/28/2017 03:56 PM Electronically Signed By:Trupti Dixon LCSW Intervention Information
== END 2017-09-27 15:50 | disposition home or self-care (01) | DRG 309 ==
LOC: EDUNIT# → F2N 16:31
PROVIDERS: ADMIT Internal Medicine Cardiovascular Disease; ATTEND Internal Medicine Cardiovascular Disease
PROC: 5A1223Z Performance of Cardiac Pacing, Continuous (ICD-10-PCS; principal; 2017-09-25)
DX: R00.1 Bradycardia, unspecified (principal); I48.2 Chronic atrial fibrillation; E11.9 Type 2 diabetes mellitus without complications; E87.6 Hypokalemia; I11.0 Hypertensive heart disease with heart failure; I50.30 Unspecified diastolic (congestive) heart failure; I25.10 Atherosclerotic heart disease of native coronary artery without angina pectoris; J44.9 Chronic obstructive pulmonary disease, unspecified; G47.30 Sleep apnea, unspecified; M10.9 Gout, unspecified; Z89.431 Acquired absence of right foot; Z79.4 Long term (current) use of insulin; Z79.01 Long term (current) use of anticoagulants; Z95.5 Presence of coronary angioplasty implant and graft
CPT/HCPCS: 82947-QW; 96374; J0171; J0461; J0610; J1644; J1815; J3475

== ENCOUNTER → 2017-10-01 | Outpatient (CLI) | payer OTHER | LOC: BHFA 11:30 | PROVIDERS: ATTEND Internal Medicine Cardiovascular Disease | DX: I48.91 Unspecified atrial fibrillation (principal); R00.1 Bradycardia, unspecified ==

== ENCOUNTER → 2017-11-09 | Outpatient (CLI) | payer OTHER ==
[~2017-11-09] MED LIST changes: -BUPIVACAINE 0.5% 30 ML SDV ONE; +IOPAMIDOL (ISOVUE-370) 150 ML BTL IV ONE; -MINERAL OIL 10 ML VIAL ONE; -THROMBIN (BOVINE) 20,000 UNIT SPRAY TP ONE; -ceFAZolin 2 GM/DEXTROSE 100 ML IV ONE
== END ==
LOC: CIMAGING 14:17
PROVIDERS: ATTEND Surgery
DX: I73.9 Peripheral vascular disease, unspecified (principal)
CPT/HCPCS: 75635; Q9967

== ENCOUNTER → 2017-12-22 | Outpatient (CLI) | payer OTHER | LOC: FIMAGING 14:12 → EDSTATUS 14:13 | PROVIDERS: ATTEND Surgery | DX: R93.8 Abnormal findings on diagnostic imaging of other specified body structures (principal); E11.51 Type 2 diabetes mellitus with diabetic peripheral angiopathy without gangrene; L97.519 Non-pressure chronic ulcer of other part of right foot with unspecified severity; Z89.431 Acquired absence of right foot ==

== ENCOUNTER 2018-01-27 05:42 | Inpatient (IN) | payer OTHER ==
[2018-01-27] MEDS ORDERED: ceFAZolin 2 GM/SWFI 2 GM/20 ML SYR IVP ONE (06:07)
[2018-01-27] MEDS ORDERED: LR 1,000 ML IV ONE (06:20)
[2018-01-27] MEDS ORDERED: LIDOCAINE 1% 2 ML INJ ID PRN (06:20)
[2018-01-27] MEDS ORDERED: BUPIVACAINE 0.5% 30 ML SDV ONE (06:59)
--- NOTE | 2018-01-27 07:04 | PDANEPAE ---
ANE Past Medical History - Cardiovascular History Hx Hypertension: Yes Hx Arrhythmias: Yes Hx Chest Pain: No Hx Coronary Artery / Peripheral Vascular Disease: Yes Hx CHF / Valvular Disease: Yes Hx Palpitations: No Cardiovascular History Comment: CARDIAC STENTS X2. STENTS MARLEN LEGS X2. htn. afib. cad. chf 09/2017. pvd. edema. hyperlipidemia. pt of [place] heart - Pulmonary History Hx COPD: No Hx Asthma/Reactive Airway Disease: No Hx Recent Upper Respiratory Infection: No Hx Oxygen in Use at Home: No Hx Sleep Apnea: No Sleep Apnea Screening Result - Last Documented: Positive Pulmonary History Comment: hx of pulm htn. pratik positive doesn't use cpap or o2 - Neurologic History Hx Cerebrovascular Accident: No Hx Seizures: No Hx Dementia: No Neurologic History Comment: peripheral neuropathy - Endocrine History Hx Diabetes: Yes Hypothyroid: No Hyperthyroid: No Obesity: yes, mild Endocrine History Comment: type 2 - Renal History Hx Renal Disorders: No - Liver History Hx Hepatic Disorders: No - Neurological & Psychiatric Hx Hx Neurological and Psychiatric Disorders: No - Cancer History Hx Cancer: No - Congenital Disorder History Hx Congenital Disorders: No - GI History GERD: no Hx Gastrointestinal Disorders: No - Other Health History Other Health History: osteomyelitis R ft/ulcer. gout. arthritis. wears glasses - Chronic Pain History Chronic Pain: Yes (right foot pain) - Surgical History Prior Surgeries: 08/10/17 right foot amputation with Tello. 03/23/17 right foot skin graft. 01/14/17 right foot i&d with Omer. 11/01/15 right foot wound closure with Omer. 09/19/15 right foot debridement and amp with omer X2. 08/23/15 right mid foot amputation with omer. 2012 cardiac stents ANE Review of Systems Review of Systems: - Exercise capacity METS (RN): 3 METS ANE Patient History - Allergies Allergies/Adverse Reactions: No Known Allergies Allergy (Verified 01/27/18 06:14) - Home Medications Home Medications: Insulin Aspart [Novolog Flexpen] 20 - 35 units SC TIDMEAL 01/07/17 [Last Taken 01/25/18] Gabapentin [Neurontin 100 MG (*)] 200 mg PO TID 08/06/17 [Last Taken 01/27/18 04 :30] Lisinopril [Zestril 20 mg (*)] 20 mg PO DAILY 08/06/17 [Last Taken 01/25/18] Clopidogrel Bisulfate [Plavix (*)] 75 mg PO DAILY 09/13/17 [Last Taken 01/25/18] Atorvastatin Calcium [Lipitor 80 mg] 80 mg PO HS 09/25/17 [Last Taken 01/25/18] Furosemide [Lasix 40 MG (*)] 80 mg PO DAILY 09/25/17 [Last Taken 01/25/18] Insulin Detemir [Levemir] 40 unit SC BID 09/25/17 [Last Taken 01/25/18] Metformin HCl [Metformin 1000 mg] 1,000 mg PO BIDMEAL 09/25/17 [Last Taken 01/26 07:00] Spironolactone [Aldactone 25 MG (*)] 25 mg PO DAILY 09/25/17 [Last Taken ] Carvedilol [Coreg (*)] 25 mg PO BIDMEAL 01/26/18 [Last Taken 01/26/18 20:00] Gabapentin [Gabapentin 800 mg] 800 mg PO TID 01/26/18 [Last Taken 01/27/18 04:30 ] Rivaroxaban [Xarelto] 20 mg PO DAILY@18 01/26/18 [Last Taken 01/25/18] Sulfamethox/Tmp 800/160 mg [Bactrim Ds] 1 tab PO BID 01/26/18 [Last Taken 07:00] oxyCODONE/APAP 5/325 [Percocet 5/325 (*)] 1 tab PO Q6 PRN 01/26/18 [Last Taken 01/25/18] - NPO status NPO Since - Liquids (Date): 01/26/18 NPO Since - Liquids (Time): 22:00 NPO Since - Solids (Date): 01/26/18 NPO Since - Solids (Time): 20:00 - Anes Hx Anes Hx: no prior problems - Smoking Hx Smoking Status: Heavy smoker - Family Anes Hx Family Hx Anesthesia Complications: none ANE Labs/Vital Signs - Vital Signs Blood Pressure: 116/66 Heart Rate: 97 Respiratory Rate: 16 O2 Sat (%): 94 Height: 170.18 cm Weight: 96.9 kg ANE Physical Exam - Airway Neck exam: FROM Mouth exam: normal dental/mouth exam - Pulmonary Pulmonary: no respiratory distress, no rales or rhonchi, clear to auscultation - Cardiovascular Cardiovascular: other (regular rate, irregular rhythym) - ASA Status ASA Status: III
[2018-01-27] MEDS ORDERED: MIDAZOLAM 2 MG/2 ML VIAL IVP ONE (07:10)
[2018-01-27 07:11] LABS: PLATELET COUNT 512 10^3/uL (150-400)
[2018-01-27] MEDS ORDERED: MIDAZOLAM 2 MG/2 ML VIAL ONE (07:14)
[2018-01-27] MEDS ORDERED: fentaNYL 100 MCG/2 ML INJ ONE ×2 (07:27→08:25)
[2018-01-27] MEDS ORDERED: PHENYLEPHRINE HCL 100 MCG/ML SYR ONE ×2 (07:27→08:22)
[2018-01-27] MEDS ORDERED: PROPOFOL 200 MG/20 ML VIAL ONE (07:27)
[2018-01-27] MEDS ORDERED: LIDOCAINE 2% 5 ML SDV ONE (07:39)
[2018-01-27] MEDS ORDERED: ETOMIDATE 20 MG/10 ML VIAL ONE (07:40)
[2018-01-27] MEDS ORDERED: ESMOLOL HCL 100 MG/10 ML VIAL IV ONE (08:02)
[2018-01-27] MEDS ORDERED: HYDROmorphONE/DILAUDID 2 MG/ML INJ ONE (08:13)
[2018-01-27] MEDS ORDERED: fentaNYL 100 MCG/2 ML INJ IVP PRN (08:27)
[2018-01-27] MEDS ORDERED: PHENYLEPHRINE HCL 100 MCG/ML SYR IVP PRN (08:27)
[2018-01-27] MEDS ORDERED: PROMETHAZINE HCL 25 MG/ML INJ IVP PRN (08:27)
[2018-01-27] MEDS ORDERED: epHEDrine SULFATE 10 MG/ML SYR IVP PRN (08:27)
[2018-01-27] MEDS ORDERED: NALOXONE HCL 0.4 MG/ML INJ IVP PRN ×3 (08:27→20:57)
[2018-01-27] MEDS ORDERED: oxyCODONE IR 5 MG TAB PO PRN ×2 (08:27→15:37)
[2018-01-27] MEDS ORDERED: LR 500 ML IV PRN (08:27)
[2018-01-27] MEDS ORDERED: LABETALOL HCL 5 MG/ML 20 ML MDV IVP PRN (08:27)
[2018-01-27] MEDS ORDERED: HYDROmorphONE/DILAUDID 2 MG/ML INJ IVP PRN (08:27)
[2018-01-27] MEDS ORDERED: ONDANSETRON 4 MG/2 ML VIAL IVP PRN ×2 (08:27→09:32)
[2018-01-27] MEDS ORDERED: ACETAMINOPHEN 500 MG TAB PO PRN (08:27)
[2018-01-27] MEDS ORDERED: HYDROCODONE/APAP 5/325 TAB PO PRN (08:27)
[2018-01-27] MEDS ORDERED: THROMBIN (BOVINE) 20,000 UNIT SPRAY TP ONE (08:39)
--- NOTE | 2018-01-27 09:31 | POSTOPPROG ---
Post Op Note Date of Operation: 01/27/18 Surgeon: Koffi Tello Administrative Fellow: Omid Anesthesiologist: Adrianne Anesthesia: GET(General Endotracheal) Pre-op Diagnosis: PVD Post-op Diagnosis: Same Indication: pain Procedure: Right BKA Findings: Good venous blood flow Inf/Abcess present in the surg proc area at time of surgery?: No Depth: Deep Incisional (Fascial) EBL: Minimal
[2018-01-27] MEDS ORDERED: HYDROmorphONE/DILAUDID 6 MG/30 ML PCA IV PRN ×2 (09:32→20:57)
[2018-01-27] MEDS ORDERED: NS 1,000 ML IV SCH (09:45)
[2018-01-27] MEDS ORDERED: HYDROmorphONE/DILAUDID 1 MG/ML INJ ONE (11:27)
--- NOTE | 2018-01-27 11:31 | POSTANESTH ---
Post Anesthetic Evaluation Cardiovascular Status: Similar to Pre-Op Cond, Other, See Comment (pre-op a-fib w/ regular rate. post-op a-fib w/ RVR) Respiratory Status: Normal, Stable Level of Consciousness/Mental Status: Can Participate in Eval Pain Control: Adequate, Prn Tx Ordered Nausea/Vomiting Control: Adequate, Prn Tx Ordered Complications Possibly Related to Anesthesia: None Noted
[2018-01-27] MEDS: HYDROCODONE/APAP 5/325 TAB PO PRN ×2 (13:16→14:17)
--- NOTE | 2018-01-27 15:21 | PDMN ---
Medical Necessity Medical necessity: IP surgery per [facility] cpt [id number] R RONNIE
[2018-01-27] MEDS ORDERED: HYDROmorphONE/DILAUDID 1 MG/ML INJ IVP PRN (15:36)
[2018-01-27] MEDS ORDERED: NON-FORMULARY NEW DRUG (Gabapentin [Gabapentin 800 Mg] 800 MG) PO SCH (16:00)
[2018-01-27] MEDS: GABAPENTIN 100 MG CAP PO SCH ×2 (16:12→22:02)
[2018-01-27] MEDS: HYDROmorphone HCL/NS 0.5 MG/ML SYR IVP PRN ×2 (16:58→19:58)
[2018-01-27] MEDS ORDERED: D50W 25 GM/50 ML SYR IVP PRN (17:44)
[2018-01-27] MEDS: INSULIN LISPRO 100 UNIT/ML SC SCH (17:58)
[2018-01-27] MEDS ORDERED: NON-FORMULARY NEW DRUG (Metformin Hcl [Metformin 1000 Mg] 1,000 MG) PO SCH (18:00)
[2018-01-27] MEDS ORDERED: INSULIN ASPART SC SCH (18:00)
[2018-01-27] MEDS ORDERED: metFORMIN HCL 500 MG TAB PO SCH (18:00)
[2018-01-27] MEDS: oxyCODONE IR 5 MG TAB PO PRN (18:22)
[2018-01-27] MEDS ORDERED: NON-FORMULARY NEW DRUG (Insulin Detemir [Levemir] 40 UNIT) SC SCH (21:00)
[2018-01-27] MEDS ORDERED: NON-FORMULARY NEW DRUG (Atorvastatin Calcium [Lipitor 80 Mg] 80 MG) PO SCH (21:00)
[2018-01-27] MEDS ORDERED: SULFAMETHOX/TMP 800/160 MG 1 TAB PO SCH (21:00)
[2018-01-27] MEDS ORDERED: FUROSEMIDE 40 MG/4 ML VIAL IVP ONE (21:00)
[2018-01-27] MEDS: GABAPENTIN 400 MG CAP PO SCH (22:02)
[2018-01-27] MEDS: ATORVASTATIN CALCIUM 40 MG TAB PO SCH (22:02)
[2018-01-27] MEDS: INSULIN GLARGINE 100 UNITS/ML UNIT SC SCH (22:03)
[2018-01-27] MEDS: CARVEDILOL 25 MG TAB PO SCH (22:05)
[2018-01-28] MEDS ORDERED: SODIUM BICARBONATE 50 MEQ/50 ML SYR IVP ONE (00:04)
[2018-01-28] MEDS ORDERED: SODIUM POLY SULF 15 GM/60 ML BOTTLE PO ONE ×2 (00:05→05:50)
--- NOTE | 2018-01-28 00:19 | CPEKG ---
Heart Rate: 126 RR Interval: 476 QRSD Interval: 106 QT Interval: 316 QTC Interval: 458 QRS [place]: 93 T Wave [place]: 223 EKG Severity - ABNORMAL ECG - EKG Impression: ATRIAL FIBRILLATION, V-RATE 87-160 EKG Impression: MULTIFORM VENTRICULAR PREMATURE COMPLEXES EKG Impression: INCOMPLETE RIGHT BUNDLE BRANCH BLOCK EKG Impression: CONSIDER ANTERIOR INFARCT EKG Impression: ABNORMAL T, CONSIDER ISCHEMIA, LATERAL LEADS Electronically Signed By: Kumar Blackwood 28-Jan-2018 07:34:16
[2018-01-28] MEDS ORDERED: INSULIN REGULAR HUMAN 100 UNIT/ML UNIT IVP ONE ×2 (00:30→05:48)
[2018-01-28] MEDS ORDERED: CALCIUM GLUC 10% 1 GM/10 ML VIAL IV ONE (00:30)
--- NOTE | 2018-01-28 00:47 | PDHOSCONS ---
History and Physical - Chief Complaint Hyperkalemia, medical management - History of Present Illness Consult requested by Dr. Awan covering for Dr. Tello Reason for consultation-hyperkalemia, acute kidney injury and medical management Date of consultation 01/27/2018 Source-patient provides history is fair historian. EMR was reviewed and case discussed with my hospitalist colleague who spoke with Dr. Awan HPI-this is a 57-year-old gentleman with past medical history significant for chronic atrial fibrillation, history CAD with stenting, diastolic CHF, dm 2 uncontrolled insulin dependent, HLD, HTN who is pod number 0 following a right BKA PICC with Dr. Tello. Patient with the longstanding history of osteomyelitis in the right foot status post a right foot TMA in 2016 and now right BKA. Patient's surgical course was unremarkable his postoperative laboratory studies however were notable for a an elevated potassium of 6.4. Repeat was down to 6.2. Patient received a dose of Lasix on the floor and hospitalist service was consulted for further assistance with management. A repeated potassium level this evening revealed the patient's potassium had risen to 6.7. His creatinine is 1.6 based on previous laboratory studies available his baseline appears to be approximately 1.1. At time of my interview,. Patient is resting in his bed awake. He reports pain as a with improved control with use of EMS DRIVER but complaining still of severe pain. He denies any chest pain, palpitations, shortness of breath worse than baseline. No nausea, vomiting. He has a reports an intermittent ongoing tremor nothing currently. He denies any headache, no no worsening numbness or tingling from his usual neuropathy. Patient denies any dysuria hematuria. He denies any urinary obstruction and reports he has been voiding well postoperatively. Patient's home medications are notable for spironolactone ( potassium-sparing diuretic) and lisinopril. Appears patient has received only Lasix x2 doses since admission today. History Information - Allergies/Home Medication List Allergies/Adverse Reactions: No Known Allergies Allergy (Verified 01/27/18 06:14) Home Medications: Insulin Aspart [Novolog Flexpen] 20 - 35 units SC TIDMEAL 01/07/17 [Last Taken 01/25/18] Gabapentin [Neurontin 100 MG (*)] 200 mg PO TID 08/06/17 [Last Taken 01/27/18 04 :30] Lisinopril [Zestril 20 mg (*)] 20 mg PO DAILY 08/06/17 [Last Taken 01/25/18] Clopidogrel Bisulfate [Plavix (*)] 75 mg PO DAILY 09/13/17 [Last Taken 01/25/18] Atorvastatin Calcium [Lipitor 80 mg] 80 mg PO HS 09/25/17 [Last Taken 01/25/18] Furosemide [Lasix 40 MG (*)] 80 mg PO DAILY 09/25/17 [Last Taken 01/25/18] Insulin Detemir [Levemir] 40 unit SC BID 09/25/17 [Last Taken 01/25/18] Metformin HCl [Metformin 1000 mg] 1,000 mg PO BIDMEAL 09/25/17 [Last Taken 01/26 07:00] Spironolactone [Aldactone 25 MG (*)] 25 mg PO DAILY 09/25/17 [Last Taken ] Carvedilol [Coreg (*)] 25 mg PO BIDMEAL 01/26/18 [Last Taken 01/26/18 20:00] Gabapentin [Gabapentin 800 mg] 800 mg PO TID 01/26/18 [Last Taken 01/27/18 04:30 ] Rivaroxaban [Xarelto] 20 mg PO DAILY@18 01/26/18 [Last Taken 01/25/18] Sulfamethox/Tmp 800/160 mg [Bactrim Ds] 1 tab PO BID 01/26/18 [Last Taken 07:00] oxyCODONE/APAP 5/325 [Percocet 5/325 (*)] 1 tab PO Q6 PRN 01/26/18 [Last Taken 01/25/18] I have personally reviewed and updated: family history, medical history, social history, surgical history - Past Medical History atrial fibrillation, coronary artery disease (hx [place] s/p PCI stent x 2), CHF ( diastolic), chronic insomnia, diabetes type 2, hypertension, hyperlipidemia, peripheral artery disease (bilateral stent) Additional medical history: Atrial fibrillation, on Xarelto. CAD, S/P PCI stent x2. hypertension. hyperlipidemia. diastolic CHF. 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 PHANI on O2 at HS. Diabetic neuropathy. chronic insomnia. obesity. diabetes mellitus type 2, on insulin. peripheral vascular disease right femoral stenting and bilateral iliac stenting. obstructive sleep apnea on nocturnal O2. Osteoarthritis, gout. History of bradycardia status post temporary transvenous pacer patient has declined permanent pacemaker placement. - Surgical History Additional surgical history: right foot TMA 10/2015, right BKA 01/27/2018. cardiac cath stent x2. Right femoral and bilateral iliac stenting. Trans venous pacer temporary - Family History Positive for: non-pertinent Additional family history: father age 42 - pt unsure but may have been peritonitis/sepsis. mother with aneurysm/hemorrhage age 60s. 2 sons and 1 daughter are healthy. - Social History Smoking Status: Heavy smoker Tobacco Use: Cigarettes (Patient has cut down from 1 to 2 packs per day to less than 1 pack per day.) Alcohol Use: None Drug Use: None Additional social history: patient lives with his family, is originally from [facility], has been [place] many [place]. COR status FULL but refuses to discuss advanced directives/MDPOA in detail. Review of Systems Review of Systems: ROS: 10pt was reviewed & negative except for what was stated in HPI & below Constitutional: Reports: no symptoms. Denies: chills, fever, weakness EENMT: Reports: no symptoms. Denies: blurred vision, nose congestion, sore throat Cardiac: Denies: chest pain, edema, irregular heart rate, lightheadedness, palpitations, syncope Respiratory: Reports: shortness of breath (Chronic shortness of breath). Denies : cough Gastrointestinal: Reports: no symptoms. Denies: vomitting, abdominal pain, nausea Genitourinary: Reports: no symptoms. Denies: dysuria, hematuria Muscolosketal: Reports: muscle pain (Postoperative right lower extremity pain) Skin: Reports: no symptoms. Denies: change in color, rash Neurological: Reports: tremors (Intermittent ongoing), other (Lower extremity neuropathy.) Hematologic/Lymphatic: Reports: no symptoms Physical Exam Physical Exam: Temp Pulse Resp BP Pulse Ox 37.0 C 110 H 20 123/88 H 99 01/27/18 23:48 01/27/18 23:48 01/27/18 23:48 01/27/18 23:48 01/27/18 23:48 O2 (L/minute) 2 Heart rate on telemetry showing rate of 120s. Constitutional: no apparent distress, chronically ill appearing, obese, other ( NAD. Patient is lying quietly in bed appears fatigued.) Eyes: PERRL, anicteric sclera, EOMI, No scleral injection Ears, Nose, Mouth, Throat: moist mucous membranes, no oral mucosal ulcers, other (No nasal discharge), No poor dentition Cardiovascular: irregularly irregular, tachycardia, No systolic murmur ( Slightly distant heart sounds.), No edema Peripheral Pulses: 0: dorsalis-pedis (R) (Amputated right lower extremity), 1+: dorsalis-pedis (L) Respiratory: no respiratory distress, no rales or rhonchi, clear to auscultation , reduced air movement (Bibasilar decreased inspiratory effort.), No expiratory wheeze, No respiratory distress Gastrointestinal: normoactive bowel sounds, soft, non-tender abdomen, no palpable masses, other (Obese abdomen) Genitourinary: no bladder tenderness, No willoughby in urethra Skin: warm, no rashes or abrasions, No rash Musculoskeletal: generalized weakness (Patient moves all but RLE while lying in bed.), No full muscle strength Neurologic: AAOx3, other (Grossly nonfocal. Numbness left lower extremity), No facial droop Psychiatric: interacting appropriately, poor insight, No poor memory Lab Data & Imaging Review 01/27/18 06:55 01/27/18 23:28 WBC 9.34 10^3/uL (3.80-9.50) 01/27/18 06:55 RBC 4.11 10^6/uL (4.40-6.38) L 01/27/18 06:55 Hgb 11.4 g/dL (13.7-17.5) L 01/27/18 06:55 Hct 34.4 % (40.0-51.0) L 01/27/18 06:55 MCV 83.7 fL (81.5-99.8) 01/27/18 06:55 MCH 27.7 pg (27.9-34.1) L 01/27/18 06:55 MCHC 33.1 g/dL (32.4-36.7) 01/27/18 06:55 RDW 19.0 % (11.5-15.2) H 01/27/18 06:55 Plt Count 512 10^3/uL (150-400) H 01/27/18 06:55 MPV 9.2 fL (8.7-11.7) 01/27/18 06:55 Neut % (Auto) 70.1 % (39.3-74.2) 01/27/18 06:55 Lymph % (Auto) 18.4 % (15.0-45.0) 01/27/18 06:55 Trigg % (Auto) 8.0 % (4.5-13.0) 01/27/18 06:55 Eos % (Auto) 2.4 % (0.6-7.6) 01/27/18 06:55 Baso % (Auto) 0.4 % (0.3-1.7) 01/27/18 06:55 Nucleat RBC Rel Count 0.0 % (0.0-0.2) 01/27/18 06:55 Absolute Neuts (auto) 6.54 10^3/uL (1.70-6.50) H 01/27/18 06:55 Absolute Lymphs (auto) 1.72 10^3/uL (1.00-3.00) 01/27/18 06:55 Absolute Monos (auto) 0.75 10^3/uL (0.30-0.80) 01/27/18 06:55 Absolute Eos (auto) 0.22 10^3/uL (0.03-0.40) 01/27/18 06:55 Absolute Basos (auto) 0.04 10^3/uL (0.02-0.10) 01/27/18 06:55 Absolute Nucleated RBC 0.00 10^3/uL (0-0.01) 01/27/18 06:55 Immature Gran % 0.7 % (0.0-1.1) 01/27/18 06:55 Immature Gran # 0.07 10^3/uL (0.00-0.10) 01/27/18 06:55 Turbidity TNP 01/27/18 06:55 Sodium 132 mEq/L (135-145) L 01/27/18 23:28 Potassium 6.7 mEq/L (3.3-5.0) H* 01/27/18 23:28 Chloride 101 mEq/L (97-110) 01/27/18 23:28 Carbon Dioxide 24 mEq/l (22-31) 01/27/18 23:28 Anion Gap 7 mEq/L (8-16) L 01/27/18 23:28 BUN 47 mg/dL (7-23) H 01/27/18 23:28 Creatinine 1.6 mg/dL (0.7-1.3) H 01/27/18 23:28 Estimated GFR 45 01/27/18 23:28 Glucose 172 mg/dL (70-100) H 01/27/18 23:28 POC Glucose 180 mg/dL (70-100) H 01/27/18 21:28 Calcium 8.9 mg/dL (8.5-10.4) 01/27/18 23:28 Total Bilirubin 0.7 mg/dL (0.1-1.4) 01/27/18 16:43 AST 24 IU/L (17-59) 01/27/18 16:43 ALT 20 IU/L (21-72) L 01/27/18 16:43 Alkaline Phosphatase 145 IU/L (38-126) H 01/27/18 16:43 Total Protein 7.1 g/dL (6.3-8.2) 01/27/18 16:43 Albumin 2.8 g/dL (3.5-5.0) L 01/27/18 16:43 Specimen Hemolysis REJ 01/27/18 06:55 EKG additional interpertation: Study EKG obtained reviewed myself showing atrial fibrillation with a V rate of 80s to 160s. PVCs are present. Incomplete RBBB. Patient with persistent Q-waves in the inferior and anterior leads. As well as T-wave inversions in the lateral leads persistent compared to EKG from 10/02/2017. Patient without any noted peaked T-waves. Assessment & Plan Assessment: 57-year-old male with multiple medical issues including uncontrolled DM 2, atrial fibrillation, diastolic CHF, CAD with history stenting, HLD, HTN, PVD POD #0 s/p right BKA with Dr. Tello now with worsening hyperkalemia. 1. Hyperkalemia - EKG without any evidence of peaked T-waves. Patient's vitals are at this time are acceptable. Patient has been on spironolactone (K+ sparing diuretic) and lisinopril as outpatient. This will be held. Patient received additional dose of Lasix this afternoon and had some decline in potassium but now has risen to 6.7. Given the severity of his hyperkalemia will transfer the patient to [facility] for close cardiac monitoring. He was hospitalized earlier this year with bradycardia with a temporary transvenous pacer. It was recommended that patient have a permanent pacemaker in place but he declined. Patient will also be given calcium gluconate, insulin, Kayexalate , and bicarb push. Given patient's history of diastolic CHF will not push any additional fluids but continue the maintenance fluids on board already of normal saline. There is no report of any episodes of hypotension or complications during surgery regarding perfusion. Patient's last available creatinine from 11/02/2017 was 1.1 and appears that he does have a little bit of acute kidney injury with creatinine stable at 1.6. 2. Acute kidney injury - possibly pre renal given patient's recent surgery versus ATN due to medications. Will hold any nephrotoxin medications at this time and request pharmacy assistance with dosing adjust. Continue IV fluid hydration. Blood pressures at this time are acceptable. Will plan to monitor serial BMPs at this time. Consider nephrology consultation if patient without any improvements with above treatments. 3. atrial fibrillation - variable rate 80s-120s. BPs acceptable. resume patient beta shilpi. hx of bradycardia while on dilt will avoid. 4. osteomyelitis POD #0 s/p right BKA. plan as per primary team. holding patient bactrim pending am bmp and further discussion with primary team to consider alternate antibiotic. increased risk for ATN and worsening renal function given patient underlying renal function. 5. acute post op pain - patient with norco prn and dilaudid EMS DRIVER. 6. hyponatremia - continue with IVF. monitor for any evidence of fluid/CHF decompensation. 7. hypoalbuminemia - likely acute in setting of postop status and chronic medical issues. monitor. chronic medical issues #DM II uncontrolled - agree with resuming patient home insulin regimen. will hold patient metformin in setting of sheila. #benign essential HTN - BPs acceptable at this time. continue coreg. #HLD - on statin. #chronic diastolic CHF compensated - on lasix. holding further dosing pending repeat bmp in setting of sheila. #CAD - statin, bb. holding ACEI 2/2 SHEILA. aspirin/plavix when okay with primary team. #PVD - plavix when okay with primary team. #DM neuropathy - gabapentin. #PHANI on O2 #tobacco dependence - cessation encouraged. consider nicoderm patch prn. FEN - IVF NS. electrolyte monitoring as above. DM diet. PPX - as per primary team. COR - FULL Dispo - Patient will be transferred to SDU for closer cardiac monitoring in setting of worsening hyperkalemia given his significant cardiac history. He is admitted under inpatient status as per primary team.
[2018-01-28] MEDS ORDERED: METOPROLOL TARTRATE 5 MG/5 ML INJ IVP ONE (01:51)
[2018-01-28] MEDS: oxyCODONE IR 5 MG TAB PO PRN ×5 (01:52→22:39)
[2018-01-28] MEDS ORDERED: D50W 25 GM/50 ML SYR IVP ONE (05:49)
[2018-01-28] MEDS: INSULIN LISPRO 100 UNIT/ML SC SCH ×3 (08:46→17:43)
[2018-01-28] MEDS: NS 1,000 ML IV SCH ×2 (08:46→16:54)
[2018-01-28] MEDS ORDERED: FUROSEMIDE 40 MG TAB PO SCH (09:00)
[2018-01-28] MEDS ORDERED: LISINOPRIL 20 MG TAB PO SCH (09:00)
[2018-01-28] MEDS ORDERED: SPIRONOLACTONE 25 MG TAB PO SCH (09:00)
--- NOTE | 2018-01-28 09:00 | SOAPPROG ---
SOAP Progress Note Assessment/Plan: Assessment: MORE COMFORTABLE/ WOUND OK/ AFEBRILE HYPERKALEMIC BUT ASYMPTOMATIC AND RESPONDING TO RX CREAT 1.3 Plan:PER IM CONSULT 01/28/18 08:59 Objective: Vital Signs Temp Pulse Resp BP Pulse Ox 37.0 C 110 H 28 H 117/79 94 01/27/18 23:48 01/28/18 06:00 01/28/18 06:00 01/28/18 06:00 01/28/18 06:00 Laboratory Results 01/27/18 06:55 01/28/18 05:59 01/27/18 01/28/18 01/29/18 05:59 05:59 05:59 Intake Total 3895 Output Total 1250 Balance 2645 ICD10 Worksheet Patient Problems: Problems Problem Status Onset Acute exacerbation of congestive heart failure Acute Afib Acute Bradycardia Acute Cellulitis of right foot Acute Dyspnea Acute Nicotine dependence Acute Reactive airway disease with wheezing Acute Wound infection Acute
[2018-01-28] MEDS: CARVEDILOL 25 MG TAB PO SCH ×2 (09:02→18:34)
[2018-01-28] MEDS: GABAPENTIN 400 MG CAP PO SCH ×3 (09:02→21:44)
[2018-01-28] MEDS: FUROSEMIDE 40 MG TAB PO SCH (09:02)
[2018-01-28] MEDS: GABAPENTIN 100 MG CAP PO SCH ×3 (09:03→21:44)
--- NOTE | 2018-01-28 09:22 | HOSPPROG ---
Hospitalist Progress Note Assessment/Plan: DIAGNOSES/PROBLEM LIST: # Hyperkalemia due to renal injury and medications * has been declining kayexalate (this would be hard for him to take w BKA and weakness) * improved somewhat after insulin/glucose, hopefully will resolve as renal fxn improves but needs careful monitoring, q 6 hrs for now * continue off lisinopril, aldactone, bactrim, continue hydration and Lasix # Acute kidney injury - * prerenal physiology * slight improvement so far; currently off aldactone, lisinopril, metformen * Continue IV hydration # atrial fibrillation * Acute change today with rate now rapid 140-150s past 8+ hours despite extra BB dose * will add diltiazem drip to titrate into range # osteomyelitis of right foot POA, now with BKA; diabetic foot infection * day #1 s/p right BKA. * had been on bactrim for S aureus at home, currently held, will review w surg if any abx needed at present #DM II * currently w adequate control for inpt setting * metformen on hold due to renal fxn * continue insulin and adjust as needed # acute post op pain - patient with norco prn and dilaudid CLAY PIGEON LOADER but so far using little # chronic diastolic CHF compensated * Currently compensated, but will need to watch very closely as high risk of decompensation while off of his lisinopril and Aldactone which are held for his acute renal failure and hyperkalemia, has had prior acute exacerbation in the past 6 months # impaired mobility due to deconditioning and new BKA * Patient has been very sedentary for several months now, will need extensive rehabilitation efforts # benign essential HTN - BPs acceptable at this time. continue coreg. # HLD - on statin. . # CAD - statin, bb. holding ACEI 2/2 SHEILA. aspirin/plavix when okay with primary team. # PVD - plavix when okay with primary team. # diabetic neuropathy - gabapentin. # PHANI on O2 # tobacco dependence - cessation encouraged. consider nicoderm patch prn. In addition to hospitalist rounds I saw this patient on multidisciplinary rounds I reviewed the case in detail today with Dr. Haroon Vaz SUBJECTIVE: Some pain at his leg from BKA, otherwise feels very weak and tired but no other new symptoms No nausea, no shortness of breath OBJECTIVE Vitals reviewed: Tachycardic in the 140s to 150s with irregular pulse, blood pressures have been good, respirations stable no fever Senior Sales Director, my review: Rapid atrial fibrillation Exam: alert oriented skin warm dry color ok resps not labored lungs clear BSs heart regular abd soft nondistended nontender, bowel sounds present limbs dressing on BKA site is dry without blood or other drainage iv site ok Lab data: Potassium did get as high as 7.2 overnight but is now down to 5.9 this morning Creatinine slightly better at 1.3 still with elevated BUN Remainder of his Chem panel is stable Objective: Vital Signs Temp Pulse Resp BP Pulse Ox 37.0 C 110 H 28 H 117/79 94 01/27/18 23:48 01/28/18 06:00 01/28/18 06:00 01/28/18 06:00 01/28/18 06:00 Laboratory Results 01/27/18 06:55 01/28/18 05:59 01/27/18 01/28/18 01/29/18 06:59 06:59 06:59 Intake Total 3895 Output Total 1250 Balance 2645 - Time Spent With Patient Time Spent with Patient: greater than 35 minutes Time Spent with Patient: Greater than 35 minutes spent on this patients care, greater than 50% of time spent counseling, educating, and coordinating care regarding the above mentioned plan. ICD10 Worksheet Patient Problems: Problems Problem Status Onset Acute exacerbation of congestive heart failure Acute Afib Acute Bradycardia Acute Cellulitis of right foot Acute Dyspnea Acute Nicotine dependence Acute Reactive airway disease with wheezing Acute Wound infection Acute
[2018-01-28] MEDS ORDERED: DILTIAZEM 125 MG in D5W 125 ML IV SCH (09:45)
--- NOTE | 2018-01-28 09:47 | ASMTCASEMG ---
Living Arrangements What is your living Answers: With Spouse arrangement? Who do you live with? Type Of Residence What kind of residence do Answers: Apartment you live in? Discharge Plan Comments Coordination Status Comments Notes: Patient is a 57yo male with hx of chronic atrial fibrillation, CAD with stenting, diastolic CHF, diabetes 2 uncontrolled, insulin dependent, HLD, and HTN. Patient has a longstanding hx of ostermyelitis in the right foot and went for surgical intervention. PT/OT have been ordered. Patient is full core currently. D/C plan TBD. CM will follow. Date Signed: 01/28/2018 09:46 AM Electronically Signed By:Opla Perales LCSW
[2018-01-28] MEDS: INSULIN GLARGINE 100 UNITS/ML UNIT SC SCH ×2 (10:04→21:43)
--- NOTE | 2018-01-28 17:14 | GCON ---
[f rep st] CONSULTATION PULMONARY/CRITICAL CARE CONSULTATION DATE OF CONSULTATION: 01/28/2018 REFERRING PHYSICIAN: Koffi Tello MD REASON FOR REFERRAL: Evaluation and management of hyperkalemia and acute kidney injury. HISTORY: The patient is a 57-year-old male with a history of atrial fibrillation and coronary artery disease with type 2 diabetes, hypertension, and hyperlipidemia, who has a longstanding history of os teomyelitis in his right foot. He underwent a transmetatarsal amputation in 2016, but because of malathi oing problems with perfusion, he underwent a right BKA yesterday. His intraoperative course was unre markable, but his postoperative laboratory showed a potassium of 6.4. This lynne to 6.7 and then 7.2, which prompted transfer to the intensive care unit. The patient refused Kayexalate because of a con cern regarding transfers and diarrhea. He was given calcium, glucose, insulin, bicarbonate, and Lasi x. His potassium came down to 5.9 and then 5.3 with these interventions. He has had no arrhythmias. He states that he has significant pain at the operative site. He did not seem to be using the FUEL TESTING TECHNICIAN as often as he could. He denies any shortness of breath or chest pain. He is not having palpitation s. PAST MEDICAL HISTORY: 1. Atrial fibrillation. 2. Coronary artery disease, status post SC and stenting. 3. Diastolic congestive heart failure. 4. Chronic insomnia. 5. Type 2 diabetes. 6. Hypertension. 7. Hyperlipidemia. 8. Peripheral artery disease. 9. History of osteoarthritis. MEDICATIONS: Include insulin, gabapentin, lisinopril, Plavix, Levemir, Lasix, Lipitor, metformin, Al dactone, Bactrim, oxycodone, Xarelto, and carvedilol. ALLERGIES: None. SOCIAL HISTORY: The patient is a smoker and continues to smoke, cut down to less than 1 pack a day. He denies alcohol use. FAMILY HISTORY: Unremarkable. REVIEW OF SYSTEMS: A 10-point review of systems adds nothing to the History of Present Illness. PHYSICAL EXAMINATION: GENERAL: The patient is awake, alert, and in no acute distress. VITAL SIGNS: His blood pressure is 109/61, with a heart rate of 113. He is afebrile. Oxygen saturations are 93 % on 2 L. HEENT: Normocephalic and atraumatic. No icterus. NECK: No JVD. Trachea is midline. C HEST: A few wheezes are heard bilaterally. CARDIAC: Irregular, tachycardia, without murmur. ABDOM EN: Soft, nontender. Bowel sounds are present. EXTREMITIES: No clubbing or cyanosis. His right l ower extremity wound has a dry dressing. NEURO: The patient is awake and alert. He is oriented. H e has no gross motor or sensory deficits. LABORATORY DATA: Most recent potassium is 5.3. Creatinine is 1.3, down from 1.6, postoperatively. An albumin is 2.9. CBC is remarkable for a hemoglobin of 11.4 and a white blood count of 9.3, with a platelet count of 512. This has not been rechecked postoperatively. An electrocardiogram shows atr ial fibrillation with PVCs. T-waves are not peaked. ASSESSMENT: 1. Status post right below-knee amputation. 2. Hyperkalemia. The patient had severe hyperkalemia but no apparent cardiac arrhythmias. His pota ssium has come down with aggressive intervention, although he did not take Kayexalate. His hyperkale adia likely resulted from acute kidney injury in the setting of spironolactone and lisinopril. These medications have been held. He is getting IV fluids, as well as p.o. in an effort to improve his vol ume status so that he can continue diuresis to help get rid of potassium. 3. Anemia. The patient had anemia preoperatively. This has not been rechecked postoperatively. 4. Diabetes. The patient's blood sugars have been well controlled, in the low 100s. RECOMMENDATIONS: 1. Continue IV fluids and Lasix. Chemistry will be rechecked to assess renal function and his potas sium level. 2. Recheck a hemoglobin level to assess for anemia or hemolysis as a possible contributor to his hyp erkalemia. 3. Continue FUEL TESTING TECHNICIAN for pain control. /[id number]/MODL
[2018-01-28 19:42] LABS: PLATELET COUNT 485 10^3/uL (150-400)
[2018-01-28] MEDS: ATORVASTATIN CALCIUM 40 MG TAB PO SCH (21:44)
[2018-01-29] MEDS: CARVEDILOL 25 MG TAB PO SCH ×2 (08:57→18:31)
[2018-01-29] MEDS: INSULIN GLARGINE 100 UNITS/ML UNIT SC SCH ×2 (08:57→20:14)
[2018-01-29] MEDS: FUROSEMIDE 40 MG TAB PO SCH (08:57)
[2018-01-29] MEDS: GABAPENTIN 100 MG CAP PO SCH ×3 (08:58→20:10)
[2018-01-29] MEDS: GABAPENTIN 400 MG CAP PO SCH ×3 (08:58→20:11)
[2018-01-29] MEDS: oxyCODONE IR 5 MG TAB PO PRN ×3 (08:58→20:11)
[2018-01-29] MEDS: INSULIN LISPRO 100 UNIT/ML SC SCH ×3 (09:01→18:32)
--- NOTE | 2018-01-29 11:56 | SOAPPROG ---
SOAP Progress Note Assessment/Plan: Assessment: MORE COMFORTABLE/ WOUND OK/ AFEBRILE HYPERKALEMIC BUT ASYMPTOMATIC AND RESPONDING TO RX CREAT 1.3 Plan:PER IM CONSULT 01/28/18 08:59 01/29/18 11:55 AFEBRILE/POTASSIUM 4.9/STUMP SITE OKAY/COMFORTABLE/REHAB CONSULT SOON Objective: Vital Signs Temp Pulse Resp BP Pulse Ox 37.5 C 105 H 19 116/79 97 01/29/18 07:31 01/29/18 07:31 01/29/18 07:31 01/29/18 07:31 01/29/18 07:31 Laboratory Results 01/28/18 18:59 01/29/18 05:30 01/28/18 01/29/18 01/30/18 05:59 05:59 05:59 Intake Total 3895 3434.8 Output Total 1250 2700 200 Balance 2645 734.8 -200 ICD10 Worksheet Patient Problems: Problems Problem Status Onset Acute exacerbation of congestive heart failure Acute Afib Acute Bradycardia Acute Cellulitis of right foot Acute Dyspnea Acute Nicotine dependence Acute Reactive airway disease with wheezing Acute Wound infection Acute
--- NOTE | 2018-01-29 12:32 | HOSPPROG ---
Hospitalist Progress Note Assessment/Plan: DIAGNOSES/PROBLEM LIST: # Hyperkalemia due to renal injury and medications * improved overall with better renal function, will need to continue following closely * Will stop IV hydration at this time particularly with his history of heart failure * continue off lisinopril, aldactone, bactrim, for the time being but try and resume the cardiac meds as soon as possible # Acute kidney injury - * prerenal physiology * continues improvement with hydration and off aldactone, lisinopril, metformen * At this point will stop IV hydration and follow closely as he has history of pulmonary edema and heart failure, continue off the Aldactone and lisinopril for now but hope to start them back soon probably tomorrow if stable; can start metformin now # atrial fibrillation * Now much better rate controlled with addition of diltiazem to the beta-shilpi * will change diltiazem to oral * Currently off anticoagulation; his current short-term risk for stroke is reasonably low and probably better to stay off anticoagulant until his stump is well healed, but will review with Dr. Tello # osteomyelitis of right foot POA, now with BKA; diabetic foot infection * day 2 s/p right BKA. #DM II * currently w adequate control for inpt setting * metformen on hold due to renal fxn but can resume that now # acute post op pain notably improved today # chronic diastolic CHF compensated * Currently compensated, but will need to watch very closely as high risk of decompensation while off of his lisinopril and Aldactone which are held for his acute renal failure and hyperkalemia, has had prior acute exacerbation in the past 6 months # impaired mobility due to deconditioning and new BKA * Patient has been very sedentary for several months now, will need extensive rehabilitation efforts # benign essential HTN - BPs acceptable at this time. continue coreg. # HLD - on statin # CAD - statin, bb. holding ACEI 2/2 SHEILA. aspirin/plavix when okay with primary team. # PVD - plavix when okay with primary team. # diabetic neuropathy - gabapentin. # PHANI on O2 # tobacco dependence - cessation encouraged. consider nicoderm patch prn. In addition to hospitalist rounds I saw this patient on multidisciplinary rounds I reviewed the case in detail today with Dr. Haroon Vaz SUBJECTIVE: Feeling notably better today, less pain, better energy, moving more easily Eating little better OBJECTIVE Vitals reviewed: Heart rate now down to 100 with irregular pulse, blood pressures have been good, respirations stable no fever Installation Helper, my review: Rate controlled atrial fibrillation Exam: alert oriented skin warm dry color ok resps not labored lungs clear BSs heart irregular abd soft nondistended nontender, bowel sounds present limbs dressing on BKA site is dry without blood or other drainage iv site ok Lab data: Potassium now less than 5, and creatinine much better, BUN improved remarkably also Objective: Vital Signs Temp Pulse Resp BP Pulse Ox 36.8 C 88 22 H 109/56 L 98 01/29/18 12:00 01/29/18 12:00 01/29/18 12:00 01/29/18 12:00 01/29/18 12:00 Laboratory Results 01/28/18 18:59 01/29/18 05:30 01/28/18 01/29/18 01/30/18 06:59 06:59 06:59 Intake Total 3895 3434.8 Output Total 1250 2700 200 Balance 2645 734.8 -200 - Time Spent With Patient Time Spent with Patient: greater than 35 minutes Time Spent with Patient: Greater than 35 minutes spent on this patients care, greater than 50% of time spent counseling, educating, and coordinating care regarding the above mentioned plan. ICD10 Worksheet Patient Problems: Problems Problem Status Onset Acute exacerbation of congestive heart failure Acute Afib Acute Bradycardia Acute Cellulitis of right foot Acute Dyspnea Acute Nicotine dependence Acute Reactive airway disease with wheezing Acute Wound infection Acute
[2018-01-29] MEDS: DILTIAZEM 30 MG TAB PO SCH ×2 (13:48→18:32)
--- NOTE | 2018-01-29 14:15 | PDINTPN ---
Donor Services Coordinator Progress Note Assessment/Plan: Assessment: RLE BKA: Would seems to be healing well. Hyperkalemia: Now normalized with Insulin, glucose, calcium initially, then Lasix diuresis. I expect that this will not be a problem again now that renal function has normalized and he is off spironolactone and lisinopril. SHEILA: Normalized. AF: Chronic. Rate about 100 on low-dose diltiazem gtt. Asymptomatic. Plan: Repeat K+. Wean off diltiazem gtt, start PO. OK to transfer to floor. 01/29/18 14:16 Subjective: Feels OK, pain better controlled, although still having some pain in some positions. Appetite good. Has some abdominal bloating. Objective: Vital Signs Temp Pulse Resp BP Pulse Ox 36.8 C 88 22 H 109/56 L 98 01/29/18 12:00 01/29/18 12:00 01/29/18 12:00 01/29/18 12:00 01/29/18 12:00 Laboratory Results 01/28/18 18:59 01/29/18 05:30 01/28/18 01/29/18 01/30/18 05:59 05:59 05:59 Intake Total 3895 3434.8 Output Total 1250 2700 200 Balance 2645 734.8 -200 Physical Exam - Physical Exam General Appearance: alert, no apparent distress EENT: normal ENT inspection Neck: full range of motion, normal inspection Respiratory: lungs clear, normal breath sounds Cardiac/Chest: irregularly irregular, No edema Abdomen: normal bowel sounds, non-tender Skin: normal color, warm/dry Extremities: other (RLE stump dressing dry.) Neuro/Psych: alert, normal mood/affect, oriented x 3 ICD10 Worksheet Patient Problems: Problems Problem Status Onset Acute exacerbation of congestive heart failure Acute Afib Acute Bradycardia Acute Cellulitis of right foot Acute Dyspnea Acute Nicotine dependence Acute Reactive airway disease with wheezing Acute Wound infection Acute
--- NOTE | 2018-01-29 14:29 | SOAPPROG ---
SOAP Progress Note Assessment/Plan: Assessment: MORE COMFORTABLE/ WOUND OK/ AFEBRILE HYPERKALEMIC BUT ASYMPTOMATIC AND RESPONDING TO RX CREAT 1.3 Plan:PER IM CONSULT 01/28/18 08:59 01/29/18 11:55 AFEBRILE/POTASSIUM 4.9/STUMP SITE OKAY CDI/ COMFORTABLE/REHAB CONSULT SOON 01/29/18 14:28 Objective: Vital Signs Temp Pulse Resp BP Pulse Ox 36.8 C 88 22 H 109/56 L 98 01/29/18 12:00 01/29/18 12:00 01/29/18 12:00 01/29/18 12:00 01/29/18 12:00 Laboratory Results 01/28/18 18:59 01/29/18 05:30 01/28/18 01/29/18 01/30/18 05:59 05:59 05:59 Intake Total 3895 3434.8 Output Total 1250 2700 200 Balance 2645 734.8 -200 ICD10 Worksheet Patient Problems: Problems Problem Status Onset Acute exacerbation of congestive heart failure Acute Afib Acute Bradycardia Acute Cellulitis of right foot Acute Dyspnea Acute Nicotine dependence Acute Reactive airway disease with wheezing Acute Wound infection Acute
[2018-01-29] MEDS: ATORVASTATIN CALCIUM 40 MG TAB PO SCH ×2 (20:10→20:11)
[2018-01-30] MEDS: DILTIAZEM 30 MG TAB PO SCH ×4 (01:32→18:06)
[2018-01-30] MEDS: HYDROCODONE/APAP 5/325 TAB PO PRN ×2 (07:40→20:48)
[2018-01-30] MEDS: CARVEDILOL 25 MG TAB PO SCH ×2 (08:11→18:06)
[2018-01-30] MEDS: GABAPENTIN 100 MG CAP PO SCH ×3 (08:12→20:38)
[2018-01-30] MEDS: FUROSEMIDE 40 MG TAB PO SCH (08:12)
[2018-01-30] MEDS: GABAPENTIN 400 MG CAP PO SCH ×3 (08:12→20:38)
[2018-01-30] MEDS: INSULIN LISPRO 100 UNIT/ML SC SCH ×3 (08:15→16:17)
[2018-01-30] MEDS: INSULIN GLARGINE 100 UNITS/ML UNIT SC SCH ×2 (10:17→20:39)
--- NOTE | 2018-01-30 10:47 | SOAPPROG ---
SOAP Progress Note Assessment/Plan: Assessment: MORE COMFORTABLE/ WOUND OK/ AFEBRILE HYPERKALEMIC BUT ASYMPTOMATIC AND RESPONDING TO RX CREAT 1.3 Plan:PER IM CONSULT 01/28/18 08:59 01/29/18 11:55 AFEBRILE/POTASSIUM 4.9/STUMP SITE OKAY CDI/ COMFORTABLE/REHAB CONSULT SOON 01/29/18 14:28 01/30/18 10:46 AFEBRILE/VITAL SIGNS STABLE/LABS OKAY WITH NORMAL POTASSIUM/STUMP SITE OKAY PT WITH THE SPLINT FOR PREVENTION OF KNEE CONTRACTURE/REHAB SOON Objective: Vital Signs Temp Pulse Resp BP Pulse Ox 36.8 C 103 H 17 135/86 H 14 L 01/30/18 08:00 01/30/18 08:11 01/30/18 04:00 01/30/18 08:11 01/30/18 08:00 Laboratory Results 01/28/18 18:59 01/30/18 04:15 01/29/18 01/30/18 01/31/18 05:59 05:59 05:59 Intake Total 3434.8 250 Output Total 2700 1300 Balance 734.8 -1050 ICD10 Worksheet Patient Problems: Problems Problem Status Onset Acute exacerbation of congestive heart failure Acute Afib Acute Bradycardia Acute Cellulitis of right foot Acute Dyspnea Acute Nicotine dependence Acute Reactive airway disease with wheezing Acute Wound infection Acute
--- NOTE | 2018-01-30 11:34 | HOSPPROG ---
Hospitalist Progress Note Assessment/Plan: Patient of Dr. Tello, hospital Medicine Service has been consulting for hyperkalemia, acute renal failure, diabetes, other issues DIAGNOSES/PROBLEM LIST: # Hyperkalemia due to renal injury and medications * Resolved with improved renal function, will need to continue to follow * Will stop IV hydration at this time particularly with his history of heart failure * Will resume lisinopril and Aldactone at this time and repeat chemistries # Acute kidney injury - * prerenal physiology, now resolved with hydration and having held Aldactone and lisinopril * At this time will try to resume Aldactone and lisinopril protect his heart failure, but will need to be followed closely * OK to resume metformin at this time but not resuming due to his sugars being as low as they are # atrial fibrillation, paroxysmal with episodes of rapid ventricular rate here * Now much better rate controlled on oral diltiazem * Currently off anticoagulation for his BKA; resuming Plavix for vascular disease today will hold off on resuming anticoagulation to see that he starts the Plavix back up without bleeding, plan resuming anticoagulation in the next couple days if stable, reviewed with Dr. Tello # DM II * Fasting AMs 70-80s last few days which is lower than ideal for inpt setting, post prandials have been very good * metformen has been on hold due to his episode of renal function; the renal function is now resolved * At present will decrease his twice daily Lantus dose from 40-38 and follow the fasting sugars very closely, may need further decrease; will not resume the metformin at this time as there is no need for it, but if postprandial sugars begin to increase would resume his metformin; will get rid of the sliding scale now to avoid hypoglycemia related to that # Osteomyelitis of right foot POA with chronic ongoing diabetic foot ulcers, now s/p BKA * Doing very well from a surgical standpoint # chronic diastolic CHF compensated * Currently off Aldactone and lisinopril due to his episode of acute renal failure but should be able to resume those medicines now # impaired mobility due to deconditioning and new BKA * Patient has been very sedentary for several months now, will need extensive rehabilitation efforts # CAD/HLD/PVD - stable on statin * Plavix has been held for his surgery, but with his BKA looking good will resume that at present # benign essential HTN - BPs acceptable at this time. continue coreg and will be resuming his lisinopril and Aldactone # Diabetic neuropathy - gabapentin. # tobacco dependence - cessation encouraged. consider nicoderm patch prn. I reviewed Pt's progress and care with Dr Tello today SUBJECTIVE: Feeling notably better today, less pain, better energy, moving more easily Eating little better OBJECTIVE Vitals reviewed: Heart rate now down to 100 with irregular pulse, blood pressures have been good, respirations stable no fever Animal Maintenance Supervisor, my review: Rate controlled atrial fibrillation Exam: alert oriented skin warm dry color ok resps not labored lungs clear BSs heart irregular abd soft nondistended nontender, bowel sounds present limbs BKA site good iv site ok Lab data: Renal function, electrolytes, liver numbers all normal No high sugars, fasting sugars for last couple days of been lower than desired in the 70-80 range, with highest sugar 160 in past 36 hr Objective: Vital Signs Temp Pulse Resp BP Pulse Ox 36.8 C 103 H 17 135/86 H 14 L 01/30/18 08:00 01/30/18 08:11 01/30/18 04:00 01/30/18 08:11 01/30/18 08:00 Laboratory Results 01/28/18 18:59 01/30/18 04:15 01/29/18 01/30/18 01/31/18 06:59 06:59 06:59 Intake Total 3434.8 250 Output Total 2700 1300 Balance 734.8 -1050 - Time Spent With Patient Time Spent with Patient: greater than 35 minutes Time Spent with Patient: Greater than 35 minutes spent on this patients care, greater than 50% of time spent counseling, educating, and coordinating care regarding the above mentioned plan. ICD10 Worksheet Patient Problems: Problems Problem Status Onset Acute exacerbation of congestive heart failure Acute Afib Acute Bradycardia Acute Cellulitis of right foot Acute Dyspnea Acute Nicotine dependence Acute Reactive airway disease with wheezing Acute Wound infection Acute
[2018-01-30] MEDS ORDERED: CLOPIDOGREL BISULFATE 75 MG TAB PO SCH (13:15)
[2018-01-30] MEDS ORDERED: SPIRONOLACTONE 25 MG TAB PO SCH (13:16)
--- NOTE | 2018-01-30 14:00 | ASMTCMCOM ---
CM Note CM Note Notes: Patient is POD #3 R BKA. His stump site is healing well, and he has a splint for prevention of knee contracture. I spoke with his about rehab options. We are awaiting an inpatient rehab evaluation tomorrow, and patient's requests referral to a [facility] if he does not qualify for IPR. Case Management will follow. Date Signed: 01/30/2018 02:00 PM Electronically Signed By:Amanda Murray RN
[2018-01-30] MEDS: SPIRONOLACTONE 25 MG TAB PO SCH (14:58)
[2018-01-30] MEDS: CLOPIDOGREL BISULFATE 75 MG TAB PO SCH (14:58)
[2018-01-30] MEDS: RIVAROXABAN 20 MG TAB PO SCH (18:06)
--- NOTE | 2018-01-30 18:09 | GOP ---
[f rep st] OPERATIVE REPORT DATE OF OPERATION: 01/27/2018 SURGEON: Koffi Tello MD CASH GRAIN FARMER: Reyna Anne NP. ANESTHESIOLOGIST: Dr. Silver. PREOPERATIVE DIAGNOSIS: Gangrene of the right leg. POSTOPERATIVE DIAGNOSIS: Gangrene of the right leg. PROCEDURE PERFORMED: Right below-knee amputation/ FINDINGS: The patient was found to have marginal blood supply for healing a BK amputation, although the tissue was viable at that level. ESTIMATED BLOOD LOSS: From the surgery was less than 20 cc. DESCRIPTION OF PROCEDURE: Patient taken to the operating room where he received satisfactory general endotracheal anesthesia by Dr. Silver. He was placed in a supine position and prepped and drap ed in the usual sterile fashion. A fishmouth type incision was marked on the right leg approximately 8 cm from the tibial tubercle. The tourniquet had been placed on the thigh and was inflated to 300 after exsanguinating the leg with an Esmarch, which was done after the patient was prepped and draped in the usual sterile fashion. He had received a satisfactory general endotracheal anesthesia by Dr. Silver. Dissection was carried down through the muscles anteriorly, isolating the tibia. The tibia was then divided with power saw and beveled at 45 degrees anteriorly. The anterior tibial vess els were separately ligated and divided. The popliteal artery was exposed behind the tibia. It was separately ligated and divided. The tibial nerve was infiltrated with 0.5% Marcaine and ligated with 3-0 Vicryl well above the level of the tibial transection and then divided. The veins were also lig ated and divided with 2-0 Vicryl. The saphenous vein was divided and ligated. Posterior muscles wer e then divided, leaving the gastrocnemius intact, and the posterior flap was then completely divided and the specimen removed. The posterior flap was elevated up over the end of the tibia. It should b e noted that the fibula was also divided approximately 1 inch shorter than the tibia on the lateral a spect of the leg. The fascia was secured to itself with interrupted 0 Vicryl sutures. The excess po sterior flap skin was trimmed away. Subcu was closed with interrupted 2-0 Vicryl sutures, and then t he skin was closed with skin dheeraj and some interrupted 3-0 Prolene sutures. The wound was infiltr ated with 0.5% Marcaine. Some topical thrombin was placed in the wound. Before closure of the flap, the tourniquet had been taken down and any bleeding was secured and ligated with 3-0 Vicryl ties. T he wound was dressed with a bulky compression dressing. He tolerated the procedure well. He was take n to recovery room in good condition. COMPLICATIONS: There were no complications. TOURNIQUET TIME: 20 minutes. /[id number]/MODL
[2018-01-30] MEDS: ATORVASTATIN CALCIUM 40 MG TAB PO SCH (20:38)
[2018-01-31] MEDS: DILTIAZEM 30 MG TAB PO SCH ×4 (00:05→18:04)
[2018-01-31] MEDS: HYDROCODONE/APAP 5/325 TAB PO PRN ×2 (05:35→15:20)
[2018-01-31] MEDS: CARVEDILOL 25 MG TAB PO SCH ×2 (08:37→18:04)
[2018-01-31] MEDS: CLOPIDOGREL BISULFATE 75 MG TAB PO SCH (08:37)
[2018-01-31] MEDS: GABAPENTIN 400 MG CAP PO SCH ×3 (08:37→20:54)
[2018-01-31] MEDS: SPIRONOLACTONE 25 MG TAB PO SCH (08:38)
[2018-01-31] MEDS: GABAPENTIN 100 MG CAP PO SCH ×3 (08:38→20:54)
[2018-01-31] MEDS: INSULIN LISPRO 100 UNIT/ML SC SCH ×3 (08:38→18:04)
[2018-01-31] MEDS: LISINOPRIL 20 MG TAB PO SCH (08:38)
[2018-01-31] MEDS: FUROSEMIDE 40 MG TAB PO SCH (08:38)
[2018-01-31] MEDS: INSULIN GLARGINE 100 UNITS/ML UNIT SC SCH ×2 (08:43→21:31)
[2018-01-31] MEDS: oxyCODONE IR 5 MG TAB PO PRN ×2 (10:37→12:04)
--- NOTE | 2018-01-31 11:22 | ASMTCMCOM ---
CM Note CM Note Notes: Spoke with Reyna, surgery LASER BEAM CUTTER. She anticipates discharge tomorrow 02/01 or the next day. Patient likely qualifies for [facility] Inpatient Re[facility]. They will follow. Patient is amenable to this plan. Case Management will follow. Date Signed: 01/31/2018 11:21 AM Electronically Signed By:Amanda Murray RN
--- NOTE | 2018-01-31 12:21 | SOAPPROG ---
SOAP Progress Note Assessment/Plan: Assessment: 57 y/o male s/p right BKA on 01/27 S: Doing well overall. Pain well controlled. Has been working with PT. O: Alert Afebrile Cardiac: Irregularly irregular Chest: CTA bilaterally RLE: dressing taken down. Incision is cdi. Mild surrounding erythema, no warmth. Plan: Discussed with pt and adult protective caseworker plan for him to go to rehab tomorrow or the following day. Pt feels that it may be too soon and is worried about the care he will receive. Reiterated that he will be well taken care of and that rehab is the best place for him to become stronger. 01/31/18 12:14 Objective: Vital Signs Temp Pulse Resp BP Pulse Ox 36.5 C 85 16 116/69 99 01/31/18 12:00 01/31/18 12:00 01/31/18 12:00 01/31/18 12:00 01/31/18 12:00 Laboratory Results 01/28/18 18:59 01/31/18 05:30 01/30/18 01/31/18 02/01/18 05:59 05:59 05:59 Intake Total 250 1560 Output Total 1300 1949 250 Balance -1050 -388 -250 ICD10 Worksheet Patient Problems: Problems Problem Status Onset Acute exacerbation of congestive heart failure Acute Afib Acute Bradycardia Acute Cellulitis of right foot Acute Dyspnea Acute Nicotine dependence Acute Reactive airway disease with wheezing Acute Wound infection Acute
--- NOTE | 2018-01-31 15:54 | HOSPPROG ---
Hospitalist Progress Note Assessment/Plan: * Osteomyelitis of right foot s/p BKA * Hyperkalemia - resolved -watch closely with restart lisinopril/spironolactone * Afib -rate control with PO diltiazem -Xarelto restarted * DM II -holding metformin for previous ARF -resume if glucose increases - currently reducing Lantus -? 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 * CAD/PVD/stents -Plavix, statin * Tobacco dependence - needs to quit * COPD - known chronic respiratory failure but declines home O2 Subjective: c/o phantom leg pain Objective: Vital Signs Temp Pulse Resp BP Pulse Ox 36.5 C 85 16 116/69 99 01/31/18 12:00 01/31/18 12:00 01/31/18 12:00 01/31/18 12:00 01/31/18 12:00 Laboratory Results 01/28/18 18:59 01/31/18 05:30 01/30/18 01/31/18 02/01/18 05:59 05:59 05:59 Intake Total 250 1560 Output Total 1300 1948 1000 Balance -1050 -388 -1000 Old chart reviewed including León Garcia outpatient cardiology record tele review - rate controlled afib - Physical Exam Constitutional: no apparent distress, appears nourished, not in pain Cardiovascular: regular rate and rhythym, no murmur, rub, or gallop Respiratory: no respiratory distress, no rales or rhonchi, clear to auscultation Gastrointestinal: normoactive bowel sounds, soft, non-tender abdomen, no palpable masses Skin: no rashes or abrasions, no fluctuance, no induration Neurologic: AAOx3, sensation intact bilaterally Psychiatric: interacting appropriately, not anxious, not encephalopathic, thought process linear ICD10 Worksheet Patient Problems: Problems Problem Status Onset Acute exacerbation of congestive heart failure Acute Afib Acute Bradycardia Acute Cellulitis of right foot Acute Dyspnea Acute Nicotine dependence Acute Reactive airway disease with wheezing Acute Wound infection Acute
[2018-01-31] MEDS: RIVAROXABAN 20 MG TAB PO SCH (18:04)
[2018-01-31] MEDS ORDERED: LACTULOSE 20 GM/30 ML UDCUP PO PRN (20:28)
[2018-01-31] MEDS ORDERED: BISACODYL 10 MG SUPP PR PRN (20:28)
[2018-01-31] MEDS ORDERED: POLYETHYLENE GLYCOL 3350 17 GM PKT PO PRN (20:28)
[2018-01-31] MEDS: SENNOSIDES/DOCUSATE SODIUM TAB PO SCH (20:54)
[2018-02-01 04:20] LABS: PLATELET COUNT 446 10^3/uL (150-400)
[2018-02-01] MEDS: HYDROCODONE/APAP 5/325 TAB PO PRN ×3 (05:56→18:26)
[2018-02-01] MEDS: GABAPENTIN 100 MG CAP PO SCH ×3 (08:38→20:59)
[2018-02-01] MEDS: FUROSEMIDE 40 MG TAB PO SCH (08:38)
[2018-02-01] MEDS: INSULIN LISPRO 100 UNIT/ML SC SCH ×3 (08:38→17:25)
[2018-02-01] MEDS: GABAPENTIN 400 MG CAP PO SCH ×3 (08:39→20:59)
[2018-02-01] MEDS: CLOPIDOGREL BISULFATE 75 MG TAB PO SCH (08:39)
[2018-02-01] MEDS: SENNOSIDES/DOCUSATE SODIUM TAB PO SCH ×2 (08:39→21:00)
[2018-02-01] MEDS: SPIRONOLACTONE 25 MG TAB PO SCH (08:39)
[2018-02-01] MEDS: DILTIAZEM CD 120 MG CAP PO SCH (08:39)
[2018-02-01] MEDS: LISINOPRIL 20 MG TAB PO SCH (08:39)
[2018-02-01] MEDS: CARVEDILOL 25 MG TAB PO SCH ×2 (08:39→16:52)
[2018-02-01] MEDS: INSULIN GLARGINE 100 UNITS/ML UNIT SC SCH ×2 (08:47→20:59)
[2018-02-01] MEDS: MAGNESIUM HYDROXIDE 30 ML UDCUP PO PRN ×2 (09:14→18:29)
[2018-02-01] MEDS ORDERED: CARVEDILOL 6.25 MG TAB PO ONE (10:14)
[2018-02-01] MEDS ORDERED: LISINOPRIL 10 MG TAB PO SCH (10:19)
[2018-02-01] MEDS ORDERED: NS 1,000 ML IV SCH (14:00)
--- NOTE | 2018-02-01 15:06 | ASMTCMCOM ---
CM Note CM Note Notes: 02/01/2018 Case Management Note Phone call from Aminata, no beds available at inpatient rehab today. Call Aminata in the morning to check on bed availability. Case Management d/c poc: Inpatient rehab. Case Management to follow. Date Signed: 02/01/2018 03:05 PM Electronically Signed By:Meche Antoine RN
--- NOTE | 2018-02-01 15:09 | HOSPPROG ---
Hospitalist Progress Note Assessment/Plan: * Osteomyelitis of right foot s/p BKA * Hyperkalemia - resolved -watch closely with restart lisinopril/spironolactone * Phantom leg pain -already on max dose gabapentin 1000mg TID * Afib -rate still a little fast -increase coreg, added PO diltiazem -Xarelto restarted * DM II -resume home doses lantus + metformin * Chronic diastolic CHF - possible hypertrophic CM with LVOT obstruction * CAD/PVD/stents -Plavix, statin * Tobacco dependence - needs to quit * COPD - known chronic respiratory failure but declines home O2 * Obesity BMI 33 Dispo - acute inpatient rehab will have bed for him tomorrow Subjective: c/o phantom leg pain and shooting lightning pain in remaining leg Objective: Vital Signs Temp Pulse Resp BP Pulse Ox 36.4 C 89 18 107/63 91 L 02/01/18 12:21 02/01/18 12:21 02/01/18 12:21 02/01/18 12:21 02/01/18 12:21 Laboratory Results 02/01/18 03:40 02/01/18 03:40 01/31/18 02/01/18 02/02/18 05:59 05:59 05:59 Intake Total 1560 475 Output Total 19476 [facility] -980 -1550 -877 - Physical Exam Constitutional: no apparent distress, appears nourished, not in pain Cardiovascular: regular rate and rhythym, no murmur, rub, or gallop Respiratory: no respiratory distress, no rales or rhonchi, clear to auscultation Gastrointestinal: normoactive bowel sounds, soft, non-tender abdomen, no palpable masses Skin: no rashes or abrasions, no fluctuance, no induration Neurologic: AAOx3, sensation intact bilaterally Psychiatric: interacting appropriately, not anxious, not encephalopathic, thought process linear ICD10 Worksheet Patient Problems: Problems Problem Status Onset Acute exacerbation of congestive heart failure Acute Afib Acute Bradycardia Acute Cellulitis of right foot Acute Dyspnea Acute Nicotine dependence Acute Reactive airway disease with wheezing Acute Wound infection Acute
--- NOTE | 2018-02-01 16:44 | SOAPPROG ---
SOAP Progress Note Assessment/Plan: Assessment: MORE COMFORTABLE/ WOUND OK/ AFEBRILE HYPERKALEMIC BUT ASYMPTOMATIC AND RESPONDING TO RX CREAT 1.3 Plan:PER IM CONSULT 01/28/18 08:59 01/29/18 11:55 AFEBRILE/POTASSIUM 4.9/STUMP SITE OKAY CDI/ COMFORTABLE/REHAB CONSULT SOON 01/29/18 14:28 01/30/18 10:46 AFEBRILE/VITAL SIGNS STABLE/LABS OKAY WITH NORMAL POTASSIUM/STUMP SITE OKAY PT WITH THE SPLINT FOR PREVENTION OF KNEE CONTRACTURE/REHAB SOON 02/01/18 16:43 AFEBRILE/COMFORTABLE/STUMP OKAY/WORKING WITH PT REHAB PLACEMENT Objective: Vital Signs Temp Pulse Resp BP Pulse Ox 36.6 C 91 18 92/68 L 96 02/01/18 15:44 02/01/18 15:44 02/01/18 15:44 02/01/18 15:44 02/01/18 15:44 Laboratory Results 02/01/18 03:40 02/01/18 03:40 01/31/18 02/01/18 02/02/18 05:59 05:59 05:59 Intake Total 1560 475 Output Total 1947 Balance -388 -1550 -875 ICD10 Worksheet Patient Problems: Problems Problem Status Onset Acute exacerbation of congestive heart failure Acute Afib Acute Bradycardia Acute Cellulitis of right foot Acute Dyspnea Acute Nicotine dependence Acute Reactive airway disease with wheezing Acute Wound infection Acute
[2018-02-01] MEDS: CAPSAICIN 0.025% CREAM TP SCH ×2 (16:49→21:01)
[2018-02-01] MEDS: metFORMIN HCL 500 MG TAB PO SCH (16:51)
[2018-02-01] MEDS: RIVAROXABAN 20 MG TAB PO SCH (16:51)
[2018-02-01] MEDS: ATORVASTATIN CALCIUM 40 MG TAB PO SCH (20:59)
[2018-02-01] MEDS: oxyCODONE IR 5 MG TAB PO PRN (21:03)
[2018-02-02] MEDS: HYDROCODONE/APAP 5/325 TAB PO PRN (02:33)
[2018-02-02] MEDS: oxyCODONE IR 5 MG TAB PO PRN ×2 (07:34→12:28)
[2018-02-02] MEDS: INSULIN GLARGINE 100 UNITS/ML UNIT SC SCH (07:35)
[2018-02-02] MEDS: CARVEDILOL 25 MG TAB PO SCH (07:36)
[2018-02-02] MEDS: GABAPENTIN 100 MG CAP PO SCH (07:36)
[2018-02-02] MEDS: GABAPENTIN 400 MG CAP PO SCH (07:36)
[2018-02-02] MEDS: CLOPIDOGREL BISULFATE 75 MG TAB PO SCH (07:37)
[2018-02-02] MEDS: metFORMIN HCL 500 MG TAB PO SCH (07:37)
[2018-02-02] MEDS: SPIRONOLACTONE 25 MG TAB PO SCH (07:37)
[2018-02-02] MEDS: FUROSEMIDE 40 MG TAB PO SCH (07:37)
[2018-02-02] MEDS: DILTIAZEM CD 120 MG CAP PO SCH (07:37)
[2018-02-02] MEDS: INSULIN LISPRO 100 UNIT/ML SC SCH (07:38)
[2018-02-02] MEDS: CAPSAICIN 0.025% CREAM TP SCH (07:38)
[2018-02-02] MEDS: SENNOSIDES/DOCUSATE SODIUM TAB PO SCH (07:39)
[2018-02-02 07:49] VITALS: BP 104/67
--- NOTE | 2018-02-02 09:16 | SOAPPROG ---
SOAP Progress Note Assessment/Plan: Assessment: 57 y/o male s/p right BKA on 01/27 S: Doing well overall. Pain well controlled. Has been working with PT. O: Alert Afebrile Cardiac: Irregularly irregular Chest: CTA bilaterally RLE: dressing taken down. Incision is cdi. Mild surrounding erythema, no warmth. Plan: Discussed with pt and comp field case manager plan for him to go to rehab tomorrow or the following day. Pt feels that it may be too soon and is worried about the care he will receive. Reiterated that he will be well taken care of and that rehab is the best place for him to become stronger. 01/31/18 12:14 02/02/18 Continuing to improve. Hyperkalemia resolved. Pain well controlled. Dressing is cdi. Dispo to [facility] inpatient rehab today. Follow up in our office in one week. Objective: Vital Signs Temp Pulse Resp BP Pulse Ox 36.3 C 105 H 18 104/67 92 02/02/18 07:46 02/02/18 07:46 02/02/18 04:00 02/02/18 07:46 02/02/18 07:46 Laboratory Results 02/01/18 03:40 02/02/18 03:54 02/01/18 02/02/18 02/03/18 05:59 05:59 05:59 Intake Total 089 456 Output Total 2 142 200 Balance -1550 -709 -200 ICD10 Worksheet Patient Problems: Problems Problem Status Onset Acute exacerbation of congestive heart failure Acute Afib Acute Bradycardia Acute Cellulitis of right foot Acute Dyspnea Acute Nicotine dependence Acute Reactive airway disease with wheezing Acute Wound infection Acute
--- NOTE | 2018-02-02 09:23 | PDIAF ---
- Diagnosis Code Status: Full Code - Medication Management Discharge Medications: Medications to Continue on Transfer Insulin Aspart [Novolog Flexpen] 20 - 35 units SC TIDMEAL 01/07/17 [Last Taken 01/25/18] Gabapentin [Neurontin 100 MG (*)] 200 mg PO TID 08/06/17 [Last Taken 01/27/18 04 :30] Lisinopril [Zestril 20 mg (*)] 20 mg PO DAILY 08/06/17 [Last Taken 01/25/18] Clopidogrel Bisulfate [Plavix (*)] 75 mg PO DAILY 09/13/17 [Last Taken 01/25/18] Atorvastatin Calcium [Lipitor 80 mg] 80 mg PO HS 09/25/17 [Last Taken 01/25/18] Furosemide [Lasix 40 MG (*)] 80 mg PO DAILY 09/25/17 [Last Taken 01/25/18] Insulin Detemir [Levemir] 40 unit SC BID 09/25/17 [Last Taken 01/25/18] Metformin HCl [Metformin 1000 mg] 1,000 mg PO BIDMEAL 09/25/17 [Last Taken 01/26 07:00] Spironolactone [Aldactone 25 MG (*)] 25 mg PO DAILY 09/25/17 [Last Taken ] Carvedilol [Coreg (*)] 25 mg PO BIDMEAL 01/26/18 [Last Taken 01/26/18 20:00] Gabapentin [Gabapentin 800 mg] 800 mg PO TID 01/26/18 [Last Taken 01/27/18 04:30 ] Rivaroxaban [Xarelto] 20 mg PO DAILY@18 01/26/18 [Last Taken 01/25/18] oxyCODONE IR [Oxycodone Ir (*)] 5 - 15 mg PO Q4HRS PRN tab 02/02/18 [Last Taken Unknown] Discharge Medications: Refer to the Discharge Home Medication list for PRN reason. - Orders Services needed: Registered Nurse, Physical Therapy, Occupational Therapy Isolation Type: None Diet Recommendation: no restrictions on diet Diet Texture: Regular Texture Diet Additional Instructions: You may shower, but do not soak in a tub or pool. Oxycodone for pain. Dressing may come off tomorrow. Incision can be left open to air Call with fever, chills, increasing pain. Follow up with Dr. Tello in one week for postop check and to have dheeraj removed. - Follow Up Care Current Providers and Referrals: Doctor Not,On Staff, MD [Primary Care Provider] - Koffi Tello MD [Medical Doctor] - follow up in 1 week
--- NOTE | 2018-02-02 09:26 | PDIAF ---
- Diagnosis Code Status: Full Code - Medication Management Discharge Medications: Medications to Continue on Transfer Insulin Aspart [Novolog Flexpen] 20 - 35 units SC TIDMEAL 01/07/17 [Last Taken 01/25/18] Gabapentin [Neurontin 100 MG (*)] 200 mg PO TID 08/06/17 [Last Taken 01/27/18 04 :30] Clopidogrel Bisulfate [Plavix (*)] 75 mg PO DAILY 09/13/17 [Last Taken 01/25/18] Atorvastatin Calcium [Lipitor 80 mg] 80 mg PO HS 09/25/17 [Last Taken 01/25/18] Furosemide [Lasix 40 MG (*)] 80 mg PO DAILY 09/25/17 [Last Taken 01/25/18] Insulin Detemir [Levemir] 40 unit SC BID 09/25/17 [Last Taken 01/25/18] Metformin HCl [Metformin 1000 mg] 1,000 mg PO BIDMEAL 09/25/17 [Last Taken 01/26 07:00] Spironolactone [Aldactone 25 MG (*)] 25 mg PO DAILY 09/25/17 [Last Taken ] Gabapentin [Gabapentin 800 mg] 800 mg PO TID 01/26/18 [Last Taken 01/27/18 04:30 ] Rivaroxaban [Xarelto] 20 mg PO DAILY@18 01/26/18 [Last Taken 01/25/18] Capsaicin 0.025% 1 camilla TP TID #1 cream 02/02/18 [Last Taken Unknown] Carvedilol [Coreg (*)] 37.5 mg PO BIDMEAL #60 tab 02/02/18 [Last Taken Unknown] Diltiazem Cd [Cardizem ER 120 MG (*)] 120 mg PO DAILY #30 cap 02/02/18 [Last Taken Unknown] Lisinopril [Zestril 10 mg (*)] 10 mg PO DAILY #30 tab 02/02/18 [Last Taken Unknown] oxyCODONE IR [Oxycodone Ir (*)] 5 - 15 mg PO Q4HRS PRN tab 02/02/18 [Last Taken Unknown] Discharge Medications: Refer to the Discharge Home Medication list for PRN reason. - Orders Services needed: Registered Nurse, Physical Therapy, Occupational Therapy Isolation Type: None Diet Recommendation: no restrictions on diet Diet Texture: Regular Texture Diet Additional Instructions: You may shower, but do not soak in a tub or pool. Oxycodone for pain. Dressing may come off tomorrow. Incision can be left open to air Call with fever, chills, increasing pain. Follow up with Dr. Tello in one week for postop check and to have dheeraj removed. - Follow Up Care Current Providers and Referrals: Doctor Not,On Staff, MD [Primary Care Provider] - Koffi Tello MD [Medical Doctor] - follow up in 1 week
--- NOTE | 2018-02-02 10:25 | ASMTLACE ---
LACE Length of stay for Answers: 4-6 days current admission Acuity / Level of Answers: Yes Care: Did the patient have an inpatient admission? Comorbidities - select Answers: Congestive heart failure all that apply Coronary Artery Disease Diabetes (uncontrolled or controlled) Opioid dependence / Chronic pain Other Notes: HTN # of Emergency department Answers: 1-2 visits in the last 6 months Score: 18 Date Signed: 02/02/2018 10:24 AM Electronically Signed By:CITLALI Kumar
--- NOTE | 2018-02-02 18:24 | HOSPPROG ---
Hospitalist Progress Note Assessment/Plan: * Osteomyelitis of right foot s/p BKA * Hyperkalemia - resolved -watch closely with restart lisinopril/spironolactone * Phantom leg pain -already on max dose gabapentin 1000mg TID -better with addition of capsaicin cream * Afib -rate still a little fast -increase coreg, added PO diltiazem -Xarelto restarted * DM II -resume home doses lantus + metformin * Chronic diastolic CHF - possible hypertrophic CM with LVOT obstruction * CAD/PVD/stents -Plavix, statin * Tobacco dependence - needs to quit * COPD - known chronic respiratory failure but declines home O2 * Obesity BMI 33 Subjective: Feels better with cream Objective: Vital Signs Temp Pulse Resp BP Pulse Ox 36.3 C 105 H 18 104/67 92 02/02/18 07:46 02/02/18 07:46 02/02/18 04:00 02/02/18 07:46 02/02/18 07:46 Laboratory Results 02/01/18 03:40 02/02/18 03:54 02/01/18 02/02/18 02/03/18 05:59 05:59 05:59 Intake Total 475 716 Output Total 2024 1272 Balance -1550 -709 -425 - Physical Exam Constitutional: no apparent distress, appears nourished, not in pain Cardiovascular: regular rate and rhythym, no murmur, rub, or gallop Respiratory: no respiratory distress, no rales or rhonchi, clear to auscultation Gastrointestinal: normoactive bowel sounds, soft, non-tender abdomen, no palpable masses Skin: no rashes or abrasions, no fluctuance, no induration Neurologic: AAOx3, sensation intact bilaterally Psychiatric: interacting appropriately, not anxious, not encephalopathic, thought process linear ICD10 Worksheet Patient Problems: Problems Problem Status Onset Acute exacerbation of congestive heart failure Acute Afib Acute Bradycardia Acute Cellulitis of right foot Acute Dyspnea Acute Nicotine dependence Acute Reactive airway disease with wheezing Acute Wound infection Acute
--- NOTE | 2018-02-03 10:41 | ASDISCHSUM ---
Discharge Information Plan Status:Inpatient Rehab Medically Cleared to Leave:02/02/2018 Discharge Date:02/02/2018 02:05 PM D/C Disposition: ADT D/C Disposition:[facility] IP Projected Discharge Date:02/02/2018 11:00 AM Transportation at D/C: Discharge Delay Reason: Follow-Up Date:02/02/2018 11:00 AM Discharge Slot: Final Diagnosis: Placement Information Referral Type:*Half-Way/SNF Referral ID:[id number] Provider Name: Address 1: Phone Number: Address 2: Fax Number: City: Selection Factors: State: Referral Type:Rehabilitation Hospital Referral ID:[id number] Provider Name:[facility] Address 1:[address] [place] [address] Phone Number: Address 2: Fax Number: [facility]:[place] Selection Factors: State:[place] Patient Contact Information Contact Name:MATTALIRONA Relationship: Address:[address] [place] [address] [address] City:[place] Alternate Phone: State/Zip Code:[place] [address] Email: Financial Information Financial Class:Medicare Primary Plan Desc:MEDICARE INPATIENT Primary Plan Number:[id number] Secondary Plan Desc: Secondary Plan Number: Assessment Information LACE LACE Length of stay for Answers: 4-6 days current admission Acuity / Level of Answers: Yes Care: Did the patient have an inpatient admission? Comorbidities - select Answers: Congestive heart failure all that apply Coronary Artery Disease Diabetes (uncontrolled or controlled) Opioid dependence / Chronic pain Other Notes: HTN # of Emergency department Answers: 1-2 visits in the last 6 months Score: 18 Date Signed: 02/02/2018 10:24 AM Electronically Signed By:CITLALI Kumar [facility] Initial CM Assessment Living Arrangements What is your living Answers: With Spouse arrangement? Who do you live with? Type Of Residence What kind of residence do Answers: Apartment you live in? Discharge Plan Comments Coordination Status Comments Notes: Patient is a 57yo male with hx of chronic atrial fibrillation, CAD with stenting, diastolic CHF, diabetes 2 uncontrolled, insulin dependent, HLD, and HTN. Patient has a longstanding hx of ostermyelitis in the right foot and went for surgical intervention. PT/OT have been ordered. Patient is full core currently. D/C plan TBD. CM will follow. Date Signed: 01/28/2018 09:46 AM Electronically Signed By:Opal Perales LCSW [facility] RUD[place] Progress Note CM Note CM Note Notes: Patient is POD #3 R BKA. His stump site is healing well, and he has a splint for prevention of knee contracture. I spoke with his about rehab options. We are awaiting an inpatient rehab evaluation tomorrow, and patient's requests referral to a [facility] if he does not qualify for IPR. Case Management will follow. Date Signed: 01/30/2018 02:00 PM Electronically Signed By:Amanda Murray RN [facility] R[place] Progress Note CM Note CM Note Notes: Spoke with Reyna surgery BATCH UNLOADER. She anticipates discharge tomorrow 02/01 or the next day. Patient likely qualifies for [facility] Inpatient Rehab. They will follow. Patient is amenable to this plan. Case Management will follow. Date Signed: 01/31/2018 11:21 AM Electronically Signed By:Amanda Murray RN [facility] CM Progress Note CM Note CM Note Notes: 02/01/2018 Case Management Note Phone call from siobhan Coates beds available at inpatient rehab today. Call Aminata in the morning to check on bed availability. Case Management d/c poc: Inpatient rehab. Case Management to follow. Date Signed: 02/01/2018 03:05 PM Electronically Signed By:Meche Antoine RN Case Management Discharge Plan Note Case Management Discharge Discharge Order Complete? Answers: Yes Patient to Obtain Answers: Other Notes: [facility] Inpatient Rehab Medications Transportation Arranged Answers: Family/Friends Transport will Pick (Date 02/02/2018 02:00 PM & Time) CONNOR Complete Answers: No Case Management Transport Answers: Yes Form Complete Faxed Final Orders Answers: Yes Agency/Facility Transfer Answers: Yes Report Printed & Faxed to Receiving Agency Family Notified Answers: Yes Discharge Comments Notes: RUDOLPH spoke w/ Dr. Christian regarding d/c POC. Pt is being discharged today to [facility] Inpatient Rehab. CM spoke w/ pts to discuss d/c plans. Pts would like CM to arrange transportation. Pts will pay for transport. [place] will pick pt up at 2PM via wheelchair. RUDOLPH provided ANN MARIE Alexandre w/ phone number to give report. CM coordinated d/c with Aminata Saunders. CM available for changes. Plan: [facility] Inpatient Rehab Date Signed: 02/02/2018 10:24 AM Electronically Signed By:CITLALI Kumar Intervention Information Intervention Type:*IM-Signed Date of Service:02/02/2018 10:27 AM Patient Type:Inpatient Staff Member:Thelma Michele Hours: Discipline: Severity: Comment:
== END 2018-02-02 14:05 | DRG 617 ==
LOC: F3E 05:42 → F2N 01-28 01:20 → F2W 01-31 15:58
PROVIDERS: ADMIT Surgery; ATTEND Surgery
PROC: 0Y6H0Z3 Detachment at Right Lower Leg, Low, Open Approach (ICD-10-PCS; principal; 2018-01-27 07:15)
DX: E11.69 Type 2 diabetes mellitus with other specified complication (principal); M86.9 Osteomyelitis, unspecified; I73.9 Peripheral vascular disease, unspecified; I50.32 Chronic diastolic (congestive) heart failure; E11.52 Type 2 diabetes mellitus with diabetic peripheral angiopathy with gangrene; E87.1 Hypo-osmolality and hyponatremia; J44.9 Chronic obstructive pulmonary disease, unspecified; J96.10 Chronic respiratory failure, unspecified whether with hypoxia or hypercapnia; N17.9 Acute kidney failure, unspecified; E11.65 Type 2 diabetes mellitus with hyperglycemia; E11.40 Type 2 diabetes mellitus with diabetic neuropathy, unspecified; E87.5 Hyperkalemia; I48.0 Paroxysmal atrial fibrillation; E88.09 Other disorders of plasma-protein metabolism, not elsewhere classified; I11.0 Hypertensive heart disease with heart failure; E78.5 Hyperlipidemia, unspecified; I25.10 Atherosclerotic heart disease of native coronary artery without angina pectoris; E66.9 Obesity, unspecified; G47.33 Obstructive sleep apnea (adult) (pediatric); F17.200 Nicotine dependence, unspecified, uncomplicated; Z79.82 Long term (current) use of aspirin; Z79.02 Long term (current) use of antithrombotics/antiplatelets; Z79.4 Long term (current) use of insulin; Z79.84 Long term (current) use of oral hypoglycemic drugs; Z95.5 Presence of coronary angioplasty implant and graft
CPT/HCPCS: 97110-GP; 97116-GP; 97162-GP; 97166-GO; 97530-GO; 97530-GP; 97535-GO; G8978-GP-CK; G8979-GP-CI; G8987-GO-CL; G8988-GO-CJ; G8989-GO-CJ; J0610; J0690; J1170; J1815; J1940; J2250; J2370; J2704; J3010

== ENCOUNTER 2018-02-02 11:47 | Inpatient (IN) | payer OTHER ==
[2018-02-02] MEDS ORDERED: NON-FORMULARY NEW DRUG (Gabapentin [Gabapentin 800 Mg] 800 MG) PO SCH (16:00)
[2018-02-02] MEDS ORDERED: D50W 25 GM/50 ML SYR IVP PRN (16:03)
[2018-02-02] MEDS ORDERED: POLYETHYLENE GLYCOL 3350 17 GM PKT PO PRN (16:05)
[2018-02-02] MEDS ORDERED: D50W 25 GM/50 ML VIAL IVP PRN (16:10)
--- NOTE | 2018-02-02 16:41 | PDOREHIP ---
Admission [facility] - Admission - 3 Day Assessment Period Admission Date/Day 1: 02/02/18 Day 2: 02/03/18 Day 3: 02/04/18 - Active Diagnoses Comorbidities and Co-existing Conditions at Admission: 21123. PVD or PAD, 13668. DM (e.g. diabetic retinopathy, nephropathy, and neuropathy) - Skin Conditions Unhealed Pressure Ulcer (1 or more/Stage 1 or >)-Admission: 0. No
[2018-02-02] MEDS: GABAPENTIN 100 MG CAP PO SCH ×2 (16:58→21:18)
[2018-02-02] MEDS: oxyCODONE IR 5 MG TAB PO PRN ×2 (17:04→21:19)
[2018-02-02] MEDS: CAPSAICIN 0.025% CREAM TP SCH ×2 (17:07→21:19)
--- NOTE | 2018-02-02 17:07 | PDGENHP ---
History and Physical History and Physical: Post admission physician evaluation and rehabilitation treatment plan Date Admit: 02/02/2018 Date and Time Eval: 02/02/2018, 4:41 p.m. Referring Facility: [facility] Referring MD: Dr. Koffi Tello Rehab Dx: 5.4 unilateral limb amputation below the knee Impairment Group/ Etiologic Dx: Diabetic foot ulcer Date Onset: 01/27/2018 Date Surgery: 01/27/2018 HPI: This is a 57-year-old male with status post bilateral right below-the- knee amputation from Dr. Levi Robbins's on 01/27/2018 for chronic osteomyelitis, related to his longstanding diabetes. His hospital course has been complicated by hyperkalemia up to 6.4 in the setting of acute renal failure. He was treated in ICU for electrolyte management and monitor on the floor. Patient states that he has had the wound for the past 2.5 years and in the recent past became much worse, gangrenous. He endorses that his residual limb does not have much pain but he endorses significant phantom limb pain on the right. He also endorses ongoing peripheral neuropathy related pain on the left side for which she takes gabapentin. He has been on a longstanding dose of 1000 mg 3 times a day. His medical course in the hospital has been relatively uneventful otherwise. Today he endorses ongoing phantom pain as noted above, ongoing diabetic pain. Denies any new shortness of breath or chest pain, no new numbness, tingling, or weakness. All other systems are negative except for as described above. Functional History: Reportedly independent prior to admission including for self-care, ambulation, stairs, functional cognition, did not use a prior ambulatory device. He is retired. On evaluation, he was requiring minimum assistance for balance in standing and contact guard for transfers and gait. He is requiring moderate assistance for toileting, setup for grooming. ROS: All other systems are negative except for as described above including no chest pain Precautions: Currently nonweightbearing on his right lower limb status post BKA Active Comorbidities: Multiple comorbidities including chronic atrial fibrillation on anticoagulation, coronary artery disease status post stenting, diastolic CHF, diabetes type 2 insulin-dependent, hyperlipidemia, hypertension, peripheral arterial disease with history of stenting of the bilateral iliac arteries, obesity, obstructive sleep apnea on nighttime oxygen, osteoarthritis, gout, bradycardia PMH/PSH: chronic atrial fibrillation on anticoagulation, coronary artery disease status post stenting, diastolic CHF, diabetes type 2 insulin-dependent, hyperlipidemia, hypertension, peripheral arterial disease with history of stenting of the bilateral iliac arteries, obesity, obstructive sleep apnea on nighttime oxygen, osteoarthritis, gout, bradycardia. COPD Family Hx: Father at age 42 of sepsis, mother had an aneurysm in her 60s. Has 3 healthy children. Social Hx: Heavy smoker, no alcohol or drugs, lives with family, originally from [place]. Has been in the [facility] for many years. Reportedly lives in a single family home with caregiver availability in the evenings only. Single-level home with the bedroom on the main level. Bathroom has a walk-in shower and shower tub, he has a shower chair and a straight cane at home. Allergies: No known drug allergies Admit Meds: Insulin as part 20-35 units subcutaneously on sliding scale known to the patient Gabapentin 200 mg three times daily and 800 mg three times daily for a total of 1000 mg three times daily Plavix 75 mg daily Atorvastatin 80 mg p.o. At bedtime Furosemide 80 mg p.o. Daily Levemir insulin 40 units subcutaneously twice daily Metformin 1000 mg twice daily with meal Spironolactone 25 mg p.o. Daily Rivaroxaban 20 mg p. O. Daily Capsaicin 0.025% applied 3 times daily Carvedilol 37.5 mg p.o. Twice daily with meal Diltiazem 120 mg extended release p. O. Daily Lisinopril 10 mg p. O. Daily Oxycodone IR 5-15 mg p.o. Q.4 hours p.r.n. For pain Per discussion with pharmacy, the at the [facility] he was on sliding scale standard dose Humalog insulin in place of his aspirate. Levemir was substituted to Lantus. Physical Exam: PHYSICAL EXAM: VS: Reviewed and stable GEN: Normally developed, resting in chair, NAD EYES: Anicteric, PERRL EARS, NOSE, MOUTH, THROAT: MMM, normal dentition CV: Heart RRR, no LE edema, extremities warm. No carotid bruits. RESP: Breathing comfortably, lungs CTAB no wrr GI: Abd with +BS, non distended : No willoughby in place MSK: no contracture noted, right BKA wrapped without any breakthrough bleeding SKIN: no rashes or skin breakdown noted PSYCH: appropriate, pleasant, cooperative; normal mood, affect and thought content HEME/LYMPH: No supraclavicular lymphadenopathy NEURO: Mental status: The patient is alert; oriented to self, hospital, city, date, month, year, and day; full cognitive exam was not performed due to lack of cognitive concerns Cranial Nerves II-XII were intact and symmetric bilaterally, including no diplopia. Strength was 5/5 and symmetric in bilateral biceps, triceps, wrist extensors, finger flexors, finger abductors, as well as left-sided hip flexors, knee extensors, ankle dorsiflexors, plantarflexors, and EHL. Right-sided had 5/5 hip flexion. Knee extension was deferred. Sensation was intact to light touch in the hands and left-sided foot. Results Review: No imaging to review. Most recent potassium was 4.4 %period% creatinine was 0.7 Assessment and Plan: 57-year-old male with multiple comorbidities including diabetes now status post a right [id number] amputation due to chronic nonhealing and osteomyelitis of a diabetic foot ulcer, amputation performed on 01/27/[address] Tello. His hospital course was complicated by acute kidney failure and resulting hyperkalemia which is now resolved. He was monitored closely for these issues. He also has multiple comorbidities requiring ongoing management including diastolic CHF, COPD, and also has substantial phantom limb pain. His rehab prognosis is overall good and he plans to discharge home with family and caregiver assistance. He will need to be at a modified independent level during the day as he will be home alone during that time. From a rehab standpoint I anticipate that he will need physical therapy 90 min per day 5-7 days per week as well as occupational therapy 90 min per day 5-7 days per week with an estimated length of stay 5-7 days. He is in the pre prosthetic phase of rehabilitation, it is unclear based on notes so far whether he will ultimately require benefit from a prosthesis but I anticipate that he will. In the meantime were training and for safe discharge home given his multiple comorbidities. Status post right-sided [id number] amputation for nonhealing chronic ft ulcer with osteomyelitis 01/27/2018: Good recovery so far. - continue wound care that allows for the dressing to be removed tomorrow, wound open to air without bath but showering is okay. - Pre prosthetic training including gait and transfers. - Consult placed for a knee immobilizer to prevent knee flexion contracture in the pre prosthetic phase. Right-sided phantom limb pain: Related to amputation. - continue gabapentin at home dose, use caution given his recent acute kidney injury. - breakthrough opioids - recommend mirror therapy Left-sided diabetic neuropathy: - continue gabapentin - continue skin care to avoid any skin injury or ulceration on the left foot - diabetic education Diabetes type 2, insulin-dependent: - attempt to mimic his home regimen, per pharmacy recommendations doing standard dose Humalog as well as switching the Levemir to Lantus - monitor fingerstick blood sugars Acute kidney injury: - continue to monitor, no need for renal dosing of medications at this point - continue to periodically monitor potassium given recent history of acute hyperkalemia Chronic diastolic CHF: Possible hypertrophic cardiomyopathy with left ventricular outlet obstruction per the notes - continue to monitor clinically, monitoring weights - continue furosemide Coronary artery disease and peripheral vascular disease as well as history of stenting - continue Plavix and statin - continue carvedilol - continue to monitor clinically Tobacco use: - continue counseling for cessation and support COPD: By history - reportedly declining home oxygen in the past, we will have oxygen available to him to tight to 88%. Obesity: - dietary consult - diabetic diet Hyperlipidemia - continue statin Gout: Currently not in flare - continue to monitor given recent diuretics and current diuretic use. Atrial fibrillation: - continue rivaroxaban Hypertension: - continue carvedilol as well as lisinopril and spironolactone. Code Status: Full code Proph: On rivaroxaban Skin: Diabetic, currently no skin wounds, monitor closely. Monitor postsurgical wound ELOS/ Dispo: As noted above, 5-7 days, goal to discharge home with family assistance The patient is medically stable for participation in inpatient rehabilitation. I have reviewed the Preadmission Screen, and do not identify any relevant changes in the patients status since this was completed. The patient is at high risk for skin breakdown, hyper or hypoglycemia, hypoxemia, cardiac events. His left leg is at risk, continue to monitor closely. A total of 75 min was spent on the floor in the care of the patient, the majority of which was spent in counseling coordination of care regarding rehabilitation plan and coordination of services.
[2018-02-02] MEDS ORDERED: GABAPENTIN 400 MG CAP PO ONE (17:17)
[2018-02-02] MEDS: metFORMIN HCL 500 MG TAB PO SCH (17:44)
[2018-02-02] MEDS: RIVAROXABAN 20 MG TAB PO SCH (17:44)
[2018-02-02] MEDS: INSULIN LISPRO 100 UNIT/ML SC SCH (17:44)
[2018-02-02] MEDS: CARVEDILOL 25 MG TAB PO SCH (17:46)
[2018-02-02] MEDS ORDERED: NON-FORMULARY NEW DRUG (Metformin Hcl [Metformin 1000 Mg] 1,000 MG) PO SCH (18:00)
[2018-02-02] MEDS ORDERED: INSULIN GLARGINE 100 UNITS/ML UNIT SC SCH (21:00)
[2018-02-02] MEDS ORDERED: NON-FORMULARY NEW DRUG (Insulin Detemir [Levemir] 40 UNIT) SC SCH (21:00)
[2018-02-02] MEDS ORDERED: NON-FORMULARY NEW DRUG (Atorvastatin Calcium [Lipitor 80 Mg] 80 MG) PO SCH (21:00)
[2018-02-02] MEDS: GABAPENTIN 400 MG CAP PO SCH (21:18)
[2018-02-02] MEDS: ATORVASTATIN CALCIUM 40 MG TAB PO SCH (21:18)
[2018-02-02] MEDS: SENNOSIDES/DOCUSATE SODIUM TAB PO SCH (21:18)
[2018-02-03] MEDS: oxyCODONE IR 5 MG TAB PO PRN ×5 (02:08→17:55)
[2018-02-03] MEDS: INSULIN LISPRO 100 UNIT/ML SC SCH ×3 (08:02→16:44)
[2018-02-03] MEDS: LISINOPRIL 10 MG TAB PO SCH (08:11)
[2018-02-03] MEDS: metFORMIN HCL 500 MG TAB PO SCH ×3 (08:11→17:44)
[2018-02-03] MEDS: SPIRONOLACTONE 25 MG TAB PO SCH (08:12)
[2018-02-03] MEDS: SENNOSIDES/DOCUSATE SODIUM TAB PO SCH ×2 (08:12→22:19)
[2018-02-03] MEDS: GABAPENTIN 400 MG CAP PO SCH ×3 (08:12→22:19)
[2018-02-03] MEDS: CARVEDILOL 25 MG TAB PO SCH ×2 (08:12→17:51)
[2018-02-03] MEDS: DILTIAZEM CD 120 MG CAP PO SCH (08:12)
[2018-02-03] MEDS: CLOPIDOGREL BISULFATE 75 MG TAB PO SCH (08:13)
[2018-02-03] MEDS: GABAPENTIN 100 MG CAP PO SCH ×3 (08:13→22:19)
[2018-02-03] MEDS: CAPSAICIN 0.025% CREAM TP SCH ×3 (08:19→22:19)
[2018-02-03] MEDS: INSULIN GLARGINE 100 UNITS/ML UNIT SC SCH ×2 (08:54→22:18)
[2018-02-03] MEDS ORDERED: FUROSEMIDE 40 MG TAB PO SCH ×2 (09:00→18:40)
[2018-02-03 09:32] LABS: PLATELET COUNT 506 10^3/uL (150-400)
--- NOTE | 2018-02-03 14:21 | SOAPPROG ---
SOAP Progress Note Assessment/Plan: Assessment: Status post right-sided [id number] amputation 01/27/2018 for nonhealing chronic ft ulcer with osteomyelitis: Good recovery so far. - continue wound care that allows for the dressing to be removed 02/03/2018, wound open to air without bath but showering is okay. - Pre prosthetic training including gait and transfers. - Consult placed for a knee immobilizer to prevent knee flexion contracture in the pre prosthetic phase. Right-sided phantom limb pain: Related to amputation. - continue gabapentin at home dose, use caution given his recent acute kidney injury. - breakthrough opioids - recommend mirror therapy Left-sided diabetic neuropathy: - continue gabapentin - continue skin care to avoid any skin injury or ulceration on the left foot - diabetic education Diabetes type 2, insulin-dependent: * Hypoglycemic this morning at 54, and Lantus insulin decreased from 40 mg twice daily to 20 mg twice daily. * Continue metformin 1000 mg twice daily. * Continue Humalog sliding scale. * Continue to monitor and adjust insulin for adequate blood sugar control. Hemoglobin A1c was 8.4. His goal A1c is 7 but just as important to avoid hypoglycemia. Acute kidney injury: * BMP with normal creatinine and estimated GFR on labs 02/03/2018. * Appears mildly dehydrated with elevated BUN relative creatinine. Furosemide dose was doubled in the hospital. Chronic diastolic CHF: Possible hypertrophic cardiomyopathy with left ventricular outlet obstruction per the notes * Moderate concentric LVH and diastolic dysfunction on echo September 2017. * Daily weight * Follow labs; consider tapering furosemide. Coronary artery disease and peripheral vascular disease as well as history of stenting - continue Plavix and statin - continue carvedilol - continue to monitor clinically Tobacco use: - continue counseling for cessation and support COPD: By history - reportedly declining home oxygen in the past, we will have oxygen available to him to tight to 88%. Obesity: - dietary consult - diabetic diet Hyperlipidemia - continue statin Gout: Currently not in flare - continue to monitor given recent diuretics and current diuretic use. Atrial fibrillation: - continue rivaroxaban Hypertension: - continue carvedilol as well as lisinopril and spironolactone. Code Status: Full code Proph: On rivaroxaban Skin: Diabetic, currently no skin wounds, monitor closely. Monitor postsurgical wound ELOS/ Dispo: As noted above, 5-7 days, goal to discharge home with family assistance 02/03/18 14:38 Subjective: Complains of pain in his right residual limb. He would like to have more opiate pain medication that he is getting. He did not sleep well last night, due to anxiety and pain. Denies cough or dyspnea. Bowels moved today. Objective: Vital Signs Temp Pulse Resp BP Pulse Ox 36.8 C 76 15 104/66 95 02/02/18 19:58 02/03/18 08:00 02/02/18 19:58 02/03/18 08:00 02/02/18 14:30 Laboratory Results 02/03/18 08:00 02/03/18 08:00 02/02/18 02/03/18 02/04/18 05:59 05:59 05:59 Intake Total 716 360 Output Total 250 400 Balance 466 -40 Physical Exam - Physical Exam General Appearance: WD/WN, alert, no apparent distress, obese Respiratory: normal breath sounds, No crackles, No rhonchi, No wheezing Cardiac/Chest: JVD (4 cm above clavicle), irregularly irregular, No edema, No diastolic murmur, No systolic murmur Abdomen: normal bowel sounds, non-tender, soft, No distended Skin: normal color, warm/dry Neuro/Psych: no motor/sensory deficits, alert, normal mood/affect, oriented x 3 ICD10 Worksheet Patient Problems: Problems Problem Status Onset Acute exacerbation of congestive heart failure Acute Afib Acute Bradycardia Acute Cellulitis of right foot Acute Dyspnea Acute Nicotine dependence Acute Reactive airway disease with wheezing Acute Wound infection Acute
[2018-02-03] MEDS: ACETAMINOPHEN 325 MG TAB PO PRN (14:29)
[2018-02-03] MEDS: RIVAROXABAN 20 MG TAB PO SCH (17:44)
[2018-02-03] MEDS: ATORVASTATIN CALCIUM 40 MG TAB PO SCH (22:19)
[2018-02-04] MEDS: oxyCODONE IR 5 MG TAB PO PRN ×2 (05:53→09:52)
[2018-02-04] MEDS: metFORMIN HCL 500 MG TAB PO SCH (08:23)
[2018-02-04] MEDS: CLOPIDOGREL BISULFATE 75 MG TAB PO SCH (08:23)
[2018-02-04] MEDS: GABAPENTIN 400 MG CAP PO SCH (08:23)
[2018-02-04] MEDS: GABAPENTIN 100 MG CAP PO SCH (08:23)
[2018-02-04] MEDS: SENNOSIDES/DOCUSATE SODIUM TAB PO SCH (08:23)
[2018-02-04] MEDS: CARVEDILOL 25 MG TAB PO SCH (08:24)
[2018-02-04] MEDS: SPIRONOLACTONE 25 MG TAB PO SCH (08:25)
[2018-02-04] MEDS: INSULIN GLARGINE 100 UNITS/ML UNIT SC SCH (08:25)
[2018-02-04] MEDS: DILTIAZEM CD 120 MG CAP PO SCH (08:25)
[2018-02-04] MEDS: INSULIN LISPRO 100 UNIT/ML SC SCH ×2 (08:32→12:22)
[2018-02-04] MEDS ORDERED: SPIRONOLACTONE 25 MG TAB PO SCH (09:05)
[2018-02-04] MEDS ORDERED: CARVEDILOL 25 MG TAB PO SCH (09:05)
[2018-02-04] MEDS: ACETAMINOPHEN 325 MG TAB PO PRN (09:52)
[2018-02-04] MEDS: CAPSAICIN 0.025% CREAM TP SCH ×2 (09:53→13:15)
[2018-02-04] MEDS: LISINOPRIL 10 MG TAB PO SCH (09:54)
[2018-02-04] MEDS ORDERED: SODIUM POLY SULF 15 GM/60 ML BOTTLE PO ONE (14:35)
--- NOTE | 2018-02-04 14:59 | SOAPPROG ---
SOAP Progress Note Assessment/Plan: Assessment: Status post right-sided [id number] amputation 01/27/2018 for nonhealing chronic ft ulcer with osteomyelitis: Good recovery so far. - continue wound care that allows for the dressing to be removed 02/03/2018, wound open to air without bath but showering is okay. - Pre prosthetic training including gait and transfers. - knee immobilizer in place to prevent knee flexion contracture in the pre prosthetic phase. Right-sided phantom limb pain: Related to amputation. - continue gabapentin at home dose, use caution given his recent acute kidney injury. - breakthrough opioids - recommend mirror therapy Left-sided diabetic neuropathy: - continue gabapentin - continue skin care to avoid any skin injury or ulceration on the left foot - diabetic education Hyperkalemia * K 5.6 this morning, 6.3 this afternoon, 02/04/2018. Reduction in furosemide may contribute. Likely due to combination of spironolactone, carvedilol and lisinopril. * Sending to emergency department for further evaluation and management. * Needs reduction in carvedilol and spironolactone and may need to resume 80 mg a day of furosemide. Diabetes type 2, insulin-dependent: * Hypoglycemic this morning at 54, and Lantus insulin decreased from 40 mg twice daily to 20 mg twice daily. * Continue metformin 1000 mg twice daily. * Continue Humalog sliding scale. * Continue to monitor and adjust insulin for adequate blood sugar control. Hemoglobin A1c was 8.4. His goal A1c is 7 but just as important to avoid hypoglycemia. Acute kidney injury: * BMP with normal creatinine and estimated GFR on labs 02/03/2018. * Appears mildly dehydrated with elevated BUN relative creatinine. Furosemide dose was doubled in the hospital. Chronic diastolic CHF: Possible hypertrophic cardiomyopathy with left ventricular outlet obstruction per the notes * Moderate concentric LVH and diastolic dysfunction on echo September 2017. * Daily weight * Follow labs; consider tapering furosemide. Coronary artery disease and peripheral vascular disease as well as history of stenting - continue Plavix and statin - continue carvedilol; reduced dose to 25 mg on 02/04/2018 for evening dose. - continue to monitor clinically Tobacco use: - continue counseling for cessation and support COPD: By history - reportedly declining home oxygen in the past, we will have oxygen available to him to tight to 88%. Obesity: - dietary consult - diabetic diet Hyperlipidemia - continue statin Gout: Currently not in flare - continue to monitor given recent diuretics and current diuretic use. Atrial fibrillation: - continue rivaroxaban Hypertension: - continue carvedilol as well as lisinopril and spironolactone. Lisinopril held 02/04/2018, carvedilol dose reduced. Code Status: Full code Proph: On rivaroxaban Skin: Diabetic, currently no skin wounds, monitor closely. Monitor postsurgical wound ELOS/ Dispo: As noted above, 5-7 days, goal to discharge home with family assistance 02/04/18 14:55 Subjective: No complaints. Slept well. Working with therapies. Gets occasional sharp pain depending on position in the residual limb. Objective: Vital Signs Temp Pulse Resp BP Pulse Ox 36.7 C 68 18 103/69 92 02/04/18 06:51 02/04/18 09:51 02/04/18 06:51 02/04/18 09:51 02/04/18 06:51 Laboratory Results 02/03/18 08:00 02/04/18 13:05 02/03/18 02/04/18 02/05/18 05:59 05:59 05:59 Intake Total 716 1700 640 Output Total 250 900 800 Balance 466 800 -160 Physical Exam - Physical Exam General Appearance: WD/WN, alert, no apparent distress, obese Respiratory: normal breath sounds, No crackles, No rhonchi, No wheezing Cardiac/Chest: irregularly irregular, No diastolic murmur, No systolic murmur Skin: normal color, warm/dry Extremities: other (Right BKA) Neuro/Psych: no motor/sensory deficits, alert, normal mood/affect, oriented x 3 ICD10 Worksheet Patient Problems: Problems Problem Status Onset Acute exacerbation of congestive heart failure Acute Afib Acute Bradycardia Acute Cellulitis of right foot Acute Dyspnea Acute Nicotine dependence Acute Reactive airway disease with wheezing Acute Wound infection Acute
[2018-02-04 15:06] VITALS: BP 104/61
--- NOTE | 2018-02-07 15:42 | GDS ---
[f rep st] DISCHARGE SUMMARY ADMITTING DIAGNOSIS: Debility, status post right okwnr-cox-oyhu amputation. DISCHARGE DIAGNOSIS: Debility, status post right phbdg-igj-ydei amputation. OTHER DISCHARGE DIAGNOSES: 1. Hyperkalemia. 2. Diabetes mellitus type 2. 3. Chronic diastolic congestive heart failure. 4. Atrial fibrillation. 5. Hypertension. COMPLICATIONS: There was hyperkalemia. CONSULTATIONS: There were none. PROCEDURES: There were none. HISTORY AND HOSPITAL COURSE: This patient was admitted from [facility] where he had had a right eejwk-rjx-ntoj amputation for osteomyelitis. During his hospitalization, he had had hyperkalemia as well as acute renal insufficiency, both of which resolved prior to hospital discharge. On 02/03/2018, he developed hypotension and possible dehydration. He had been taking furosemide 80 mg per day and this was changed to 40 mg per day. On 02/04, he had hyperkalemia with a K of 5.6 in the morning and 6.3 in the afternoon. He had already received his morning spironolactone as well as lisinopril before the labs were noted by the physician. Given his increasing potassium and difficulty of managing with frequent blood draws and medication adjustments while on the inpatient rehabilitation unit, he was transferred to the emergency department for further care. As he was discharging, he reported that he had not liked being in the inpatient rehabilitation unit and would request a different rehabilitation facility from the hospital. DISCHARGE CONDITION: Good though guarded regarding hyperkalemia. DIET: Regular. ACTIVITY: Ad marta, but limited by reduced mobility and right gtkra-ita-phwm amputation. FOLLOWUP: He will see the medical staff at [facility]. MEDICATIONS: On discharge: 1. Acetaminophen 650 mg p.o. q.4 hours p.r.n. 2. Atorvastatin 80 mg p.o. daily. 3. Capsaicin cream 1 application three times daily. 4. Carvedilol 25 mg twice daily which reduced from 37.5 mg twice daily. 5. Clopidogrel 75 mg p.o. daily. 6. Diltiazem 120 mg p.o. daily. 7. Furosemide 40 mg p.o. daily, which had been reduced from 80 mg. 8. Gabapentin 1000 mg p.o. three times daily. 9. Insulin glargine 20 units subcutaneous twice daily. 10. Insulin lispro per sliding scale. 11. Metformin 1000 mg p.o. twice daily. 12. Oxycodone 5/15 mg p.o. q.3 hours p.r.n. 13. Polyethylene glycol 17 g p.o. daily p.r.n. 14. Rivaroxaban 20 mg p.o. daily at 1800. 15. Senna/docusate 1 to 2 p.o. twice daily. /[id number]/MODL MTDD
--- NOTE | 2018-02-08 15:59 | PDOREHIP ---
Admission [facility] - Admission - 3 Day Assessment Period Admission Date/Day 1: 02/02/18 Day 2: 02/03/18 Day 3: 02/04/18 - Skin Conditions Unhealed Pressure Ulcer (1 or more/Stage 1 or >)-Admission: 0. No Discharge [facility] - Discharge Skin Conditions Unhealed Pressure Ulcer (1 or more/Stage 1 or >)-Discharge: 0. No
== END 2018-02-04 16:49 | disposition still patient (30) | DRG 560 ==
LOC: BREH 14:46
PROVIDERS: ADMIT Internal Medicine; ATTEND Internal Medicine
DX: Z47.81 Encounter for orthopedic aftercare following surgical amputation (principal); Z89.511 Acquired absence of right leg below knee; G54.6 Phantom limb syndrome with pain; E11.40 Type 2 diabetes mellitus with diabetic neuropathy, unspecified; E11.51 Type 2 diabetes mellitus with diabetic peripheral angiopathy without gangrene; I11.0 Hypertensive heart disease with heart failure; I50.32 Chronic diastolic (congestive) heart failure; J44.9 Chronic obstructive pulmonary disease, unspecified; I25.10 Atherosclerotic heart disease of native coronary artery without angina pectoris; E66.9 Obesity, unspecified; E78.5 Hyperlipidemia, unspecified; M10.9 Gout, unspecified; I48.91 Unspecified atrial fibrillation; Z72.0 Tobacco use; Z79.4 Long term (current) use of insulin
CPT/HCPCS: 92507-GN; 92522-GN; 97110-GP; 97161-GP; 97166-GO; 97530-GO; 97530-GP; 97535-GO; J1815

== ENCOUNTER 2018-02-04 15:47 | Inpatient (IN) | payer OTHER ==
--- NOTE | 2018-02-04 16:01 | CPEKG ---
Heart Rate: 96 RR Interval: 625 QRSD Interval: 96 QT Interval: 360 QTC Interval: 455 QRS Colony: 95 T Wave Colony: 236 EKG Severity - ABNORMAL ECG - EKG Impression: ATRIAL FIBRILLATION EKG Impression: BORDERLINE RIGHT AXIS DEVIATION EKG Impression: BORDERLINE R WAVE PROGRESSION, ANTERIOR LEADS EKG Impression: ABNORMAL T, CONSIDER ISCHEMIA, LATERAL LEADS Electronically Signed By: Kimi Wang 04-Feb-2018 20:43:53
[2018-02-04] MEDS ORDERED: SODIUM POLY SULF 15 GM/60 ML BOTTLE PO ONE (16:31)
[2018-02-04] MEDS ORDERED: ACETAMINOPHEN 325 MG TAB PO PRN ×2 (17:15→17:17)
[2018-02-04] MEDS ORDERED: POLYETHYLENE GLYCOL 3350 17 GM PKT PO PRN (17:15)
[2018-02-04] MEDS ORDERED: ONDANSETRON 4 MG/2 ML VIAL IVP PRN (17:17)
[2018-02-04] MEDS ORDERED: ZOLPIDEM TARTRATE 5 MG TAB PO PRN (17:17)
[2018-02-04] MEDS ORDERED: ONDANSETRON DISINTEGRATING 4 MG TAB PO PRN (17:17)
--- NOTE | 2018-02-04 17:23 | PDGENHP ---
History and Physical History and Physical: CC: Some from the rehab unit at [facility] because of hyperkalemia HISTORY: This gentleman with multiple medical issues was just at this hospital recently for BKA of the right leg because of chronic poorly healing diabetic wounds and osteomyelitis. From a surgical standpoint he had done quite well in the hospital. However while here he did have an episode of acute renal failure shortly after his surgery which was associated with hyperkalemia, which was probably aggravated by the fact that he takes lisinopril and Aldactone for chronic heart disease. He was treated successfully for the hyperkalemia and did not have any complications at the time. He was taken off of his lisinopril and Aldactone transiently and hydrated, with good resolution of his renal failure over period of approximately 4 days, without any development of pulmonary edema or peripheral edema at that time. He was started back on the Aldactone and lisinopril, along with ongoing Lasix therapy for his heart failure and while he was here in hospital did well with that. Gradually he was transferred to the inpatient rehabilitation unit on at the [facility] where he reports that he has been doing quite well making improvements in strength and mobility, but still with some significant weakness in limitations. It does not sound like he is ready to go home. Since his transfer to the rehab unit, he has had daily potassium checks and have been running in the mid 4s all along until today when he had of potassium this morning of 5.6. The potassium was rechecked later today and was further elevated at 6.3. As the patient does have known congestive heart failure and CAD this rapid rise in potassium would place him at some risk for arrhythmia. Therefore he was transferred here for management of his hyperkalemia. Notably at this time his renal function remains reasonable with creatinine of 1.0. His baseline recently is 0.8, though he had gone up to 2.0 after his surgery and had gotten back down to approximately 1 before his transfer to the rehab unit. As above he has been taking his Aldactone and his spironolactone, and he has had no symptoms of heart failure. ROS: The pain from his BKA is improving nicely and he has minimal pain at this time but still some with movement in particular. As above he has been doing well with his rehab in making improvements in strength and mobility but is still limited to short distance ambulation with a walker otherwise using a wheelchair. He notices no trouble that he is aware of with the skin at his BKA stump, but sounds like perhaps it was not evaluated by wound care nurses for about 3 days or so. A comprehensive 10 system review revealed no other significant findings PAST MEDICAL HISTORY: Congestive heart failure, diastolic, most recent episode of pulmonary edema a few months ago Coronary artery disease with stents Peripheral vascular disease Atrial fibrillation with chronic anticoagulation Hypertension Diabetes mellitus type 2 Chronic diabetic foot wounds and infections in the right leg leading to recent BKA FAMILY MEDICAL HISTORY: Mother of an aneurysm father he thinks possibly of an infection SOCIAL HISTORY: Smoker Originally from [facility] MEDICATIONS: The patients list has been reconciled by our clinical pharmacist in the EMR. I have reviewed the list and ordered appropriate medicines. 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, no focal weakness IV site: looks normal LABORATORY DATA: As above potassium now at 6.3, creatinine at 1 which is his most recent baseline since his surgery 12 LEAD EKG: Done in the ER, my review the tracing shows a atrial fibrillation with rate controlled in the 90s, right bundle branch morphology is chronic, nothing that would reflect a hyperkalemic EKG changes at this time ASSESSMENT: # ACUTE ONSET OF HYPERKALEMIA in patient who recently had an episode of hyperkalemia during acute renal failure but with no acute renal change at this time * His Aldactone and lisinopril are aggravating factors for this, and may need to be changed to hydralazine or other therapy for his heart failure # STATUS POST RECENT BKA RIGHT LEG for chronic osteomyelitis and nonhealing diabetic foot ulcers * Has been doing well from a wound standpoint in terms of his rehab but needs further rehab * Is stating that he will not go back to the [address] [place] [address] so will need case management to get involved promptly to begin sorting out what our next plan will be as it is now with a week and # RECENT EPISODE OF ACUTE RENAL FAILURE, RESOLVED AND STABLE # CHRONIC DIASTOLIC CONGESTIVE HEART FAILURE, CURRENTLY COMPENSATED, BUT WILL BE STOPPING HIS LISINOPRIL AND ALDACTONE * He tolerated stopping these medicines for his episode of renal failure and hyperkalemia a couple weeks ago, but will need to watch closely so will be getting daily weights * Need to assess with Cardiology whether replacement of 1 or both of these medicines with hydralazine or otherwise would be most appropriate but that would be my starting point # DIABETES MELLITUS TYPE 2 * Sugar control has been good through his surgical admission and rehab stay so far # CHRONIC AFIB RATE CONTROLLED AND ON CHRONIC ANTICOAGULATION WITH ORAL MEDS # DVT PROPHYLAXIS WILL BE WITH HIS CHRONIC ANTICOAGULANT, AND WILL NOT USE SCDS DUE TO HIS RECENT BKA ON THE RIGHT WELL SIGNIFICANT CHRONIC 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 The patient does not appear likely to be ready to go home but is declining to be transferred back to the [address] [place] [address] rehab unit after his stay here. Particularly as this is the weekend, our options may be limited in terms of what we can get started at this time. I have reviewed the patient's case in detail with Dr. Denis Escalante I have reviewed the patient's past medical records as part of this assessment, including previous echocardiogram from September of this year as well as the laboratory records from his rehab unit stay and his records from his previous hospitalization here
[2018-02-04] MEDS ORDERED: NS 1,000 ML IV SCH (17:30)
[2018-02-04] MEDS ORDERED: NON-FORMULARY NEW DRUG (Metformin Hcl [Metformin 1000 Mg] 1,000 MG) PO SCH (18:00)
[2018-02-04] MEDS ORDERED: RIVAROXABAN 20 MG TAB PO SCH (18:00)
[2018-02-04] MEDS: CARVEDILOL 25 MG TAB PO SCH (18:04)
[2018-02-04] MEDS: metFORMIN HCL 500 MG TAB PO SCH (18:05)
--- NOTE | 2018-02-04 19:51 | PDMN ---
Medical Necessity Medical necessity: C/M review: est. > 2 MN LOS for eval and TX of acute onset hyperkalemia requiring Case management consult, Kayexalate x 1 in ED, IV fluids , stop Aldactone and Lisinopril for now, cardiac monitoring, pulse oximetry, acute inpt PT/OT, comorbid patient in [facility] Inpt Rehab just prior to this admission, sent to ED for hyperkalemia with subsequent admission, S/P recent BKA right leg for chronic osteomyelitis and nonhealing diabetic foot ulcers, recent episode of acute renal failure - resolved and stable, chronic diastolic CHF - currently compensated, type 2 diabetes, chronic atrial fibrillation controlled and on chronic anticoagulation with oral meds, chronic dermatitis on left lower extremity per H/P.
[2018-02-04] MEDS ORDERED: INSULIN GLARGINE 20 UNIT SC SCH (21:00)
[2018-02-04] MEDS ORDERED: ATORVASTATIN CALCIUM 40 MG TAB PO SCH (21:00)
[2018-02-04] MEDS ORDERED: NON-FORMULARY NEW DRUG (Atorvastatin Calcium [Lipitor 80 Mg] 80 MG) PO SCH (21:00)
[2018-02-04] MEDS: GABAPENTIN 400 MG CAP PO SCH (21:45)
[2018-02-04] MEDS: GABAPENTIN 100 MG CAP PO SCH (21:45)
[2018-02-04] MEDS: SENNOSIDES/DOCUSATE SODIUM TAB PO SCH (21:46)
[2018-02-04] MEDS: CAPSAICIN 0.025% CREAM TP SCH (21:46)
--- NOTE | 2018-02-04 21:55 | EDPHY ---
H & P Stated Complaint: HYPERKALEMIA Time Seen by Provider: 02/04/18 15:55 HPI/ROS: CHIEF COMPLAINT: High potassium - Personal History Current Tetanus/Diphtheria Vaccine: Yes Current Tetanus Diphtheria and Acellular Pertussis (TDAP): Yes - Medical/Surgical History Hx Asthma: No Hx Chronic Respiratory Disease: No Hx Diabetes: Yes Hx Cardiac Disease: Yes Hx Renal Disease: No Hx Cirrhosis: No Hx Alcoholism: No Hx HIV/AIDS: No Hx Splenectomy or Spleen Trauma: No Other PMH: Gout (denies), Arthritis, DM, HTN, Stents in Heart, Afib, CAD, Periferal Vascular Disease, Sleep Apnea, denies falls, R BKA, smoker, COPD, dCHF , ARF, neuropathy, obesity - Social History Smoking Status: Heavy smoker Constitutional: Initial Vital Signs Temperature (C) 36.8 C 02/04/18 15:47 Heart Rate 87 02/04/18 15:47 Respiratory Rate 20 02/04/18 15:47 Blood Pressure 123/87 H 02/04/18 15:47 O2 Sat (%) 98 02/04/18 15:47 O2 Delivery Mode Room Air Allergies/Adverse Reactions: No Known Allergies Allergy (Verified 01/27/18 06:14) Home Medications: Medication Instructions Recorded Gabapentin [Neurontin 100 MG (*)] 200 mg PO TID 08/06/17 Clopidogrel Bisulfate [Plavix (*)] 75 mg PO DAILY 09/13/17 Atorvastatin Calcium [Lipitor 80 80 mg PO HS 09/25/17 mg] Furosemide [Lasix 40 MG (*)] 40 mg PO DAILY 09/25/17 Metformin HCl [Metformin 1000 mg] 1,000 mg PO BIDMEAL 09/25/17 Gabapentin [Gabapentin 800 mg] 800 mg PO TID 01/26/18 Rivaroxaban [Xarelto] 20 mg PO DAILY@18 01/26/18 Capsaicin 0.025% 1 camilla TP TID #1 cream 02/02/18 Diltiazem Cd [Cardizem ER 120 MG 120 mg PO DAILY #30 cap 02/02/18 (*)] Acetaminophen [Tylenol 325mg (*)] 650 mg PO Q4 PRN 02/04/18 Carvedilol [Coreg (*)] 25 mg PO BIDMEAL 02/04/18 Insulin Glargine [Lantus 100 20 units SC BID 02/04/18 UNITS/ML (*)] Insulin Lispro [Humalog] 0 unit SQ TIDMEAL 02/04/18 Polyethylene Glycol 3350 [Miralax 17 gm PO DAILY PRN 02/04/18 17 gm (*)] Sennosides/Docusate Sodium 1 - 2 each PO BID 02/04/18 [Senokot-S] oxyCODONE IR [Oxycodone Ir (*)] 5 - 15 mg PO Q3 PRN 02/04/18 Medical Decision Making - Diagnostics EKG Interpretation: 12 lead EKG is interpreted in Trace master View by emergency department physician. ED Course/Re-evaluation: Admitted to the hospitalist service. Kayexalate 15 g orally was ordered while he was in the emergency department. I reviewed his EKG. No acute findings of hyperkalemia on the EKG. This patient was not interviewed or examined by me while he was in the emergency department. He was seen primarily by Dr. Warner Jasso, the admitting physician. Dr. Jasso knows this patient from previous hospitalization. - Data Points Medications Given: Atorvastatin Calcium (Lipitor) 80 mg PO HS JORGE Stop: 08/03/18 20:59 Last Admin: 02/04/18 21:45 Dose: 80 mg Capsaicin (Capsaicin 0.025%) 1 camilla TP TID JORGE Stop: 08/03/18 21:59 Last Admin: 02/04/18 21:46 Dose: 1 camilla Carvedilol (Coreg) 25 mg PO BIDMEAL JORGE Stop: 08/03/18 17:59 Last Admin: 02/04/18 18:04 Dose: 25 mg Gabapentin (Neurontin) 200 mg PO TID JORGE Stop: 08/03/18 21:59 Last Admin: 02/04/18 21:45 Dose: 200 mg Gabapentin (Neurontin) 800 mg PO TID JORGE Stop: 08/03/18 21:59 Last Admin: 02/04/18 21:45 Dose: 800 mg Insulin Glargine (Lantus Syringe) 20 units SC BID JORGE Stop: 08/03/18 20:59 Last Admin: 02/04/18 22:34 Dose: 20 units Metformin HCl (Glucophage) 1,000 mg PO BIDMEAL JORGE Stop: 08/03/18 17:59 Last Admin: 05/25/18 18:05 Dose: 1,000 mg Rivaroxaban (Xarelto) 20 mg PO DAILY@18 JORGE Stop: 08/03/18 17:59 Last Admin: 02/04/18 18:05 Dose: 20 mg Senna/Docusate Sodium (Senokot-S) 1 tab PO BID [facility] Stop: 08/03/18 20:59 Last Admin: 02/04/18 21:46 Dose: 1 tab Discontinued Medications Sodium Polystyrene Sulfonate (Kayexalate) 15 gm PO EDNOW ONE Stop: 02/04/18 16:32 Last Admin: 02/04/18 16:40 Dose: 15 gm Departure - Departure Disposition: [facility] Inpatient Acute Clinical Impression: Hyperkalemia Condition: Good
[2018-02-04] MEDS ORDERED: NON-FORMULARY NEW DRUG (Gabapentin [Gabapentin 800 Mg] 800 MG) PO SCH (22:00)
[2018-02-04] MEDS: INSULIN GLARGINE 100 UNITS/ML UNIT SC SCH (22:34)
[2018-02-04] MEDS ORDERED: D50W 25 GM/50 ML VIAL IVP PRN (23:44)
--- NOTE | 2018-02-05 07:59 | HOSPPROG ---
Hospitalist Progress Note Assessment/Plan: 57-y/o MMP recently hospitalized for BKA RL due to diabetic wounds/osteo. PMH DM , PVD, AF on OAC, htn, DCHF, CAD with stents in 2011. During hospitalization for BKA, did have some SHEILA with hyperkalemia. Lisinopril and Spironolactone held and patient hydrated. Resumed those 2 agents at time of d/c and transferred to in rehab at . 1st encounter. Inpatient and outpatient notes reivewed. ECG personally interpreted (AF) #hyperkalemia - in patient who recently had an episode of hyperkalemia during acute renal failure -His Aldactone most likely the aggravating factor but possibly also Lisinopril -both are on hold -K down to 5 -hold IV hydration and recheck BMP tomorrow # s/p BKA for chronic osteomyelitis and nonhealing diabetic foot ulcers -Has been doing well from a wound standpoint in terms of his rehab but needs further rehab -Is stating that he will not go back to the [address] [place] [address] unit so will need case management to get involved promptly to begin sorting out what our next plan will be -I personally reviewed with patient that it was appropriate for him to be transferred here #recent SHEILA now resolved -Cr 1.1 # chronic DCHF -He tolerated stopping these medicines for his episode of renal failure and hyperkalemia a couple weeks ago, but will need to watch closely so will be getting daily weights -Will trial hydralazine fro afterload reduction #DM2 -BS control has been good through his surgical admission and rehab stay so far #AF -appears permanent -continue Rivaroxaban Tobacco use: - continue counseling for cessation and support # DVT ppx -continue Xarelto PLANS: -inpatient admission for the above and below -1st dose of Kayexalate given yesterday in the ER will recheck his potassium in AM -hold off on Aldactone and lisinopril for now -start Hydralazine -ADD: follow BMP and await placement -case management will need to weigh in. The patient does not appear likely to be ready to go home but is declining to be transferred back to the [address] [place] [address] rehab unit after his stay here. Particularly as this is the weekend, our options may be limited in terms of what we can get started at this time. Subjective: Feels well. No edema, palps, cp. Objective: Vital Signs Temp Pulse Resp BP Pulse Ox 97.7 F 111 H 16 143/86 H 95 02/05/18 07:39 02/05/18 07:39 02/05/18 07:39 02/05/18 07:39 02/05/18 07:39 Laboratory Results 02/05/18 04:16 02/04/18 02/05/18 02/06/18 05:59 05:59 05:59 Intake Total 500 Output Total 800 250 Balance -300 -250 - Physical Exam Constitutional: appears nourished Ears, Nose, Mouth, Throat: moist mucous membranes Cardiovascular: regular rate and rhythym, no murmur, rub, or gallop Respiratory: no respiratory distress, no rales or rhonchi Genitourinary: No [place]oughby in urethra Neurologic: AAOx3 Psychiatric: interacting appropriately, not anxious ICD10 Worksheet Patient Problems: Problems Problem Status Onset Hyperkalemia Acute Acute exacerbation of congestive heart failure Acute Afib Acute Bradycardia Acute Cellulitis of right foot Acute Dyspnea Acute Nicotine dependence Acute Reactive airway disease with wheezing Acute Wound infection Acute
[2018-02-05] MEDS: CARVEDILOL 25 MG TAB PO SCH (08:08)
[2018-02-05] MEDS: oxyCODONE IR 5 MG TAB PO PRN ×2 (08:09→15:27)
[2018-02-05] MEDS: metFORMIN HCL 500 MG TAB PO SCH (08:09)
[2018-02-05] MEDS: GABAPENTIN 400 MG CAP PO SCH ×2 (08:09→16:37)
[2018-02-05] MEDS: GABAPENTIN 100 MG CAP PO SCH ×2 (08:09→16:38)
[2018-02-05] MEDS: INSULIN LISPRO 100 UNIT/ML SC SCH ×2 (08:10→12:26)
[2018-02-05] MEDS: SENNOSIDES/DOCUSATE SODIUM TAB PO SCH (08:11)
[2018-02-05] MEDS: CAPSAICIN 0.025% CREAM TP SCH ×2 (08:15→16:37)
[2018-02-05] MEDS ORDERED: CLOPIDOGREL BISULFATE 75 MG TAB PO SCH (09:00)
[2018-02-05] MEDS ORDERED: DILTIAZEM CD 120 MG CAP PO SCH (09:00)
[2018-02-05] MEDS ORDERED: FUROSEMIDE 40 MG TAB PO SCH (09:00)
[2018-02-05] MEDS: INSULIN GLARGINE 100 UNITS/ML UNIT SC SCH (09:20)
--- NOTE | 2018-02-05 10:31 | SOAPPROG ---
SOAP Progress Note Assessment/Plan: Assessment/Plan: 57 Y M s/p BKA at separate admission. Admitted from [facility] with hyperkalemia. Not officially consulted but thru RN learned of patient's admission. I changed his BKA site dressing today. Stump flap has some rubor, but not erythematous or warm. Incision is clean, intact. Very min seresanguinous drainage from 2 sites along incision. Overall looks good and healing well. 02/05/18 10:29 Objective: Vital Signs Temp Pulse Resp BP Pulse Ox 36.5 C 111 H 16 143/86 H 95 02/05/18 07:39 02/05/18 07:39 02/05/18 07:39 02/05/18 07:39 02/05/18 07:39 Laboratory Results 02/05/18 04:16 02/04/18 02/05/18 02/06/18 05:59 05:59 05:59 Intake Total 500 Output Total 800 550 Balance -300 -550 ICD10 Worksheet Patient Problems: Problems Problem Status Onset Hyperkalemia Acute Acute exacerbation of congestive heart failure Acute Afib Acute Bradycardia Acute Cellulitis of right foot Acute Dyspnea Acute Nicotine dependence Acute Reactive airway disease with wheezing Acute Wound infection Acute
[2018-02-05 11:20] VITALS: BP 134/83
--- NOTE | 2018-02-05 13:49 | PDIAF ---
- Diagnosis Code Status: Full Code - Medication Management Discharge Medications: Medications to Continue on Transfer Gabapentin [Neurontin 100 MG (*)] 200 mg PO TID 08/06/17 [Last Taken 02/04/18 08 :23] Clopidogrel Bisulfate [Plavix (*)] 75 mg PO DAILY 09/13/17 [Last Taken 02/04/18 08:23] Atorvastatin Calcium [Lipitor 80 mg] 80 mg PO HS 09/25/17 [Last Taken 02/03/18 22:19] Furosemide [Lasix 40 MG (*)] 40 mg PO DAILY 09/25/17 [Last Taken 02/04/18 09:53] Metformin HCl [Metformin 1000 mg] 1,000 mg PO BIDMEAL 09/25/17 [Last Taken 02/04 08:23] Gabapentin [Gabapentin 800 mg] 800 mg PO TID 01/26/18 [Last Taken 02/04/18 08:25 ] Rivaroxaban [Xarelto] 20 mg PO DAILY@18 01/26/18 [Last Taken 02/03/18] Capsaicin 0.025% 1 camilla TP TID #1 cream 02/02/18 [Last Taken 02/02/18 09:26] Diltiazem Cd [Cardizem ER 120 MG (*)] 120 mg PO DAILY #30 cap 02/02/18 [Last Taken 02/04/18 08:25] Acetaminophen [Tylenol 325mg (*)] 650 mg PO Q4 PRN 02/04/18 [Last Taken 09:52] Carvedilol [Coreg (*)] 25 mg PO BIDMEAL 02/04/18 [Last Taken 02/04/18 08:24] Insulin Glargine [Lantus 100 UNITS/ML (*)] 20 units SC BID 02/04/18 [Last Taken 02/04/18 08:25] Insulin Lispro [Humalog] 0 unit SQ TIDMEAL 02/04/18 [Last Taken 02/04/18 12:22] Polyethylene Glycol 3350 [Miralax 17 gm (*)] 17 gm PO DAILY PRN 02/04/18 [Last Taken Unknown] Sennosides/Docusate Sodium [Senokot-S] 1 - 2 each PO BID 02/04/18 [Last Taken 08:23] oxyCODONE IR [Oxycodone Ir (*)] 5 - 15 mg PO Q3 PRN 02/04/18 [Last Taken 09:52] Acetaminophen [Tylenol 325mg (*)] 650 mg PO Q4HRS PRN tab 02/05/18 [Last Taken Unknown] Insulin Lispro [HumaLOG LISPRO] 0 unit SC TIDMEAL unit 02/05/18 [Last Taken Unknown] hydrALAZINE [Apresoline 10 mg (*)] 10 mg PO BID tab 02/05/18 [Last Taken Unknown] Discharge Medications: Refer to the Discharge Home Medication list for PRN reason. - Orders Services needed: Registered Nurse, Physical Therapy, Occupational Therapy Isolation Type: None Diet Recommendation: ADA 2200 consistent carb Diet Texture: Regular Texture Diet Weigh Patient: daily - Labs/Radiology BMP Date: 02/08/18 - Follow Up Care Current Providers and Referrals: NONE *PRIMARY CARE P,. [Primary Care Provider] - Corky Garcia MD [Medical Doctor] - (1 month)
--- NOTE | 2018-02-05 14:10 | ASMTCMCOM ---
CM Note CM Note Notes: Spoke w/pt re; returning to Inpt Rehab. Pt does not want to return, he stated he did not like the doctor there and also did not like the fact he had to do speech therapy. Pt did say that he was happy with nursing and other therapies. CM encouraged pt to return because of the PT/OT, advising that he would not get as intense or structured therapies at a SNF. Pt is polite but still will not go back, stating he always goes "with my instinct". On previous admission referral was sent to [facility], CM called Shelbie and she will accept pt today. Pt asked CM to call to let her know. DC Plan: SNF/ [facility] Date Signed: 02/05/2018 02:10 PM Electronically Signed By:Tabby Conde RN
--- NOTE | 2018-02-05 17:06 | ASDISCHSUM ---
Discharge Information Plan Status:SNF Medically Cleared to Leave: Discharge Date:02/05/2018 04:55 PM CM D/C Disposition:Custodial Facility ADT D/C Disposition:Custodial Facility Projected Discharge Date:02/05/2018 11:00 AM Transportation at D/C:Wheelchair Van Discharge Delay Reason: Follow-Up Date:02/05/2018 11:00 AM Discharge Slot: Final Diagnosis: Placement Information Referral Type:*Long-Term/SNF Referral ID:[id number] Provider Name:[facility] Address 1:[address] Address 2: City:[place] Selection Factors: State:[place] Patient Contact Information Contact Name:MATTALICIOlivier Relationship: Address[address] City:[place] Alternate Phone: State/Zip Code:[place] [address] Email: Financial Information Financial Class:Medicare Primary Plan Desc:MEDICARE REHAB INPATIENT Primary Plan Number:[id number] Secondary Plan Desc: Secondary Plan Number: Assessment Information [facility] Progress Note CM Note CM Note Notes: Spoke w/pt re; returning to Inpt Rehab. Pt does not want to return, he stated he did not like the doctor there and also did not like the fact he had to do speech therapy. Pt did say that he was happy with nursing and other therapies. CM encouraged pt to return because of the PT/OT, advising that he would not get as intense or structured therapies at a SNF. Pt is polite but still will not go back, stating he always goes "with my instinct". On previous admission referral was sent to [facility], RUDOLPH called Shelbie and she will accept pt today. Pt asked CM to call to let her know. DC Plan: SNF/ [facility] Date Signed: 02/05/2018 02:10 PM Electronically Signed By:Tabby Conde RN Case Management Discharge Plan Note Case Management Discharge Discharge Order Complete? Answers: Yes Patient to Obtain Answers: Other Notes: [facility] Medications Transportation Arranged Answers: Other Transport will Pick (Date 02/05/2018 04:30 PM & Time) Faxed Final Orders Answers: Yes Agency/Facility Transfer Answers: Yes Report Printed & Faxed to Receiving Agency Family Notified Answers: Yes Discharge Comments Notes: [facility], final orders faxed, Shelbie miramontes notified. RN to call report. Date Signed: 02/05/2018 02:20 PM Electronically Signed By:Tabby Conde RN Intervention Information
--- NOTE | 2018-02-05 20:03 | GDS ---
[f rep st] DISCHARGE SUMMARY DISCHARGE DIAGNOSES: 1. Hyperkalemia, now resolved after hydration and 1 dose of Kayexalate. 2. Diastolic congestive heart failure. 3. Recent below-knee amputation secondary to chronic osteomyelitis, peripheral vascular disease, and nonhealing diabetic foot ulcers. 4. Recent acute kidney injury, now resolved. 5. Type 2 diabetes mellitus. 6. Likely permanent atrial fibrillation on chronic anticoagulation. 7. Ongoing tobacco abuse. BRIEF HISTORY: Please see dictated H and P from Dr. Jasso for complete details. In brief, the edilberto ent is a 57-year-old male transferred from inpatient rehab due to hyperkalemia. It was noted that hi s potassium at rehab was up to 6.3. He was transferred to the ED and ultimately admitted. He was in itiated on the hyperkalemia protocol including hydration and Kayexalate. On day of discharge, his po tassium is 5. We discussed that he should be permanently off his spironolactone. Additionally, his lisinopril has been discontinued, and he has been started on hydralazine. HOSPITAL COURSE BY PROBLEM: 1. Hyperkalemia, now resolved off spironolactone and lisinopril. 2. Diastolic congestive heart failure. He appears mostly euvolemic. His lisinopril is not being re placed with hydralazine. He may continue his carvedilol therapy. 3. Recent BKA. He requires ongoing intensive therapy and he requests to be transferred to a [facility] rehab facility. He is therefore being transferred to [facility] at this time. He is to follow up with Dr. Tello and the surgery team. 4. Recent acute kidney injury. His creatinine through this hospitalization has been 1.1. 5. Type 2 diabetes mellitus. His blood sugars look well controlled. His home insulin therapies hav e been continued. 6. Permanent atrial fibrillation. His Xarelto is being continued. 7. Tobacco abuse. Will recommend ongoing cessation education while he is in the rehab facility. PHYSICAL EXAM: VITAL SIGNS: On day of discharge, blood pressure 134/83, heart rate of 103, respirat ions 21, O2 saturation 94% on room air, temp of 97.8 degrees Fahrenheit. GENERAL: He is a pleasant male in no apparent distress. HEENT: Normocephalic, atraumatic. HEART: Regular rate and rhythm. LUNGS: Clear to auscultation. ABDOMEN: Soft. He has a right BKA. Left lower extremity without si gnificant edema. RESULTS PENDING: None. DIET: Per previous. ACTIVITY: 1. Per rehab. DISCHARGE MEDICATIONS: Please see med reconciliation for complete details. FOLLOWUP INSTRUCTION: 1. Follow up with General Surgery. 2. Follow up with [facility] in 2-4 weeks' time. /[id number]/MODL
[2018-02-05] MEDS ORDERED: hydrALAZINE 10 MG TAB PO SCH (21:00)
== END 2018-02-05 16:55 | DRG 641 ==
LOC: EDUNIT# → F3E 17:30
PROVIDERS: ADMIT Internal Medicine; ATTEND Internal Medicine
DX: E87.5 Hyperkalemia (principal); I50.32 Chronic diastolic (congestive) heart failure; Z89.511 Acquired absence of right leg below knee; E11.51 Type 2 diabetes mellitus with diabetic peripheral angiopathy without gangrene; I48.2 Chronic atrial fibrillation; I25.10 Atherosclerotic heart disease of native coronary artery without angina pectoris; Z79.01 Long term (current) use of anticoagulants; Z72.0 Tobacco use; Z95.5 Presence of coronary angioplasty implant and graft
CPT/HCPCS: J1815

== ENCOUNTER → 2018-03-01 | Outpatient (CLI) | payer OTHER | LOC: BHFA 15:15 | PROVIDERS: ATTEND Internal Medicine Cardiovascular Disease | DX: I48.91 Unspecified atrial fibrillation (principal); I50.32 Chronic diastolic (congestive) heart failure; I25.119 Atherosclerotic heart disease of native coronary artery with unspecified angina pectoris; I87.2 Venous insufficiency (chronic) (peripheral) ==

== ENCOUNTER 2018-05-05 18:56 | Emergency (ER) | payer OTHER ==
[2018-05-05] MEDS ORDERED: HYDROCODONE/APAP 5/325 TAB ONE (20:37)
[2018-05-05] MEDS ORDERED: HYDROCODONE/APAP 5/325 TAB PO ONE (20:37)
--- NOTE | 2018-05-05 22:08 | EDPHY ---
H & P Smoking Status: Light smoker Time Seen by Provider: 05/05/18 19:33 HPI/ROS: CHIEF COMPLAINT: Left thigh pain, concerned about possible DVT HISTORY OF PRESENT ILLNESS: 57-year-old male originally from [facility] presents to the emergency department with his daughter complaining of pain in his left thigh over last 3 days. He denies any known trauma or injury. He does state that he has been using his wheelchair and sitting for more of a prolonged time that he normally does. He is concerned about possible DVT in his left thigh. 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 He has "stents" in his lower legs. He has chronic edema in his lower extremities and typically wears compression hose and uses furosemide. His daughter states that the swelling in his left leg has actually improved some. He was recently admitted to the hospital with infection in his right leg in the below the knee amputation. He is currently on oral antibiotics. He has not noticed any fevers or chills. No abdominal pain. No other reported trauma. REVIEW OF SYSTEMS: Constitutional: No fever, no chills. Eyes: No double or blurry vision. ENT: No sore throat. Respiratory: No cough, no shortness of breath. Cardiac: No chest pain. Gastrointestinal: No abdominal pain, vomiting or diarrhea. Genitourinary: No dysuria. Musculoskeletal: No neck or back pain. Skin: No rashes. Neurological: No headache. (Mcay Leigh) Past Medical/Surgical History: Diabetes, right lybem-yro-lrec amputation, infection right stump currently on antibiotics, peripheral vascular disease, hypertension, coronary artery disease , diabetes with neuropathy (Macy Leigh) Social History: and lives in [place] (Macy Leigh) Physical Exam: General Appearance: Alert, no distress. Afebrile. No apparent distress. Eyes: Pupils equal and round. Extraocular motions are all intact. ENT: Mouth: Mucous membranes moist. Respiratory: No wheezing, rhonchi, or rales, lungs are clear to auscultation. Cardiovascular: Regular rate and rhythm. Gastrointestinal: Abdomen is soft and nontender, no masses, no rebound or guarding, bowel sounds normal. Neurological: Alert and oriented x 3, cranial nerves II through XII grossly intact Skin: Warm and dry, no rashes. Musculoskeletal: Nontender to palpate along the cervical, thoracic or lumbar spine. Neck is supple. Extremities: Right rneil-ghx-yqhb amputation noted with dressing in place which was not removed. Patient has edema noted to the left lower extremity. His skin is warm and dry. His foot is warm. Palpable dorsalis pedis pulse on the dorsal aspect of the left foot. He has full range of motion of the left lower extremity. He is able to actively lift his left leg without difficulty although this does cause pain. He denies pain with palpation to the anterior aspect of the left thigh. He points to his left proximal and left mid thigh assist source of pain. Psychiatric: Patient is oriented X 3, there is no agitation. (Macy Leigh) Constitutional: Initial Vital Signs Temperature (C) 36.8 C 05/05/18 19:25 Heart Rate 102 H 05/05/18 19:25 Respiratory Rate 16 05/05/18 19:25 Blood Pressure 135/93 H 05/05/18 19:25 O2 Sat (%) 92 05/05/18 19:25 O2 Delivery Mode Room Air Allergies/Adverse Reactions: No Known Allergies Allergy (Verified 04/16/18 11:10) Home Medications: Medication Instructions Recorded Gabapentin [Neurontin 100 MG (*)] 200 mg PO TID 08/06/17 Clopidogrel Bisulfate [Plavix (*)] 75 mg PO DAILY 09/13/17 Atorvastatin Calcium [Lipitor 80 80 mg PO HS 09/25/17 mg] Furosemide [Lasix 40 MG (*)] 80 mg PO DAILY 09/25/17 Metformin HCl [Metformin 1000 mg] 1,000 mg PO BIDMEAL 09/25/17 Gabapentin [Gabapentin 800 mg] 800 mg PO TID 01/26/18 Rivaroxaban [Xarelto] 20 mg PO DAILY@18 01/26/18 Diltiazem Cd [Cardizem ER 120 MG 120 mg PO DAILY #30 cap 02/02/18 (*)] Carvedilol [Coreg (*)] 25 mg PO BIDMEAL 02/04/18 oxyCODONE IR [Oxycodone Ir (*)] 5 - 15 mg PO Q3 PRN 02/04/18 Insulin Aspart [novoLOG] 20 - 25 unit SC TIDMEAL 04/16/18 Insulin Detemir [Levemir] 50 unit SQ BID 08/04/18 Amoxicillin/Clavulanate Pot 875 mg PO BID #60 tab 04/20/18 [Augmentin 875 MG TAB (*)] Medical Decision Making - Diagnostics Imaging: Discussed imaging studies w/ call out operator Radiologist ED Course/Re-evaluation: 57-year-old male presents to the emergency department with left thigh pain. There is no evidence of DVT on ultrasound. Apparently this was a limited study however the radiologist does not feel that further imaging is necessary. The patient feels comfortable being discharged home. I encouraged close follow- up with primary care provider tomorrow or Wednesday to recheck. He was instructed to return to the emergency department sooner if he developed increasing pain or swelling, or if he felt worse in any way. He was comfortable with this plan. The case was discussed with Dr. Ernie Wong, secondary supervising physician, who did not directly evaluate the patient but agrees with treatment and plan including discharged home with follow-up with primary care provider. (Macy Leigh) I did not see this patient while he was in the emergency department. However his care was discussed with the PA while the patient was in the department. I agree with treatment plan and management (Ernie Wong) Differential Diagnosis: Including but not limited to DVT, muscular spasm, contusion, peripheral vascular disease, arterial occlusion (Macy Leigh) - Data Points Medications Given: Discontinued Medications Hydrocodone Bitart/Acetaminophen (Emily 5/325) 1 tab PO EDNOW ONE Stop: 05/05/18 20:38 Last Admin: 05/05/18 20:40 Dose: 1 tab Departure - Departure Disposition: Home, Routine, Self-Care Clinical Impression: Left thigh pain Condition: Good Instructions: Muscle Cramp (ED) Additional Instructions: Follow-up with your primary care provider tomorrow or Wednesday to recheck. Return to the emergency department if you develop increasing pain, increasing swelling to your left leg, or if you developed fever or feel worse in any way. Referrals: Palak Velez, PAC [Primary Care Provider] - As per Instructions
[2018-05-06 04:39] VITALS: BP 144/75
== END 2018-05-05 22:18 | disposition home or self-care (01) ==
DX: M79.662 Pain in left lower leg (principal); T87.43 Infection of amputation stump, right lower extremity; E11.40 Type 2 diabetes mellitus with diabetic neuropathy, unspecified; I10 Essential (primary) hypertension; I25.10 Atherosclerotic heart disease of native coronary artery without angina pectoris; Z86.718 Personal history of other venous thrombosis and embolism; Z89.511 Acquired absence of right leg below knee

== ENCOUNTER 2018-05-20 19:33 | Inpatient (IN) | payer OTHER ==
[2018-05-20] MEDS ORDERED: NS 500 ML IV ONE (20:03)
--- NOTE | 2018-05-20 20:08 | EDPHY ---
HPI/HX/ROS/PE/MDM Narrative: CHIEF COMPLAINT: Shortness of breath HISTORY OF PRESENT ILLNESS: The patient is an anticoagulated (Xarelto) 57 y/o male with a history of atrial fibrillation, cardiac stents, CAD, COPD, CHF complaining of shortness of breath , onset 2 days ago. He denies using supplemental oxygen at home. He states he is not coughing anything up but believes he is retaining water in his lungs. He denies history of being put on a ventilator. No fever, chills, chest pain, palpitations, vomiting, diarrhea, urinary complaints, headache, lightheadedness. REVIEW OF SYSTEMS: Aside from elements discussed in the HPI, a comprehensive 10 system review of systems was reviewed and is negative. PAST MEDICAL HISTORY: Atrial fibrillation, cardiac stents, CAD, COPD, CHF, DVT's , hypertension, diabetes, arthritis, sleep apnea, neuropathy, right below knee amputation SOCIAL HISTORY: Lives in [place], , family at bedside, smoker, originally from [facility] VITAL SIGNS: Reviewed by me GENERAL: Ill appearing, well-nourished, resting comfortably in no respiratory distress. HEENT: Atraumatic. Eyes: No icterus, no injection. Mouth: moist mucous membranes. No erythema or lesions. Neck: supple with no adenopathy. LUNGS: Audible wheezes, I am unable to hear his breath sounds due to the wheezes CARDIAC: Irregular tachycardia, no rubs, murmurs or gallops. ABDOMEN: Soft, nontender, nondistended, bowel sounds normal. BACK: No CVA tenderness. EXTREMITIES: Right BKA, pitting edema on the left. Range of motion is normal throughout. NEURO: Alert and oriented, grossly nonfocal. SKIN: Warm and dry, no rash. PSYCHIATRIC: Normal mentation, no agitation. Portions of this note were transcribed by a medical office scheduler. I personally performed a history, physical exam, medical decision making, and confirmed accuracy of information the transcribed note. ED Course: The patient is an anticoagulated (Xarelto) 57 y/o male with a history of atrial fibrillation, cardiac stents, CAD, COPD, CHF presenting with shortness of breath , onset 2 days ago. On exam he is ill appearing, has audible wheezes, is irregularly tachycardic, and has pitting edema on the left. At triage his O2Sats are 86% on room air. Labs, chest x-ray, and EKG ordered. Bi-PAP with a continuous nebulizer, 10mg IV Cardizem, 125mg IV Solu-Medrol, and 4mg IV Morphine administered. I have also called the respiratory therapist to monitor this patient. 2030: 12-LEAD EKG: Please see the full report in [facility]. My interpretation: Atrial fibrillation with a rate of 131, ventricular premature complex, abnormal Q waves, old anterior infarct 2038: I reviewed patient's chest x-ray at bedside which does not reveal a pneumonia. There is evidence of cephalization. 2102: Patient's POC troponin is 0.09 2110: I consulted with the hospitalist service, Dr. Babin accepts admission of this patient for his shortness of breath and wheezing. 2114: Reassessed patient and discussed plan for admission, which he is comfortable with. - Data Points Imaging Results: Imaging Impressions Chest X-Ray 05/20/18 20:26 Impression: Cardiomegaly. Imaging: I viewed and interpreted images myself Laboratory Results: Laboratory Results 05/20/18 20:02 05/20/18 20:02 05/20/18 05/20/18 05/20/18 20:56 20:48 20:02 WBC RBC Hgb POC Hgb 15.0 gm/dL gm/dL (13.7-17.5) Hct POC Hct 44 % % (40-51) MCV MCH MCHC RDW Plt Count MPV Neut % (Auto) Lymph % (Auto) [place] % (Auto) Eos % (Auto) Baso % (Auto) Nucleat RBC Rel Count Absolute Neuts (auto) Absolute Lymphs (auto) Absolute Monos (auto) Absolute Eos (auto) Absolute Basos (auto) Absolute Nucleated RBC Immature Gran % Immature Gran # PT INR VBG Lactic Acid POC Sodium 141 mEq/L mEq/L (135-145) Sodium POC Potassium 3.7 mEq/L mEq/L (3.3-5.0) Potassium POC Chloride 100 mEq/L mEq/L (97-110) Chloride Carbon Dioxide Anion Gap POC BUN 22 mg/dL mg/dL (7-23) BUN Creatinine POC Creatinine 1.0 mg/dL mg/dL (0.7-1.3) Estimated GFR Glucose POC Glucose 152 mg/dL H mg/dL (70-100) Calcium Total Bilirubin 0.5 mg/dL mg/dL (0.1-1.4) Conjugated Bilirubin 0.2 mg/dL mg/dL (0.0-0.5) Unconjugated Bilirubin 0.3 mg/dL mg/dL (0.0-1.1) AST 54 IU/L IU/L (17-59) ALT 31 IU/L IU/L (21-72) Alkaline Phosphatase 84 IU/L IU/L (38-126) POC Troponin I 0.09 ng/mL H ng/mL (0.00-0.08) NT-Pro-B Natriuret Pep 1910 pg/mL H pg/mL (0-125) Total Protein 7.8 g/dL g/dL (6.3-8.2) Albumin 4.0 g/dL g/dL (3.5-5.0) Lipase 40 IU/L IU/L (23-300) 05/20/18 05/20/18 05/20/18 20:02 20:02 20:02 WBC 7.42 10^3/uL 10^3/uL (3.80-9.50) RBC 4.63 10^6/uL 10^6/uL (4.40-6.38) Hgb 13.5 g/dL L g/dL (13.7-17.5) POC Hgb Hct 42.4 % % (40.0-51.0) POC Hct MCV 91.6 fL fL (81.5-99.8) MCH 29.2 pg pg (27.9-34.1) MCHC 31.8 g/dL L g/dL (32.4-36.7) RDW 15.5 % H % (11.5-15.2) Plt Count 217 10^3/uL 10^3/uL (150-400) MPV 10.6 fL fL (8.7-11.7) Neut % (Auto) 52.6 % % (39.3-74.2) Lymph % (Auto) 27.6 % % (15.0-45.0) [place] % (Auto) 16.4 % H % (4.5-13.0) Eos % (Auto) 2.6 % % (0.6-7.6) Baso % (Auto) 0.5 % % (0.3-1.7) Nucleat RBC Rel Count 0.0 % % (0.0-0.2) Absolute Neuts (auto) 3.90 10^3/uL 10^3/uL (1.70-6.50) Absolute Lymphs (auto) 2.05 10^3/uL 10^3/uL (1.00-3.00) Absolute Monos (auto) 1.22 10^3/uL H 10^3/uL (0.30-0.80) Absolute Eos (auto) 0.19 10^3/uL 10^3/uL (0.03-0.40) Absolute Basos (auto) 0.04 10^3/uL 10^3/uL (0.02-0.10) Absolute Nucleated RBC 0.00 10^3/uL 10^3/uL (0-0.01) Immature Gran % 0.3 % % (0.0-1.1) Immature Gran # 0.02 10^3/uL 10^3/uL (0.00-0.10) PT 18.8 SEC H SEC (12.0-15.0) INR 1.56 H (0.83-1.16) VBG Lactic Acid POC Sodium Sodium 139 mEq/L mEq/L (135-145) POC Potassium Potassium 4.0 mEq/L mEq/L (3.3-5.0) POC Chloride Chloride 101 mEq/L mEq/L (97-110) Carbon Dioxide 28 mEq/l mEq/l (22-31) Anion Gap 10 mEq/L mEq/L (8-16) POC BUN BUN 23 mg/dL mg/dL (7-23) Creatinine 0.9 mg/dL mg/dL (0.7-1.3) POC Creatinine Estimated GFR > 60 Glucose 160 mg/dL H mg/dL (70-100) POC Glucose Calcium 9.0 mg/dL mg/dL (8.5-10.4) Total Bilirubin Conjugated Bilirubin Unconjugated Bilirubin AST ALT Alkaline Phosphatase POC Troponin I NT-Pro-B Natriuret Pep Total Protein Albumin Lipase 05/20/18 20:02 WBC RBC Hgb POC Hgb Hct POC Hct MCV MCH MCHC RDW Plt Count MPV Neut % (Auto) Lymph % (Auto) [place] % (Auto) Eos % (Auto) Baso % (Auto) Nucleat RBC Rel Count Absolute Neuts (auto) Absolute Lymphs (auto) Absolute Monos (auto) Absolute Eos (auto) Absolute Basos (auto) Absolute Nucleated RBC Immature Gran % Immature Gran # PT INR VBG Lactic Acid 1.7 mmol/L mmol/L (0.7-2.1) POC Sodium Sodium POC Potassium Potassium POC Chloride Chloride Carbon Dioxide Anion Gap POC BUN BUN Creatinine POC Creatinine Estimated GFR Glucose POC Glucose Calcium Total Bilirubin Conjugated Bilirubin Unconjugated Bilirubin AST ALT Alkaline Phosphatase POC Troponin I NT-Pro-B Natriuret Pep Total Protein Albumin Lipase Medications Given: Discontinued Medications Albuterol (Proventil Neb) 3 ml IH EDNOW ONE Stop: 05/20/18 20:26 Last Admin: 05/20/18 20:57 Dose: 3 ml Albuterol/Ipratropium (Duoneb) 3 ml IH EDNOW ONE Stop: 05/20/18 20:26 Last Admin: 05/20/18 20:33 Dose: 3 ml Diltiazem HCl (Cardizem 25 Mg/5 Ml Vial) 10 mg IVP EDNOW ONE Stop: 05/20/18 20:29 Last Admin: 05/20/18 20:34 Dose: 10 mg Furosemide (Lasix Injection) 40 mg IVP EDNOW ONE Stop: 05/20/18 20:40 Last Admin: 05/20/18 21:09 Dose: 40 mg Sodium Chloride (Ns) 500 mls @ 0 mls/hr IV ONCE ONE PRN Reason: Wide Open Stop: 05/20/18 20:04 Last Admin: 05/20/18 20:07 Dose: Not Given Methylprednisolone Sodium Succinate (Solu-Medrol) 125 mg IVP EDNOW ONE Stop: 05/20/18 20:26 Last Admin: 05/20/18 20:34 Dose: 125 mg Morphine Sulfate (Morphine) 4 mg IVP EDNOW ONE Stop: 05/20/18 20:03 Last Admin: 05/20/18 20:07 Dose: Not Given Point of Care Test Results: Chemistry 05/20/18 05/20/18 20:56 20:48 POC Sodium 141 mEq/L mEq/L (135-145) POC Potassium 3.7 mEq/L mEq/L (3.3-5.0) POC Chloride 100 mEq/L mEq/L (97-110) POC BUN 22 mg/dL mg/dL (7-23) POC Creatinine 1.0 mg/dL mg/dL (0.7-1.3) POC Glucose 152 mg/dL H mg/dL (70-100) POC Troponin I 0.09 ng/mL H ng/mL (0.00-0.08) ISTAT H&H 05/20/18 20:56 POC Hgb 15.0 gm/dL gm/dL (13.7-17.5) POC Hct 44 % % (40-51) General Time Seen by Provider: 05/20/18 20:04 Initial Vital Signs: Initial Vital Signs Temperature (C) 36.8 C 05/20/18 19:41 Heart Rate 117 H 05/20/18 19:41 Respiratory Rate 20 05/20/18 19:41 Blood Pressure 92/76 L 05/20/18 19:41 O2 Sat (%) 86 L 05/20/18 19:41 O2 Delivery Mode Nasal Cannula O2 (L/minute) 7 Allergies/Adverse Reactions: No Known Allergies Allergy (Verified 04/16/18 11:10) Home Medications: Medication Instructions Recorded Gabapentin [Neurontin 100 MG (*)] 200 mg PO TID 08/06/17 Clopidogrel Bisulfate [Plavix (*)] 75 mg PO DAILY 09/13/17 Atorvastatin Calcium [Lipitor 80 80 mg PO HS 09/25/17 mg] Furosemide [Lasix 40 MG (*)] 80 mg PO DAILY 09/25/17 Metformin HCl [Metformin 1000 mg] 1,000 mg PO BIDMEAL 09/25/17 Gabapentin [Gabapentin 800 mg] 800 mg PO TID 01/26/18 Rivaroxaban [Xarelto] 20 mg PO DAILY@18 01/26/18 Carvedilol [Coreg (*)] 25 mg PO BIDMEAL 02/04/18 Insulin Aspart [novoLOG] 20 - 25 unit SC TIDMEAL 04/16/18 Insulin Detemir [Levemir] 50 unit SQ BID 04/16/18 Amoxicillin/Clavulanate Pot 875 mg PO BID #60 tab 04/20/18 [Augmentin 875 MG TAB (*)] Azithromycin [Zithromax] 500 mg PO DAILY 05/20/18 Diltiazem Cd [Cardizem ER 120 MG 120 mg PO DAILY@15 05/20/18 (*)] Ibuprofen [Ibu] 400 mg PO DAILY PRN 05/20/18 Departure - Departure Disposition: [facility] Inpatient Acute Clinical Impression: Elevated troponin, SOB (shortness of breath), Wheezing Condition: Fair Report Scribed for: Yuli Sena Report Scribed by: Justina Lemus Date of Report: 05/20/18 Time of Report: 20:08
[2018-05-20] MEDS ORDERED: methylPREDNISolone SOD SUCC 125 MG/2 ML VIAL IVP ONE (20:25)
[2018-05-20] MEDS ORDERED: IPRATROPIUM/ALBUTEROL 3 ML DEYVIAL IH ONE (20:25)
[2018-05-20] MEDS ORDERED: DILTIAZEM 25 MG/5 ML VIAL IVP ONE (20:28)
[2018-05-20 20:33] LABS: PLATELET COUNT 217 10^3/uL (150-400)
[2018-05-20] MEDS ORDERED: FUROSEMIDE 40 MG/4 ML VIAL IVP ONE (20:39)
[2018-05-20] MEDS ORDERED: ALBUTEROL 3 ML DEYVIAL ONE (20:40)
[2018-05-20 20:42] LABS: INR 1.56 (0.83-1.16); PROTIME(PATIENT) 18.8 SEC (12.0-15.0)
[2018-05-20] MEDS: ALBUTEROL 3 ML DEYVIAL IH ONE ×3 (20:55→20:57)
[2018-05-20] MEDS ORDERED: ONDANSETRON DISINTEGRATING 4 MG TAB PO PRN (22:28)
[2018-05-20] MEDS ORDERED: ACETAMINOPHEN 325 MG TAB PO PRN (22:28)
[2018-05-20] MEDS ORDERED: ONDANSETRON 4 MG/2 ML VIAL IVP PRN (22:28)
[2018-05-20] MEDS ORDERED: ALBUTEROL 3 ML DEYVIAL IH PRN (22:28)
[2018-05-20] MEDS ORDERED: D50W 25 GM/50 ML SYR IVP PRN (22:31)
[2018-05-20] MEDS ORDERED: INSULIN GLARGINE 100 UNITS/ML UNIT SC SCH (22:45)
--- NOTE | 2018-05-21 00:03 | CPEKG ---
Test Reason : OPEN Blood Pressure : / mmHG Vent. Rate : 131 BPM Atrial Rate : 126 BPM P-R Int : 204 ms QRS Dur : 096 ms QT Int : 312 ms P-R-T Axes : 000 115 -89 degrees QTc Int : 461 ms Atrial fibrillation Ventricular premature complex Abnormal lateral Q waves Anterior infarct, old Confirmed by Yuli Sena ([id number]) on 05/21/2018 12:02:27 AM Referred By: Confirmed By:Yuli Sena
--- NOTE | 2018-05-21 01:31 | PDGENHP ---
History and Physical - Chief Complaint Shortness of breath - History of Present Illness 57 yo M w/ hx of AF, dCHF, DM, and RLE BKA c/b tibial OM presents with shortness of breath. The patient has been experiencing 2 days of viral URI symptoms including congestion, sore throat, and dry cough. His son has had similar symptoms. Over the course of the last day he has developed worsening shortness of breath. As a result he came to the ED for evaluation. Upon arrival in the ED patient was noted to be diffusely wheezing. His symptoms markedly improved with nebulizer treatment and steroids. At the time of my evaluation patient is breathing comfortably but still requiring O2 to maintain sats. Of note, he has history of R BKA stump tibial OM being treated with oral antibiotics. He has refused surgical management of this and is being followed by ID as an outpatient. Per review of the records it seems unlikely that this will heal completely with only oral antibiotics. Case discussed with Dr. Babin, previous records reviewed. History Information - Allergies/Home Medication List Allergies/Adverse Reactions: No Known Allergies Allergy (Verified 04/16/18 11:10) Home Medications: Gabapentin [Neurontin 100 MG (*)] 200 mg PO TID 08/06/17 [Last Taken 05/20/18 10 :00] Clopidogrel Bisulfate [Plavix (*)] 75 mg PO DAILY@15 09/13/17 [Last Taken ] Atorvastatin Calcium [Lipitor 80 mg] 80 mg PO HS 09/25/17 [Last Taken 05/19/18 22:00] Furosemide [Lasix 40 MG (*)] 80 mg PO DAILY 09/25/17 [Last Taken 05/20/18 10:00] Metformin HCl [Metformin 1000 mg] 1,000 mg PO BIDMEAL 09/25/17 [Last Taken 05/20 10:00] Gabapentin [Gabapentin 800 mg] 800 mg PO TID 01/26/18 [Last Taken 05/20/18 10:00 ] Rivaroxaban [Xarelto] 20 mg PO DAILY@18 01/26/18 [Last Taken 05/19/18] Carvedilol [Coreg (*)] 25 mg PO BIDMEAL 02/04/18 [Last Taken 05/20/18 10:00] Insulin Aspart [novoLOG] 20 - 25 unit SC TIDMEAL 04/16/18 [Last Taken 05/20/18 10:00] Insulin Detemir [Levemir] 40 unit SQ BID 04/16/18 [Last Taken 05/20/18 10:00] Azithromycin [Zithromax] 500 mg PO DAILY 05/20/18 [Last Taken 05/20/18 13:00] Diltiazem Cd [Cardizem ER 120 MG (*)] 120 mg PO DAILY@15 05/20/18 [Last Taken ] Ibuprofen [Ibu] 400 mg PO DAILY PRN 05/20/18 [Last Taken Unknown] I have personally reviewed and updated: family history, medical history - Past Medical History atrial fibrillation, coronary artery disease (hx [place] s/p PCI stent x 2), CHF ( diastolic), chronic insomnia, diabetes type 2, hypertension, hyperlipidemia, peripheral artery disease (bilateral stent) Additional medical history: Atrial fibrillation, on Xarelto. CAD, S/P PCI stent x2. hypertension. hyperlipidemia. diastolic CHF. 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 PHANI on O2 at HS. Diabetic neuropathy. chronic insomnia. obesity. diabetes mellitus type 2, on insulin. peripheral vascular disease right femoral stenting and bilateral iliac stenting. obstructive sleep apnea on nocturnal O2. Osteoarthritis, gout. History of bradycardia status post temporary transvenous pacer patient has declined permanent pacemaker placement. - Surgical History Additional surgical history: right foot TMA 10/2015, right BKA 01/27/2018. cardiac cath stent x2. Right femoral and bilateral iliac stenting. Trans venous pacer temporary - Family History Additional family history: father age 42 - pt unsure but may have been peritonitis/sepsis. mother with aneurysm/hemorrhage age 60s. 2 sons and 1 daughter are healthy. - Social History Smoking Status: Light smoker Additional social history: patient lives with his family, is originally from [facility], has been [place] many years. COR status FULL but refuses to discuss advanced directives/MDPOA in detail. Review of Systems Review of Systems: ROS: 10pt was reviewed & negative except for what was stated in HPI & below Physical Exam Physical Exam: Temp Pulse Resp BP Pulse Ox 37.0 C 127 H 22 H 147/87 H 91 L 05/20/18 23:30 05/20/18 23:30 05/20/18 23:30 05/20/18 23:30 05/20/18 23:30 O2 (L/minute) 3 Constitutional: no apparent distress, not in pain Eyes: PERRL, EOMI Ears, Nose, Mouth, Throat: moist mucous membranes, no oral mucosal ulcers Cardiovascular: regular rate and rhythym, no murmur, rub, or gallop Respiratory: no respiratory distress, expiratory wheeze, rhonchi Gastrointestinal: normoactive bowel sounds, soft, non-tender abdomen Skin: warm, normal color Musculoskeletal: full muscle strength, other (S/p R BKA) Neurologic: AAOx3, CN II-XII Intact Psychiatric: interacting appropriately, not anxious Lab Data & Imaging Review 05/20/18 20:02 05/20/18 20:02 WBC 7.42 10^3/uL (3.80-9.50) 05/20/18 20:02 RBC 4.63 10^6/uL (4.40-6.38) 05/20/18 20:02 Hgb 13.5 g/dL (13.7-17.5) L 05/20/18 20:02 POC Hgb 15.0 gm/dL (13.7-17.5) 05/20/18 20:56 Hct 42.4 % (40.0-51.0) 05/20/18 20:02 POC Hct 44 % (40-51) 05/20/18 20:56 MCV 91.6 fL (81.5-99.8) 05/20/18 20:02 MCH 29.2 pg (27.9-34.1) 05/20/18 20:02 MCHC 31.8 g/dL (32.4-36.7) L 05/20/18 20:02 RDW 15.5 % (11.5-15.2) H 05/20/18 20:02 Plt Count 217 10^3/uL (150-400) 05/20/18 20:02 MPV 10.6 fL (8.7-11.7) 05/20/18 20:02 Neut % (Auto) 52.6 % (39.3-74.2) 05/20/18 20:02 Lymph % (Auto) 27.6 % (15.0-45.0) 05/20/18 20:02 [place] % (Auto) 16.4 % (4.5-13.0) H 05/20/18 20:02 Eos % (Auto) 2.6 % (0.6-7.6) 05/20/18 20:02 Baso % (Auto) 0.5 % (0.3-1.7) 05/20/18 20:02 Nucleat RBC Rel Count 0.0 % (0.0-0.2) 05/20/18 20:02 Absolute Neuts (auto) 3.90 10^3/uL (1.70-6.50) 05/20/18 20:02 Absolute Lymphs (auto) 2.05 10^3/uL (1.00-3.00) 05/20/18 20:02 Absolute Monos (auto) 1.22 10^3/uL (0.30-0.80) H 05/20/18 20:02 Absolute Eos (auto) 0.19 10^3/uL (0.03-0.40) 05/20/18 20:02 Absolute Basos (auto) 0.04 10^3/uL (0.02-0.10) 05/20/18 20:02 Absolute Nucleated RBC 0.00 10^3/uL (0-0.01) 05/20/18 20:02 Immature Gran % 0.3 % (0.0-1.1) 05/20/18 20:02 Immature Gran # 0.02 10^3/uL (0.00-0.10) 05/20/18 20:02 PT 18.8 SEC (12.0-15.0) H 05/20/18 20:02 INR 1.56 (0.83-1.16) H 05/20/18 20:02 VBG Lactic Acid 1.7 mmol/L (0.7-2.1) 05/20/18 20:02 POC Sodium 141 mEq/L (135-145) 05/20/18 20:56 Sodium 139 mEq/L (135-145) 05/20/18 20:02 POC Potassium 3.7 mEq/L (3.3-5.0) 05/20/18 20:56 Potassium 4.0 mEq/L (3.3-5.0) 05/20/18 20:02 POC Chloride 100 mEq/L (97-110) 05/20/18 20:56 Chloride 101 mEq/L (97-110) 05/20/18 20:02 Carbon Dioxide 28 mEq/l (22-31) 05/20/18 20:02 Anion Gap 10 mEq/L (8-16) 05/20/18 20:02 POC BUN 22 mg/dL (7-23) 05/20/18 20:56 BUN 23 mg/dL (7-23) 05/20/18 20:02 Creatinine 0.9 mg/dL (0.7-1.3) 05/20/18 20:02 POC Creatinine 1.0 mg/dL (0.7-1.3) 05/20/18 20:56 Estimated GFR > 60 05/20/18 20:02 Glucose 160 mg/dL (70-100) H 05/20/18 20:02 POC Glucose 157 mg/dL (70-100) H 05/20/18 23:03 Calcium 9.0 mg/dL (8.5-10.4) 05/20/18 20:02 Total Bilirubin 0.5 mg/dL (0.1-1.4) 05/20/18 20:02 Conjugated Bilirubin 0.2 mg/dL (0.0-0.5) 05/20/18 20:02 Unconjugated Bilirubin 0.3 mg/dL (0.0-1.1) 05/20/18 20:02 AST 54 IU/L (17-59) 05/20/18 20:02 ALT 31 IU/L (21-72) 05/20/18 20:02 Alkaline Phosphatase 84 IU/L (38-126) 05/20/18 20:02 POC Troponin I 0.09 ng/mL (0.00-0.08) H 05/20/18 20:48 NT-Pro-B Natriuret Pep 1910 pg/mL (0-125) H 05/20/18 20:02 Total Protein 7.8 g/dL (6.3-8.2) 05/20/18 20:02 Albumin 4.0 g/dL (3.5-5.0) 05/20/18 20:02 Lipase 40 IU/L (23-300) 05/20/18 20:02 Imaging Review: Imaging Impressions Chest X-Ray 05/20/18 20:26 Impression: Cardiomegaly. Visualized and Interpreted EKG results: Yes EKG Interpretation: Positive for: other (AF w/ RVR) Assessment & Plan Assessment: 57 yo M w/ hx of AF, dCHF, DM, and RLE BKA c/b tibial OM presents with COPD exacerbation. Plan: 1. Presumed COPD with acute exacerbation - As far as I can tell patient does not have diagnosis of COPD, but he is an active smoker (10-15 cigs daily) with 40+ pack year history. He has clear signs of viral respiratory infection and is diffusely wheezing at the time of admission. His work of breathing is much improved after steroids and nebulizer treatment. - Azithromycin, prednisone x5 days - Duonebs puneet QID + albuterol q2h PRN - Respiratory viral panel pending 2. AHRF - 2/2 above; currently requiring 3 L/min O2 via NC to maintain O2 sats > 90%. - Continue O2, wean as able - Incentive spirometer ordered 3. dCHF - Patient appers mostly euvolemic on exam; he does have mild cephalization on CXR(personally interpreted) but his BNP is relatively similar to prior. He takes furosemide 40 mg PO daily. His last EF was 61%. - S/p Lasix 40 mg IV x1 in ED - Continue home Lasix 40 mg PO daily - Daily weights, monitor I/Os, cardiac diet 4. AF - With RVR initially upon arrival as a result of respiratory distress, rates now improved after treatment and diltiazem 10 mg IV x1. - Monitor on telemetry - Continue home diltiazem, rivaroxaban 5. IDDM - Manages BG at home with insulin glargine 30 u BID + SSI. - Will continue insulin glargine 30 u BID + insulin lispro standard SSI - BG checks ACHS, D50 PRN for hypoglycemia 6. Hx of R BKA c/b tibial OM - Patient has denied surgical management for this. He is currently on oral antibiotics and followed by ID. Per review of their notes, it seems unlikely this well heal completely with oral antibiotics only. - Continue Augmentin Diet - Cardiac Code - Full Ppx - Rivaroxaban Dispo - Admit under inpatient status
[2018-05-21 04:09] LABS: PLATELET COUNT 199 10^3/uL (150-400)
[2018-05-21] MEDS: IPRATROPIUM/ALBUTEROL 3 ML DEYVIAL IH SCH ×3 (06:11→17:32)
[2018-05-21] MEDS: predniSONE 20 MG TAB PO SCH (08:43)
[2018-05-21] MEDS: FUROSEMIDE 40 MG TAB PO SCH (08:43)
[2018-05-21] MEDS: CARVEDILOL 25 MG TAB PO SCH ×2 (08:44→18:07)
[2018-05-21] MEDS: INSULIN LISPRO 100 UNIT/ML SC SCH ×3 (08:44→18:09)
[2018-05-21] MEDS: AMOXICILLIN/CLAVULANATE POT 875/125 MG TAB PO SCH ×2 (08:44→21:09)
[2018-05-21] MEDS: GABAPENTIN 400 MG CAP PO PRN ×2 (08:45→15:36)
[2018-05-21] MEDS ORDERED: INSULIN GLARGINE 100 UNITS/ML UNIT SC SCH ×2 (09:00→21:00)
[2018-05-21] MEDS ORDERED: AZITHROMYCIN 250 MG TAB PO SCH (09:00)
--- NOTE | 2018-05-21 09:23 | PDMN ---
Medical Necessity Medical necessity: MCG M100 COPD: 57 y/o w/ new dx COPD w/ acute exacerbation, requiring O2 to maintain sats>90%, tachycardic, tachypneac, antibx & antivirals , steroids, nebs started, resp panel & BC pending, pt also being managed by ID for BKA issues. OT and wound consults pending. Admit to IP status anticipate> 2MN for ongoing monitoring and management. Hx multi comorbidities, smoker, AF, dCHF, CAD w/ [place] s/p PCI stent x2, HTN, PVD, DM, and RLE BKA c/b tibial OM
[2018-05-21] MEDS ORDERED: CLOPIDOGREL BISULFATE 75 MG TAB PO SCH (15:00)
[2018-05-21] MEDS ORDERED: DILTIAZEM CD 120 MG CAP PO SCH (15:00)
--- NOTE | 2018-05-21 16:14 | HOSPPROG ---
Hospitalist Progress Note Assessment/Plan: Subjective Follow-up on acute hypoxic respiratory failure. Patient tested positive for pinon virus as well as rhino virus. He states he had a sick feeling number who lives with him in his house. No complaints of any chest pain or chest pressure. Objective Vital signs as detailed below Exam General-patient appears comfortable he is sitting upright in his bed awake alert conversant no acute distress Heart-irregular no murmurs Lungs-normal respiratory effort but still with bilateral rhonchi and wheezing noted as well particularly anteriorly Abdomen-soft nontender nondistended -no Haider catheter in place Extremities-no significant pitting edema of the left lower extremity he has a right BKA no malodor noted to the BKA site Labs as detailed below Assessment and plan Acute hypoxic respiratory failure-he may have some element of chronic hypoxic respiratory failure as he states he was on oxygen in the past. Acutely seems to be in need of oxygen secondary to upper respiratory illness from pinon virus and rhino virus. He may have concurrent COPD which is undiagnosed considering his smoking history. Continue with steroids and nebulizers and wean oxygen as able. Upper respiratory infection-this appears to be viral in nature with PCR testing showing both pinon virus and rhino virus. He is on Augmentin as an outpatient for his right BKA so will continue with this antibiotic therapy and hold azithromycin. Chronic diastolic heart failure-continue current diuretic therapy. Atrial fibrillation-continue Coreg and diltiazem for rate control. Continue anticoagulation with Xarelto. Diabetes mellitus type 2-continue metformin as well as 30 units of Lantus. History of right BKA-continue antibiotic therapy for wound infection. DVT prophylaxis-patient is anticoagulated with Xarelto. Disposition-PT and OT while he is here in the hospital we will see how he does over the coming days and determine safe place for discharge. Objective: Vital Signs Temp Pulse Resp BP Pulse Ox 36.6 C 101 H 20 146/86 H 93 05/21/18 12:30 05/21/18 15:33 05/21/18 12:30 05/21/18 15:33 05/21/18 12:30 Laboratory Results 05/21/18 03:59 05/21/18 03:59 05/20/18 05/21/18 05/22/18 05:59 05:59 05:59 Intake Total 800 Output Total 450 350 Balance 350 -350 PT 18.8 SEC (12.0-15.0) H 05/20/18 20:02 INR 1.56 (0.83-1.16) H 05/20/18 20:02 ICD10 Worksheet Patient Problems: Problems Problem Status Onset Elevated troponin Acute SOB (shortness of breath) Acute Wheezing Acute Acute exacerbation of congestive heart failure Acute Afib Acute BKA stump complication Acute Bradycardia Acute Cellulitis of right foot Acute Cellulitis of right lower extremity Acute Dyspnea Acute Hyperkalemia Acute IDDM (insulin dependent diabetes mellitus) Acute Nicotine dependence Acute Reactive airway disease with wheezing Acute Wound infection Acute
--- NOTE | 2018-05-21 17:13 | ASMTCMCOM ---
CM Note CM Note Notes: Pt with numerous comorbidities in for shortness of breath, wheezing. Pt just at [facility] April 2018 for RLL cellulitis, left AMA 04/20/18. Pt on oral antibiotics and rec is AKA which pt does not want, likely not to heal on oral antibiotics. Pt had BKA January 2018. Pt has and family involved in care. Pt has been open with [facility] and been to [facility] January 2018. OT/PT evals pending. D/c plan of care TBD, likely HHC at least Date Signed: 05/21/2018 05:13 PM Electronically Signed By:PRINCE Puckett
[2018-05-21] MEDS ORDERED: RIVAROXABAN 20 MG TAB PO SCH (18:00)
[2018-05-21] MEDS ORDERED: INSULIN LISPRO 100 UNIT/ML SC ONE (18:30)
[2018-05-21] MEDS ORDERED: ATORVASTATIN CALCIUM 40 MG TAB PO SCH (21:00)
[2018-05-22] MEDS: GABAPENTIN 400 MG CAP PO PRN ×2 (00:22→09:33)
[2018-05-22] MEDS: IPRATROPIUM/ALBUTEROL 3 ML DEYVIAL IH SCH ×3 (00:23→11:06)
[2018-05-22] MEDS ORDERED: INSULIN GLARGINE 100 UNITS/ML UNIT SC SCH (09:00)
[2018-05-22] MEDS: INSULIN LISPRO 100 UNIT/ML SC SCH ×2 (09:03→12:54)
[2018-05-22] MEDS: AMOXICILLIN/CLAVULANATE POT 875/125 MG TAB PO SCH (09:04)
[2018-05-22] MEDS: FUROSEMIDE 40 MG TAB PO SCH (09:04)
[2018-05-22] MEDS: CARVEDILOL 25 MG TAB PO SCH (09:05)
[2018-05-22] MEDS ORDERED: ALBUTEROL 60 PUFFS/8 GM MDI IH PRN (09:24)
[2018-05-22 11:33] VITALS: BP 128/82
[2018-05-22] MEDS: predniSONE 20 MG TAB PO SCH (12:45)
--- NOTE | 2018-05-22 15:18 | PDIAF ---
- Diagnosis Code Status: Full Code - Medication Management Discharge Medications: Medications to Continue on Transfer Gabapentin [Neurontin 100 MG (*)] 200 mg PO TID 08/06/17 [Last Taken 05/20/18 10 :00] Clopidogrel Bisulfate [Plavix (*)] 75 mg PO DAILY@15 09/13/17 [Last Taken ] Atorvastatin Calcium [Lipitor 80 mg] 80 mg PO HS 09/25/17 [Last Taken 05/19/18 22:00] Furosemide [Lasix 40 MG (*)] 80 mg PO DAILY 09/25/17 [Last Taken 05/20/18 10:00] Metformin HCl [Metformin 1000 mg] 1,000 mg PO BIDMEAL 09/25/17 [Last Taken 05/20 10:00] Gabapentin [Gabapentin 800 mg] 800 mg PO TID 01/26/18 [Last Taken 05/20/18 10:00 ] Rivaroxaban [Xarelto] 20 mg PO DAILY@18 01/26/18 [Last Taken 05/19/18] Carvedilol [Coreg (*)] 25 mg PO BIDMEAL 02/04/18 [Last Taken 05/20/18 10:00] Insulin Aspart [novoLOG] 20 - 25 unit SC TIDMEAL 04/16/18 [Last Taken 05/20/18 10:00] Insulin Detemir [Levemir] 40 unit SQ BID 04/16/18 [Last Taken 05/20/18 10:00] Amoxicillin/Clavulanate Pot [Augmentin 875 MG TAB (*)] 875 mg PO BID #60 tab 04/30 [Last Taken 05/20/18 10:00] Azithromycin [Zithromax] 500 mg PO DAILY 05/20/18 [Last Taken 05/20/18 13:00] Diltiazem Cd [Cardizem ER 120 MG (*)] 120 mg PO DAILY@15 05/20/18 [Last Taken ] Ibuprofen [Ibu] 400 mg PO DAILY PRN 05/20/18 [Last Taken Unknown] Albuterol [Proventil Inhaler HFA (*)] 2 puffs IH Q4HRS PRN #1 mdi 05/22/18 [ Last Taken Unknown] Discharge Medications: Refer to the Discharge Home Medication list for PRN reason. PICC Care - Routine: N/A - Orders Services needed: Registered Nurse Isolation Type: Droplet Isolation Diet Recommendation: ADA 2000 consistent carb Diet Texture: Regular Texture Diet Wound Care Instructions: Resume wound care per prior orders. - Follow Up Care Current Providers and Referrals: Palak Velez PAC [Primary Care Provider] - As per Instructions
--- NOTE | 2018-05-22 16:20 | ASMTCMCOM ---
CM Note CM Note Notes: Reviewed chart, spoke with Dr. Dodson and ANN MARIE Floyd regarding discharge plan of care, pt's progress. Per MD, pt to discharge home independently with no identified needs. PT/OT recommend home care. Per Mariel, pt moving well, not in need of home care. Pt discharged, left unit prior to seeing CM. No IM signed. Call placed to pt at home to discuss potential needs. Per pt, he is already receiving [facility] ([facility]) for wound care. Call placed to ANN MARIE Abdullahi with [facility]; update provided. Per Kaylen, able to resume care on Wednesday05/23/18. Referral sent via [employer] mobile; discharge orders requested from Dr. Dodson. Pt to follow up as directed. CM available for any further issues or concerns. Discharge Plan: Home with [facility] Pt to follow up as directed. CM available for any further issues or concerns. Date Signed: 05/22/2018 04:17 PM Electronically Signed By:Dorothea Moore RN
--- NOTE | 2018-05-22 16:22 | ASMTLACE ---
LACE Length of stay for Answers: 1 day current admission Acuity / Level of Answers: Yes Care: Did the patient have an inpatient admission? Comorbidities - select Answers: Chronic pulmonary disease all that apply Congestive heart failure Diabetes (uncontrolled or controlled) Other Notes: OM # of Emergency department Answers: 5-8 visits in the last 6 months Score: 14 Date Signed: 05/22/2018 04:21 PM Electronically Signed By:Dorothea Moore RN
--- NOTE | 2018-05-22 21:55 | GDS ---
DISCHARGE DIAGNOSES: 1. Acute hypoxic respiratory failure. 2. Rhinovirus infection. 3. Coronavirus infection. HISTORY OF PRESENT ILLNESS: The patient is a pleasant 57-year-old gentleman with a past medical hist ory of atrial fibrillation and diabetes mellitus type 2 who presented to the [facility] on 05/20/2018 with complaints of shortness of breath. He has been experiencing up er respiratory illness symptoms for 2 to 3 days prior to coming to the hospital. He stated that his son had also had similar symptoms. His respiratory PCR panel was positive for coronavirus as well as human rhinovirus. He did have significant wheezing on exam and was placed on steroids and nebulizer s. Fortunately, he did quite well and was able to wean off oxygen on the day of discharge. We did h ave problems during the hospitalization with his glucose levels while he was on prednisone, but at ti me of discharge, his lung exam was much improved, so I recommend proceeding with albuterol as needed and not continue on with any steroidal anti-inflammatories. Otherwise, there were no major medical c hanges during this hospitalization. I have essentially continued him on his same home regimen of med ications and just added albuterol inhaler to be used as needed over the coming days until his symptom s resolve. HOSPITAL COURSE BY PROBLEM: 1. Acute hypoxic respiratory failure: He may have some element of chronic hypoxic respiratory failu re as he states he was on oxygen in the past, but he is able to sat on room air today. This is shanice ered likely from a viral process as he did test positive for coronavirus and rhinovirus. He may even have underlying COPD as he is a daily smoker, and I have recommended cessation from tobacco use. Co ntinue albuterol as needed for shortness of breath or wheezing. 2. Chronic diastolic heart failure: No changes were made to his medical regimen. 3. Atrial fibrillation: Patient was continued on Coreg and diltiazem for rate control as well as Xa relto for anticoagulation. 4. Diabetes mellitus type 2: He was continued on metformin and Lantus. I recommend he resume his n ormal insulin dosing at the time of discharge. 5. History of right BKA: Patient has ongoing followup for infected BKA. He is on Augmentin daily w hich was continued. 6. Deep vein thrombosis prophylaxis: Patient is anticoagulated with Xarelto. 7. Disposition: PT and OT while he is here in the hospital. He did appear stable for discharge moody k to home. EXAM: VITAL SIGNS: On day of discharge, temperature 36.4, blood pressure 159/108, heart rate 110, r espirations 20 saturating 97% on 2 L nasal cannula. GENERAL: Patient appears comfortable. He is si tting in a wheelchair at the bedside having breakfast, awake, alert, conversant, no acute distress. HEART: Irregular. No murmurs appreciated. LUNGS: Mild rhonchi bilaterally but improved as compare d to yesterday's exam. No definite wheezing appreciated today as noted yesterday. Respiratory effor t normal. ABDOMEN: Soft, nontender, nondistended. : No Haider catheter in place. EXTREMITIES: No significant pitting edema of left lower extremity. Right lower extremity BKA. NOTABLE STUDIES: Respiratory PCR positive for rhinovirus and coronavirus. White blood cell count 5, hemoglobin 13, platelets 199. INR is 1.5. Lactic acid 1.7, bicarb level 26, creatinine 0.9, hemogl obin A1c 8.4% in January of 2018. DISCHARGE MEDICATIONS: 1. Albuterol inhaler 2 puffs every 4 hours as needed. 2. Augmentin 875/125 one tablet twice a day. 3. Atorvastatin 80 mg nightly. 4. Coreg 25 mg twice a day. 5. Plavix 75 mg daily. 6. Diltiazem ER 120 mg daily. 7. Lasix 80 mg daily. 8. Gabapentin 3 times a day. 9. NovoLog insulin 20 to 25 units subcu before meals. 10. Levemir 40 mg twice a day. 11. Metformin 1000 mg twice a day. 12. Xarelto 20 mg daily. DISCHARGE INSTRUCTIONS: I recommend a followup visit with his primary provider in 1 to 2 weeks' time for reassessment of his symptoms. Otherwise, I anticipate resolution over the coming week. 35 minutes of time dedicated to discharge efforts. /[id number]/MODL
== END 2018-05-22 13:17 | disposition home health service (06) | DRG 189 ==
LOC: F2W 22:22
PROVIDERS: ADMIT Family Medicine; ATTEND Family Medicine
DX: J96.21 Acute and chronic respiratory failure with hypoxia (principal); I50.32 Chronic diastolic (congestive) heart failure; J44.9 Chronic obstructive pulmonary disease, unspecified; B97.89 Other viral agents as the cause of diseases classified elsewhere; B97.29 Other coronavirus as the cause of diseases classified elsewhere; I48.91 Unspecified atrial fibrillation; E11.9 Type 2 diabetes mellitus without complications; G47.00 Insomnia, unspecified; I25.10 Atherosclerotic heart disease of native coronary artery without angina pectoris; I25.2 Old myocardial infarction; Z89.511 Acquired absence of right leg below knee; Z72.0 Tobacco use; Z79.84 Long term (current) use of oral hypoglycemic drugs; Z86.718 Personal history of other venous thrombosis and embolism; Z79.01 Long term (current) use of anticoagulants; Z95.5 Presence of coronary angioplasty implant and graft
CPT/HCPCS: 82435-PO; 82565-PO; 82947-PO; 84132-PO; 84295-PO; 84484-PO; 84520-PO; 85014-PO; 96374; 97162-GP; 97166-GO; 97530-GP; G8978-GP-CJ; G8979-GP-CI; G8987-GO-CJ; G8988-GO-CJ; J1815; J1940; J2930; J7512; J7613

== ENCOUNTER 2018-10-16 21:10 | Inpatient (IN) | payer OTHER ==
--- NOTE | 2018-10-16 21:46 | EDPHY ---
H & P Smoking Status: Light smoker Time Seen by Provider: 10/16/18 21:27 HPI/ROS: CHIEF COMPLAINT: Shortness of breath, nausea, neck pain HISTORY OF PRESENT ILLNESS: 57-year-old male with multiple medical problems including atrial fibrillation, diastolic congestive heart failure, diabetes, right lower extremity below the knee amputation due to osteomyelitis presents to the emergency department by private vehicle with his and son complaining of pain in his neck and upper back area. The patient states that he woke up feeling fine this morning and then this afternoon felt pain in his neck and upper back area. He felt nauseous and vomited once prior to coming to the emergency department. He feels short of breath and feels "like cement is in my stomach". No known fevers or chills. No URI symptoms. Blood sugar just 1.5 hr prior to arrival was 220 at home. He had pain in his chest yesterday. Denies a headache. REVIEW OF SYSTEMS: Constitutional: No fever, no chills. Eyes: No double or blurry vision. ENT: No sore throat. Respiratory: Short of breath as above. Cardiac: Chest pain as above Gastrointestinal: Abdominal discomfort as above. Vomiting x1. No diarrhea. Genitourinary: No dysuria. Musculoskeletal: Neck pain as above. No back pain. Skin: No rashes. Neurological: No headache. (Macy Leigh) Past Medical/Surgical History: Atrial fibrillation, diastolic congestive heart failure, diabetes type 2 on insulin, diabetic neuropathy, obstructive sleep apnea, right lower extremity [id number] amputation due to osteomyelitis, hypertension, hyperlipidemia, myocardial infarction with stents x2, chronic insomnia, smoker (Macy Leigh) Social History: (Macy Leigh) Physical Exam: General Appearance: Alert, no distress. Blood pressure 102/75, heart rate 66, 93% on room air. Eyes: Pupils equal and round. Extraocular motions are all intact. ENT: Mouth: Mucous membranes moist. Respiratory: No wheezing, rhonchi, or rales, lungs are clear to auscultation. Cardiovascular: Irregularly irregular. No murmurs. Gastrointestinal: Abdomen is soft. He has mild tenderness with palpation in the epigastric area. There is no masses, rebound or guarding noted. Neurological: Alert and oriented x 3, cranial nerves II through XII grossly intact Skin: Warm and dry, no rashes. Musculoskeletal: Nontender to palpate along the cervical, thoracic or lumbar spine. Neck is supple. Extremities: Right BKA with healing wounds. Psychiatric: Patient is oriented X 3, there is no agitation. (Macy Leigh) Constitutional: Initial Vital Signs Temperature (C) 36.4 C 10/16/18 21:12 Heart Rate 66 10/16/18 21:12 Respiratory Rate 18 10/16/18 21:12 Blood Pressure 102/75 10/16/18 21:12 O2 Sat (%) 93 10/16/18 21:12 O2 Delivery Mode Room Air O2 (L/minute) 2 Allergies/Adverse Reactions: No Known Allergies Allergy (Verified 10/16/18 21:17) Home Medications: Medication Instructions Recorded Gabapentin [Neurontin 100 MG (*)] 200 mg PO TID 08/06/17 Atorvastatin Calcium [Lipitor 80 80 mg PO HS 09/25/17 mg] Furosemide [Lasix 40 MG (*)] 120 mg PO DAILY 09/25/17 Metformin HCl [Metformin 1000 mg] 1,000 mg PO BIDMEAL 09/25/17 Gabapentin [Gabapentin 800 mg] 800 mg PO TID 01/26/18 Rivaroxaban [Xarelto] 20 mg PO DAILY@18 01/26/18 Carvedilol [Coreg (*)] 25 mg PO BIDMEAL 02/04/18 Insulin Aspart [novoLOG] 20 - 25 unit SC TIDMEAL 04/16/18 Insulin Detemir [Levemir] 45 - 50 unit SQ BID 04/16/18 Diltiazem Cd [Cardizem ER 120 MG 120 mg PO DAILY@15 05/20/18 (*)] Ibuprofen [Ibu] 400 mg PO DAILY PRN 05/20/18 Albuterol [Proventil Inhaler HFA 2 puffs IH Q4HRS PRN #1 mdi 05/22/18 (*)] Spironolactone [Aldactone 25 MG 25 mg PO DAILY 10/17/18 (*)] Medical Decision Making - Diagnostics Imaging: I viewed and interpreted images myself ED Course/Re-evaluation: Patient placed on a monitor. Blood pressure is now 85/55 heart rate of 60. He is feeling nauseous and vomited again in the emergency department. The patient was seen examined by Dr. Mansfield. Troponin was 0.06. EKG reveals atrial fibrillation. Lactate 5.1. He has 2 L of IV normal saline going now. Laboratory studies reveal i-STAT creatinine of 1.6. Potassium was 5.3. The patient was declared severe sepsis. Patient was started on ceftriaxone 1 g IV. Influenza and respiratory pathogens are pending. Talked with radiologist, Dr. Zepeda, regarding patient's elevated creatinine and need for CT scan with IV contrast to rule out possible dissection. The radiologist recommended hydration and then repeat creatinine. Repeat creatinine was 1.5. His GFR is 49. According to the creatinine protocol, the patient is category 2 and will require less amount of contrast. This has been ordered. The patient will be admitted to the ICU to Dr. Clifton. CT scan is pending. Care was turned over to Dr. Tovar. (Macy Leigh) 0100AM: I have seen and evaluated the patient the patient is noted to be hypotensive here in the emergency room and at times bradycardic he was complaining of chest back and abdominal pain. His EKGs are stable from previous EKGs There is no indication he is having an acute OK. Echocardiogram as been ordered I did perform a bedside ultrasound which shows global hypokinesia. But formal echo is pending. Patient has been fluid resuscitated and his blood pressure has trended up to the low 100s over 60s. Patient's heart rate at 1 time was in the 30s he did receive some atropine is heart rate is currently in the 50s. He is feeling somewhat better. CT angiogram of the chest does not show any evidence of aortic dissection. There is some concern about pancreatitis. Lipase is pending. The patient has received antibiotics The patient be admitted to the ICU Cardiology Dr. Alex bond is at bedside evaluating him and reviewing his echocardiogram. Patient need a central line placed by General surgery for hypotension and vasopressor support. The patient is in critical condition due to hypotension of unclear etiology. There is some concern of sepsis with an elevated lactic but at this time he does not have a fever does not have an elevated white count there is no clear source blood cultures are pending. He did receive IV Rocephin Plan will be for close observation in the ICU. The patient has chronic medical conditions The hospitalist service been consult Dr. Clifton Who agrees to admit. (MacDade,Dewey) Differential Diagnosis: Including but not limited to aortic dissection, AAA, severe sepsis, congestive heart failure, pneumonia, bronchitis, influenza, dehydration, pneumonia (Macy Leigh) Other Provider: I have been directly involved in the care this patient. Patient complaining of back pain, hypotensive and bradycardic. Lactic acid is elevated. Does not have lupus doses. He has seen concentrated with have a creatinine. Concerning for the possibility of acute aortic dissection versus sepsis. Fluids have been ordered. He is being aggressively fluid resuscitated. Antibiotics have been ordered. Repeat creatinine is 1.5. Will obtain a CT of the chest to evaluate for possible dissection. I spent a total of 40 minutes of critical care time in obtaining history, performing a physical exam, bedside monitoring of interventions, collecting and interpreting tests and discussion with consultants but not including time spent performing procedures. (Marck Mansfield) - Data Points Laboratory Results: Laboratory Results 10/16/18 21:45 10/16/18 21:35 Microbiology Results: MICROBIOLOGY 10/16/18 21:00 Nasal, Sinus - Swab Respiratory Panel (PCR) - Final No Organism Detected By Pcr Medications Given: Atorvastatin Calcium (Lipitor) 80 mg PO HS JORGE Stop: 04/15/19 20:59 Last Admin: 10/17/18 21:14 Dose: 80 mg Gabapentin (Neurontin) 200 mg PO TID JORGE Stop: 04/15/19 21:59 Last Admin: 10/17/18 21:14 Dose: 200 mg Gabapentin (Neurontin) 800 mg PO TID JORGE Stop: 04/15/19 21:59 Last Admin: 10/17/18 21:14 Dose: 800 mg Piperacillin/Tazobactam/Dextrose (Zosyn (Premix)) 100 mls @ 200 mls/hr IV Q6HRS JORGE PRN Reason: Protocol Stop: 11/16/18 05:59 Last Admin: 10/17/18 17:58 Dose: 100 mls Insulin Human Lispro (Humalog Lispro) 0 unit SC TIDMEAL JORGE PRN Reason: Protocol Stop: 04/15/19 07:59 Last Admin: 10/17/18 18:07 Dose: Not Given Insulin Human Lispro (Humalog Lispro) 0 unit SC HS JORGE PRN Reason: Protocol Stop: 04/15/19 20:59 Last Admin: 10/17/18 21:15 Dose: Not Given Spironolactone (Aldactone) 25 mg PO DAILY [facility] Stop: 04/15/19 17:29 Last Admin: 10/17/18 18:08 Dose: 25 mg Discontinued Medications Atropine Sulfate (Atropine Sulfate) 0.5 mg IVP EDNOW ONE Stop: 10/16/18 23:49 Last Admin: 10/16/18 23:50 Dose: 0.5 mg Atropine Sulfate (Atropine 1 Mg/10 Ml Syringe) 0.5 mg IVP ONCE ONE Stop: 10/17/18 00:00 Last Admin: 10/16/18 23:55 Dose: 0.5 mg Carvedilol (Coreg) 25 mg PO BIDMEAL JORGE Stop: 04/15/19 17:59 Last Admin: 10/17/18 16:28 Dose: 25 mg Fentanyl (Sublimaze) 25 mcg IVP EDNOW ONE Stop: 10/16/18 23:06 Last Admin: 10/16/18 23:07 Dose: 25 mcg Hydrocortisone (Solucortef) 0 mg IVP Q12H JORGE Stop: 04/15/19 01:29 Last Admin: 10/17/18 03:52 Dose: Not Given Hydrocortisone (Solucortef) 100 mg IVP Q12H JORGE Stop: 10/18/18 14:31 Last Admin: 10/17/18 03:19 Dose: 100 mg Sodium Chloride (Ns) 1,000 mls @ 0 mls/hr IV ONCE ONE; Wide Open PRN Reason: Protocol Stop: 10/16/18 22:03 Last Admin: 10/16/18 22:02 Dose: 1,000 mls Sodium Chloride (Ns) 1,000 mls @ 0 mls/hr IV ONCE ONE; Wide Open PRN Reason: Protocol Stop: 10/16/18 22:20 Last Admin: 10/16/18 22:20 Dose: 1,000 mls Ceftriaxone Sodium/Dextrose (Rocephin 1 Gm (Premix)) 50 mls @ 100 mls/hr IV EDNOW ONE PRN Reason: Protocol Stop: 10/16/18 22:54 Last Admin: 10/16/18 22:40 Dose: 50 mls Lactated Ringer's (Lr) 3,100 mls @ 516.6666 mls/hr 30 ml/kg infuse over 6 hr ( 3100 ml) IV EDNOW ONE PRN Reason: Protocol Stop: 10/17/18 04:24 Last Admin: 10/17/18 03:16 Dose: Not Given Lactated Ringer's (Lr) 3,100 mls @ 6,200 mls/hr 30 ml/kg infuse over 30 min ( 3100 ml) IV EDNOW ONE PRN Reason: Protocol Stop: 10/16/18 22:54 Last Admin: 10/16/18 22:34 Dose: 3,100 mls Sodium Chloride (Ns) 1,000 mls @ 75 mls/hr IV CONT JORGE Stop: 04/14/19 22:59 Last Admin: 10/17/18 03:20 Dose: 1,000 mls Norepinephrine 4 mg/ Sodium (Chloride) 504 mls @ 0 mls/hr IV EDNOW ONE; Per Protocol PRN Reason: Protocol Stop: 10/16/18 23:31 Last Admin: 10/16/18 23:29 Dose: 504 mls Dopamine HCl/Dextrose (Dopamine 1600 Mcg/Ml (Premix)) 250 mls @ 0 mls/hr IV CONT JORGE; Titrate PRN Reason: Protocol Stop: 04/15/19 01:29 Last Admin: 10/17/18 01:44 Dose: 250 mls Calcium Gluconate (Calcium Gluconate 1 Gm (Premix)) 50 mls @ 100 mls/hr IV ONCE ONE Stop: 10/17/18 05:05 Last Admin: 10/17/18 04:50 Dose: 50 mls Insulin Human Lispro (Humalog Lispro) 10 unit SC ONCE ONE Stop: 10/17/18 00:33 Last Admin: 10/17/18 03:30 Dose: 10 units Insulin Human Lispro (Humalog Lispro) 10 unit SC ONCE ONE Stop: 10/17/18 03:31 Last Admin: 10/17/18 03:51 Dose: Not Given Insulin Human Lispro (Humalog Lispro) 10 unit SC ONCE ONE Stop: 10/17/18 04:36 Last Admin: 10/17/18 04:50 Dose: 10 units Ondansetron HCl (Zofran) 4 mg IVP EDNOW ONE Stop: 10/16/18 22:00 Last Admin: 10/16/18 22:02 Dose: 4 mg Sodium Bicarbonate (Sodium Bicarbonate) 50 meq IVP ONCE ONE Stop: 10/17/18 04:38 Last Admin: 10/17/18 04:50 Dose: 50 meq Sodium Polystyrene Sulfonate (Kayexalate) 30 gm PO ONCE ONE Stop: 10/17/18 04:37 Last Admin: 10/17/18 05:08 Dose: 15 gm Point of Care Test Results: Chemistry 10/16/18 10/16/18 21:41 21:37 POC Sodium 138 mEq/L mEq/L (135-145) POC Potassium 5.3 mEq/L H mEq/L (3.3-5.0) POC Chloride 101 mEq/L mEq/L (97-110) POC Total CO2 23 mEq/L mEq/L (22-31) POC BUN 37 mg/dL H mg/dL (7-23) POC Creatinine 1.6 mg/dL H mg/dL (0.7-1.3) POC Glucose 269 mg/dL H mg/dL (70-100) POC Troponin I 0.06 ng/mL ng/mL (0.00-0.08) ISTAT H&H 10/16/18 21:41 POC Hgb 18.7 gm/dL H gm/dL (13.7-17.5) POC Hct 55 % H % (40-51) Departure - Departure Disposition: [facility] Inpatient Acute Clinical Impression: Bradycardia Sepsis Qualifiers: Sepsis type: sepsis due to unspecified organism Qualified Code(s): A41.9 - Sepsis, unspecified organism Hypotension Qualifiers: Hypotension type: unspecified hypotension type Qualified Code(s): I95.9 - Hypotension, unspecified Condition: Critical
[2018-10-16 21:52] LABS: PLATELET COUNT 243 10^3/uL (150-400)
[2018-10-16] MEDS ORDERED: ONDANSETRON 4 MG/2 ML VIAL IVP ONE (21:59)
[2018-10-16] MEDS ORDERED: ONDANSETRON 4 MG/2 ML VIAL ONE (21:59)
[2018-10-16] MEDS ORDERED: NS 1,000 ML IV ONE ×2 (22:02→22:19)
[2018-10-16] MEDS ORDERED: LR IV ONE ×2 (22:25)
[2018-10-16 22:52] LABS: INR 1.7 (0.83-1.16); PROTIME(PATIENT) 20.1 SEC (12.0-15.0)
[2018-10-16] MEDS ORDERED: ACETAMINOPHEN 325 MG TAB PO PRN (22:52)
[2018-10-16] MEDS ORDERED: ALBUTEROL 3 ML DEYVIAL IH PRN (22:52)
[2018-10-16] MEDS ORDERED: ONDANSETRON 4 MG/2 ML VIAL IVP PRN (22:52)
[2018-10-16] MEDS ORDERED: ONDANSETRON DISINTEGRATING 4 MG TAB PO PRN (22:52)
[2018-10-16] MEDS ORDERED: D50W 25 GM/50 ML VIAL IVP PRN (22:57)
[2018-10-16] MEDS ORDERED: NS 1,000 ML IV SCH (23:00)
[2018-10-16] MEDS ORDERED: fentaNYL 100 MCG/2 ML INJ ONE (23:04)
[2018-10-16] MEDS ORDERED: fentaNYL 100 MCG/2 ML INJ IVP ONE (23:05)
[2018-10-16] MEDS ORDERED: IOPAMIDOL (ISOVUE 370) 100 ML BTL IV ONE (23:05)
--- NOTE | 2018-10-16 23:27 | PDGENHP ---
History and Physical - Chief Complaint Back pain, nausea vomiting - History of Present Illness Source-patient acutely ill and provides limited history. Patient's and 2 children are at bedside and provides history. EMR was reviewed and case discussed with ED providers. HPI - this is a 57-year-old gentleman known to our service with multiple medical comorbidities including CAD s/p stenting x 2, diastolic CHF, cardiomyopathy, atrial fibrillation, HTN, HLD, dm 2 uncontrolled, PAD with history of stenting and R BKA 2/2 OM, obesity (BMI 36.0) who presents emergency department this evening with complaints of SOB, nausea/vomiting and shoulder/ neck pain. Patient was in his usual state of health per patient . He had been eating, drinking normally. No known fevers chills sweats. Patient without any hematemesis. He complained ED provider that he felt like he had some it sitting in the stomach. No known diarrhea. No complaints of abdominal pain. Son reports that patient has had some mild increased abdominal distension over the last several days but normally has obese abdomen. Again no noted diarrhea or previous complaints of abdominal pain. In the ED, patient received 3 L of IV fluid without significant improvement in blood pressure. Patient subsequently placed on Levophed for pressure support. He was given a 0.5 mg dose of atropine without significant change in heart rate which ranges high 30s to low 50s. Patient taken for CTA of the chest. History Information - Allergies/Home Medication List Allergies/Adverse Reactions: No Known Allergies Allergy (Verified 10/16/18 21:17) Home Medications: Gabapentin [Neurontin 100 MG (*)] 200 mg PO TID 08/06/17 [Last Taken 05/20/18 10 :00] Clopidogrel Bisulfate [Plavix (*)] 75 mg PO DAILY@15 09/13/17 [Last Taken ] Atorvastatin Calcium [Lipitor 80 mg] 80 mg PO HS 09/25/17 [Last Taken 05/19/18 22:00] Furosemide [Lasix 40 MG (*)] 80 mg PO DAILY 09/25/17 [Last Taken 05/20/18 10:00] Metformin HCl [Metformin 1000 mg] 1,000 mg PO BIDMEAL 09/25/17 [Last Taken 05/20 10:00] Gabapentin [Gabapentin 800 mg] 800 mg PO TID 01/26/18 [Last Taken 05/20/18 10:00 ] Rivaroxaban [Xarelto] 20 mg PO DAILY@18 01/26/18 [Last Taken 05/19/18] Carvedilol [Coreg (*)] 25 mg PO BIDMEAL 02/04/18 [Last Taken 05/20/18 10:00] Insulin Aspart [novoLOG] 20 - 25 unit SC TIDMEAL 04/16/18 [Last Taken 05/20/18 10:00] Insulin Detemir [Levemir] 40 unit SQ BID 04/16/18 [Last Taken 05/20/18 10:00] Azithromycin [Zithromax] 500 mg PO DAILY 05/20/18 [Last Taken 05/20/18 13:00] Diltiazem Cd [Cardizem ER 120 MG (*)] 120 mg PO DAILY@15 05/20/18 [Last Taken ] Ibuprofen [Ibu] 400 mg PO DAILY PRN 05/20/18 [Last Taken Unknown] I have personally reviewed and updated: family history, medical history, social history, surgical history - Past Medical History atrial fibrillation, coronary artery disease (hx IN s/p PCI stent x 2), CHF ( diastolic), chronic insomnia, diabetes type 2, hypertension, hyperlipidemia, peripheral artery disease (bilateral stent) Additional medical history: Atrial fibrillation, on Xarelto. CAD, S/P PCI stent x2. hypertension. hyperlipidemia. diastolic CHF. 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 PHANI on O2 at HS. Diabetic neuropathy. chronic insomnia. obesity. diabetes mellitus type 2, on insulin. peripheral vascular disease right femoral stenting and bilateral iliac stenting. obstructive sleep apnea on nocturnal O2. Osteoarthritis, gout. History of bradycardia status post temporary transvenous pacer patient has declined permanent pacemaker placement. - Surgical History Additional surgical history: right foot TMA 10/2015, right BKA 01/27/2018. cardiac cath stent x2. Right femoral and bilateral iliac stenting. Trans venous pacer temporary - Family History Positive for: non-pertinent Additional family history: father age 42 - pt unsure but may have been peritonitis/sepsis. mother with aneurysm/hemorrhage age 60s. 2 sons and 1 daughter are healthy. - Social History Smoking Status: Light smoker Additional social history: patient lives with his family, is originally from [facility], has been [place]. COR status FULL but refuses to discuss advanced directives/MDPOA in detail. Review of Systems Review of Systems: ROS: 10pt was reviewed & negative except for what was stated in HPI & below Constitutional: Reports: no symptoms EENMT: Reports: no symptoms Cardiac: Reports: chest pain, edema (Chronic lower extremity edema). Denies: palpitations Respiratory: Reports: shortness of breath. Denies: cough, stridor, wheezing Gastrointestinal: Reports: vomitting, abdominal distention, nausea. Denies: abdominal pain, constipation, diarrhea Genitourinary: Reports: no symptoms Muscolosketal: Reports: back pain (Left low back pain) Skin: Reports: no symptoms, other (Chronic skin changes) Neurological: Reports: no symptoms Hematologic/Lymphatic: Reports: no symptoms, other (On Xarelto) Physical Exam Physical Exam: Selected Entries 10/16/18 21:12 Blood Pressure Automatic Method Heart Rate 66 Respiratory 18 Rate O2 Sat (%) 93 Temperature (C) 36.4 C Blood Pressure 102/75 Mean Arterial 84 Pressure (MAP) O2 Delivery Room Air Mode Temperature Oral Source Temp Pulse Resp BP Pulse Ox 36.4 C 52 L 20 93/65 L 95 10/16/18 21:12 10/16/18 22:19 10/16/18 22:19 10/16/18 22:19 10/16/18 22:19 Constitutional: chronically ill appearing, obese, uncomfortable, other (No acute distress. Patient appears acutely ill, branham pallor. Diaphoretic. ) Cardiovascular: irregularly irregular, bradycardia, edema, other (Distant heart sounds.), No pulses symmetric bilaterally (Right BKA, left pedal pulse exam limited due to edema and history PVD) Respiratory: no respiratory distress, no rales or rhonchi, reduced air movement , No expiratory wheeze, No inspiratory crackles Gastrointestinal: soft, non-tender abdomen, no palpable masses (Limited exam secondary to abdomen), distension (Obese abdomen), other (Hypoactive bowel sounds), No magallanes's sign, No guarding Genitourinary: no bladder tenderness, No willoughby in urethra Skin: no rashes or abrasions (Right stump is dry clean intact.), other (Chronic lower extremity skin changes.), No warm (Slightly cool extremities.), No mottled Musculoskeletal: generalized weakness Neurologic: weakness (Generalized weakness), other (Grossly nonfocal), No facial droop Psychiatric: flat affect, other (Patient appears acutely ill.) Lab Data & Imaging Review 10/16/18 23:40 10/16/18 23:40 WBC 8.44 10^3/uL (3.80-9.50) 10/16/18 21:35 RBC 5.52 10^6/uL (4.40-6.38) 10/16/18 21:35 Hgb 17.1 g/dL (13.7-17.5) 10/16/18 21:35 POC Hgb 17.3 gm/dL (13.7-17.5) 10/16/18 22:47 Hct 53.1 % (40.0-51.0) H 10/16/18 21:45 POC Hct 51 % (40-51) 10/16/18 22:47 MCV 92.9 fL (81.5-99.8) 10/16/18 21:35 MCH 31.0 pg (27.9-34.1) 10/16/18 21:35 MCHC 33.3 g/dL (32.4-36.7) 10/16/18 21:35 RDW 15.8 % (11.5-15.2) H 10/16/18 21:35 Plt Count 243 10^3/uL (150-400) 10/16/18 21:35 MPV 10.5 fL (8.7-11.7) 10/16/18 21:35 Neut % (Auto) 51.6 % (39.3-74.2) 10/16/18 21:35 Lymph % (Auto) 34.8 % (15.0-45.0) 10/16/18 21:35 Finney % (Auto) 9.8 % (4.5-13.0) 10/16/18 21:35 Eos % (Auto) 2.3 % (0.6-7.6) 10/16/18 21:35 Baso % (Auto) 0.6 % (0.3-1.7) 10/16/18 21:35 Nucleat RBC Rel Count 0.0 % (0.0-0.2) 10/16/18 21:35 Absolute Neuts (auto) 4.35 10^3/uL (1.70-6.50) 10/16/18 21:35 Absolute Lymphs (auto) 2.94 10^3/uL (1.00-3.00) 10/16/18 21:35 Absolute Monos (auto) 0.83 10^3/uL (0.30-0.80) H 10/16/18 21:35 Absolute Eos (auto) 0.19 10^3/uL (0.03-0.40) 10/16/18 21:35 Absolute Basos (auto) 0.05 10^3/uL (0.02-0.10) 10/16/18 21:35 Absolute Nucleated RBC 0.00 10^3/uL (0-0.01) 10/16/18 21:35 Immature Gran % 0.9 % (0.0-1.1) 10/16/18 21:35 Immature Gran # 0.08 10^3/uL (0.00-0.10) 10/16/18 21:35 ESR 19 MM/HR (0-20) 10/16/18 21:45 PT 20.1 SEC (12.0-15.0) H 10/16/18 21:35 INR 1.70 (0.83-1.16) H 10/16/18 21:35 APTT 34.9 SEC (23.0-38.0) 10/16/18 21:35 VBG Lactic Acid 5.9 mmol/L (0.7-2.1) H 10/16/18 23:00 POC Sodium 138 mEq/L (135-145) 10/16/18 22:47 Sodium 133 mEq/L (135-145) L 10/16/18 21:35 POC Potassium 5.6 mEq/L (3.3-5.0) H 10/16/18 22:47 Potassium 5.6 mEq/L (3.5-5.2) H 10/16/18 21:35 POC Chloride 104 mEq/L (97-110) 10/16/18 22:47 Chloride 101 mEq/L (97-110) 10/16/18 21:35 Carbon Dioxide 20 mEq/l (22-31) L 10/16/18 21:35 POC Total CO2 20 mEq/L (22-31) L 10/16/18 22:47 Anion Gap 12 mEq/L (6-14) 10/16/18 21:35 POC BUN 35 mg/dL (7-23) H 10/16/18 22:47 BUN 37 mg/dL (7-23) H 10/16/18 21:35 Creatinine 1.5 mg/dL (0.7-1.3) H 10/16/18 21:35 POC Creatinine 1.5 mg/dL (0.7-1.3) H 10/16/18 22:47 Estimated GFR 49 10/16/18 21:35 Glucose 267 mg/dL (70-100) H 10/16/18 21:35 POC Glucose 271 mg/dL (70-100) H 10/16/18 22:47 Calcium 8.9 mg/dL (8.5-10.4) 10/16/18 21:35 Total Bilirubin 0.9 mg/dL (0.1-1.4) 10/16/18 21:35 POC Troponin I 0.06 ng/mL (0.00-0.08) 10/16/18 21:37 C-Reactive Protein 6.8 mg/L (<10.0) 10/16/18 21:45 Nasal Influenza A PCR NEGATIVE FOR FLU A (NEGATIVE) 10/16/18 22:05 Nasal Influenza B PCR NEGATIVE FOR FLU B (NEGATIVE) 10/16/18 22:05 Imaging Review: CTA of the chest - preliminary radiology report reviewed. Abnormal fat stranding the central upper abdomen, diffuse bronchial wall thickening similar to prior study. Cardiomegaly with LVH. CAD. Chest, One View Portable at 2159 hours History: PAIN . Comparison: May 2018 Findings: Cardiac silhouette is mildly enlarged. No pneumonia, congestive heart failure, pleural effusion, or pneumothorax. Impression: 1. Mild cardiomegaly. 2. No pneumonia or pulmonary edema. Dictated By: Rambo Zepeda Visualized and Interpreted imaging results: Yes Visualized and Interpreted EKG results: Yes EKG additional interpertation: Atrial fibrillation with slow rate in 50s Q- waves in the inferior leads and T-wave inversions in the lateral leads which is unchanged from EKG compared to 01/30/2018. No acute ST changes. Assessment & Plan Assessment: This is a 57-year-old gentleman known to our service with multiple medical comorbidities including CAD s/p stenting x 2, diastolic CHF, cardiomyopathy, atrial fibrillation, HTN, HLD, dm 2 uncontrolled, PAD with history of stenting and R BKA 2/2 OM, obesity (BMI 36.0) Shock - ddx cardiogenic vs. septic shock. no evidence of aortic dissection. initial white count, ESR, CRP WNL. Lactate has been elevated and continues to rise despite IV fluids. Patient's blood pressures did not respond to IV fluid replacement. He was started on peripheral Levophed. Surgery consulted to assist with placement of central access. Patient is on Xarelto for history of PAD. Cardiology consulted from the ED. Stat echocardiogram has been ordered in process. Reviewed case with Dr. Arias. CTA of the chest noted some upper abdominal stranding however patient's LFTs, bilirubin and pancreatic enzymes are all negative. His abdomen is obese slightly distended but not acute. Patient is not currently a candidate for additional contrast at this time. Bradycardia (Acute) - patient currently on Coreg, diltiazem. believes that patient took his medications in the afternoon. Lactic acidosis - likely related to hypoperfusion, shock and patient is also on metformin for diabetes. Patient appropriately treated for severe sepsis septic shock with fluids and blood cultures. He was given Rocephin. UA is pending. No evidence of active infection at this time patient did not have a leukocytosis. ESR and CRP were negative as noted above. SHEILA - likely pre renal in etiology in setting of hypotension due to decreased perfusion. Status post IV fluids as noted above. Willoughby catheter has been ordered. Hyperkalemia - patient with acute renal failure. No evidence of T-wave peaking. Repeated potassium 6.5 but suspect this is a a hemolyzed sample which will be re-sent. Will give patient 10 units of insulin at this time. Hold off on Kayexalate pending repeat BMP. Nausea vomiting - patient has not had any recurrence of symptoms since arrival to the ED. Chronic medical issues DM II - patient currently NPO. Continue with the insulin sliding scale and CAD with hx cardiomyopathy/diastolic chf - on plavix, ASA, beta shilpi. no ACEI /ARB listed on med rec. benign essential HTN - low bps currently see above. chronic afib - holding dilt and coreg currently in setting of shock. PAD - holding xarelto/plavix. FEN - DC IV fluids. Patient has received 3 L total and an additional 500 of LR. He electrolyte monitoring. Treatment of hyperkalemia as noted above. NPO status currently. PPX - patient is on Xarelto at home with rising coags. Holding anticoagulation the patient requires central access. Patient is not a candidate for SCDs in setting of chronic edema PVD. Cor status-full. Disposition-patient will be admitted inpatient status to the ICU. He is critically ill and requires close cardiac monitoring. Anticipate greater than 2 midnight stay. Discussed with patient's family regarding patient's high risk for morbidity mortality and that additional studies are still ongoing including cultures, echocardiogram.
[2018-10-16] MEDS ORDERED: NOREPINEPHRINE BITARTRATE 4 MG in NS 500 ML IV ONE (23:30)
[2018-10-16] MEDS ORDERED: NOREPINEPHRINE BITARTRATE 16 MG in NS 250 ML IV ONE (23:30)
[2018-10-16] MEDS ORDERED: ATROPINE SULFATE 1 MG/ML VIAL IVP ONE (23:48)
[2018-10-16] MEDS ORDERED: ATROPINE SULFATE 1 MG/10 ML SYR IVP ONE (23:59)
[2018-10-17 00:08] LABS: PLATELET COUNT 182 10^3/uL (150-400)
[2018-10-17 00:11] LABS: INR 2.01 (0.83-1.16); PROTIME(PATIENT) 22.8 SEC (12.0-15.0)
[2018-10-17] MEDS ORDERED: INSULIN LISPRO 100 UNIT/ML SC ONE ×3 (00:32→04:35)
[2018-10-17] MEDS ORDERED: HYDROCORTISONE 100 MG/2 ML VIAL IVP SCH ×2 (01:30→02:30)
[2018-10-17] MEDS ORDERED: DOPamine/DEXTROSE 400 MG/250 ML BAG IV ONE (01:35)
[2018-10-17 03:08] LABS: PLATELET COUNT 207 10^3/uL (150-400)
[2018-10-17] MEDS ORDERED: CALCIUM GLUCONATE 50 ML IV ONE (04:36)
[2018-10-17] MEDS ORDERED: SODIUM POLY SULF 15 GM/60 ML BOTTLE PO ONE (04:36)
[2018-10-17] MEDS ORDERED: SODIUM BICARBONATE 50 MEQ/50 ML SYR IVP ONE (04:37)
--- NOTE | 2018-10-17 05:07 | HOSPPROG ---
Hospitalist Progress Note Assessment/Plan: Notified by RN that patient repeat potassium after central line access returned elevated at 7.0. No acute EKG changes noted on telemetry. Insulin, bicarb, calcium gluconate, and Kayexalate ordered. Patient has previously refused Kayexalate in the past but reports that he will try to do 1 container at this time but reports that he really could not tolerate the taste previously.. EKG ordered. Patient has just started to make some urine. Just over 300 mL are in the Haider bag. Patient's blood pressures have improved and his heart rate also has increased 80s to 90s. Will start to titrate down Levophed currently at 8 mcg/min and continue low-dose dopamine at 3 mcg/min Overall patient reports that he is feeling better. His breathing, chest pain, abdominal pain are all improved. Preliminary report of the CT abdomen showing severe inflammation mild to moderate fluid in the right upper quadrant surrounding the pancreas duodenum gallbladder extending in the right retroperitoneum and right perihepatic space with a radiographic differential of acute pancreatitis, duodenitis or ulcer disease, acute cholecystitis. All of patient's LFTs, pancreatic enzymes are within normal limits. Repeat WBC has increased from normal at 8K up to 15K. Patient remains afebrile. He will remain NPO except for meds. Will follow up again with General surgery and their recommendations. Additionally will consult Nephrology this morning. Discussed with the patient if he would consider dialysis should his kidneys failed however patient recognizes that he has multiple medical issues and he is unsure if he would want to proceed in that direction. Repeat BMP has been ordered status post above treatments. Objective: Vital Signs Temp Pulse Resp BP Pulse Ox 36.9 C 84 25 H 110/60 94 10/17/18 03:00 10/17/18 03:00 10/17/18 03:00 10/17/18 03:00 10/17/18 03:00 Laboratory Results 10/17/18 02:55 10/17/18 02:30 10/15/18 10/16/18 10/17/18 05:59 05:59 05:59 Intake Total 3900 Balance 3900 PT 22.8 SEC (12.0-15.0) H 10/16/18 23:40 INR 2.01 (0.83-1.16) H 10/16/18 23:40 ICD10 Worksheet Patient Problems: Problems Problem Status Onset Bradycardia Acute Hypotension Acute Sepsis Acute Acute exacerbation of congestive heart failure Acute Afib Acute BKA stump complication Acute Cellulitis of right foot Acute Cellulitis of right lower extremity Acute Dyspnea Acute Elevated troponin Acute Hyperkalemia Acute IDDM (insulin dependent diabetes mellitus) Acute Nicotine dependence Acute Reactive airway disease with wheezing Acute SOB (shortness of breath) Acute Wheezing Acute Wound infection Acute
[2018-10-17] MEDS: PIPERACILLIN/TAZO 4.5 GM/DEX 100 ML IV SCH ×4 (06:55→23:44)
--- NOTE | 2018-10-17 07:34 | HOSPPROG ---
Hospitalist Progress Note Assessment/Plan: DIAGNOSES: * Acute Shock with organ injury requiring pressor; ? etiology * Hypotension in setting of anasarca * Acute Hypoxemic Resp FAilure * Bradycardia * lactic acidosis * acute kidney injury * nausea vomiting Chronic medical issues DM II - patient currently NPO. Continue with the insulin sliding scale and CAD with hx cardiomyopathy/diastolic chf - on plavix, ASA, beta shilpi. no ACEI /ARB listed on med rec. benign essential HTN - low bps currently see above. chronic afib - holding dilt and coreg currently in setting of shock. PAD - holding xarelto/plavix. Cause of his presenting syndrome remains uncertain Overall his blood pressure and pulse are now notably better after several L of IV fluid. Renal function is stable and he is starting to make urine output. Still no fever. Cause of findings on CT abdomen is uncertain, may be edema alone but worry about some inflammatory process though no pain PLANS: * Will stop IV fluids at this moment * Await echo report * Await abdominal ultrasound * Will hope to try and diurese him if his blood pressure remains stable; diuretic may help his potassium as well * Continue to hold beta-shilpi and digoxin for the moment but hope to resume those later today or tomorrow depending on echo * Follow cultures closely * Remove Haider * Recheck BNP * Remove Haider at this time Seen by me today on hospitals rounds as well as multidisciplinary rounds Reviewed with Dr. Cates today in detail SUBJECTIVE: Feels better this morning Nausea vomiting have stopped wants his Haider out Mentions having bilateral left greater than right flank pain at home OBJECTIVE Vitals reviewed: Blood pressures and pulse now stable off pressor, respiratory rate is slowing, no fevers Oxygenation improving but still using OxyMask Credit Intern, my review: Sinus rhythm now on 80s to 90s Exam: alert oriented relaxed skin warm dry color ok Obvious anasarca is present, with particular edema noted both flanks which are quite tight with edema resps not labored lungs clear BSs heart regular abd soft mildly distended nontender, bowel sounds present, no flank tenderness Genitalia appear normal and there is no evidence of Yohannes's or other inflammation in the perineal area limbs left BKA stump looks good, no signs of diabetic infection on the right limb iv site [place] [address], stable CBC otherwise Potassium remains high at 5.7, crit creatinine stable at 1.5 BUN slightly higher at 39 Sugars in the mid 200s 2nd troponin unchanged 0.05 indeterminate Imaging: I reviewed images from his CT scan chest and CT scan abdomen. CT scan chest really is unremarkable other than enlarged heart. CT abdomen is mainly remarkable for quite a bit of peritoneal fat edema scattered through the upper and central mid abdomen without any obvious associated organ inflammation, abscess, or other notable cause. Notably this was not present on a CT scan from December 2016. There is no ascites. I have also reviewed images from today's chest x-ray as well as yesterday's chest x-ray. On today's x-ray there appears to be probably some mild diffuse pulmonary edema which was not present yesterday. Echocardiogram: Pending Objective: Vital Signs Temp Pulse Resp BP Pulse Ox 36.9 C 90 24 H 142/111 H 97 10/17/18 05:00 10/17/18 06:00 10/17/18 06:00 10/17/18 06:00 10/17/18 06:00 Laboratory Results 10/17/18 02:55 10/17/18 06:24 10/16/18 10/17/18 10/18/18 06:59 06:59 06:59 Intake Total 9713 Output Total 450 Balance 9263 PT 22.8 SEC (12.0-15.0) H 10/16/18 23:40 INR 2.01 (0.83-1.16) H 10/16/18 23:40 - Time Spent With Patient Time Spent with Patient: greater than 35 minutes Time Spent with Patient: Greater than 35 minutes spent on this patients care, greater than 50% of time spent counseling, educating, and coordinating care regarding the above mentioned plan. ICD10 Worksheet Patient Problems: Problems Problem Status Onset Bradycardia Acute Hypotension Acute Sepsis Acute Acute exacerbation of congestive heart failure Acute Afib Acute BKA stump complication Acute Cellulitis of right foot Acute Cellulitis of right lower extremity Acute Dyspnea Acute Elevated troponin Acute Hyperkalemia Acute IDDM (insulin dependent diabetes mellitus) Acute Nicotine dependence Acute Reactive airway disease with wheezing Acute SOB (shortness of breath) Acute Wheezing Acute Wound infection Acute
[2018-10-17] MEDS: INSULIN LISPRO 100 UNIT/ML SC SCH ×4 (08:00→21:15)
--- NOTE | 2018-10-17 09:49 | PDCONSULT ---
Certified Hand Therapist Note: Renal Consult Note - Chief Complaint Vomiting - History of Present Illness The patient is a 57 y/o M with a known PMH of CAD, CHF, atrial fibrillation and DM2 c/o nausea, vomiting, and back pain. Per his , he had been eating and drinking normally until that day, however has had some increased abdominal distension. In the ED, the patient was found to be hyperkalemic and received 3L IVF and then was placed on pressor support. In addition, he was given insulin, calcium IV, and kayexalate. This am, the patient is awake and alert and denies any h/o renal issues. He continues to smoke and also states that his leg (BKA on LLE) often swell b/c he is is "always in his wheelchair." He denies use of NSAIDs recently despite being on his home medication list. He also denies fever , chills, and thinks he only vomited once. His is at bedside. History Information - Allergies/Home Medication List No Known Allergies Allergy Home Medications: Gabapentin [Neurontin 100 MG (*)] 200 mg PO TID 08/06/17 [Last Taken 05/20/18 10 :00] Clopidogrel Bisulfate [Plavix (*)] 75 mg PO DAILY@15 09/13/17 [Last Taken ] Atorvastatin Calcium [Lipitor 80 mg] 80 mg PO HS 09/25/17 [Last Taken 05/19/18 22:00] Furosemide [Lasix 40 MG (*)] 80 mg PO DAILY 09/25/17 [Last Taken 05/20/18 10:00] Metformin HCl [Metformin 1000 mg] 1,000 mg PO BIDMEAL 09/25/17 [Last Taken 05/20 10:00] Gabapentin [Gabapentin 800 mg] 800 mg PO TID 01/26/18 [Last Taken 05/20/18 10:00 ] Rivaroxaban [Xarelto] 20 mg PO DAILY@18 01/26/18 [Last Taken 05/19/18] Carvedilol [Coreg (*)] 25 mg PO BIDMEAL 02/04/18 [Last Taken 05/20/18 10:00] Insulin Aspart [novoLOG] 20 - 25 unit SC TIDMEAL 04/16/18 [Last Taken 05/20/18 10:00] Insulin Detemir [Levemir] 40 unit SQ BID 04/16/18 [Last Taken 05/20/18 10:00] Azithromycin [Zithromax] 500 mg PO DAILY 05/20/18 [Last Taken 05/20/18 13:00] Diltiazem Cd [Cardizem ER 120 MG (*)] 120 mg PO DAILY@15 05/20/18 [Last Taken ] Ibuprofen [Ibu] 400 mg PO DAILY PRN 05/20/18 [Last Taken Unknown] - Past Medical History atrial fibrillation, coronary artery disease (hx ND s/p PCI stent x 2), CHF ( diastolic), chronic insomnia, diabetes type 2, hypertension, hyperlipidemia, peripheral artery disease (bilateral stent) hx osteomyelitis right foot s/p TMA , now status post right BKA 01/27/18. PHANI on O2 at HS. Diabetic neuropathy. chronic insomnia. obesity. diabetes mellitus type 2, on insulin. peripheral vascular disease right femoral stenting and bilateral iliac stenting. obstructive sleep apnea on nocturnal O2. Osteoarthritis, gout. History of bradycardia status post temporary transvenous pacer patient has declined permanent pacemaker placement. - Surgical History right foot TMA 10/2015, right BKA 01/27/2018. cardiac cath stent x2. Right femoral and bilateral iliac stenting. Trans venous pacer temporary - Family History father age 42 - pt unsure but may have been peritonitis/sepsis. mother with aneurysm/hemorrhage age 60s. 2 sons and 1 daughter are healthy. - Social History Current smoker. Patient lives with his family, is originally from [facility], has been [place]. COR status FULL but refuses to discuss advanced directives/MDPOA in detail. Review of Systems ROS: 10pt was reviewed & negative except for what was stated in HPI & below Objective: Temp Pulse Resp BP Pulse Ox 37.2 C 99 24 H 146/89 H 96 10/17/18 08:15 10/17/18 09:00 10/17/18 09:00 10/17/18 09:00 10/17/18 09:00 O2 (L/minute) 4 Physical Exam: General: A+Ox3, no distress HEENT: EOMI, no jaundice Neck: Supple, no lymphadenopathy RESP: Lungs CTA b/l, no wheezing CV: Irregular, no rub ABD: Distended, NT, no guarding EXT: R BKA, 2+ edema, erythema LLE NEURO: Non-focal SKIN: As above, no rashes PSYCH: Normal affect WBC 15.97 10^3/uL (3.80-9.50) H 10/17/18 02:55 RBC 5.24 10^6/uL (4.40-6.38) 10/17/18 02:55 Hgb 16.3 g/dL (13.7-17.5) 10/17/18 02:55 POC Hgb 17.3 gm/dL (13.7-17.5) 10/16/18 22:47 Hct 50.5 % (40.0-51.0) 10/17/18 02:55 POC Hct 51 % (40-51) 10/16/18 22:47 MCV 96.4 fL (81.5-99.8) 10/17/18 02:55 MCH 31.1 pg (27.9-34.1) 10/17/18 02:55 MCHC 32.3 g/dL (32.4-36.7) L 10/17/18 02:55 RDW 15.8 % (11.5-15.2) H 10/17/18 02:55 Plt Count 207 10^3/uL (150-400) 10/17/18 02:55 MPV 10.4 fL (8.7-11.7) 10/17/18 02:55 Neut % (Auto) Not Reported 10/17/18 02:55 Lymph % (Auto) Not Reported 10/17/18 02:55 [place]ull[place] % (Auto) Not Reported 10/17/18 02:55 Eos % (Auto) Not Reported 10/17/18 02:55 Baso % (Auto) Not Reported 10/17/18 02:55 Nucleat RBC Rel Count Not Reported 10/17/18 02:55 Absolute Neuts (auto) Not Reported 10/17/18 02:55 Absolute Lymphs (auto) Not Reported 10/17/18 02:55 Absolute Monos (auto) Not Reported 10/17/18 02:55 Absolute Eos (auto) Not Reported 10/17/18 02:55 Absolute Basos (auto) Not Reported 10/17/18 02:55 Absolute Nucleated RBC Not Reported 10/17/18 02:55 Immature Gran % Not Reported 10/17/18 02:55 Seg Neutrophils % 72.0 % 10/17/18 02:55 Band Neutrophils % 5.0 % 10/17/18 02:55 Lymphocytes % 9.0 % 10/17/18 02:55 Monocytes % 9.0 % 10/17/18 02:55 Eosinophils % 1.0 % 10/17/18 02:55 Basophils % 0.0 % 10/17/18 02:55 Metamyelocytes % 2.0 % 10/17/18 02:55 Myelocytes % 2.0 % 10/17/18 02:55 Promyelocytes % 0.0 % 10/17/18 02:55 Blast Cells % 0.0 % 10/17/18 02:55 Immature Gran # Not Reported 10/17/18 02:55 Absolute Seg Neuts 11.50 10^3/uL (1.70-6.50) H 10/17/18 02:55 Absolute Band Neuts 0.80 10^3/uL (0.00-0.70) H 10/17/18 02:55 Absolute Lymphocytes 1.44 10^3/uL (1.00-3.00) 10/17/18 02:55 Absolute Monocytes 1.44 10^3/uL (0.30-0.80) H 10/17/18 02:55 Absolute Eosinophils 0.16 10^3/uL (0.03-0.40) 10/17/18 02:55 Absolute Basophils 0.00 10^3/uL (0.02-0.10) L 10/17/18 02:55 Absolute Metamyelocyte 0.32 10^3/mL (0.00-0.00) H 10/17/18 02:55 Absolute Myelocytes 0.32 10^3/mL (0.00-0.00) H 10/17/18 02:55 Absolute Promyelocytes 0.00 10^3/uL (0.00-0.00) 10/17/18 02:55 Absolute Plasma Cells 0.00 10^3/uL (0.00-0.00) 10/17/18 02:55 Nucleated RBCs 0 /100 WBC (0-0) 10/17/18 02:55 Absolute Blast Cells 0.00 10^3/uL (0.00-0.00) 10/17/18 02:55 Plasma Cells % 0.0 % 10/17/18 02:55 Platelet Estimate ADEQUATE (ADEQ) 10/17/18 02:55 ESR 19 MM/HR (0-20) 10/16/18 21:45 PT 22.8 SEC (12.0-15.0) H 10/16/18 23:40 INR 2.01 (0.83-1.16) H 10/16/18 23:40 APTT 26.9 SEC (23.0-38.0) 10/16/18 23:40 Puncture Site NONE GIVEN 10/17/18 03:12 Patient Temperature 36.9 DEGREES 10/17/18 03:12 pCO2 48 mmHg (34-38) H 10/17/18 03:12 pO2 74 mmHg (65-75) 10/17/18 03:12 Total CO2 22 mEq/L (23-27) L 10/17/18 03:12 ABG pH 7.25 (7.35-7.45) L 10/17/18 03:12 ABG HCO3 20 mEq/L (22-26) L 10/17/18 03:12 ABG O2 Saturation 91 % (92-95) L 10/17/18 03:12 ABG Base Excess -7.1 mEq/L (-2.5-2.5) L 10/17/18 03:12 VBG pH 7.19 (7.31-7.42) L 10/16/18 23:44 VBG HCO3 18 mEQ/L (22-26) L 10/16/18 23:44 VBG Total CO2 19 mEq/L (21-27) L 10/16/18 23:44 VBG O2 Saturation 92 % (65-75) H 10/16/18 23:44 VBG Base Excess -10.7 mEq/L (-2.5-2.5) L 10/16/18 23:44 VBG Lactic Acid 3.2 mmol/L (0.7-2.1) H 10/17/18 02:55 Mixed VBG pCO2 49 mmHg (40-44) H 10/16/18 23:44 Mixed VBG pO2 86 mmHG (35-40) H 10/16/18 23:44 Total O2 Concentration 10.0 LITERS 10/17/18 03:12 POC Sodium 138 mEq/L (135-145) 10/16/18 22:47 Sodium 135 mEq/L (135-145) 10/17/18 06:24 POC Potassium 5.6 mEq/L (3.3-5.0) H 10/16/18 22:47 Potassium 5.7 mEq/L (3.5-5.2) H 10/17/18 06:24 POC Chloride 104 mEq/L (97-110) 10/16/18 22:47 Chloride 105 mEq/L (97-110) 10/17/18 06:24 Carbon Dioxide 25 mEq/l (22-31) 10/17/18 06:24 POC Total CO2 20 mEq/L (22-31) L 10/16/18 22:47 Anion Gap 5 mEq/L (6-14) L 10/17/18 06:24 POC BUN 35 mg/dL (7-23) H 10/16/18 22:47 BUN 39 mg/dL (7-23) H 10/17/18 06:24 Creatinine 1.5 mg/dL (0.7-1.3) H 10/17/18 06:24 POC Creatinine 1.5 mg/dL (0.7-1.3) H 10/16/18 22:47 Estimated GFR 49 10/17/18 06:24 Glucose 245 mg/dL (70-100) H 10/17/18 06:24 POC Glucose 271 mg/dL (70-100) H 10/16/18 22:47 Calcium 8.2 mg/dL (8.5-10.4) L 10/17/18 06:24 Phosphorus 4.6 mg/dL (2.5-4.5) H 10/17/18 06:24 Magnesium 1.8 mg/dL (1.6-2.3) 10/17/18 06:24 Total Bilirubin 1.0 mg/dL (0.1-1.4) 10/16/18 23:40 Conjugated Bilirubin 0.6 mg/dL (0.0-0.5) H 10/16/18 23:40 Unconjugated Bilirubin 0.4 mg/dL (0.0-1.1) 10/16/18 23:40 AST 76 IU/L (17-59) H 10/16/18 23:40 ALT 59 IU/L (21-72) 10/16/18 23:40 Alkaline Phosphatase 56 IU/L (38-126) 10/16/18 23:40 POC Troponin I 0.06 ng/mL (0.00-0.08) 10/16/18 21:37 Troponin I 0.052 ng/mL (0.000-0.034) H 10/17/18 06:24 C-Reactive Protein 6.8 mg/L (<10.0) 10/16/18 21:45 NT-Pro-B Natriuret Pep 1070 pg/mL (0-125) H 10/16/18 23:40 Total Protein 5.7 g/dL (6.3-8.2) L 10/16/18 23:40 Albumin 2.8 g/dL (3.5-5.0) L 10/16/18 23:40 Lipase 122 IU/L (23-300) 10/16/18 23:40 Procalcitonin 0.05 ng/mL (0.02-0.10) 10/16/18 21:45 TSH 5.540 uIU/mL (0.465-4.680) H 10/16/18 21:45 Urine Color JORDI 10/17/18 02:55 Urine Appearance MODERATELY TURBID 10/17/18 02:55 Urine pH 5.0 (5.0-7.5) 10/17/18 02:55 Ur Specific [place] > 1.035 (1.002-1.030) H 10/17/18 02:55 Urine Protein 2+ (NEGATIVE) H 10/17/18 02:55 Urine Ketones NEGATIVE (NEGATIVE) 10/17/18 02:55 Urine Blood NEGATIVE (NEGATIVE) 10/17/18 02:55 Urine Nitrate NEGATIVE (NEGATIVE) 10/17/18 02:55 Urine Bilirubin NEGATIVE (NEGATIVE) 10/17/18 02:55 Urine Urobilinogen 2.0 EU (0.2-1.0) H 10/17/18 02:55 Ur Leukocyte Esterase NEGATIVE (NEGATIVE) 10/17/18 02:55 Urine RBC NONE SEEN /hpf (0-3) 10/17/18 02:55 Urine WBC 5-10 /hpf (0-3) H 10/17/18 02:55 Ur Epithelial Cells TRACE /lpf (NONE-1+) 10/17/18 02:55 Amorphous Sediment PRESENT /hpf (NONE-1+) 10/17/18 02:55 Urine Bacteria TRACE /hpf (NONE SEEN) H 10/17/18 02:55 Hyaline Casts 5-15 /lpf (0-1) 10/17/18 02:55 Urine Mucus TRACE /lpf (NONE-1+) 10/17/18 02:55 Urine Glucose 1+ (NEGATIVE) H 10/17/18 02:55 Nasal Influenza A PCR NEGATIVE FOR FLU A (NEGATIVE) 10/16/18 22:05 Nasal Influenza B PCR NEGATIVE FOR FLU B (NEGATIVE) 10/16/18 22:05 Imaging: Abdominal CT w/o contrast reviewed. Assessment/Plan: 57 y/o M with a known h/o multiple medical issues who presented with hypotension found to have hyperkalemia and SHEILA. Etiology of hypotension not quite clear however patient has significant cardiac issues. Getting work-up for possible cholecystitis, now off pressors. Renal US does show thickened bladder wall and may have had some obstructive component as well. Now making urine and suspect SHEILA will improve. SHEILA -unknown baseline Cr, likely has some component of CKD given proteinuria and h/ o CAD and DM -Cr 1.5 this am -willoughby removed, monitor PVR's qshift -needs outpatient urology f/u for cystoscopy as recommended per imaging -repeat BMP at noon today -avoid nephrotoxins and contrast -would renally dose meds (ie hold gabapentin, etc) -send urine protein:cr, urine sodium -will send SPEP, UPEP, FLC as outpatient Hypotension/vol -blood cultures, urine culture pending -US pending -off pressors, keep MAP>65 -agree with IV lasix once BP stable -may also consider cellulitis in differential based on clinical exam Hyperkalemia -s/p kayexalate and insulin -monitor on telemetry -renal diet -repeat labs as above Consult appreciated, will continue to follow. Please contact if ?'s. #[phone].
--- NOTE | 2018-10-17 10:05 | PDMN ---
Medical Necessity [place] [facility] [place] Sepsis: 57 yo in septic shock unknown etiology w/ hypotension and elevated lactate not responding to IV fluids. Organ injury noted (SHEILA). IV pressors started. Pt is tachypneac and requiring NRB 10-15L. Cont IVF and IV antibx, blood & urine cx pending. Admit IP status to ICU. Hx afib, CAD, CHF, DMII, HTN
--- NOTE | 2018-10-17 10:56 | ECHO ---
[email or web address] [address] Main: [phone] Fax: Transthoracic Echocardiogram Name: INDY HAWKINS MR#: [id number] Study Date: 10/17/2018 Study Time: 12:16 AM Date of : 1960 Age: 57 year(s) Height: ( ) Weight: ( ) BSA: Gender: Male Examination: Echo Indication: failure Image Quality: Technically Difficult Contrast: Requested by: Dewey Chand BP: 91 mmHg/63 mmHg Heart Rate: Rhythm: Indication: failure Procedure Staff Lpn Medical Assistant: Macy Jeff RD Reading Physician: Jose Armando Rome MD Requesting Provider: Conclusions: No pericardial effusion. Concentric left ventricular hypertrophy. Mild reduction in RV and LV systolic function. Severe tricuspid regurgitation Right ventricular systolic pressure is 49 mm of mercury. Mild mitral regurgitation biatrial enlargement. Measurements: Chambers Valvular Assessment AV/MV Valvular Assessment TV/PV Normal Normal Normal Name Value Range Name Value Range Name Value Range Ao Debbie (MM): 3.4 cm (2.2 cm-3.7 AV Vmax: 0.78 m/s (1 m/s-1.7 TR Vmax: 2.90 mm/s ( - ) cm) m/s) TR PGmax: 34 mmHg ( - ) IVSd (2D): 1.4 cm (0.6 cm-1.1 AV maxP mmHg ( - ) syst. PAP: 49 mmHg ( - ) cm) LVOT Vmax: 0.72 m/s (0.7 m/s-1.1 PV Vmax: 0.58 m/s (0.6 m/s-0.9 LVDd (2D): 3.9 cm (4.2 cm-5.9 m/s) m/s) cm) PV PGmax: 1 mmHg ( - ) LVDs (2D): 3.1 cm (2.1 cm-4 cm) LVPWd (2D): 1.4 cm (0.6 cm-1 cm) LVEF (2D): 43 (>=54 %) RVDd(2D): 4.4 cm (1.9 cm-3.8 cmmm) Continued Measurements: Valvular Assessment TV/PV Name Value CVP (est.): 15 mmHg Patient: INDY HAWKINS Study Date: 10/17/2018 Page 1 of 2 12:16 AM Findings: Left Ventricle: Normal size left ventricle. Severe concentric LV hypertrophy. Mildly reduced systolic LV function. EF is 43 %. Unable to assess diastolic dysfunction. Right Ventricle: Moderately dilated right ventricle. Mildly reduced RV function. Left Atrium: Left atrial enlargement. Right Atrium: Right atrial enlargement. Mitral Valve: The mitral valve is normal in appearance and function. Mild mitral valve regurgitation is present. No mitral stenosis is present. Aortic Valve: Aortic valve is not well visualized. Mild aortic cusp calcification is noted. There is no aortic valve regurgitation. No aortic valve stenosis is present. Tricuspid Valve: The tricuspid valve is normal in appearance and function. Severe tricuspid regurgitation is present. Right ventricular systolic pressure measures 49mmHg. The pulmonary artery pressure is moderately increased. Pulmonic Valve: Pulmonary valve not well visualized. Aorta: Normal size aortic root measuring 3.4 cm. IVC: The IVC is dilated. There is less than 50% respiratory excursion. Pericardium: No pericardial effusion. (No Signature Object) Patient: INDY HAWKINS Study Date: 10/17/2018 Page 2 of 2 12:16 AM [id number]
--- NOTE | 2018-10-17 12:17 | PDCARCONS ---
Cardiology Consult Reason for Consult: Hypotension, elevated cardiac enzymes. Chief Complaint: Shoulder pain, abdominal bloating and fatigue. Requesting Physician: Dr. Yanet Clifton History of Present Illness: This is a 57-year-old male typically followed in the outpatient setting by Dr. Corky Martin. He has a complex cardiovascular disease history. Apparently, he has a history of coronary disease with prior PCI of a ramus intermedius and diagonal vessels by Dr. Marck Iqbal in 2011. Additionally, he has a history of previously paroxysmal now permanent atrial fibrillation. In the past he had had a severe cardiomyopathy with ejection fraction 25% thought to be tachycardia mediated. Over the last 4 to 5 years sequential echocardiography has indicated that his ejection fraction has been normal. There are suggestions on his echocardiogram that he might have apical hypertrophic cardiomyopathy. Furthermore, he has a history of severe peripheral vascular disease. Following multiple lower extremity PCIs he ultimately underwent a right BKA which was performed by Dr. Gus Tello. Apparently, this was complicated by postoperative wound infection and possibly osteomyelitis. This is been followed by Dr. Zachery Romero. Furthermore, he has a history of chronic congestive heart failure with a preserved ejection fraction. He presented to the emergency department last evening with fairly nonspecific symptoms. Apparently had been doing well during the course of the day. That evening he developed this sudden sensation of shoulder pain associated with abdominal bloating. He states that he had several episodes of emesis without diarrhea. Had no abdominal pain. He denied chest pain and chest pressure. On arrival to the emergency department he was noted to be hypotensive with systolic blood pressures in the 80s. He was in atrial fibrillation with heart rates in the 40s to 50s. He received intravenous fluids and Levophed. His initial troponin was slightly elevated at 0.05. His chest x-ray was really unremarkable. A chest CT scan did not demonstrate PE or aortic dissection and there was no indication of pericardial effusion. There was a suggestion of stranding in the upper abdomen. This was followed up by abdominal CT scan was suggested a fluid collection in the right upper quadrant and possibly cholecystitis. He had an echocardiogram performed at the bedside which was reviewed last the evening. This indicated that his ejection fraction was near normal with no evidence of tamponade or new wall motion abnormalities. History Information - Allergies/Home Medication List Allergies/Adverse Reactions: No Known Allergies Allergy (Verified 10/16/18 21:17) Home Medications: Gabapentin [Neurontin 100 MG (*)] 200 mg PO TID 08/06/17 [Last Taken 10/16/18 16 :00] Atorvastatin Calcium [Lipitor 80 mg] 80 mg PO HS 09/25/17 [Last Taken 10/16/18] Furosemide [Lasix 40 MG (*)] 120 mg PO DAILY 09/25/17 [Last Taken 10/16/18] Metformin HCl [Metformin 1000 mg] 1,000 mg PO BIDMEAL 09/25/17 [Last Taken 10/16 18:00] Gabapentin [Gabapentin 800 mg] 800 mg PO TID 01/26/18 [Last Taken 10/16/18 16:00 ] Rivaroxaban [Xarelto] 20 mg PO DAILY@18 01/26/18 [Last Taken 10/16/18] Carvedilol [Coreg (*)] 25 mg PO BIDMEAL 02/04/18 [Last Taken 10/16/18 18:00] Insulin Aspart [novoLOG] 20 - 25 unit SC TIDMEAL 04/16/18 [Last Taken 10/16/18 09:00] Insulin Detemir [Levemir] 45 - 50 unit SQ BID 04/16/18 [Last Taken 10/16/18 09: 00 45 units] Diltiazem Cd [Cardizem ER 120 MG (*)] 120 mg PO DAILY@15 05/20/18 [Last Taken ] Ibuprofen [Ibu] 400 mg PO DAILY PRN 05/20/18 [Last Taken Unknown] Spironolactone [Aldactone 25 MG (*)] 25 mg PO DAILY 10/17/18 [Last Taken ] I have personally reviewed and updated: family history, medical history, social history, surgical history Past Medical History: Coronary artery disease as described above, morbid obesity, possible apical hypertrophic cardiomyopathy, chronic s diastolic congestive heart failure,, peripheral vascular disease, osteomyelitis, hypertension, hyperlipidemia, type 2 diabetes mellitus, permanent atrial fibrillation, pulmonary hypertension, ongoing tobacco use. - Surgical History Additional surgical history: Right BKA, multiple prior previously placed lower extremity stents, coronary stenting. - Family History Positive for: non-pertinent - Social History Smoking Status: Light smoker Alcohol Use: None Drug Use: None Physical Exam Physical Exam: Temp Pulse Resp BP Pulse Ox 36.8 C 106 H 21 H 124/78 H 92 10/17/18 12:00 10/17/18 12:00 10/17/18 12:00 10/17/18 12:00 10/17/18 12:00 O2 (L/minute) 2 Constitutional: appears nourished, not in pain, other (Acutely ill) Eyes: PERRL, anicteric sclera, EOMI Ears, Nose, Mouth, Throat: moist mucous membranes, hearing normal, ears appear normal, no oral mucosal ulcers Cardiovascular: no murmur, rub, or gallop, irregularly irregular, No edema Peripheral Pulses: 2+: carotid (R), carotid (L) Respiratory: no respiratory distress, other (Upper airway wheezes) Gastrointestinal: normoactive bowel sounds, soft, non-tender abdomen, no palpable masses Genitourinary: no bladder fullness, no bladder tenderness Skin: warm, normal color, no rashes or abrasions, no fluctuance, no induration, No mottled Musculoskeletal: full muscle strength, no muscle tenderness, normal joint ROM, no joint effusions Neurologic: AAOx3 Psychiatric: interacting appropriately, not anxious, not encephalopathic, thought process linear Lymph, Heme, Immunologic: no cervical LAD, no supraclavicular LAD Lab and Imaging 10/17/18 02:55 10/17/18 06:24 WBC 15.97 10^3/uL (3.80-9.50) H 10/17/18 02:55 RBC 5.24 10^6/uL (4.40-6.38) 10/17/18 02:55 Hgb 16.3 g/dL (13.7-17.5) 10/17/18 02:55 POC Hgb 17.3 gm/dL (13.7-17.5) 10/16/18 22:47 Hct 50.5 % (40.0-51.0) 10/17/18 02:55 POC Hct 51 % (40-51) 10/16/18 22:47 MCV 96.4 fL (81.5-99.8) 10/17/18 02:55 MCH 31.1 pg (27.9-34.1) 10/17/18 02:55 MCHC 32.3 g/dL (32.4-36.7) L 10/17/18 02:55 RDW 15.8 % (11.5-15.2) H 10/17/18 02:55 Plt Count 207 10^3/uL (150-400) 10/17/18 02:55 MPV 10.4 fL (8.7-11.7) 10/17/18 02:55 Neut % (Auto) Not Reported 10/17/18 02:55 Lymph % (Auto) Not Reported 10/17/18 02:55 [place] % (Auto) Not Reported 10/17/18 02:55 Eos % (Auto) Not Reported 10/17/18 02:55 Baso % (Auto) Not Reported 10/17/18 02:55 Nucleat RBC Rel Count Not Reported 10/17/18 02:55 Absolute Neuts (auto) Not Reported 10/17/18 02:55 Absolute Lymphs (auto) Not Reported 10/17/18 02:55 Absolute Monos (auto) Not Reported 10/17/18 02:55 Absolute Eos (auto) Not Reported 10/17/18 02:55 Absolute Basos (auto) Not Reported 10/17/18 02:55 Absolute Nucleated RBC Not Reported 10/17/18 02:55 Immature Gran % Not Reported 10/17/18 02:55 Seg Neutrophils % 72.0 % 10/17/18 02:55 Band Neutrophils % 5.0 % 10/17/18 02:55 Lymphocytes % 9.0 % 10/17/18 02:55 Monocytes % 9.0 % 10/17/18 02:55 Eosinophils % 1.0 % 10/17/18 02:55 Basophils % 0.0 % 10/17/18 02:55 Metamyelocytes % 2.0 % 10/17/18 02:55 Myelocytes % 2.0 % 10/17/18 02:55 Promyelocytes % 0.0 % 10/17/18 02:55 Blast Cells % 0.0 % 10/17/18 02:55 Immature Gran # Not Reported 10/17/18 02:55 Absolute Seg Neuts 11.50 10^3/uL (1.70-6.50) H 10/17/18 02:55 Absolute Band Neuts 0.80 10^3/uL (0.00-0.70) H 10/17/18 02:55 Absolute Lymphocytes 1.44 10^3/uL (1.00-3.00) 10/17/18 02:55 Absolute Monocytes 1.44 10^3/uL (0.30-0.80) H 10/17/18 02:55 Absolute Eosinophils 0.16 10^3/uL (0.03-0.40) 10/17/18 02:55 Absolute Basophils 0.00 10^3/uL (0.02-0.10) L 10/17/18 02:55 Absolute Metamyelocyte 0.32 10^3/mL (0.00-0.00) H 10/17/18 02:55 Absolute Myelocytes 0.32 10^3/mL (0.00-0.00) H 10/17/18 02:55 Absolute Promyelocytes 0.00 10^3/uL (0.00-0.00) 10/17/18 02:55 Absolute Plasma Cells 0.00 10^3/uL (0.00-0.00) 10/17/18 02:55 Nucleated RBCs 0 /100 WBC (0-0) 10/17/18 02:55 Absolute Blast Cells 0.00 10^3/uL (0.00-0.00) 10/17/18 02:55 Plasma Cells % 0.0 % 10/17/18 02:55 Platelet Estimate ADEQUATE (ADEQ) 10/17/18 02:55 ESR 19 MM/HR (0-20) 10/16/18 21:45 PT 22.8 SEC (12.0-15.0) H 10/16/18 23:40 INR 2.01 (0.83-1.16) H 10/16/18 23:40 APTT 26.9 SEC (23.0-38.0) 10/16/18 23:40 Puncture Site NONE GIVEN 10/17/18 03:12 Patient Temperature 36.9 DEGREES 10/17/18 03:12 pCO2 48 mmHg (34-38) H 10/17/18 03:12 pO2 74 mmHg (65-75) 10/17/18 03:12 Total CO2 22 mEq/L (23-27) L 10/17/18 03:12 ABG pH 7.25 (7.35-7.45) L 10/17/18 03:12 ABG HCO3 20 mEq/L (22-26) L 10/17/18 03:12 ABG O2 Saturation 91 % (92-95) L 10/17/18 03:12 ABG Base Excess -7.1 mEq/L (-2.5-2.5) L 10/17/18 03:12 VBG pH 7.19 (7.31-7.42) L 10/16/18 23:44 VBG HCO3 18 mEQ/L (22-26) L 10/16/18 23:44 VBG Total CO2 19 mEq/L (21-27) L 10/16/18 23:44 VBG O2 Saturation 92 % (65-75) H 10/16/18 23:44 VBG Base Excess -10.7 mEq/L (-2.5-2.5) L 10/16/18 23:44 VBG Lactic Acid 3.2 mmol/L (0.7-2.1) H 10/17/18 02:55 Mixed VBG pCO2 49 mmHg (40-44) H 10/16/18 23:44 Mixed VBG pO2 86 mmHG (35-40) H 10/16/18 23:44 Total O2 Concentration 10.0 LITERS 10/17/18 03:12 POC Sodium 138 mEq/L (135-145) 10/16/18 22:47 Sodium 135 mEq/L (135-145) 10/17/18 06:24 POC Potassium 5.6 mEq/L (3.3-5.0) H 10/16/18 22:47 Potassium 5.7 mEq/L (3.5-5.2) H 10/17/18 06:24 POC Chloride 104 mEq/L (97-110) 10/16/18 22:47 Chloride 105 mEq/L (97-110) 10/17/18 06:24 Carbon Dioxide 25 mEq/l (22-31) 10/17/18 06:24 POC Total CO2 20 mEq/L (22-31) L 10/16/18 22:47 Anion Gap 5 mEq/L (6-14) L 10/17/18 06:24 POC BUN 35 mg/dL (7-23) H 10/16/18 22:47 BUN 39 mg/dL (7-23) H 10/17/18 06:24 Creatinine 1.5 mg/dL (0.7-1.3) H 10/17/18 06:24 POC Creatinine 1.5 mg/dL (0.7-1.3) H 10/16/18 22:47 Estimated GFR 49 10/17/18 06:24 Glucose 245 mg/dL (70-100) H 10/17/18 06:24 POC Glucose 225 mg/dL (70-100) H 10/17/18 08:21 Calcium 8.2 mg/dL (8.5-10.4) L 10/17/18 06:24 Phosphorus 4.6 mg/dL (2.5-4.5) H 10/17/18 06:24 Magnesium 1.8 mg/dL (1.6-2.3) 10/17/18 06:24 Total Bilirubin 1.0 mg/dL (0.1-1.4) 10/16/18 23:40 Conjugated Bilirubin 0.6 mg/dL (0.0-0.5) H 10/16/18 23:40 Unconjugated Bilirubin 0.4 mg/dL (0.0-1.1) 10/16/18 23:40 AST 76 IU/L (17-59) H 10/16/18 23:40 ALT 59 IU/L (21-72) 10/16/18 23:40 Alkaline Phosphatase 56 IU/L (38-126) 10/16/18 23:40 POC Troponin I 0.06 ng/mL (0.00-0.08) 10/16/18 21:37 Troponin I 0.052 ng/mL (0.000-0.034) H 10/17/18 06:24 C-Reactive Protein 6.8 mg/L (<10.0) 10/16/18 21:45 NT-Pro-B Natriuret Pep 1070 pg/mL (0-125) H 10/16/18 23:40 Total Protein 5.7 g/dL (6.3-8.2) L 10/16/18 23:40 Albumin 2.8 g/dL (3.5-5.0) L 10/16/18 23:40 Lipase 122 IU/L (23-300) 10/16/18 23:40 Procalcitonin 0.05 ng/mL (0.02-0.10) 10/16/18 21:45 TSH 5.540 uIU/mL (0.465-4.680) H 10/16/18 21:45 Urine Color JORDI 10/17/18 02:55 Urine Appearance MODERATELY TURBID 10/17/18 02:55 Urine pH 5.0 (5.0-7.5) 10/17/18 02:55 Ur Specific [place] > 1.035 (1.002-1.030) H 10/17/18 02:55 Urine Protein 2+ (NEGATIVE) H 10/17/18 02:55 Urine Ketones NEGATIVE (NEGATIVE) 10/17/18 02:55 Urine Blood NEGATIVE (NEGATIVE) 10/17/18 02:55 Urine Nitrate NEGATIVE (NEGATIVE) 10/17/18 02:55 Urine Bilirubin NEGATIVE (NEGATIVE) 10/17/18 02:55 Urine Urobilinogen 2.0 EU (0.2-1.0) H 10/17/18 02:55 Ur Leukocyte Esterase NEGATIVE (NEGATIVE) 10/17/18 02:55 Urine RBC NONE SEEN /hpf (0-3) 10/17/18 02:55 Urine WBC 5-10 /hpf (0-3) H 10/17/18 02:55 Ur Epithelial Cells TRACE /lpf (NONE-1+) 10/17/18 02:55 Amorphous Sediment PRESENT /hpf (NONE-1+) 10/17/18 02:55 Urine Bacteria TRACE /hpf (NONE SEEN) H 10/17/18 02:55 Hyaline Casts 5-15 /lpf (0-1) 10/17/18 02:55 Urine Mucus TRACE /lpf (NONE-1+) 10/17/18 02:55 Urine Glucose 1+ (NEGATIVE) H 10/17/18 02:55 Nasal Influenza A PCR NEGATIVE FOR FLU A (NEGATIVE) 10/16/18 22:05 Nasal Influenza B PCR NEGATIVE FOR FLU B (NEGATIVE) 10/16/18 22:05 A/P Assessment: 1. Shock. At the present time, this does not appear to be of a cardiogenic nature. Most likely this represents septic shock. His hemodynamics appear to have stabilized with aggressive fluid hydration and the use of pressors. The source of his her presumed sepsis is not entirely clear at the present time. He does have a history of osteomyelitis of the right leg. He additionally, his CT scans of the chest and abdomen suggest a process in his right upper quadrant. 2. Acute renal insufficiency. Likely related to the above. This is associated with significant hyperkalemia. Electrolyte abnormalities have been treated with insulin, glucose per, calcium and Kayexalate. Additionally, he has already received fairly aggressive hydration. 3. Atrial fibrillation. This appears to be chronic. He is, however, bradycardic. This is noted in the setting of fairly high doses of Coreg and the presence of significant hyperkalemia. I do not think that the bradycardia is contributing to his overall shock at the present time. 4. Hypoxic respiratory failure. Likely related to volume resuscitation and primary underlying lung disease. 5. Elevated cardiac enzymes. Consistent with myocardial injury in the absence of other findings that would suggest an acute myocardial infarction. 6. Coronary artery disease. This appears to be stable at the present time. 7. Peripheral vascular disease. Plan: 1. The patient will be admitted to the intensive care unit. At the present time , I do not think he requires emergent additional cardiovascular testing or therapies. 2. I have asked that they add a low-dose of dopamine to be used in conjunction with existing pressor support. 3. We will plan to trend his cardiac enzymes overnight. 4. I will defer to his primary team regarding further workup for possible etiologies of the patient's shock. 5. We will follow along with you. Review of Systems - Review of Systems Constitutional: see HPI EENTM: no symptoms reported Respiratory: see HPI Cardiology: see HPI Gastrointestinal/Abdominal: see HPI Genitourinary: no symptoms reported Musculoskeletal: no symptoms reported Skin: no symptoms reported Neurological: no symptoms reported Endocrine: no symptoms reported Hematologic/Lymphatic: no symptoms reported All Other Systems: Reviewed and Negative
--- NOTE | 2018-10-17 12:54 | GCON ---
[f rep st] CONSULTATION PRODUCT COORDINATOR CONSULTATION REFERRING PHYSICIAN: Yanet Clifton MD REASON FOR ADMISSION: Sepsis, septic shock. HISTORY OF PRESENT ILLNESS: I was asked to see patient by Dr. Yanet Clifton for critical care consult ation. The patient is a 57-year-old white male with a very extensive past medical history, including coronary artery disease with stents, congestive heart failure, insomnia, diabetes, hypertension, hyp erlipidemia, peripheral artery disease, and atrial fibrillation. He presented after feeling unwell a t home. Prior to this, he was in his normal state of health, and he got back complaining of some milan sea, vomiting, as well as significant abdominal pain. He was brought to the emergency room and under went significant fluid resuscitation. He was placed on IV pressors, admitted to the intensive care u nit where he was begun on broad-spectrum antibiotics and placed on sepsis protocol. In discussion wi th the patient, he states overall, he is feeling markedly improved. He is awake, alert, and oriented . He no longer has any nausea or abdominal pain. There is no fever or night sweats. PAST MEDICAL HISTORY: Again significant for atrial fibrillation, coronary artery disease, hypertensi on, hyperlipidemia, congestive heart failure, diabetes, diabetic neuropathy, insomnia, morbid obesity , peripheral vascular disease, osteoarthritis, bradycardia. PAST SURGICAL HISTORY: Right BKA, cardiac stent x2, femoral and iliac stenting, temporary pacemaker. ALLERGIES: No known allergies to medications. HOME MEDICATIONS: Include gabapentin, atorvastatin, metformin, Xarelto, NovoLog, azithromycin, Cardi zem, ibuprofen, Levemir, Coreg, gabapentin, Lasix, Plavix, Neurontin. FAMILY HISTORY: Noncontributory. SOCIAL HISTORY: He is a lifelong smoker, but smokes lightly. He does not drink much alcohol. Work history, he is retired. He is . Has good family support. He has lived in [place] for many years, but is originally from [facility]. PHYSICAL EXAM: VITAL SIGNS: Blood pressure is 116/62, pulse 104, respiration 19, temperature 37.2, oxygen saturation 93% on 4 L. GENERAL: He is a morbidly obese, but extremely pleasant 57-year-old w bhumi male who is resting comfortably on nasal cannula oxygen. HEENT: Eyes are PERRLA, EOMI. Throat shows no erythema or tonsillar hypertrophy. NECK: Supple. No cervical adenopathy. HEART: Regula r rate and rhythm with a 2/6 systolic murmur at the left sternal border without radiation. LUNGS: D iminished breath sounds and a mild prolongation expiratory phase, but there is no wheeze. ABDOMEN: Soft, nontender. Bowel sounds are present. EXTREMITIES: Right-sided BKA. The stump is red, but he aled. Left leg shows erythema from mid su down. LABORATORY/IMAGING: White count is 15.9, hemoglobin 16, hematocrit 50, platelet count is 207. Arter ial blood gas: pH 7.25, pCO2 of 48, pO2 of 74, bicarb 22, oxygen saturation 91%. Sodium 135, potass ium 7.1, chloride is 105, CO2 is 22, BUN 38, creatinine 1.7, glucose is 261. Urinalysis: pH is 5, s pecific gravity greater than 1.035, 2+ protein. Influenza A and B are negative. CT scan of the abdomen, pelvis reveals severe right upper quadrant inflammatory stranding with a diff usely thickened gallbladder, second portion of duodenum, and to lesser extent, the pancreatic head ma ss. CT scan of the chest reveals no evidence of PE. There is bronchial wall thickening. IMPRESSION: 1. Sepsis with septic shock, source of which is unclear at this time, though I feel most likely is c oming from his belly, must take into consideration possible gallbladder disease. 2. Acute renal failure. 3. Shock, likely septic. 4. Lactic acidosis. 5. Hyperkalemia. 6. Severe nausea and vomiting. 7. Diabetes. 8. Coronary artery disease. 9. Cardiomyopathy. 10. Hypertension. 11. Atrial fibrillation. RECOMMENDATIONS: 1. Agree with broad-spectrum antibiotics. 2. Agree with weaning of pressors. 3. Will start gentle diuresis. 4. Agree with ultrasound of the abdomen. 5. Aggressive blood sugar control. 6. DVT and PE prophylaxis. 7. Stress ulcer prophylaxis. 8. Adequate nutrition. 9. Close cardiovascular monitoring. Thank you so much for allowing me to participate in the care of this interesting patient. Wesley larry along with you /[id number]/MODL
--- NOTE | 2018-10-17 14:22 | ASMTCMCOM ---
CM Note CM Note Notes: Pt is a 57 yo M who presents with sepsis, hypotension and bradychardia. Pt has a history of diabetes and previous amputation which is still healing. Pt reports he does not have prostetic yet due to lengthy healing process. Pt has consults for cardiology and nephrology. OT ordered, pending Eval. at bedside, she is supportive. Pt is saying that he feels better and hopes to go home soon. CM anticipates pt will likely be discharged independently once medically stable. CM available if needs may arise. Plan: Likely independent. Date Signed: 10/17/2018 02:21 PM Electronically Signed By:CITLALI Kaba
--- NOTE | 2018-10-17 16:59 | SOAPPROG ---
[facility] Progress Note Assessment/Plan: Assessment: Problem list: 1. Septic shock 2. Coronary disease with history of PCI remotely, review of angiograms today showed ramus intermedius as target. With residual diagonal disease. 3. Persistent atrial fibrillation 4. Peripheral artery disease status post right BKA 5. Hypertension 6. Hyperlipidemia Recent data includes a stress test on September of 2017 showing apical lateral infarction with no ischemia. ECHO from September 2017 showed ejection fraction of 61% with moderate asymmetric septal hypertrophy Impression: Significant improvement in clinical status overnight. Blood pressure has normalized. Heart rate in the mid 80s. Patient is sitting in a chair asymptomatic without chest pain, shortness of breath, PND, orthopnea. Recommendations: Continued observation in the ICU. No further cardiac testing at this point. Continue current medical therapy with resumption of outpatient medications as soon as reasonably possible. 10/17/18 16:56 Subjective: Feeling better. Sitting in a chair. He continues to have some back pain, right flank pain. He denies fever or chills. He has had no further nausea or vomiting. He denies chest pain, shortness of breath, PND, orthopnea. Echocardiogram today showed preserved LV function without pericardial effusion. No new valvular abnormalities were identified. I have reviewed his diagnostic angiograms from 2011. He had PCI of the ramus at that time. He had residual diagonal disease that was not addressed. Objective: Vital Signs Temp Pulse Resp BP Pulse Ox 36.6 C 94 18 108/73 98 10/17/18 15:00 10/17/18 16:28 10/17/18 16:00 10/17/18 16:00 10/17/18 16:00 Laboratory Results 10/17/18 02:55 10/17/18 11:57 10/16/18 10/17/18 10/18/18 05:59 05:59 05:59 Intake Total 9713 240 Output Total 450 700 Balance 9263 -460 PT 22.8 SEC (12.0-15.0) H 10/16/18 23:40 INR 2.01 (0.83-1.16) H 10/16/18 23:40 Laboratory Tests 10/16/18 10/17/18 10/17/18 23:40 02:30 06:24 Creatinine 1.4 H 1.7 H 1.5 H Troponin I 0.052 H NT-Pro-B Natriuret Pep 1070 H 10/17/18 11:57 Creatinine 1.5 H Troponin I NT-Pro-B Natriuret Pep Medications Generic Name Dose Route Start Last Admin Trade Name Denice PRN Reason Stop Dose Admin Albuterol 3 ml 10/16/18 22:52 Proventil Neb IH 04/14/19 22:51 Q2HRS PRN Short of Breath/Dyspnea Carvedilol 25 mg 10/17/18 18:00 10/17/18 16:28 Coreg PO 04/15/19 17:59 25 mg BIDMEAL JORGE Insulin Human Lispro 0 unit 10/17/18 08:00 10/17/18 12:00 Humalog Lispro SC 04/15/19 07:59 Not Given TIDMEAL JORGE Protocol Insulin Human Lispro 0 unit 10/17/18 21:00 Humalog Lispro SC 04/15/19 20:59 HS JORGE Protocol EKG shows extensive anterior Q-waves. Inferior Q-waves. Atrial fibrillation ICD10 Worksheet Patient Problems: Problems Problem Status Onset Wound infection Acute Cellulitis of right foot Acute Afib Acute Nicotine dependence Acute Acute exacerbation of congestive heart failure Acute Dyspnea Acute Reactive airway disease with wheezing Acute Bradycardia Acute Hyperkalemia Acute BKA stump complication Acute IDDM (insulin dependent diabetes mellitus) Acute Cellulitis of right lower extremity Acute Elevated troponin Acute SOB (shortness of breath) Acute Wheezing Acute Hypotension Acute Sepsis Acute Review of Systems - Review of Systems Constitutional: denies: chills, fever, malaise EENTM: no symptoms reported Respiratory: no symptoms reported Cardiac: no symptoms reported Gastrointestinal/Abdominal: no symptoms reported. denies: vomiting Genitourinary: no symptoms Musculoskelatal: no symptoms
[2018-10-17] MEDS ORDERED: ALBUTEROL 60 PUFFS/8 GM MDI IH PRN (17:19)
[2018-10-17] MEDS ORDERED: CARVEDILOL 25 MG TAB PO SCH (18:00)
[2018-10-17] MEDS: SPIRONOLACTONE 25 MG TAB PO SCH (18:08)
--- NOTE | 2018-10-17 20:43 | POSTOPPROG ---
Post Op Note Date of Operation: 10/17/18 Surgeon: Koffi Tello Anesthesia: Local (Specify) Pre-op Diagnosis: SEPSIS Post-op Diagnosis: SAME Indication: NEED FOR IV ACCESS Procedure: LEFT SUBCLAVIAN TRIPLE-LUMEN CATHETER PLACEMENT AND ATTEMPTED LEFT RADIAL A Findings: GOOD POSITION AND FLOW OF THE TRIPLE-LUMEN CATHETER/UNABLE TO THREAD ART LI Inf/Abcess present in the surg proc area at time of surgery?: No Depth: Deep Incisional (Fascial) EBL: Minimal Complications: NONE
[2018-10-17] MEDS: GABAPENTIN 100 MG CAP PO SCH (21:14)
[2018-10-17] MEDS: GABAPENTIN 400 MG CAP PO SCH (21:14)
[2018-10-17] MEDS: ATORVASTATIN CALCIUM 40 MG TAB PO SCH (21:14)
--- NOTE | 2018-10-17 23:43 | GOP ---
[f rep st] OPERATIVE REPORT DATE OF OPERATION: 10/17/2018 SURGEON: Koffi Tello MD PREOPERATIVE DIAGNOSIS: Sepsis. POSTOPERATIVE DIAGNOSIS: Sepsis. PROCEDURE PERFORMED: 1. Left subclavian triple-lumen catheter placement. 2. Attempted left radial artery catheter placement. FINDINGS: The patient was found to have good position and flow of the left subclavian triple-lumen c atheter. The left radial artery would not accommodate the art line catheter. DESCRIPTION OF PROCEDURE: The patient was placed in Trendelenburg and prepped and draped in the usua l sterile fashion. Using 1% Xylocaine local infiltration, a direct left subclavian stick was made. A guidewire was introduced. Position was confirmed. Dilator was passed with the guidewire. The sub clavian triple-lumen catheter was introduced, and the guidewire was removed. It was secured to the e xit site with 3-0 silk sutures, and it was flushed with saline. Chest x-ray was done showing no comp lications and good position of the catheter. Next, the left wrist was prepped and draped. A direct 22-gauge art line stick was made into the left radial artery with some blood return. However, the gu idewire would not easily pass and after 3 attempts, the procedure was discontinued. He tolerated the procedures well. He was taken to the intensive care unit in satisfactory condition. /[id number]/MODL
[2018-10-18] MEDS: PIPERACILLIN/TAZO 4.5 GM/DEX 100 ML IV SCH ×4 (05:30→23:40)
[2018-10-18 06:07] LABS: PLATELET COUNT 167 10^3/uL (150-400)
[2018-10-18] MEDS: INSULIN LISPRO 100 UNIT/ML SC SCH ×4 (09:30→22:28)
[2018-10-18] MEDS ORDERED: SINCALIDE 5 MCG VIAL IV ONE (09:34)
--- NOTE | 2018-10-18 10:02 | SOAPPROG ---
SOAP Progress Note Assessment/Plan: Assessment/Plan: 57 y/o M with a known h/o multiple medical issues who presented with hypotension found to have hyperkalemia and SHEILA. Etiology of hypotension not quite clear however patient has significant cardiac issues. Getting work-up for possible cholecystitis, now off pressors. Renal US does show thickened bladder wall and may have had some obstructive component as well. Now making urine and suspect SHEIAL will improve. SHEILA -unknown baseline Cr, likely has some component of CKD given proteinuria and h/ o CAD and DM -Cr trending down to 1.4 today with diuresis -monitor UO -needs outpatient urology f/u for cystoscopy as recommended per imaging -avoid nephrotoxins and contrast -would renally dose meds (ie hold gabapentin, etc) -will arrange outpatient f/u -<100mg proteinuria on spot -will send SPEP, UPEP, FLC as outpatient Hypotension/vol -off pressors, keep MAP>65 -cultures NTD, US ok, getting HIDA -would likely dose down lasix to 60-80mg BID for goal Jessika 60-80mEq 3h post dose Hyperkalemia -resolved on diuretic -may resume DM, low sodium diet Consult appreciated, will sign off. Please contact if ?'s. #[phone]. 10/18/18 11:28 Subjective: Patient made good urine on diuretics yesterday. Going for HIDA this am. Objective: Vital Signs Temp Pulse Resp BP Pulse Ox 36.9 C 110 H 21 H 142/91 H 94 10/18/18 07:55 10/18/18 07:55 10/18/18 07:55 10/18/18 07:55 10/18/18 07:55 Laboratory Results 10/18/18 05:30 10/18/18 05:30 10/17/18 10/18/18 10/19/18 05:59 05:59 05:59 Intake Total 9713 1310 Output Total 450 1335 Balance 9263 -25 PT 22.8 SEC (12.0-15.0) H 10/16/18 23:40 INR 2.01 (0.83-1.16) H 10/16/18 23:40 Physical Exam - Physical Exam General Appearance: WD/WN, alert, obese EENT: PERRL/EOMI, normal ENT inspection Neck: non-tender, full range of motion, supple Respiratory: chest non-tender, decreased breath sounds Cardiac/Chest: edema, irregularly irregular Abdomen: normal bowel sounds, non-tender, distended Skin: pallor Extremities: pedal edema, other (R BKA) Neuro/Psych: alert, normal mood/affect ICD10 Worksheet Patient Problems: Problems Problem Status Onset Bradycardia Acute Hypotension Acute Sepsis Acute Acute exacerbation of congestive heart failure Acute Afib Acute BKA stump complication Acute Cellulitis of right foot Acute Cellulitis of right lower extremity Acute Dyspnea Acute Elevated troponin Acute Hyperkalemia Acute IDDM (insulin dependent diabetes mellitus) Acute Nicotine dependence Acute Reactive airway disease with wheezing Acute SOB (shortness of breath) Acute Wheezing Acute Wound infection Acute
[2018-10-18] MEDS: GABAPENTIN 400 MG CAP PO SCH ×3 (11:00→22:26)
[2018-10-18] MEDS: FUROSEMIDE 80 MG TAB PO SCH (11:00)
[2018-10-18] MEDS: CARVEDILOL 25 MG TAB PO SCH ×2 (11:00→19:18)
[2018-10-18] MEDS: GABAPENTIN 100 MG CAP PO SCH ×3 (11:00→22:27)
[2018-10-18] MEDS: SPIRONOLACTONE 25 MG TAB PO SCH (11:02)
[2018-10-18] MEDS: DILTIAZEM CD 120 MG CAP PO SCH (11:33)
--- NOTE | 2018-10-18 11:57 | PDINTPN ---
Head Of Physics Progress Note Assessment/Plan: Assessment/plan: * Sepsis with septic shock-resolved. Source unclear at this time. -HIDA scan negative * Acute renal failure-improved * Lactic acidosis-resolved * Obesity * Diabetes * Coronary disease * Cardiomyopathy * Hypertension * Atrial fibrillation * Disposition-okay for floor Subjective: Resting comfortably. No current complaints. Objective: Vital Signs Temp Pulse Resp BP Pulse Ox 36.9 C 103 H 22 H 124/66 H 94 10/18/18 07:55 10/18/18 11:33 10/18/18 10:41 10/18/18 11:33 10/18/18 10:41 Laboratory Results 10/18/18 05:30 10/18/18 05:30 10/17/18 10/18/18 10/19/18 05:59 05:59 05:59 Intake Total 9713 1310 Output Total 450 1335 Balance 9263 -25 PT 22.8 SEC (12.0-15.0) H 10/16/18 23:40 INR 2.01 (0.83-1.16) H 10/16/18 23:40 - Time Spent With Patient Time Spent With Patient: 35 min of time spent with patient, over 1/2 involved with coordination of care counseling. Case discussed with nursing Physical Exam - Physical Exam General Appearance: alert, obese EENT: PERRL/EOMI Neck: non-tender, full range of motion, supple, normal inspection Respiratory: chest non-tender, lungs clear, normal breath sounds Cardiac/Chest: systolic murmur, irregularly irregular Peripheral Pulses: 2+: carotid (R), carotid (L), femoral (R), femoral (L), dorsalis-pedis (R), dorsalis-pedis (L) Abdomen: normal bowel sounds, non-tender, soft Male Genitalia: deferred Rectal: deferred Skin: normal color, warm/dry Extremities: non-tender Neuro/Psych: alert, normal mood/affect ICD10 Worksheet Patient Problems: Problems Problem Status Onset Bradycardia Acute Hypotension Acute Sepsis Acute Acute exacerbation of congestive heart failure Acute Afib Acute BKA stump complication Acute Cellulitis of right foot Acute Cellulitis of right lower extremity Acute Dyspnea Acute Elevated troponin Acute Hyperkalemia Acute IDDM (insulin dependent diabetes mellitus) Acute Nicotine dependence Acute Reactive airway disease with wheezing Acute SOB (shortness of breath) Acute Wheezing Acute Wound infection Acute
[2018-10-18 20:34] LABS: INR 1.2 (0.83-1.16); PROTIME(PATIENT) 15.4 SEC (12.0-15.0)
[2018-10-18] MEDS: ATORVASTATIN CALCIUM 40 MG TAB PO SCH (22:27)
--- NOTE | 2018-10-18 22:27 | HOSPPROG ---
Hospitalist Progress Note Assessment/Plan: DIAGNOSES: * Acute Shock with organ injury requiring pressor; ? etiology -shock resolved * Hypotension in setting of anasarca -low BPs resolved, tolerating diuresis so far * Acute Hypoxemic Resp FAilure -appears resolved * lactic acidosis * acute kidney injury - mild improvement not at baseline yet * nausea vomiting with abd bloating, elevated transaminases, and thickened GB wall - suspicious for cholecystitis Chronic medical issues DM II - patient currently NPO. Continue with the insulin sliding scale and CAD with hx cardiomyopathy/diastolic chf - on plavix, ASA, beta shilpi. no ACEI /ARB listed on med rec. benign essential HTN - low bps currently see above. chronic afib - holding dilt and coreg currently in setting of shock. PAD - holding xarelto/plavix. His abd/gi/digestive sx's persist, the other acute problems all improving so far. Suspect he will need GB out, waiting for further sugery consultation with him PLANS: * continue diuresis if his blood pressure remains stable; * Follow cultures closely * await further surgical consultation, ? cholecystectomy * increase activity as able Seen by me today on hospitals rounds as well as multidisciplinary rounds Reviewed with Dr. Cates today in detail SUBJECTIVE: main complaint today is abdominal bloating with no appetite, not eating mild diffuse discomfort no sob no chills OBJECTIVE Vitals reviewed: all stable without fever Oxygenation normal on room air Coordinator Of Placement, my review: Sinus rhythm now on 80s to 90s Exam: alert oriented relaxed skin warm dry color ok Obvious anasarca is present, with particular edema noted both flanks which are quite tight with edema resps not labored lungs clear BSs heart regular abd soft, more distended than yesterday. nontender, bowel sounds present, no flank tenderness limbs left BKA stump looks good, no signs of diabetic infection on the right limb iv site ok Lab data: White count down to 7000, stable CBC otherwise creat slightly better 1.4, liver transaminases mildly elevated Abd US with gal bladder wall thickening HIDA scan with normal findings Echocardiogram: midly reduced EF 43, TR is severe with PHTN 46 LVH Objective: Vital Signs Temp Pulse Resp BP Pulse Ox 36.6 C 94 20 108/76 93 10/18/18 22:19 10/18/18 22:19 10/18/18 22:19 10/18/18 22:19 10/18/18 22:19 Laboratory Results 10/18/18 05:30 10/18/18 05:30 10/17/18 10/18/18 10/19/18 06:59 06:59 06:59 Intake Total 9713 1310 1175 Output Total 450 1335 875 Balance 9263 -25 300 PT 15.4 SEC (12.0-15.0) H 10/18/18 20:17 INR 1.20 (0.83-1.16) H 10/18/18 20:17 ICD10 Worksheet Patient Problems: Problems Problem Status Onset Bradycardia Acute Hypotension Acute Sepsis Acute Acute exacerbation of congestive heart failure Acute Afib Acute BKA stump complication Acute Cellulitis of right foot Acute Cellulitis of right lower extremity Acute Dyspnea Acute Elevated troponin Acute Hyperkalemia Acute IDDM (insulin dependent diabetes mellitus) Acute Nicotine dependence Acute Reactive airway disease with wheezing Acute SOB (shortness of breath) Acute Wheezing Acute Wound infection Acute
[2018-10-19] MEDS ORDERED: HYDROCORTISONE 100 MG/2 ML VIAL IVP SCH (02:30)
--- NOTE | 2018-10-19 05:24 | CPEKG ---
Test Reason : OPEN Blood Pressure : / mmHG Vent. Rate : 061 BPM Atrial Rate : 000 BPM P-R Int : 224 ms QRS Dur : 110 ms QT Int : 426 ms P-R-T Axes : 000 136 088 degrees QTc Int : 429 ms Atrial fibrillation Inferior infarct, old Anterolateral infarct, age indeterminate Confirmed by Marck Mansfield ([id number]) on 10/19/2018 5:23:18 AM Referred By: Marck Mansfield Confirmed By:Marck Mansfield
[2018-10-19] MEDS: PIPERACILLIN/TAZO 4.5 GM/DEX 100 ML IV SCH ×2 (05:48→12:01)
[2018-10-19] MEDS: INSULIN LISPRO 100 UNIT/ML SC SCH ×2 (08:11→12:08)
[2018-10-19] MEDS: GABAPENTIN 400 MG CAP PO SCH (08:27)
[2018-10-19] MEDS: CARVEDILOL 25 MG TAB PO SCH (08:28)
[2018-10-19] MEDS: GABAPENTIN 100 MG CAP PO SCH (08:28)
[2018-10-19] MEDS: FUROSEMIDE 80 MG TAB PO SCH (08:29)
[2018-10-19] MEDS: DILTIAZEM CD 120 MG CAP PO SCH (08:30)
[2018-10-19] MEDS: SPIRONOLACTONE 25 MG TAB PO SCH (08:31)
--- NOTE | 2018-10-19 09:30 | SOAPPROG ---
SOAP Progress Note Assessment/Plan: Assessment/Plan: 57 Y M well known to us, multiple comorbidities, admitted c septic shock, etiology unclear. US with some GB wall thickening. HIDA scan ok. LFTs mildly elevated on admit. A little worse today, but suspect this is from hypotension during shock. His two BKA wounds are smaller and clean--do not appear to be source of sepsis. AKA recommended at one time, but wounds have gotten smaller. Still, they are chronic and may not heal. No surgical indication at this time. Will d/w Dr. Tello and addend note if any new input. S: feels better. enjoyed eating. wants to go home. O: alert, nad, in wc. no wob rrr abd soft, obese and protuberant, nt. BKA, small clean wounds x 2--one anteriorly, one posteriorly. both chronic. 10/19/18 10:24 Objective: Vital Signs Temp Pulse Resp BP Pulse Ox 36.4 C 92 14 121/89 H 94 10/19/18 07:22 10/19/18 08:30 10/19/18 07:22 10/19/18 08:30 10/19/18 07:22 Laboratory Results 10/18/18 05:30 10/18/18 05:30 10/18/18 10/19/18 10/20/18 05:59 05:59 05:59 Intake Total 1310 1475 Output Total 1335 1475 Balance -25 0 PT 15.4 SEC (12.0-15.0) H 10/18/18 20:17 INR 1.20 (0.83-1.16) H 10/18/18 20:17 ICD10 Worksheet Patient Problems: Problems Problem Status Onset Bradycardia Acute Hypotension Acute Sepsis Acute Acute exacerbation of congestive heart failure Acute Afib Acute BKA stump complication Acute Cellulitis of right foot Acute Cellulitis of right lower extremity Acute Dyspnea Acute Elevated troponin Acute Hyperkalemia Acute IDDM (insulin dependent diabetes mellitus) Acute Nicotine dependence Acute Reactive airway disease with wheezing Acute SOB (shortness of breath) Acute Wheezing Acute Wound infection Acute
[2018-10-19 13:06] VITALS: BP 134/86
--- NOTE | 2018-10-19 13:37 | ASMTCMCOM ---
CM Note CM Note Notes: Met with patient to discuss plan for discharge. Patient has used [facility] in the past. We discussed using HHC again upon discharge and patient declined. Patient does have a supportive and doesn't feel there is much HHC can assist with at this time. After reviewing OT recommendatioins today, sounds like patient does have some potential HC needs. It may be worth CM revisiting again closer to discharge to see if he will agree to HHC. Will continue to follow. Plan: Independent vs HHC Date Signed: 10/19/2018 01:37 PM Electronically Signed By:Giovanna Olmos RN
--- NOTE | 2018-10-19 14:58 | PDDCSUM ---
Discharge Summary Discharge Summary: DISCHARGE DIAGNOSES: * Acute hypotensive episode of unknown etiology, shock requiring fluid resuscitation with pressor * Anasarca, acute primarily right-sided congestive heart failure * Lactic acidosis * Acute hypoxemic respiratory failure felt likely due to heart failure * Known systolic dysfunction with ejection fraction 43% * Mild acute kidney injury * Abdominal bloating and nausea likely related to right-sided heart failure with acute hepatic congestion suspected * Gallbladder wall thickening without evidence of cholecystitis or stones, likely due to congestion from heart failure CONSULTANTS: Dr. Phill Caal PROCEDURES: Echocardiogram Abdominal ultrasound HIDA scan HOSPITAL COURSE SUMMARY: This patient who has a long list of significant medical problems comes in the hospital with vague symptoms but including nausea vomiting, anxiety, abdominal bloating but without abdominal pain. He had initially some decreased appetite but is now eating without any difficulty. The etiology of all these symptoms is uncertain. He does have evidence of acute exacerbation of chronic right- sided congestive heart failure. There is no evidence of pneumonia, no evidence of any other infectious process specifically. He was very hypotensive and was treated with fluid resuscitation initially with pressors. It was unclear however exactly why he was having these findings. The patient himself actually postulated that he may have accidentally taken extra medications in the way of his cardiac meds. He does state that he found himself to have a low pulse rate at home on the day of admission. He did indeed have pulses in the 40s and 50s here in the hospital when he presented with hypotension. The possibility of accidental ingestion of extra cardiac medicines is therefore very tenable. The patient has recovered very nicely at this time and is eating well again up and moving about. He is asymptomatic with stable vital signs. He is felt stable for discharge to home. The patient does still have significant edema and it is recommend that he gets in the clinic to see Dr. Vazquez within 1 week. I did talk to Crystal Dee from the Cardiology Clinic and she will arrange an appointment for him. Because of question of possible infection at the time of admission he was started on some antibiotic. We have not identified any definitive site or source of infection and cultures all negative. Nonetheless with an episode of this severity will give him couple more days of oral antibiotics as he leaves the hospital. PENDING TEST RESULTS: None MEDICATION CHANGES: Augmentin for 2 more days is prescribed FOLLOW-UP PLAN: With Dr. Garcia within 7 days in Cardiology clinic With his primary care doctor in 1-2 weeks Greater than 35 minutes bedside and care coordination time today
--- NOTE | 2018-10-19 15:29 | ASMTLACE ---
LACE Length of stay for Answers: 3 days current admission Acuity / Level of Answers: Yes Care: Did the patient have an inpatient admission? Comorbidities - select Answers: Congestive heart failure all that apply Diabetes (uncontrolled or controlled) Opioid dependence / Chronic pain Previous myocardial infarction Other Notes: AFib; HTN; HLD # of Emergency department Answers: 3-4 visits in the last 6 months Score: 18 Date Signed: 10/19/2018 03:29 PM Electronically Signed By:Giovanna Olmos RN
--- NOTE | 2018-10-19 15:29 | ASMTDCNOTE ---
Case Management Discharge Discharge Order Complete? Answers: Yes Patient to Obtain Answers: via Family Medications Transportation Arranged Answers: Family/Friends Family Notified Answers: Yes Notes: Discharge Comments Notes: Patient declined HHC. Spoke with who is in agreement with discharge plan home independently. states there is always a family member at home to support. D/W RN who agrees with plan. D/C home independently, daughter to transport. Date Signed: 10/19/2018 03:28 PM Electronically Signed By:Giovanna Olmos RN
--- NOTE | 2018-10-19 16:31 | CPEKG ---
Test Reason : OPEN Blood Pressure : / mmHG Vent. Rate : 105 BPM Atrial Rate : 000 BPM P-R Int : 195 ms QRS Dur : 097 ms QT Int : 339 ms P-R-T Axes : 000 123 224 degrees QTc Int : 449 ms Atrial fibrillation Inferior infarct, old Anterolateral infarct, age indeterminate Confirmed by Feliciano Villa ([id number]) on 10/19/2018 4:31:01 PM Referred By: Yanet Clifton Confirmed By:Feliciano Villa
== END 2018-10-19 15:40 | disposition home or self-care (01) | DRG 314 ==
LOC: F2N 10-17 02:22 → F3E 10-18 13:01
PROVIDERS: ADMIT Family Medicine; ATTEND Internal Medicine
PROC: 02HV33Z Insertion of Infusion Device into Superior Vena Cava, Percutaneous Approach (ICD-10-PCS; principal; 2018-10-17)
DX: I95.9 Hypotension, unspecified (principal); R57.9 Shock, unspecified; J96.01 Acute respiratory failure with hypoxia; E87.2 Acidosis; I50.32 Chronic diastolic (congestive) heart failure; N17.9 Acute kidney failure, unspecified; I50.813 Acute on chronic right heart failure; K76.1 Chronic passive congestion of liver; I48.2 Chronic atrial fibrillation; E11.40 Type 2 diabetes mellitus with diabetic neuropathy, unspecified; G47.33 Obstructive sleep apnea (adult) (pediatric); I11.0 Hypertensive heart disease with heart failure; E78.5 Hyperlipidemia, unspecified; I25.2 Old myocardial infarction; I25.10 Atherosclerotic heart disease of native coronary artery without angina pectoris; G47.00 Insomnia, unspecified; I73.9 Peripheral vascular disease, unspecified; Z89.511 Acquired absence of right leg below knee; Z79.4 Long term (current) use of insulin; Z95.5 Presence of coronary angioplasty implant and graft; Z72.0 Tobacco use; E66.9 Obesity, unspecified; Z68.36 Body mass index [BMI] 36.0-36.9, adult
CPT/HCPCS: 82435-PO; 82565-PO; 82947-PO; 84132-PO; 84295-PO; 84484-ER; 84520-PO; 85014-ER; 96365; 96366; 97166-GO; 97530-GO; 97535-GO; A9537; J0461; J0610; J0696; J1265; J1720; J1815; J2405; J2543; J2805; J3010; Q9967

== ENCOUNTER → 2018-11-23 | Day surgery (SDC) | payer OTHER ==
[~2018-11-23] MED LIST changes: +ACETAMINOPHEN 325 MG TAB PO PRN; +ASPIRIN EC 325 MG TAB PO ONE; +DIAZEPAM 5 MG TAB PO ONE; +FAMOTIDINE 20 MG TAB PO ONE; +HEPARIN 10,000 UNIT/10 ML MDV (1,000 UNIT/ML) ONE; +LIDOCAINE 1% 300 MG/30 ML SDV ONE; +MIDAZOLAM 2 MG/2 ML VIAL ONE; +NITROGLYCERIN 0.4 MG BTL SL PRN; +NS 1,000 ML IV SCH; +TEMAZEPAM 15 MG CAP PO PRN; +VERAPAMIL 5 MG/2 ML VIAL ONE; +diphenhydrAMINE 25 MG CAP PO ONE; +fentaNYL 100 MCG/2 ML INJ ONE
--- NOTE | 2018-11-23 09:16 | PDPROPOC ---
Sedation Plan of Care Sedation Plan of Care: vital signs stable, mental status noted, patient educated of risks, benefits, alternatives, patient can tolerate sedation ASA Classification: ASA 3 Planned drugs: fentanyl, midazolam Mallampati Score: Class 2 Mallampati Reference Image: Patient passed 3-3-2 rule?: Yes
[2018-11-23 09:59] LABS: PLATELET COUNT 243 10^3/uL (150-400)
[2018-11-23 10:12] LABS: INR 1.19 (0.83-1.16); PROTIME(PATIENT) 14.6 SEC (12.0-15.0)
--- NOTE | 2018-11-25 11:43 | CPEKG ---
Test Reason : OPEN Blood Pressure : / mmHG Vent. Rate : 106 BPM Atrial Rate : 000 BPM P-R Int : 134 ms QRS Dur : 101 ms QT Int : 350 ms P-R-T Axes : 000 112 000 degrees QTc Int : 465 ms Atrial fibrillation Inferior infarct, age indeterminate Probable anterolateral infarct, old Confirmed by Juan Francisco Urbano ([id number]) on 11/25/2018 11:43:33 AM Referred By: Juan Francisco Urbano Confirmed By:Juan Francisco Urbano
--- NOTE | 2018-12-15 14:25 | CPIP ---
[f rep st] INVASIVE CARDIAC PROCEDURE DATE OF PROCEDURE: 11/23/2018 PROCEDURE PERFORMED: 1. Right and left heart catheterization. 2. Selective coronary angiography. INDICATION FOR PROCEDURE: Angina pectoris and shortness of breath in a patient with coronary artery disease and peripheral vasc ular disease. PROCEDURE IN DETAIL: After informed consent was obtained and n.p.o. status was confirmed, the region of the left wrist was cleaned, prepped, and draped in sterile fashion. Likewise, the antecubital fo ssa was cleaned, prepped, and draped in sterile fashion in order to place a 5-Nigerien sheath for purpo ses of doing a right heart catheterization. The patient underwent a standard right heart catheterization using a balloon tipped [place]-Keri cathete r, 5-[place]igerien in size. The catheter was advanced under direct fluoroscopic guidance using flow-directe d balloon tip and was manipulated with care into the right atrium, right ventricle, pulmonary artery, and placed into a wedge position. Balloon was drawn back into the central PA. It was aspirated and flushed, and then pulmonary catheter wedge pressure was repeated. The pulmonary capillary wedge pre ssure was 26 with an A-wave of 30, V-wave of 31. PA pressure was 68/35 with a mean of 47. RV pressu re 63/13 with an end-diastolic pressure of 20. Right atrial pressure was 21 mean with a 20 A-wave an d 28 V-wave. The simultaneous sat was obtained with the catheter in the PA position documenting an A O sat of 94.5, PA sat of 72.2, SVC sat of 70, and a PA sat of 72. This yielded a Marcie cardiac output of 5.45 L/minute with an index of 2.45 L/minute per sq m., The Marcie heart rate was 95 at the time of the measurements. We turned our attention to the coronary system. The Cambria-Keri balloon tipped catheter was removed fr om the body. The patient underwent the previously mentioned diagnostic procedures on the left heart catheterization with JR4 and JL4 coronary catheters, as well as a standard pigtail catheter. Standar d wire exchange technique was utilized for all catheter exchanges. The right coronary artery is dominant giving rise to the posterior descending, as well as a posterola teral ventricular branch. No significant flow-limiting obstruction of the blood vessels identified. Luminal irregularity consistent with underlying atherosclerosis is present. The patient underwent l eft heart catheterization demonstrating an LV pressure of 128/15 with end-diastolic pressure of 23. The patient underwent left ventriculogram in the PETERS projection, demonstrating hypercontractile left ventricular systolic function with mid cavity obliteration and incomplete emptying of the apex of the heart consistent with the usual configuration seen with a hypertrophic cardiomyopathy with a mid cav ity or apical predominance. under pressurized injection, There was evidence of 3+ mitral regurgitati on with PVCs and again of the pressurized injection. There was no gradient upon pullback across aort ic valve. Aortic pressure was measured at 132/80 with a mean of 85 We turned our attention to the left coronary system. A JL4 diagnostic catheter was used for diagnost ic angiography. Left main coronary lumen is approximately 4 mm in size and bifurcates into an LAD an d circumflex system. The LAD is approximately 3 mm in size, giving rise to an important diagonal bra nch, which has been previously stented. at the junction of the LAD with the takeoff of that principa l diagonal vessel, which had been previously stented, there was a 60% to 70% ostial stenosis just at the level of the ostial takeoff of the diagonal, the LAD thereafter coursed the anterior apex as a re latively small vessel, but with good and BRITTANI-3 flow to the distal vessel. The left circumflex is 3 mm in size, intermediate gives rise to a high obtuse marginal vessel, which is a functional ramus ves analy. it has been previously stented and there is significant in-stent restenosis involving the high obtuse marginal and 70% to 80% stenosis just proximal to the stent implant. This is at the level of the bifurcation of the only other important obtuse marginal branch posteriorly and is not an ideal ca ndidate for stenting as it would require bifurcation stenting very high in the coronary circulation. The catheter was removed from the body and The patient underwent successful TR band arteriotomy sandee saul SUMMARY OF FINDINGS: Significant pulmonary artery hypertension with equalization of pressures within the heart on right and left heart catheterization, which is of unclear significance, but could be re lated to either restrictive cardiomyopathy, severe diastolic dysfunction related to the patient's hyp ertrophic cardiomyopathy may be the most likely cause of these issues, certainly clinical correlation is advised and if an echo has not been recently repeated, it may be reasonable to evaluate that to e valuate the severity of mitral regurgitation when a catheter under pressurized injection is not in th e left ventricular cavity. The patient has severe [place] vessel coronary disease with branch vessel obstruction proximal to a left anterior descending diagonal stent, as well as proximal to a circumfle x obtuse marginal and functional ramus vessel stent. Neither of these are likely to be good candidat es for intervention because they would require stent implantation with a crush technique to repair th e bifurcation of the left anterior descending, diagonal and the 1st and 2nd obtuse marginal branch al most to the ostium of the left main. if a crush bifurcation stent was performed, neither of the pare nt vessels actually need stenting because they do not have functional disease at present. I think it would be most prudent to treat the patient medically for now, to obtain an echo If that has not alre perry been done to evaluate the severity of mitral regurgitation, as well as the level of thickening of the mid cavity. I do think the patient may be a greater risk for embolic stroke If the left ventric ular apex is not suzi properly on the echo or if there is evidence of filling defect in the ap ex of the left ventricle on an ultrasound. It may be prudent to perform even a limited echo to rule out that possibility with a Definity contrast study. The delay of this dictation was caused by all the computer systems being down on the day that the baudilio morin's procedure was completed, so I apologize for the tardiness of the report. /[id number]/MODL
== END | disposition home or self-care (01) ==
LOC: FCATH 09:10
PROVIDERS: ATTEND Internal Medicine Cardiovascular Disease
PROC: B2151ZZ Fluoroscopy of Left Heart using Low Osmolar Contrast (ICD-10-PCS; principal; 2018-11-23)
PROC: B2111ZZ Fluoroscopy of Multiple Coronary Arteries using Low Osmolar Contrast (ICD-10-PCS; principal; 2018-11-23)
PROC: 4A023N8 Measurement of Cardiac Sampling and Pressure, Bilateral, Percutaneous Approach (ICD-10-PCS; principal; 2018-11-23)
DX: I20.9 Angina pectoris, unspecified (principal); R06.02 Shortness of breath; I25.10 Atherosclerotic heart disease of native coronary artery without angina pectoris; I73.9 Peripheral vascular disease, unspecified
CPT/HCPCS: J1644; J2250; J3010; Q9967

== ENCOUNTER 2018-12-24 23:10 | Inpatient (IN) | payer OTHER ==
[2018-12-24 23:33] LABS: PLATELET COUNT 220 10^3/uL (150-400)
[2018-12-24] MEDS ORDERED: FUROSEMIDE 40 MG/4 ML VIAL IVP ONE (23:52)
--- NOTE | 2018-12-24 23:56 | EDPHY ---
H & P Stated Complaint: SOB Time Seen by Provider: 12/24/18 23:25 HPI/ROS: HPI The patient presents with progressive shortness of breath which began a few days ago and became worse tonight. He is noted that each night it has been difficult to breathe, especially when lying flat. He notes that his abdomen has become more distended over the last few days as well. He has not had any chest pain. 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 He was also found to have CAD not amenable to stenting. REVIEW OF SYSTEMS 10 systems were reviewed and negative with the exception of the elements mentioned in the history of present illness. PMHx: Diastolic CHF, CAD, pulmonary hypertension, atrial fibrillation, hypertension, hyperlipidemia, type 2 diabetes, peripheral artery disease Soc Hx: Housed with his family PHYSICAL General Appearance: Alert, no distress Eyes: Pupils equal and round no pallor or injection ENT, Mouth: Mucous membranes moist Respiratory: Tachypneic, using accessory muscles to breathe, crackles heard throughout both lung harper Cardiovascular: Regular rate and rhythm Gastrointestinal: Abdomen is quite distended though nontender, no masses, bowel sounds normal Neurological: A&O, moves all extremities Skin: Warm and dry, no rashes Musculoskeletal: Neck is supple non tender Extremities: BKA present Psychiatric: Patient is oriented X 3, there is no agitation Source: Patient, Old records Exam Limitations: No limitations - Personal History Current Tetanus Diphtheria and Acellular Pertussis (TDAP): No - Medical/Surgical History Hx Asthma: No Hx Chronic Respiratory Disease: No Hx Diabetes: Yes Hx Cardiac Disease: Yes Hx Renal Disease: No Hx Cirrhosis: No Hx Alcoholism: No Hx HIV/AIDS: No Hx Splenectomy or Spleen Trauma: No Other PMH: Gout (denies), Arthritis, DM, HTN, Stents in Heart, Afib, CAD, Periferal Vascular Disease, Sleep Apnea, denies falls, R BKA, smoker, COPD, dCHF , ARF, neuropathy, STENTS IN L LEG, HX OF DVT'S, obesity - Social History Smoking Status: Heavy smoker Constitutional: Initial Vital Signs O2 Sat (%) 94 12/24/18 23:10 O2 Delivery Mode Nasal Cannula O2 (L/minute) 5 Allergies/Adverse Reactions: No Known Allergies Allergy (Verified 12/24/18 23:31) Home Medications: Medication Instructions Recorded Atorvastatin Calcium [Lipitor 80 80 mg PO HS 09/25/17 mg] Metformin HCl [Metformin 1000 mg] 1,000 mg PO BIDMEAL 09/25/17 Gabapentin [Gabapentin 800 mg] 800 mg PO TID 01/26/18 Rivaroxaban [Xarelto] 20 mg PO DAILY@18 01/26/18 Carvedilol [Coreg (*)] 25 mg PO BIDMEAL 02/04/18 Insulin Aspart [novoLOG] 20 - 25 unit SC TIDMEAL 04/16/18 Insulin Detemir [Levemir] 50 - 55 unit SQ BID 04/16/18 Spironolactone [Aldactone 25 MG 25 mg PO DAILY 10/17/18 (*)] Clopidogrel Bisulfate [Plavix (*)] 75 mg PO DAILY 11/17/18 Potassium Cl [Klor-Con 20 meq (*)] 20 meq PO DAILY 11/17/18 Torsemide [Demadex] 20 mg PO DAILY14 11/17/18 Torsemide [Demadex] 100 mg PO DAILY 11/17/18 Medical Decision Making - Diagnostics EKG Interpretation: EKG: Complete interpretation has been separately recorded in the [facility] archive. Summary impression: Atrial fibrillation with QRS widening, no clear ST segment elevations Imaging Results: Chest x-ray one view demonstrates cardiomegaly and diffuse infiltrates suggestive of pulmonary edema, interpreted by me, radiology interpretation is pending. Imaging: I viewed and interpreted images myself Differential Diagnosis: 58-year-old male with multiple medical problems including diastolic CHF with right-sided heart failure, pulmonary hypertension, atrial fibrillation, type 2 diabetes, hypertension, hyperlipidemia, peripheral artery disease presents from home with progressive shortness of breath over the last several days with increasing abdominal distension suggestive of fluid overload state. Here, initial saturations are in the mid 80s and he is short of breath. He is placed on nasal cannula with some improvement in his symptoms. I gave him a dose of Lasix IV. Basic labs revealed elevated BNP on par with prior levels. Chronic renal insufficiency with increasing BUN. Chest x-ray shows findings consistent with pulmonary edema. Plan for admission to the hospitalist service given his hypoxia. I have discussed the case with Dr. Clifton who will admit the patient. Differential diagnoses considered include acute decompensated CHF, pulmonary hypertension, less likely pneumonia. - Data Points Laboratory Results: Laboratory Results 12/24/18 23:27 12/24/18 23:27 12/25/18 12/24/18 12/24/18 00:45 23:27 23:27 WBC 6.54 10^3/uL 10^3/uL (3.80-9.50) RBC 4.47 10^6/uL 10^6/uL (4.40-6.38) Hgb 14.3 g/dL g/dL (13.7-17.5) Hct 43.5 % % (40.0-51.0) MCV 97.3 fL fL (81.5-99.8) MCH 32.0 pg pg (27.9-34.1) MCHC 32.9 g/dL g/dL (32.4-36.7) RDW 15.2 % % (11.5-15.2) Plt Count 220 10^3/uL 10^3/uL (150-400) MPV 10.4 fL fL (8.7-11.7) Neut % (Auto) 53.3 % % (39.3-74.2) Lymph % (Auto) 26.0 % % (15.0-45.0) [place] % (Auto) 15.3 % H % (4.5-13.0) Eos % (Auto) 4.0 % % (0.6-7.6) Baso % (Auto) 0.8 % % (0.3-1.7) Nucleat RBC Rel Count 0.0 % % (0.0-0.2) Absolute Neuts (auto) 3.49 10^3/uL 10^3/uL (1.70-6.50) Absolute Lymphs (auto) 1.70 10^3/uL 10^3/uL (1.00-3.00) Absolute Monos (auto) 1.00 10^3/uL H 10^3/uL (0.30-0.80) Absolute Eos (auto) 0.26 10^3/uL 10^3/uL (0.03-0.40) Absolute Basos (auto) 0.05 10^3/uL 10^3/uL (0.02-0.10) Absolute Nucleated RBC 0.00 10^3/uL 10^3/uL (0-0.01) Immature Gran % 0.6 % % (0.0-1.1) Immature Gran # 0.04 10^3/uL 10^3/uL (0.00-0.10) Sodium 135 mEq/L mEq/L (135-145) Potassium 4.5 mEq/L mEq/L (3.5-5.2) Chloride 95 mEq/L L mEq/L (97-110) Carbon Dioxide 28 mEq/l mEq/l (22-31) Anion Gap 12 mEq/L mEq/L (6-14) BUN 48 mg/dL H mg/dL (7-23) Creatinine 1.5 mg/dL H mg/dL (0.7-1.3) Estimated GFR 48 Glucose 182 mg/dL H mg/dL (70-100) Calcium 9.1 mg/dL mg/dL (8.5-10.4) POC Troponin I NT-Pro-B Natriuret Pep 1390 pg/mL H pg/mL (0-125) Nasal Influenza A PCR NEGATIVE FOR FLU A (NEGATIVE) Nasal Influenza B PCR NEGATIVE FOR FLU B (NEGATIVE) RSV (PCR) NEGATIVE FOR RSV (NEGATIVE) 12/24/18 23:26 WBC RBC Hgb Hct MCV MCH MCHC RDW Plt Count MPV Neut % (Auto) Lymph % (Auto) [place] % (Auto) Eos % (Auto) Baso % (Auto) Nucleat RBC Rel Count Absolute Neuts (auto) Absolute Lymphs (auto) Absolute Monos (auto) Absolute Eos (auto) Absolute Basos (auto) Absolute Nucleated RBC Immature Gran % Immature Gran # Sodium Potassium Chloride Carbon Dioxide Anion Gap BUN Creatinine Estimated GFR Glucose Calcium POC Troponin I 0.08 ng/mL ng/mL (0.00-0.08) NT-Pro-B Natriuret Pep Nasal Influenza A PCR Nasal Influenza B PCR RSV (PCR) Medications Given: Atorvastatin Calcium (Lipitor) 80 mg PO HS JORGE Stop: 06/23/19 02:29 Last Admin: 12/25/18 03:15 Dose: 80 mg Carvedilol (Coreg) 25 mg PO BIDMEAL JORGE Stop: 06/23/19 02:29 Last Admin: 12/25/18 03:15 Dose: 25 mg Gabapentin (Neurontin) 800 mg PO TID JORGE Stop: 06/23/19 02:29 Last Admin: 12/25/18 03:15 Dose: 800 mg Rivaroxaban (Xarelto) 20 mg PO DAILY AT 6PM JORGE Stop: 06/23/19 02:29 Last Admin: 12/25/18 03:14 Dose: 20 mg Discontinued Medications Furosemide (Lasix Injection) 80 mg IVP EDNOW ONE Stop: 12/24/18 23:53 Last Admin: 12/24/18 23:58 Dose: 80 mg Point of Care Test Results: Chemistry 12/24/18 23:26 POC Troponin I 0.08 ng/mL ng/mL (0.00-0.08) Departure - Departure Disposition: [facility] Inpatient Acute Clinical Impression: Pulmonary edema, Body fluid retention, Hypoxia Condition: Fair
[2018-12-25] MEDS ORDERED: ONDANSETRON 4 MG/2 ML VIAL IVP PRN (01:21)
[2018-12-25] MEDS ORDERED: ACETAMINOPHEN 325 MG TAB PO PRN (01:21)
[2018-12-25] MEDS ORDERED: ONDANSETRON DISINTEGRATING 4 MG TAB PO PRN (01:21)
--- NOTE | 2018-12-25 02:05 | PDGENHP ---
History and Physical - Chief Complaint Cough, shortness of breath - History of Present Illness Source-patient able to provide majority of the history is a fair story in. EMR was reviewed and case discussed with ED provider. HPI - this is a 58-year-old gentleman known to our service with history of multiple medical comorbidities including CAD status post stenting x2, diastolic and systolic CHF with history of cardiomyopathy, atrial fibrillation on anticoagulation with Xarelto, HTN, HLD, dm 2 uncontrolled, PAD with history of stenting and right BKA secondary to osteomyelitis (01/2018), obesity (BMI currently 40.4) who presents to the emergency department today with complaints of 2 days worsening shortness of breath, cough and abdominal swelling. Patient reports he has had preceding rhinorrhea, intermittently productive cough and shortness of breath. He has felt significantly fatigued. He complains of orthopnea and lower extremity edema. He also notes some abdominal bloating sensation and constipation. Patient denies any fevers or chills. He does report some chest pressure with coughing but no persistent chest pain. He also notes a headache. Patient has been compliant with his medications by his report. He has been taking his diuretics with good urine output. Patient notes that he feels like he has gained 50 lb over the last several months. His last weight was listed as 115kg and repeat on the floors the same. In the emergency department, patient was found to be hypoxic. He was having increased work of breathing which did improve with supplemental oxygen. History Information - Allergies/Home Medication List Allergies/Adverse Reactions: No Known Allergies Allergy (Verified 12/24/18 23:31) Home Medications: Atorvastatin Calcium [Lipitor 80 mg] 80 mg PO HS 09/25/17 [Last Taken 11/22/18] Metformin HCl [Metformin 1000 mg] 1,000 mg PO BIDMEAL 09/25/17 [Last Taken 11/19] Gabapentin [Gabapentin 800 mg] 800 mg PO TID 01/26/18 [Last Taken 11/22/18] Rivaroxaban [Xarelto] 20 mg PO DAILY@18 01/26/18 [Last Taken 11/19/18] Carvedilol [Coreg (*)] 25 mg PO BIDMEAL 02/04/18 [Last Taken 11/22/18] Insulin Aspart [novoLOG] 20 - 25 unit SC TIDMEAL 04/16/18 [Last Taken 11/22/18] Insulin Detemir [Levemir] 50 - 55 unit SQ BID 04/16/18 [Last Taken 11/22/18] Spironolactone [Aldactone 25 MG (*)] 25 mg PO DAILY 10/17/18 [Last Taken ] Clopidogrel Bisulfate [Plavix (*)] 75 mg PO DAILY 11/17/18 [Last Taken 11/22/18] Potassium Cl [Klor-Con 20 meq (*)] 20 meq PO DAILY 11/17/18 [Last Taken 11/22/18 ] Torsemide [Demadex] 20 mg PO DAILY14 11/17/18 [Last Taken 11/22/18] Torsemide [Demadex] 100 mg PO DAILY 11/17/18 [Last Taken 11/22/18] I have personally reviewed and updated: family history, medical history, social history, surgical history - Past Medical History atrial fibrillation, coronary artery disease (hx PA s/p PCI stent x 2), CHF ( diastolic), chronic insomnia, diabetes type 2, hypertension, hyperlipidemia, peripheral artery disease (bilateral stent) Additional medical history: Atrial fibrillation, on Xarelto. CAD, S/P PCI stent x2. hypertension. hyperlipidemia. diastolic, systolic CHF. 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 PHANI on O2 at HS. Diabetic neuropathy. chronic insomnia. obesity. diabetes mellitus type 2, on insulin. peripheral vascular disease right femoral stenting and bilateral iliac stenting. obstructive sleep apnea on nocturnal O2. Osteoarthritis, gout. History of bradycardia status post temporary transvenous pacer patient has declined permanent pacemaker placement. Hospitalization 2018 - patient admitted for shock thought possibly due to accidental overdose of his beta-shilpi. He required pressors but did not require intubation. - Surgical History Additional surgical history: Right BKA, multiple prior previously placed lower extremity stents, cardiac cath and coronary stentingx2. - Family History Positive for: non-pertinent Additional family history: father age 42 - pt unsure but may have been peritonitis/sepsis. mother with aneurysm/hemorrhage age 60s. 2 sons and 1 daughter are healthy. - Social History Smoking Status: Heavy smoker Alcohol Use: None Drug Use: None Additional social history: patient lives with his family, is originally from [facility], has been [place]. COR status FULL but refuses to discuss advanced directives/MDPOA in detail. Review of Systems Review of Systems: ROS: 10pt was reviewed & negative except for what was stated in HPI & below Constitutional: Reports: malaise, weakness, other (Patient reports a weight gain of 50 lb). Denies: chills, fever, weight loss EENMT: Reports: nose congestion. Denies: blurred vision, sore throat Cardiac: Reports: edema, palpitations, other. Denies: lightheadedness, syncope Respiratory: Reports: cough, orthopnea, shortness of breath, wheezing Gastrointestinal: Reports: abdominal distention. Denies: vomitting, abdominal pain, diarrhea, nausea Genitourinary: Reports: frequency (Associated with diuretic). Denies: dysuria, hematuria Muscolosketal: Reports: joint pain (Right knee stump.) Skin: Reports: dryness (Right stump, drainage) Neurological: Reports: tingling (Chronic neuropathy in lower extremities). Denies: emotional problems, weakness Physical Exam Physical Exam: Selected Entries 12/24/18 23:32 Blood Pressure Automatic Method Heart Rate 88 Respiratory 16 Rate O2 Sat (%) 84 L Temperature (C) 36.8 C Blood Pressure 125/74 H Mean Arterial 91 Pressure (MAP) O2 Delivery Room Air Mode Temperature Oral Source Temp Pulse Resp BP Pulse Ox 36.8 C 98 20 131/76 H 95 12/24/18 23:32 12/25/18 01:30 12/25/18 01:30 12/25/18 01:30 12/25/18 01:30 O2 (L/minute) 5 Constitutional: no apparent distress, not in pain, chronically ill appearing, obese Eyes: PERRL (slightly decreased reactivity to light bilaterally but symmetric), anicteric sclera, EOMI, No scleral injection Ears, Nose, Mouth, Throat: poor dentition, dry mucous membranes, other (No nasal discharge.) Cardiovascular: irregularly irregular, edema (Two to 3+ pitting edema. Left lower leg with chronic skin changes and dry flaking skin. Decreased pedal pulse on the left. Patient has a compression stocking in place and some serous drainage left lateral leg. Right leg stump dry clean intact. It is dry cracked and flaking along the incision site but there is no active drainage. Chronic skin changes are present. Warm.), other (Distant heart sounds) Peripheral Pulses: 0: dorsalis-pedis (R) (Status post right BKA), 1+: dorsalis- pedis (L) Respiratory: no respiratory distress, expiratory wheeze, inspiratory crackles, bronchial breath sounds, No clear to auscultation Gastrointestinal: normoactive bowel sounds, soft, non-tender abdomen, no palpable masses, distension, No magallanes's sign, No guarding Genitourinary: no bladder tenderness, No willoughby in urethra Skin: warm, other (Bilateral lower extremity with dry cracked flaking skin. Wounds as noted above.) Musculoskeletal: pain with ROM, generalized weakness, other (Patient is able to pull up with bed rails independently.) Neurologic: AAOx3, sensation intact bilaterally, other (Grossly nonfocal exam.) , No facial droop Psychiatric: interacting appropriately, not encephalopathic, thought process linear, anxious, poor insight, No poor judgement, No poor memory Lab Data & Imaging Review 12/24/18 23:12/24/18 23: WBC 6.54 10^3/uL (3.80-9.50) 12/24/18 23: RBC 4.47 10^6/uL (4.40-6.38) 12/24/18: Hgb 14.3 g/dL (13.7-17.5) 12/24/18: Hct 43.5 % (40.0-51.0) 12/24/18: MCV 97.3 fL (81.5-99.8) 12/24/18: MCH 32.0 pg (27.9-34.1) 12/24/18: MCHC 32.9 g/dL (32.4-36.7) 12/24/18: RDW 15.2 % (11.5-15.2) 12/24/18: Plt Count 220 10^3/uL (150-400) 12/24/18: MPV 10.4 fL (8.7-11.7) 12/24/18 23: Neut % (Auto) 53.3 % (39.3-74.2) 12/24/18: Lymph % (Auto) 26.0 % (15.0-45.0) 12/24/18 23:27 [place] % (Auto) 15.3 % (4.5-13.0) H 12/24/18 23: Eos % (Auto) 4.0 % (0.6-7.6) 12/24/18: Baso % (Auto) 0.8 % (0.3-1.7) 12/24/18 23: Nucleat RBC Rel Count 0.0 % (0.0-0.2) 12/24/18: Absolute Neuts (auto) 3.49 10^3/uL (1.70-6.50) 12/24/18: Absolute Lymphs (auto) 1.70 10^3/uL (1.00-3.00) 12/24/18: Absolute Monos (auto) 1.00 10^3/uL (0.30-0.80) H 12/24/18: Absolute Eos (auto) 0.26 10^3/uL (0.03-0.40) 12/24/18: Absolute Basos (auto) 0.05 10^3/uL (0.02-0.10) 12/24/18: Absolute Nucleated RBC 0.00 10^3/uL (0-0.01) 12/24/18: Immature Gran % 0.6 % (0.0-1.1) 12/24/18: Immature Gran # 0.04 10^3/uL (0.00-0.10) 12/24/18: Sodium 135 mEq/L (135-145) 12/24/18: Potassium 4.5 mEq/L (3.5-5.2) 12/24/18: Chloride 95 mEq/L (97-110) L 12/24/18: Carbon Dioxide 28 mEq/l (22-31) 12/24/18: Anion Gap 12 mEq/L (6-14) 12/24/18 23:27 BUN 48 mg/dL (7-23) H 12/24/18 23:27 Creatinine 1.5 mg/dL (0.7-1.3) H 12/24/18 23: Estimated GFR 48 12/24/18 23:27 Glucose 182 mg/dL (70-100) H 12/24/18 23:27 Calcium 9.1 mg/dL (8.5-10.4) 12/24/18 23:27 POC Troponin I 0.08 ng/mL (0.00-0.08) 12/24/18 23:26 NT-Pro-B Natriuret Pep 1390 pg/mL (0-125) H 12/24/18 23:27 Imaging Review: Chest x-ray reviewed but report is still pending. Significant cardiomegaly is present. Diffuse cephalization with some peribronchiolar cuffing is present. No large consolidations or effusions. Pneumothorax. Visualized and Interpreted Chest x-ray results: Yes Visualized and Interpreted EKG results: Yes EKG additional interpertation: Atrial fibrillation the 100s. No acute ST changes. RBBB. Q-waves in inferolateral leads. QTC 454. Assessment & Plan Assessment: This is a 58-year-old gentleman known to our service with history of multiple medical comorbidities including CAD status post stenting x2, diastolic and systolic CHF with history of cardiomyopathy, atrial fibrillation on anticoagulation with Xarelto, HTN, HLD, dm 2 uncontrolled, PAD with history of stenting and right BKA secondary to osteomyelitis (01/2018), obesity (BMI currently 40.4) who presents to the emergency department today with complaints of 2 days worsening shortness of breath, cough and abdominal swelling. #Acute on chronic hypoxic respiratory failure - patient with increased work of breathing and evidence of pulmonary edema. His symptoms did improve with supplemental oxygen which will continue to titrate down as tolerated. #Pulmonary edema - status post furosemide in the emergency department. Patient has continued to void. Fluid restrictions been added. Monitor renal function and potassium. #Acute on chronic CHF NOS - patient with history of right heart failure, severe pulmonary hypertension, Hypertrophic cardiomyopathy, atrial fibrillation. Diuresis plan as noted above. Will need to monitor renal function closely. Patient reports that he has not been on a fluid restricted diet at home. He reports that he for sure he drinks 4 L of water on a daily basis drinks lot of water. However he also notes that he may as much as another 1 L taking into account his additional drinks, soup or other food items. Dietary consult and additional education. #Cough- secondary to pulmonary edema. Symptoms are improving with supplemental oxygen and continued void. Home will go ahead and give patient's evening dose of beta-shilpi before considering use of a nebulizer. He does have diffuse wheezing present in a congested-sounding cough. P.r.n. Antitussives will be ordered. Chronic medical issues #Atrial fibrillation - patient reports he missed tonight's dose. Will order for this morning. Patient on Xarelto which will plan to continue. #CAD - continue Plavix, statin, beta-shilpi #PVD - continue statin Plavix as noted above. #Dm 2 uncontrolled - resume patient's Lantus and short-acting insulin. #Diabetic Neuropathy - dose gabapentin now. Resume in the morning. #HLD - continue statin #Severe pulmonary hypertension - continue supplemental oxygen and diuretic therapy as noted above. #Cardiomyopathy - restrictive/hypertrophic - #Tobacco dependence - #CKD stage III- close to baseline. FEN - SLIV. fluid restrict. ADA/Cardiac diet. PPX - holding SCDs in setting of right LE amputation. COR - FULL. Dispo -Patient admitted to inpatient status on PCU for continued diuretic therapy and close monitoring
[2018-12-25] MEDS ORDERED: D50W 25 GM/50 ML VIAL IVP PRN (02:28)
[2018-12-25] MEDS: RIVAROXABAN 20 MG TAB PO SCH ×2 (03:14→18:02)
[2018-12-25] MEDS: ATORVASTATIN CALCIUM 40 MG TAB PO SCH ×2 (03:15→21:44)
[2018-12-25] MEDS: GABAPENTIN 400 MG CAP PO SCH ×4 (03:15→21:45)
[2018-12-25] MEDS: CARVEDILOL 25 MG TAB PO SCH ×3 (03:15→18:02)
[2018-12-25] MEDS ORDERED: BENZONATATE 100 MG CAP PO PRN (03:57)
[2018-12-25] MEDS ORDERED: CEPACOL LOZENGE PO PRN (03:57)
[2018-12-25 04:42] LABS: PLATELET COUNT 205 10^3/uL (150-400)
--- NOTE | 2018-12-25 09:35 | PDMN ---
Medical Necessity Medical necessity: [facility] [place] M190 Heart Failure, A-2 days: 58 yo c/o sob, cough and abd swelling. Eval reveals acute on chronic CHF w/ acute on chronic hypoxic resp fx, pulmonary edema and creat 1.5. O2, fluid restrict, monitor chemistries , IV diuresis, admit IP status meeting IP criteria for CHF w/ pulm edema requiring O2, SOB, increased creat. Anticipate>2MN for ongoing monitoring and tx of the above. Hx atrial fibrillation, coronary artery disease (hx [place] s/p PCI stent x 2), CHF (diastolic), chronic insomnia, diabetes type 2, hypertension , hyperlipidemia, peripheral artery disease (bilateral stent), R BKA
[2018-12-25] MEDS: INSULIN GLARGINE 100 UNITS/ML UNIT SC SCH ×2 (09:55→21:44)
--- NOTE | 2018-12-25 10:15 | ASMTCMCOM ---
CM Note CM Note Notes: Chart reviewed for discharge planning purposes. Patient admitted via ED with increasing SOB and abdominal distention. He had a recent angiogram with Sundeep Carpenter on 12/15/2018. Normally lives independently with his family, No acute needs identified at this time. CM to follow for needs. Plan: TBD Date Signed: 12/25/2018 10:14 AM Electronically Signed By:Karin Frazier RN
[2018-12-25] MEDS: ALBUTEROL 3 ML DEYVIAL IH PRN ×2 (10:26→15:51)
--- NOTE | 2018-12-25 12:06 | HOSPPROG ---
Hospitalist Progress Note Assessment/Plan: Day shift rounds on admission day I saw this patient on hospitalist rounds as well as multidisciplinary rounds today Greater than 40 min at bedside in addition to the time spent earlier by Dr. Clifton on her admission activities DIAGNOSES: * Acute systolic congestive heart failure with market volume overload * Stasis ulcers on left leg * Right BKA site looks good * Chronic kidney disease very near his baseline * Acute on chronic hypoxemic respiratory failure due to heart and lung disease * COPD * Diabetes mellitus insulin-dependent * Morbid obesity PLANS: * Continue aggressive diuresis * Wound care * Continue bronchodilators; he finds that when he comes the hospital nebulized bronchodilators worked much better than the inhalers and he would like and nebulizer to use at home which I think is reasonable * Follow sugars and adjust management with insulin as necessary here * Final renal function and electrolytes on diuresis SUBJECTIVE: Less short of breath this morning than when he came in last night to the ER OBJECTIVE Vitals reviewed: Remains quite hypoxic needing 5 L oxygen, otherwise stable vitals without fever Outside Plant Technician, my review: AFib with rate controlled Exam: alert oriented relaxed skin warm dry color ok resps not labored lungs clear BSs heart regular abd soft nondistended nontender, bowel sounds present limbs warm, market edema particularly of the left leg with stasis ulcers on the lateral and medial left leg that did not appear infected at this time; right leg with some edema but less than left and the BKA surgical site looks good on the right iv site ok Lab data: Stable CBC Creatinine slightly improved at 1.3 potassium stable Objective: Vital Signs Temp Pulse Resp BP Pulse Ox 36.9 C 108 H 18 103/73 91 L 12/25/18 07:28 12/25/18 11:16 12/25/18 11:16 12/25/18 11:16 12/25/18 11:16 Laboratory Results 12/25/18 04:30 12/25/18 04:30 12/24/18 12/25/18 12/26/18 06:59 06:59 06:59 Intake Total 250 400 Output Total 1600 400 Balance -1350 0 ICD10 Worksheet Patient Problems: Problems Problem Status Onset Body fluid retention Acute Hypoxia Acute Pulmonary edema Acute Acute exacerbation of congestive heart failure Acute Afib Acute BKA stump complication Acute Bradycardia Acute Cellulitis of right foot Acute Cellulitis of right lower extremity Acute Dyspnea Acute Elevated troponin Acute Hyperkalemia Acute Hypotension Acute IDDM (insulin dependent diabetes mellitus) Acute Nicotine dependence Acute Reactive airway disease with wheezing Acute SOB (shortness of breath) Acute Sepsis Acute Wheezing Acute Wound infection Acute
[2018-12-25] MEDS: INSULIN LISPRO 100 UNIT/ML SC SCH ×2 (13:17→18:03)
[2018-12-25] MEDS: FUROSEMIDE 40 MG/4 ML VIAL IVP SCH (15:45)
[2018-12-25] MEDS: metFORMIN HCL 500 MG TAB PO SCH (18:02)
[2018-12-25] MEDS ORDERED: INSULIN LISPRO 100 UNIT/ML SC SCH (21:00)
--- NOTE | 2018-12-26 07:11 | CPEKG ---
Test Reason : OPEN Blood Pressure : / mmHG Vent. Rate : 093 BPM Atrial Rate : 121 BPM P-R Int : 157 ms QRS Dur : 115 ms QT Int : 365 ms P-R-T Axes : 000 119 -88 degrees QTc Int : 454 ms Atrial fibrillation Incomplete right bundle branch block Abnormal lateral Q waves Probable anterior infarct, age indeterminate Confirmed by Lis Francisco ([id number]) on 12/26/2018 7:11:29 AM Referred By: Lis Francisco Confirmed By:Lis Francisco
[2018-12-26] MEDS: metFORMIN HCL 500 MG TAB PO SCH ×2 (08:55→18:11)
[2018-12-26] MEDS: INSULIN LISPRO 100 UNIT/ML SC SCH ×4 (08:55→18:29)
[2018-12-26] MEDS: CLOPIDOGREL BISULFATE 75 MG TAB PO SCH (08:55)
[2018-12-26] MEDS: SPIRONOLACTONE 25 MG TAB PO SCH (08:55)
[2018-12-26] MEDS: INSULIN GLARGINE 100 UNITS/ML UNIT SC SCH ×2 (08:55→21:45)
[2018-12-26] MEDS: CARVEDILOL 25 MG TAB PO SCH ×2 (08:56→18:13)
[2018-12-26] MEDS: GABAPENTIN 400 MG CAP PO SCH ×3 (08:56→21:44)
[2018-12-26] MEDS: DILTIAZEM 60 MG TAB PO SCH (08:58)
[2018-12-26] MEDS: POTASSIUM CL 20 MEQ TAB PO SCH (08:58)
[2018-12-26] MEDS: FUROSEMIDE 40 MG/4 ML VIAL IVP SCH ×2 (08:58→16:16)
--- NOTE | 2018-12-26 13:42 | WOCRNPDOC ---
ESDRASCR[facility] Advanced Assessment Note - Skin Integrity Problem, Advanced Assess Left Lower Lateral Leg Dressing Type: Allevyn Life Dressing Description: Clean/Dry, Intact Exudate Amount: Moderate Exudate Color: Clear Exudate Characteristic(s): Serosanguinous Integumentary Issue Intervention: Dressing Changed Petra Wound Tissue: Erythema, Macerated, Swollen, Weeping, Hemosiderin Staining, Rubor (non dependent) Wound Bed Color: Red Wound Bed Constitution: Granulation Tissue (100%) Wound Edges: Epithelizing, Attached Site Odor: None Site Measurement - Head-to-Toe Length X Width X Depth (cm): 1.5x1.6x0.2 Skin Integrity Problem Comment: Left foot with venous dermatitis, doppler pulses and slower cap refill. Petra wound tissue with scaling and weeping. Proximal to ankle lateral anteriorly and medial posteriorly pt has dry crusted area. Wound bed granulating with a macerated wound edge. Wound cleaned with ns and gauze. Will initiate moisture wicking dressing. Patient encouraged to continue with LE elevation. Wound care will follow. Right Lower Leg Surgical Wound/Incision Dressing Type: Open to Air Exudate Amount: Scant Exudate Color: Yellow Exudate Characteristic(s): Cloudy, Dried, Serous Petra Wound Tissue: Scaly, Hemosiderin Staining, Rubor (non dependent) Wound Bed Constitution: Dried Exudate Site Measurement - Head-to-Toe Length X Width X Depth (cm): 0.2x0.5x0.3 Skin Integrity Problem Comment: Patient right BKA presents as clearly delineated gordy and denuded tissue that apears as though he dipped his lower stump into gordy red paint. Patient states that the area was itching last night/ yesterday and he put lotion on it and noticed it opened up. BKA healing incision site presents as a ridge of crusty ecudate with a tiny opening at the medial edge. Per patient the incision has been very slow to close and this tiny spot has been "oozing for months". OK to leave [employer], keep clean and dry. Wound care will follow.
[2018-12-26] MEDS ORDERED: PROTOCOL POTASSIUM 1 DOSE MISC PRN (15:13)
[2018-12-26] MEDS ORDERED: PROTOCOL MAGNESIUM 1 DOSE IV PRN (15:13)
--- NOTE | 2018-12-26 15:14 | HOSPPROG ---
Hospitalist Progress Note Assessment/Plan: DIAGNOSES: * Acute systolic congestive heart failure with market volume overload -the patient has numerous episodes for the same, his compliance with salt diet and other issues seems poor at home * Stasis ulcers on left leg -new ulcers, significant chronic stasis dermatitis present, no current signs of infection * Right BKA incision line looks good (has been very slow to heal) but again severe stasis dermatitis present * Chronic kidney disease very near his baseline * Acute on chronic hypoxemic respiratory failure due to heart and lung disease * COPD * Diabetes mellitus insulin-dependent reasonably clean trialed here so far * Morbid obesity PLANS: * Continue aggressive diuresis * Wound care * Continue bronchodilators; he finds that when he comes the hospital nebulized bronchodilators worked much better than the inhalers and he would like and nebulizer to use at home which I think is reasonable * Follow sugars and adjust management with insulin as necessary here * Final renal function and electrolytes on diuresis Seen by me on hospitalist rounds as well as multidisciplinary rounds I reviewed his wounds at the bedside with wound care nurse today SUBJECTIVE: Again feels a little bit better with his breathing but not at his best baseline No pain or other discomforts OBJECTIVE Vitals reviewed: Remains on 5 L oxygen, otherwise stable vitals without fever 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, my review: AFib with rate controlled Exam: alert oriented relaxed skin warm dry color ok resps not labored lungs clear BSs heart regular abd soft nondistended nontender, bowel sounds present limbs warm, essentially unchanged from yesterday with marked edema, severe stasis dermatitis, weeping; the ulcers on the left leg are unchanged iv site ok Lab data: Sugars remain in good range Objective: Vital Signs Temp Pulse Resp BP Pulse Ox 36.6 C 80 18 113/69 92 12/26/18 12:00 12/26/18 12:00 12/26/18 12:00 12/26/18 12:00 12/26/18 12:00 Laboratory Results 12/25/18 04:30 12/25/18 04:30 12/25/18 12/26/18 12/27/18 06:59 06:59 06:59 Intake Total 250 680 Output Total 1600 7384 Balance -2107 -3808 - Time Spent With Patient Time Spent with Patient: greater than 35 minutes Time Spent with Patient: Greater than 35 minutes spent on this patients care, greater than 50% of time spent counseling, educating, and coordinating care regarding the above mentioned plan. ICD10 Worksheet Patient Problems: Problems Problem Status Onset Body fluid retention Acute Hypoxia Acute Pulmonary edema Acute Acute exacerbation of congestive heart failure Acute Afib Acute BKA stump complication Acute Bradycardia Acute Cellulitis of right foot Acute Cellulitis of right lower extremity Acute Dyspnea Acute Elevated troponin Acute Hyperkalemia Acute Hypotension Acute IDDM (insulin dependent diabetes mellitus) Acute Nicotine dependence Acute Reactive airway disease with wheezing Acute SOB (shortness of breath) Acute Sepsis Acute Wheezing Acute Wound infection Acute
[2018-12-26] MEDS: ALBUTEROL 3 ML DEYVIAL IH PRN (16:26)
[2018-12-26] MEDS: RIVAROXABAN 20 MG TAB PO SCH (18:13)
[2018-12-26] MEDS: ATORVASTATIN CALCIUM 40 MG TAB PO SCH (21:44)
[2018-12-27] MEDS ORDERED: OXYMETAZOLINE 30 ML NASAL SPRAY EACHNARE PRN (04:27)
[2018-12-27] MEDS ORDERED: SODIUM CL NASAL GEL 14.1 GM TUBE TP PRN (04:29)
[2018-12-27] MEDS: DILTIAZEM 60 MG TAB PO SCH (09:35)
[2018-12-27] MEDS: CARVEDILOL 25 MG TAB PO SCH ×2 (09:35→17:32)
[2018-12-27] MEDS: metFORMIN HCL 500 MG TAB PO SCH ×2 (09:35→17:33)
[2018-12-27] MEDS: POTASSIUM CL 20 MEQ TAB PO SCH (09:35)
[2018-12-27] MEDS: CLOPIDOGREL BISULFATE 75 MG TAB PO SCH (09:35)
[2018-12-27] MEDS: INSULIN GLARGINE 100 UNITS/ML UNIT SC SCH ×2 (09:35→22:05)
[2018-12-27] MEDS: SPIRONOLACTONE 25 MG TAB PO SCH (09:35)
[2018-12-27] MEDS: GABAPENTIN 400 MG CAP PO SCH ×3 (09:36→20:12)
[2018-12-27] MEDS: FUROSEMIDE 40 MG/4 ML VIAL IVP SCH ×2 (09:36→15:33)
[2018-12-27] MEDS: INSULIN LISPRO 100 UNIT/ML SC SCH ×3 (09:48→17:41)
[2018-12-27] MEDS ORDERED: diphenhydrAMINE 25 MG CAP PO PRN (14:30)
--- NOTE | 2018-12-27 14:30 | HOSPPROG ---
Hospitalist Progress Note Assessment/Plan: DIAGNOSES: * Acute systolic congestive heart failure with volume overload -the patient has numerous episodes for the same, his compliance with salt diet and other issues seems poor at home * Stasis ulcers on left leg -new ulcers, significant chronic stasis dermatitis present, no current signs of infection * COPD Exacerbation * Right BKA incision line looks good (has been very slow to heal) but again severe stasis dermatitis present * Chronic kidney disease very near his baseline * Acute on chronic hypoxemic respiratory failure due to heart and lung disease * Diabetes mellitus insulin-dependent * Morbid obesity PLANS: * Continue diuresis, will likely transition back to home PO Torsemide and Spironolactone tomorrow * Wound care * Will initiate Prednisone 40 mg qd (expiratory wheezing heard on exam today) * Continue bronchodilators; he finds that when he comes the hospital nebulized bronchodilators worked much better than the inhalers and he would like and nebulizer to use at home which I think is reasonable * Follow sugars and adjust management with insulin as necessary here * Monitor renal function and electrolytes on diuresis Subjective: Patient reports itching on b/l LE this afternoon Objective: Vital Signs Temp Pulse Resp BP Pulse Ox 36.9 C 109 H 10 L 122/71 H 94 12/27/18 11:08 12/27/18 11:08 12/27/18 11:08 12/27/18 11:08 12/27/18 11:08 Laboratory Results 12/25/18 04:30 12/27/18 04:00 12/26/18 12/27/18 12/28/18 05:59 05:59 05:59 Intake Total 680 1220 Output Total 2125 800 Balance -1445 420 - Physical Exam Constitutional: chronically ill appearing, obese Eyes: PERRL Ears, Nose, Mouth, Throat: moist mucous membranes Cardiovascular: regular rate and rhythym, edema Respiratory: no respiratory distress, expiratory wheeze Gastrointestinal: soft, non-tender abdomen Genitourinary: No willoughby in urethra Skin: warm, erythema, rash (chornic venous stais changes b/l LE) Musculoskeletal: full muscle strength Neurologic: AAOx3 Psychiatric: interacting appropriately ICD10 Worksheet Patient Problems: Problems Problem Status Onset Body fluid retention Acute Hypoxia Acute Pulmonary edema Acute Acute exacerbation of congestive heart failure Acute Afib Acute BKA stump complication Acute Bradycardia Acute Cellulitis of right foot Acute Cellulitis of right lower extremity Acute Dyspnea Acute Elevated troponin Acute Hyperkalemia Acute Hypotension Acute IDDM (insulin dependent diabetes mellitus) Acute Nicotine dependence Acute Reactive airway disease with wheezing Acute SOB (shortness of breath) Acute Sepsis Acute Wheezing Acute Wound infection Acute
[2018-12-27] MEDS: predniSONE 20 MG TAB PO SCH (15:33)
--- NOTE | 2018-12-27 16:00 | ASMTCMCOM ---
CM Note CM Note Notes: Pts case discussed in tx rounds. Palliative has been ordered. Pt is not interested in any services at this time because he has a 120lb gibraltarian dan that barks when people come to the door. Pt reports that it stresses him out when people come over and he is trying to control his dog. CM available for changes. Plan: Independent Date Signed: 12/27/2018 03:58 PM Electronically Signed By:CITLALI Kumar
[2018-12-27] MEDS: RIVAROXABAN 20 MG TAB PO SCH (17:32)
[2018-12-27] MEDS: ATORVASTATIN CALCIUM 40 MG TAB PO SCH (20:12)
[2018-12-28] MEDS: ALBUTEROL 3 ML DEYVIAL IH PRN ×2 (05:14→17:37)
[2018-12-28] MEDS: SPIRONOLACTONE 25 MG TAB PO SCH (07:36)
[2018-12-28] MEDS ORDERED: SODIUM ZIRCONIUM CYCLOSILICATE 10 GM PACKET PO ONE (08:09)
[2018-12-28] MEDS: GABAPENTIN 400 MG CAP PO SCH ×2 (08:44→15:09)
[2018-12-28] MEDS: DILTIAZEM 60 MG TAB PO SCH (08:44)
[2018-12-28] MEDS: predniSONE 20 MG TAB PO SCH (08:46)
[2018-12-28] MEDS: metFORMIN HCL 500 MG TAB PO SCH ×2 (08:47→17:19)
[2018-12-28] MEDS: CLOPIDOGREL BISULFATE 75 MG TAB PO SCH (08:48)
[2018-12-28] MEDS: CARVEDILOL 25 MG TAB PO SCH ×2 (08:48→17:19)
[2018-12-28] MEDS: INSULIN GLARGINE 100 UNITS/ML UNIT SC SCH (08:49)
[2018-12-28] MEDS: INSULIN LISPRO 100 UNIT/ML SC SCH ×3 (09:46→19:13)
[2018-12-28] MEDS: FUROSEMIDE 40 MG/4 ML VIAL IVP SCH (10:46)
--- NOTE | 2018-12-28 12:04 | PDHOMEO2F ---
Home Oxygen Face to Face Home Orders: I certify that a physician or a nurse practitioner or physician's hospital nursing assistant has had a [id number] encounter with this patient on the date of this order due to the diagnosis listed, which relates to the primary reason the patient requires home oxygen. Alternative treatments have been tried, or considered, and deemed ineffective. It is anticipated that supplemental oxygen will result in improvement with treatment. Home oxygen qualifying diagnosis: COPD SpO2 on room air (%): 82 Frequency of home oxygen needed: continuous Home oxygen liters per minute: 5 Home oxygen delivery device: mask Concentrator: Yes E-tanks for mobility and back up: Yes If ordering portable O2, is the patient mobile in the home?: Yes I certify that, based on these findings, the home oxygen is medically necessary for this patient for the following length of time. Length of time home oxygen needed: 99 years
[2018-12-28] MEDS ORDERED: CALCIUM GLUC 10% 1 GM/10 ML VIAL IVP ONE ×2 (13:28→13:45)
--- NOTE | 2018-12-28 13:32 | HOSPPROG ---
Hospitalist Progress Note Assessment/Plan: DIAGNOSES: * Acute systolic congestive heart failure with volume overload -the patient has numerous episodes for the same, his compliance with salt diet and other issues seems poor at home * Stasis ulcers on left leg -new ulcers, significant chronic stasis dermatitis present, no current signs of infection * COPD Exacerbation * Right BKA incision line looks good (has been very slow to heal) but again severe stasis dermatitis present * Chronic kidney disease very near his baseline * Acute on chronic hypoxemic respiratory failure due to heart and lung disease * Diabetes mellitus insulin-dependent * Morbid obesity * Hyperkalemia PLANS: * Continue diuresis, transition back to home PO Torsemide today, monitor overnight for fluid retention * K 6.0 this AM, s/p Lokalma x1 in the AM, repeat 6.1 this afternoon, will give additional Lokalma, Ca Gluconate, Insulin, already receiving diuretics, will repeat K 6pm, tomorrow AM * Wound care * Will continue Prednisone 40 mg qd, day #2/5 * Continue bronchodilators; he finds that when he comes the hospital nebulized bronchodilators worked much better than the inhalers and he would like and nebulizer to use at home which I think is reasonable * Follow sugars and adjust management with insulin as necessary here * Monitor renal function and electrolytes on diuresis Subjective: Pt reports continued SOB Objective: Vital Signs Temp Pulse Resp BP Pulse Ox 36.4 C 88 20 115/72 91 L 12/28/18 11:23 12/28/18 11:23 12/28/18 11:23 12/28/18 11:23 12/28/18 11:23 Laboratory Results 12/25/18 04:30 12/28/18 12:37 12/27/18 12/28/18 12/29/18 05:59 05:59 05:59 Intake Total 1220 940 Output Total 800 1000 Balance 420 -60 - Physical Exam Constitutional: chronically ill appearing Eyes: PERRL Ears, Nose, Mouth, Throat: moist mucous membranes Cardiovascular: edema Respiratory: no respiratory distress, expiratory wheeze (improving ) Gastrointestinal: normoactive bowel sounds Skin: warm Musculoskeletal: generalized weakness Neurologic: AAOx3 Psychiatric: interacting appropriately ICD10 Worksheet Patient Problems: Problems Problem Status Onset Body fluid retention Acute Hypoxia Acute Pulmonary edema Acute Acute exacerbation of congestive heart failure Acute Afib Acute BKA stump complication Acute Bradycardia Acute Cellulitis of right foot Acute Cellulitis of right lower extremity Acute Dyspnea Acute Elevated troponin Acute Hyperkalemia Acute Hypotension Acute IDDM (insulin dependent diabetes mellitus) Acute Nicotine dependence Acute Reactive airway disease with wheezing Acute SOB (shortness of breath) Acute Sepsis Acute Wheezing Acute Wound infection Acute
[2018-12-28] MEDS ORDERED: TORSEMIDE 20 MG TAB PO SCH (14:00)
[2018-12-28] MEDS ORDERED: SODIUM ZIRCONIUM CYCLOSILICATE 10 GM PACKET PO SCH (14:00)
[2018-12-28] MEDS ORDERED: CALCIUM GLUCONATE 50 ML IV ONE (14:00)
[2018-12-28] MEDS ORDERED: CALCIUM CHLORIDE 1 GM/10 ML INJ IVP ONE (15:15)
[2018-12-28 17:06] VITALS: BP 125/78
[2018-12-28] MEDS: RIVAROXABAN 20 MG TAB PO SCH (17:19)
--- NOTE | 2018-12-29 08:07 | PDDCSUM ---
Discharge Summary Discharge Summary: Date of Admission: 12/25/2018 Date of Discharge: 12/28/2018 Consults: N/A Procedures: CXR Followup: PCP, Cardiology Hospital Course Problem List: DIAGNOSES: * Acute systolic congestive heart failure with volume overload -the patient has numerous episodes for the same, his compliance with salt diet and other issues seems poor at home * Stasis ulcers on left leg -new ulcers, significant chronic stasis dermatitis present, no current signs of infection * COPD Exacerbation * Right BKA incision line looks good (has been very slow to heal) but again severe stasis dermatitis present * Chronic kidney disease very near his baseline * Acute on chronic hypoxemic respiratory failure due to heart and lung disease * Diabetes mellitus insulin-dependent * Morbid obesity * Hyperkalemia PLANS: * Continue diuresis, transitioned back to home PO Torsemide * K 6.0 on 12/28, s/p Lokalma x2, repeat 5.1 this afternoon, will hold patient's home K supplementation as well as spironolactone upon discharge, followup with minister assistant 1-2 days after discharge for repeat blood work and further evaluation and management of HF medications * Wound care * Continue Prednisone 40 mg qd upon discharge, day #3/5 * Continue bronchodilators; he finds that when he comes the hospital nebulized bronchodilators worked much better than the inhalers and he would like and nebulizer to use at home which I think is reasonable * Followed sugars and adjust management with insulin as necessary here * Monitored renal function and electrolytes on diuresis * Patient discharged on home oxygen @ 5L, 02 sat 82% on RA Time spent on discharge was >35 minutes with >50% of time spent on patient education and counseling.
[2018-12-29] MEDS ORDERED: TORSEMIDE 20 MG TAB PO SCH (09:00)
== END 2018-12-28 20:20 | disposition home or self-care (01) | DRG 291 ==
LOC: F2W 12-25 01:43
PROVIDERS: ADMIT Family Medicine; ATTEND Internal Medicine
DX: I50.21 Acute systolic (congestive) heart failure (principal); J96.21 Acute and chronic respiratory failure with hypoxia; I27.20 Pulmonary hypertension, unspecified; E87.5 Hyperkalemia; J44.1 Chronic obstructive pulmonary disease with (acute) exacerbation; E11.59 Type 2 diabetes mellitus with other circulatory complications; I83.008 Varicose veins of unspecified lower extremity with ulcer other part of lower leg; I73.9 Peripheral vascular disease, unspecified; E11.65 Type 2 diabetes mellitus with hyperglycemia; I25.10 Atherosclerotic heart disease of native coronary artery without angina pectoris; E11.22 Type 2 diabetes mellitus with diabetic chronic kidney disease; N18.3 Chronic kidney disease, stage 3 (moderate); E11.40 Type 2 diabetes mellitus with diabetic neuropathy, unspecified; E66.01 Morbid (severe) obesity due to excess calories; Z68.41 Body mass index [BMI] 40.0-44.9, adult; I48.91 Unspecified atrial fibrillation; E78.5 Hyperlipidemia, unspecified; Z79.4 Long term (current) use of insulin; Z95.5 Presence of coronary angioplasty implant and graft; Z89.512 Acquired absence of left leg below knee; Z79.01 Long term (current) use of anticoagulants; Z86.718 Personal history of other venous thrombosis and embolism; F17.210 Nicotine dependence, cigarettes, uncomplicated
CPT/HCPCS: 84484-ER; 96374; 97116-GP; 97162-GP; 97166-GO; 97530-GO; 97530-GP; 97535-GO; J0610; J1815; J1940; J7512; J7613